=== PATIENT | female | born 1975 | race African-American/Black ===

== ENCOUNTER → 2020-04-28 12:53 | Outpatient (BNVA) | payer MEDICARE, MEDICAID, SELFPAY | PROVIDERS: PCP Internal Medicine; Referring Provider Internal Medicine; Visit Provider Nurse Practitioner Family | DX: M25.531 Pain in right wrist (principal) | CPT/HCPCS: 99202 ==

== ENCOUNTER → 2020-07-09 13:21 | Outpatient (BNVA) | payer MEDICARE, MEDICAID, SELFPAY | PROVIDERS: PCP Internal Medicine; Visit Provider Nurse Practitioner Family | DX: M25.531 Pain in right wrist (principal) | CPT/HCPCS: 99212 ==

== ENCOUNTER 2020-08-18 14:13 | Outpatient (REF) | payer MEDICARE, MEDICAID, SELFPAY ==
[2020-08-18 16:28] LABS: MANUAL DIFF FLAG NO
[2020-08-18 16:33] LABS: Basophils Percent Auto 0.7 % (0-2); Eosinophils Absolute Auto 0.2 X10*3/uL (0.0-0.4); Eosinophils Percent Auto 3.4 % (0-4); Hematocrit 37.2 % (37-47); Hemoglobin 11.8 g/dl (12.0-16.0); Imm Gran Abs Auto 0.01 X10*3/uL (0.00-0.03); Imm Gran Pct Auto 0.2 % (0.0-0.4); Lymphocytes Absolute Auto 2.4 X10*3/uL (1.2-4.9); Lymphocytes Percent Auto 40.2 % (20-40); Mean Corpuscular HGB Conc 31.7 g/dl (31.0-35.0); Mean Corpuscular Hemoglobin 30.2 pg (27.0-33.0); Mean Corpuscular Volume 95.1 fL (80-98); Mean Platelet Volume 11.2 fL (9.4-12.3); Monocytes Absolute Auto 0.5 X10*3/uL (0.1-1.2); Neutrophils Absolute Auto 2.8 X10*3/uL (2.0-8.3); Neutrophils Percent Auto 46.5 % (45-73); Platelet Count 310 X10*3/uL (160-400); Red Blood Count 3.91 X10*6/uL (4.20-5.50); Red Cell Distribution Width 13.4 % (11.0-16.0); White Blood Count 5.9 X10*3/uL (4.8-10.8)
[2020-08-18 17:33] LABS: Alanine Aminotransferase 11 U/L (0-31); Alkaline Phosphatase 60 U/L (39-117); Anion Gap 11 (12-20); Aspartate Amino Transferase 20 U/L (5-31); Bilirubin Total 0.4 mg/dL (0.0-1.0); Blood Urea Nitrogen 11 mg/dL (9-16); Calcium 8.8 mg/dL (8.4-10.2); Carbon Dioxide 29 mmol/L (22-29); Chloride 103 mmol/L (96-108); Estimated Glomerular Filt Rate > 60; Glucose Random 82 mg/dL (60-115); Potassium 4.6 mmol/L (3.3-5.1); Sodium 138 mmol/L (135-145); Total Protein 7.5 g/dL (6.5-8.0)
== END 2020-08-18 14:14 | disposition home or self-care (01) ==
LOC: HO.HMGCLDS 14:13
PROVIDERS: PCP Internal Medicine; Visit Provider Nurse Practitioner Family
DX: K92.1 Melena (principal)
CPT/HCPCS: 36415; 80053; 85025

== ENCOUNTER 2020-11-27 09:46 | Outpatient (REF) | payer MEDICARE, MEDICAID, SELFPAY ==
[2020-11-27 11:29] LABS: Hematocrit 36.9 % (37-47); Hemoglobin 11.8 g/dl (12.0-16.0); Mean Corpuscular Volume 93.9 fL (80-98); Mean Platelet Volume 10.9 fL (9.4-12.3); Platelet Count 334 X10*3/uL (160-400); Red Blood Count 3.93 X10*6/uL (4.20-5.50); Red Cell Distribution Width 12.9 % (11.0-16.0); White Blood Count 5.7 X10*3/uL (4.8-10.8)
[2020-11-27 11:56] LABS: Alanine Aminotransferase < 6 U/L (0-31); Albumin Level 4.2 g/dL (3.5-5.0); Alkaline Phosphatase 62 U/L (39-117); Anion Gap 15 (12-20); Aspartate Amino Transferase 20 U/L (5-31); Bilirubin Total 0.4 mg/dL (0.0-1.0); Blood Urea Nitrogen 15 mg/dL (9-16); Calcium 9.6 mg/dL (8.4-10.2); Carbon Dioxide 25 mmol/L (22-29); Chloride 104 mmol/L (96-108); Cholesterol 206 mg/dL; Estimated Glomerular Filt Rate > 60; Glucose Fasting 89 mg/dL (60-99); HDL Cholesterol 75 mg/dL; Iron 95 mcg/dL (30-160); LDL Cholesterol Calculated 119 mg/dl; Percent Iron Saturation 27 % (15-50); Potassium 4.5 mmol/L (3.3-5.1); Sodium 139 mmol/L (135-145); Total Iron Binding Capacity 349 mcg/dL (228-428); Total Protein 7.8 g/dL (6.5-8.0); Triglycerides 63 mg/dL; Unsaturated Iron Binding 254 ug/dL
[2020-11-27 12:02] LABS: Thyroid Stimulating Hormone 3.61 uIU/mL (0.32-4.0)
== END 2020-11-27 09:47 | disposition home or self-care (01) ==
LOC: HO.HMGCLDS 09:46
PROVIDERS: PCP Internal Medicine; Visit Provider Internal Medicine
DX: Z00.00 Encounter for general adult medical examination without abnormal findings (principal); D50.9 Iron deficiency anemia, unspecified; E78.5 Hyperlipidemia, unspecified; R20.8 Other disturbances of skin sensation; M25.531 Pain in right wrist; K59.00 Constipation, unspecified
CPT/HCPCS: 36415; 80053; 80061; 83540; 84443; 85027

== ENCOUNTER 2022-02-19 12:49 | Outpatient (REF) | payer MEDICARE, MEDICAID, SELFPAY ==
--- NOTE | ~2022-02-19 | US_ITS ---
EXAMINATION: US VENOUS ULTRASOUND WITH DOPPLER LOWER EXTREMITY, LEFT CLINICAL INFORMATION: Leg swelling COMPARISON: None TECHNIQUE: Ultrasound of the deep veins is performed from the hip to the calf with compression sonography and color and pulse Doppler assessment. Spectral analysis with color-flow imaging is performed. FINDINGS: There is normal venous compression and respiratory variation and augmented flow. The visualized common femoral vein, superficial femoral vein, profunda femoral vein, popliteal vein, and the trifurcation region shows no evidence of deep venous thrombosis. There is no significant popliteal fossa cyst. If the patient's symptoms persist, followup ultrasound in 5 days 7 days might be of value to exclude proximal propagation from a non-visualized calf vein. US/US venous duplex LE LT IMPRESSION: No DVT demonstrated in the left lower extremity.
== END 2022-02-19 12:50 | disposition home or self-care (01) ==
LOC: HO.US 12:49
PROVIDERS: PCP Internal Medicine; Visit Provider Internal Medicine
DX: R60.0 Localized edema (principal); M79.89 Other specified soft tissue disorders
CPT/HCPCS: 93971

== ENCOUNTER 2023-02-17 08:56 | Outpatient (AMB) | payer MEDICARE, MEDICAID, SELFPAY ==
[2023-02-17 08:57] VITALS: BP 120/78; PULSE 85; O2SAT 97; BMI 43.1
--- NOTE | 2023-02-17 08:57 | MHC.PC.OV ---
Vital Signs 02/17/23 08:57 Height 5 ft 1 in Weight 228 lb BMI 43.1 BP 120/78 Blood Pressure Location Lt brachial Position Sitting Pulse 85 Pulse Source Pulse Oximeter Pulse Oximetry (%) 97 Oxygen Delivery Method Room Air Intake Visit Reasons: Annual PE Intake Note: Pt is here today for PE. Allergies atenolol Allergy (Unknown, Verified 02/17/23 09:00) bad dreams tramadol [Ultracet] Allergy (Unknown, Verified 02/17/23 09:00) Pt's mother doesn't remember Medication List - Last Reconciled 02/17/23 by Deirdre Boudreaux MD albuterol sulfate 90 mcg/actuation (ProAir HFA) 1 inh inhalation QID PRN escitalopram oxalate 20 mg PO DAILY flu vac qs 2019(4 yr up)CD(PF) mL IM meloxicam 15 mg PO DAILY quetiapine 25 mg PO BEDTIME quetiapine 50 mg PO BEDTIME Tobacco use date assessed: 02/17/23 Dental Screening Dental Screen Date: 02/17/23 Did you have a dental visit in the last 12 months?: Yes Did you have a dental problem in the last 6 months where you did not have access to dental care?: No Was dental information given to patient?: Patient has dentist HPI Annual PE HPI Details Pt presents for PE. [facility] Medical History Constipation Normal colonoscopy Hyperlipidemia Annual physical exam Urinary incontinence Anxiety Insomnia Chronic iron deficiency anemia Mentally challenged Wrist pain, right Family History Mother No problems noted. Maternal Grandmother Mental health disorder Social History Housing: House Alcohol intake: never Patient Tobacco Use Status: Never used Tobacco e-Cigarette/Vaping Use: Never Used Second Hand Smoke Exposure: No Current occupational status: other Cognitive needs: No Hearing needs: No Vision needs: Yes Questionnaire Thrive Questionnaire Date Thrive assessed: 02/18/22 LIZZIE-7 AMB Questionnaire LIZZIE-7 Date LIZZIE - 7 assessed: 02/18/22 Source: Developed by Drs. Hansel Head, Katie Piper, Kuldip Ulloa and colleagues, with an educational simeon from [employer]. Review of Systems Const All systems reviewed & are unremarkable except as noted in HPI and below Reports no additional complaints Eyes Reports no additional complaints ENT Reports no additional complaints Card Reports no additional complaints Resp Reports no additional complaints GI Reports no additional complaints Reports no additional complaints Musc Reports no additional complaints Physical exam (Primary Care) Vital Signs: Last Vital Signs Pulse 85 02/17/23 08:57 BP 142/92 H 02/17/23 08:57 Pulse Ox 97 02/17/23 08:57 Oxygen Delivery Method Room Air 02/17/23 08:57 BMI result Body Mass Index 43.1 Tobacco/Smoking Status: Tobacco use Status Tobacco use date assessed 02/17/23 02/17/23 09:07 Patient Tobacco Use Status Never used Tobacco 02/17/23 09:07 e-Cigarette/Vaping Use Never Used 02/17/23 08:58 Thrive Assessment: Date of Thrive Assessment Date Thrive assessed 02/18/22 02/17/23 08:58 Const General: no acute distress HENMT Head: Yes normal to inspection Ears: hearing grossly normal bilaterally General nose exam: Normal external nose present Face and sinus: Yes normal facial exam Mouth: Normal oral and palatal mucosa present Throat: Yes posterior oropharynx normal Eyes General: appearance normal, both eyes and all related structures Neck Neck: Yes supple Resp Effort & Inspection: normal respiratory effort Auscultation: clear to auscultation bilaterally Cardio Rhythm: regular rhythm Heart sounds: S1 normal heart sound present and S2 normal heart sound present GI Inspection: Yes normal to inspection Palpation (GI): Soft to palpation Percussion: Yes normal to percussion Auscultation: normal bowel sounds Assessment and Plan Assessment & Plan (1) Hyperlipidemia: Code(s): E78.5 - Hyperlipidemia, unspecified Plan: CONTINUE LOW-CHOLESTEROL DIET (2) Annual physical exam: Code(s): Z00.00 - Encounter for general adult medical examination without abnormal findings Plan: Well-balanced diet regular physical activity weight loss discussed with the patient and her mother. She is up-to-date with mammogram and colonoscopy. Patient have a fasting blood work today and return in 1 year for physical or as needed (3) Hearing loss: Code(s): H91.90 - Unspecified hearing loss, unspecified ear Orders: Orders TSH reflex Free T4 Today E78.5 - Hyperlipidemia, unspecified, Z00.00 - Encounter for general adult medical examination without abnormal findings Hemoglobin A1c Today E78.5 - Hyperlipidemia, unspecified, Z00.00 - Encounter for general adult medical examination without abnormal findings Comprehensive [place]. Panel Fast Today E78.5 - Hyperlipidemia, unspecified, Z00.00 - Encounter for general adult medical examination without abnormal findings Complete Blood Count Auto Diff Today E78.5 - Hyperlipidemia, unspecified, Z00.00 - Encounter for general adult medical examination without abnormal findings Lipid Panel Today E78.5 - Hyperlipidemia, unspecified, Z00.00 - Encounter for general adult medical examination without abnormal findings Referrals Speech and Hearing Referral H91.90 - Unspecified hearing loss, unspecified ear Coding Level of Care Code Est Pt Prev Care 40-64y(91202) Diagnoses Hyperlipidemia E78.5 Annual physical exam Z00.00 Hearing loss H91.90
== END 2023-02-17 09:48 | disposition home or self-care (01) ==
PROVIDERS: PCP Internal Medicine; Visit Provider Internal Medicine
DX: Z00.00 Encounter for general adult medical examination without abnormal findings (principal); E78.5 Hyperlipidemia, unspecified; H91.90 Unspecified hearing loss, unspecified ear
CPT/HCPCS: 99396

== ENCOUNTER 2023-02-17 09:44 | Outpatient (REF) | payer MEDICARE, MEDICAID, SELFPAY ==
[2023-02-17 13:23] LABS: MANUAL DIFF FLAG NO
[2023-02-17 13:27] LABS: Basophils Percent Auto 0.6 % (0-2); Eosinophils Absolute Auto 0.2 X10*3/uL (0.0-0.4); Eosinophils Percent Auto 2.9 % (0-4); Hematocrit 37.2 % (37.0-47.0); Hemoglobin 11.5 g/dl (12.0-16.0); Imm Gran Abs Auto 0.02 X10*3/uL (0.00-0.03); Imm Gran Pct Auto 0.3 % (0.0-0.4); Lymphocytes Absolute Auto 2.6 X10*3/uL (1.2-4.9); Lymphocytes Percent Auto 36.1 % (20-40); Mean Corpuscular HGB Conc 30.9 g/dl (31.0-35.0); Mean Corpuscular Hemoglobin 29.4 pg (27.0-33.0); Mean Corpuscular Volume 95.1 fL (80.0-98.0); Mean Platelet Volume 11.4 fL (9.4-12.3); Monocytes Absolute Auto 0.7 X10*3/uL (0.1-1.2); Neutrophils Absolute Auto 3.7 x10*3/uL (2.0-8.3); Neutrophils Percent Auto 51.1 % (45-73); Platelet Count 341 X10*3/uL (160-400); Red Blood Count 3.91 X10*6/uL (4.20-5.50); Red Cell Distribution Width 14.5 % (11.0-16.0); White Blood Count 7.2 X10*3/uL (4.8-10.8)
[2023-02-17 14:16] LABS: Alanine Aminotransferase 10 U/L (0-31); Albumin Level 4.3 g/dL (3.5-5.0); Alkaline Phosphatase 54 U/L (39-117); Anion Gap 17 (12-20); Aspartate Amino Transferase 22 U/L (5-31); Bilirubin Total 0.4 mg/dL (0.0-1.0); Blood Urea Nitrogen 16 mg/dL (9-16); Calcium 9.5 mg/dL (8.4-10.2); Carbon Dioxide 26 mmol/L (22-29); Chloride 100 mmol/L (96-108); Cholesterol 198 mg/dL (<200); Estimated Average Glucose 111 mg/dL; Estimated Glomerular Filt Rate > 60; Glucose Fasting 92 mg/dL (60-99); HDL Cholesterol 74 mg/dL (>40); Hemoglobin A1C 100.2218 umol/L; Hemoglobin A1c % 5.5 % (<6.0); LDL Cholesterol Calculated 109 mg/dL (<100); Potassium 3.9 mmol/L (3.3-5.1); Sodium 139 mmol/L (135-145); Total Protein 8.3 g/dL (6.5-8.0); Triglycerides 79 mg/dL (<150)
[2023-02-17 14:19] LABS: TSH reflex Free T4 3.93 uIU/mL (0.32-4.0)
== END 2023-02-17 09:45 | disposition home or self-care (01) ==
LOC: HO.HMGCLDS 09:44
PROVIDERS: PCP Internal Medicine; Visit Provider Internal Medicine
DX: Z00.00 Encounter for general adult medical examination without abnormal findings (principal); E78.5 Hyperlipidemia, unspecified
CPT/HCPCS: 36415; 80053; 80061; 83036; 84443; 85025

== ENCOUNTER 2023-05-19 13:34 | Outpatient (AMB) | payer MEDICARE, MEDICAID, SELFPAY ==
[2023-05-19 13:40] VITALS: BMI 43.2
--- NOTE | 2023-05-19 13:40 | A.OFFVIS_ITS ---
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 Pt was referred by Dr. Cortez. Pt is accompanied by her mother during this appointment. Mom reports there is no meal pattern in the family, they reside with extended family. No meal pattern, keeping sedentary EAtingout/ordering food: 2-3 x/wk pastries and the like : 3 + per day Beverages: juice > 16 oz/d , water fish: 0x/wk fruits: in juice form vegetables : 4 x/wk dairy: > 4 servings/d starches > 20 serving/d SLX-Rrabofq-Bl.Jeor Equation Height 5 ft 1 in Weight 228 lb Resting Metabolic Rate 1604.37 Calculated Activity Level Sedentary Calories Needed to Maintain Weight 1925.24 Diagnosis Nutrition problem #1 excessive energy intake As related to (etiology) #1 diagnosis As evidenced by (sign/symptom) #1 high BMI (43.2 (05/19/23)) Most Recent Diabetes Results: Cholesterol 198 mg/dL (<200) 02/17/23 HDL Cholesterol 74 mg/dL (>40) 02/17/23 Triglycerides 79 mg/dL (<150) 02/17/23 Creatinine 0.77 mg/dL (0.5-1.4) 02/17/23 Blood Urea Nitrogen 16 mg/dL (9-16) 02/17/23 Sodium 139 mmol/L (135-145) 02/17/23 Potassium 3.9 mmol/L (3.3-5.1) 02/17/23 Chloride 100 mmol/L (96-108) 02/17/23 Carbon Dioxide 26 mmol/L (22-29) 02/17/23 Calcium 9.5 mg/dL (8.4-10.2) 02/17/23 AST 22 U/L (5-31) 02/17/23 ALT 10 U/L (0-31) 02/17/23 Total Protein 8.3 g/dL (6.5-8.0) H 02/17/23 Albumin 4.3 g/dL (3.5-5.0) 02/17/23 PFSH Medical History Constipation Normal colonoscopy Hyperlipidemia Annual physical exam Urinary incontinence Anxiety Insomnia Chronic iron deficiency anemia Mentally challenged Wrist pain, right Family History Mother No problems noted. Maternal Grandmother Mental health disorder Social History Housing: House Alcohol intake: never Patient Tobacco Use Status: Never used Tobacco e-Cigarette/Vaping Use: Never Used Second Hand Smoke Exposure: No Current occupational status: other Cognitive needs: No Hearing needs: No Vision needs: Yes Assessment & Plan Assessment & Plan (1) Overweight: Code(s): E66.3 - Overweight Plan: Wt: 104 Kg ( 04/2023 ) Est kcal needs as per MSJ: 1900 (40% carb, 30% protein/fat) Est fluid needs as per 25-30 ml/d: 3100 Est prot per day as per 1 g/kg bw: 104 Recommend fiber intake : 8-10 g per day and gradually increase to 25-28 g per day for women and 35-38 g for men or as tolerated Recommend sodium intake per day : less than 2000 mg Educated patient on: ( R = reviewed V = verbalizes understanding N/R = needs review N/A = not applicable * Food sources of carbohydrate, adequate serving sizes and its role in various health conditions: R * Differences between complex carbohydrates a simple carbohydrates, role of fiber in diet: R * Lean protein sources of foods: NR * Differences between types of fats and role in diet (mono on saturated fat fatty acids, saturated fatty acids, trans fats): NR * Food sources of sodium in salt and healthy modifications for heart health in kidney health: NR * Vitamins and minerals: R * Healthy plate method concept: R * Physical activity: Benefits a precaution: R Patient Instructions: Work on reducing on sugar -dilute juices with water -reduce on frequency of pastries -choose smaller plates, cups - Follow healthy plate method goal wt loss 5 lbs in 2 months Coding Level of Care Code Nutr Indiv Intake (86801) Diagnoses Overweight E66.3 Time Spent (min) 30
[2023-05-31 13:52] VITALS: BMI 43.1
== END 2023-05-19 14:29 | disposition home or self-care (01) ==
PROVIDERS: PCP Internal Medicine; Visit Provider Dietitian, Registered
DX: E66.3 Overweight (principal)

== ENCOUNTER → 2023-05-19 13:34 | Outpatient (BNVA) | payer MEDICARE, MEDICAID, SELFPAY | PROVIDERS: PCP Internal Medicine; Visit Provider Dietitian, Registered | DX: E66.3 Overweight (principal); Z68.41 Body mass index [BMI] 40.0-44.9, adult | CPT/HCPCS: 97802 ==

== ENCOUNTER 2023-06-14 15:24 | Outpatient (REF) | payer MEDICARE, MEDICAID, SELFPAY ==
--- NOTE | 2023-06-14 16:08 | MHC.AU.ANO ---
Adult Audiological Evaluation Date of Visit: 06/14/23 Reason for Appointment: Here for evaluation. Accompanied by mother, Jordyn, who provided case history details. They report that Elba has been experiencing diminished hearing for about two years. Reports otalgia Ad. Tinnitus Ad. Notes frequent dizzy episodes. Reports history of ear infections and wax build up. Family history of hearing loss denied. Significant noise exposure denied. Medical History: Medical History: Developmental Disorder/Delay Headache Measles Otoscopy: Right Ear: Completely occluded with cerumen Left Ear: Completely occluded with cerumen Tympanometry: Tympanometry performed due to: To determine if cerumen blockage is fully occluding canal(s) Right Ear: Small ear canal volume (0.5cm3) and non-compliant, consistent with occlusion Left Ear: Small ear canal volume (0.4cm3) and non-compliant, consistent with occlusion Interpretation of Results: Additional testing postponed due to presence of occluding cerumen Au. Recommendations: Recommended cerumen removal at PCP. They note that Elba can find cerumen removal to be uncomfortable. Recommended using wax softening drops at home in anticipation of wax removal appointment. Return for hearing evaluation following complete removal of cerumen. Diagnosis: Primary Diagnosis: H61.23 Impacted Cerumen, Bilateral Services Performed: Tympanometry (CPT 21914) Signature: Provider: Kirill Willson, [facility]
== END 2023-06-14 15:25 | disposition home or self-care (01) ==
LOC: HO.SH 15:24
PROVIDERS: Visit Provider Internal Medicine
DX: Z01.118 Encounter for examination of ears and hearing with other abnormal findings (principal); H61.23 Impacted cerumen, bilateral
CPT/HCPCS: 92567

== ENCOUNTER 2023-06-22 14:17 | Outpatient (AMB) | payer MEDICARE, MEDICAID, SELFPAY ==
--- NOTE | 2023-06-22 14:33 | A.OFFPC_ITS ---
Vital Signs 06/22/23 14:35 Height 5 ft 1 in Weight 222 lb BMI 41.9 BP 125/85 Blood Pressure Location Lt brachial Position Sitting Pulse 90 Pulse Source Pulse Oximeter Pulse Oximetry (%) 97 Oxygen Delivery Method Room Air Intake Visit Reasons: ear irrigation Intake Note: Pt is here today for a follow up visit. Pt states that she needs her ears flushed and she would like to get a flu shot today. Allergies atenolol Allergy (Unknown, Verified 06/22/23 14:41) bad dreams tramadol [Ultracet] Allergy (Unknown, Verified 06/22/23 14:41) Pt's mother doesn't remember Tobacco use date assessed: 06/22/23 Dental Screening Dental Screen Date: 06/22/23 Did you have a dental visit in the last 12 months?: Yes Did you have a dental problem in the last 6 months where you did not have access to dental care?: No Was dental information given to patient?: Patient has dentist HPI ear irrigation HPI Details Patient presents complaining of cerumen buildup in the right ear and decreased hearing. Patient denies ear pain. [facility] Medical History Constipation Normal colonoscopy Hyperlipidemia Annual physical exam Urinary incontinence Anxiety Insomnia Chronic iron deficiency anemia Mentally challenged Wrist pain, right Family History Mother No problems noted. Maternal Grandmother Mental health disorder Social History Housing: House Alcohol intake: never Patient Tobacco Use Status: Never used Tobacco e-Cigarette/Vaping Use: Never Used Second Hand Smoke Exposure: No Current occupational status: other Cognitive needs: No Hearing needs: No Vision needs: Yes Questionnaire Thrive Questionnaire Date Thrive assessed: 02/18/22 AUDIT C Alcohol Use Questionnaire (AUDIT-C) 1. How often do you have a drink containing alcohol?: Never 3. How often do you have six or more drinks on one occasion?: Never Total Score: 0 LIZZIE-7 AMB Questionnaire LIZZIE-7 Date LIZZIE - 7 assessed: 02/18/22 Source: Developed by Drs. Hansel Head, Katie Piper, Kuldip Ulloa and colleagues, with an educational simeon from [employer]. Review of Systems Const All systems reviewed & are unremarkable except as noted in HPI and below Reports no additional complaints Eyes Reports no additional complaints ENT Reports no additional complaints Card Reports no additional complaints Resp Reports no additional complaints GI Reports no additional complaints Physical exam (Primary Care) Vital Signs: Last Vital Signs Pulse 90 06/22/23 14:35 BP 136/90 H 06/22/23 14:35 Pulse Ox 97 06/22/23 14:35 Oxygen Delivery Method Room Air 06/22/23 14:35 BMI result Body Mass Index 41.9 Tobacco/Smoking Status: Tobacco use Status Tobacco use date assessed 06/22/23 06/22/23 14:44 Patient Tobacco Use Status Never used Tobacco 06/22/23 14:44 e-Cigarette/Vaping Use Never Used 06/22/23 14:34 Thrive Assessment: Date of Thrive Assessment Date Thrive assessed 02/18/22 06/22/23 14:34 Const General: no acute distress HENMT Ears: unable to visualize TM (Cerumen impaction) bilaterally Face and sinus: Yes normal facial exam Eyes General: appearance normal, both eyes and all related structures Neck Neck: Yes supple Resp Effort & Inspection: normal respiratory effort Auscultation: clear to auscultation bilaterally Cardio Rhythm: regular rhythm Heart sounds: S1 normal heart sound present and S2 normal heart sound present Assessment and Plan Assessment & Plan (1) Hyperlipidemia: Code(s): E78.5 - Hyperlipidemia, unspecified Plan: Continue low-cholesterol diet (2) Cerumen impaction: Code(s): H61.20 - Impacted cerumen, unspecified ear Plan: Ear irrigation performed, tympanic membrane visualized and inact, patient tolerated procedure well Coding Level of Care Code Est Pt Level 3 (97668) Diagnoses Hyperlipidemia E78.5 Cerumen impaction H61.20
[2023-06-22 14:35] VITALS: BP 125/85; PULSE 90; O2SAT 97; BMI 41.9
== END 2023-06-22 15:17 | disposition home or self-care (01) ==
PROVIDERS: PCP Internal Medicine; Visit Provider Internal Medicine
DX: E78.5 Hyperlipidemia, unspecified (principal); H61.20 Impacted cerumen, unspecified ear; Z23 Encounter for immunization
CPT/HCPCS: 90471; 90686; 99213

== ENCOUNTER 2023-06-23 13:35 | Outpatient (AMB) | payer MEDICARE, MEDICAID, SELFPAY ==
[2023-06-23 13:39] VITALS: BMI 42.8
--- NOTE | 2023-06-23 13:39 | MHC.AMNUTRGE ---
Intake VS Expanded 06/23/23 13:39 Height 5 ft 1 in Weight 226 lb 6.636 oz BMI 42.8 Intake Visit Reasons: nutrition/CONFIRMED Allergies atenolol Allergy (Unknown, Verified 06/22/23 14:41) bad dreams tramadol [Ultracet] Allergy (Unknown, Verified 06/22/23 14:41) Pt's mother doesn't remember HPI Nutrition Presentation Details Pt presents for MNT for overweight. The Pt has intellectual disability and presents with her mother during this appointment. Pt's mom reports Pt havig long hx of needing supervision with daily life activities including supervision when eating related to increased intake/large portions. Mom reports working on reducing on beverages with sugar , reinforcing water Most Recent Diabetes Results: Cholesterol 198 mg/dL (<200) 02/17/23 HDL Cholesterol 74 mg/dL (>40) 02/17/23 Triglycerides 79 mg/dL (<150) 02/17/23 Creatinine 0.77 mg/dL (0.5-1.4) 02/17/23 Blood Urea Nitrogen 16 mg/dL (9-16) 02/17/23 Sodium 139 mmol/L (135-145) 02/17/23 Potassium 3.9 mmol/L (3.3-5.1) 02/17/23 Chloride 100 mmol/L (96-108) 02/17/23 Carbon Dioxide 26 mmol/L (22-29) 02/17/23 Calcium 9.5 mg/dL (8.4-10.2) 02/17/23 AST 22 U/L (5-31) 02/17/23 ALT 10 U/L (0-31) 02/17/23 Total Protein 8.3 g/dL (6.5-8.0) H 02/17/23 Albumin 4.3 g/dL (3.5-5.0) 02/17/23 [facility] Medical History Constipation Normal colonoscopy Hyperlipidemia Annual physical exam Urinary incontinence Anxiety Insomnia Chronic iron deficiency anemia Mentally challenged Wrist pain, right Family History Mother No problems noted. Maternal Grandmother Mental health disorder Social History Housing: House Alcohol intake: never Patient Tobacco Use Status: Never used Tobacco e-Cigarette/Vaping Use: Never Used Second Hand Smoke Exposure: No Current occupational status: other Cognitive needs: No Hearing needs: No Vision needs: Yes Assessment & Plan Assessment & Plan (1) Overweight: Code(s): E66.3 - Overweight Plan: Wt: 104 Kg ( 04/2023 ) , 103 kg (06/2023) Est kcal needs as per MSJ: 1900 (40% carb, 30% protein/fat) Est fluid needs as per 25-30 ml/d: 3100 Est prot per day as per 1 g/kg bw: 104 Recommend fiber intake : 8-10 g per day and gradually increase to 25-28 g per day for women and 35-38 g for men or as tolerated Recommend sodium intake per day : less than 2000 mg Educated patient on: ( R = reviewed V = verbalizes understanding N/R = needs review N/A = not applicable Food sources of carbohydrate, adequate serving sizes and its role in various health conditions: R Differences between complex carbohydrates a simple carbohydrates, role of fiber in diet: R Lean protein sources of foods: NR Differences between types of fats and role in diet (mono on saturated fat fatty acids, saturated fatty acids, trans fats): NR Food sources of sodium in salt and healthy modifications for heart health in kidney health: NR Vitamins and minerals: R Healthy plate method concept: R Physical activity: Benefits a precaution: R Patient Instructions: Continue working on reducing on beverages with sugars Reduce on amount of fat added to the foods (butter, oils, sauces, gravies, fried foods) Coding Level of Care Code Nutr Indiv Subseq (94050) Diagnoses Overweight E66.3 Time Spent (min) 20
== END 2023-06-23 14:05 | disposition home or self-care (01) ==
PROVIDERS: PCP Internal Medicine; Visit Provider Dietitian, Registered
DX: E66.3 Overweight (principal)

== ENCOUNTER → 2023-06-23 13:35 | Outpatient (BNVA) | payer MEDICARE, MEDICAID, SELFPAY | PROVIDERS: PCP Internal Medicine; Visit Provider Dietitian, Registered | DX: E66.3 Overweight (principal); Z68.41 Body mass index [BMI] 40.0-44.9, adult; Z71.3 Dietary counseling and surveillance | CPT/HCPCS: 97803 ==

== ENCOUNTER 2023-06-27 14:44 | Outpatient (REF) | payer MEDICARE, MEDICAID, SELFPAY | END 2023-06-27 14:45 | disposition home or self-care (01) | LOC: HO.SH 14:44 | PROVIDERS: Visit Provider Internal Medicine | DX: Z01.10 Encounter for examination of ears and hearing without abnormal findings (principal); H93.293 Other abnormal auditory perceptions, bilateral; G47.63 Sleep related bruxism | CPT/HCPCS: 92552; 92555; 92567 ==

== ENCOUNTER 2023-08-16 14:09 | Outpatient (REF) | payer MEDICARE, MEDICAID, SELFPAY ==
[2023-08-17 22:28] LABS: Lyme Abs Screen <0.90 index
== END 2023-08-16 14:10 | disposition home or self-care (01) ==
LOC: HO.HMGCLDS 14:09
PROVIDERS: PCP Internal Medicine; Visit Provider Internal Medicine
DX: M25.50 Pain in unspecified joint (principal)
CPT/HCPCS: 36415; 86617; 86618

== ENCOUNTER 2023-08-18 12:53 | Outpatient (AMB) | payer MEDICARE, MEDICAID, SELFPAY ==
[2023-08-18 13:04] VITALS: BMI 42.5
--- NOTE | 2023-08-18 13:04 | A.OFFVIS_ITS ---
Intake VS Expanded 08/18/23 13:04 Height 5 ft 1 in Weight 225 lb 1.471 oz BMI 42.5 Intake Visit Reasons: Obesity/LVM Allergies atenolol Allergy (Unknown, Verified 06/22/23 14:41) bad dreams tramadol [Ultracet] Allergy (Unknown, Verified 06/22/23 14:41) Pt's mother doesn't remember HPI Nutrition Presentation Details Pt presents for MNT f/u for obesity Gradually working on modifying portion of the meal at dinner. Most Recent Diabetes Results: Cholesterol 198 mg/dL (<200) 02/17/23 HDL Cholesterol 74 mg/dL (>40) 02/17/23 Triglycerides 79 mg/dL (<150) 02/17/23 Creatinine 0.77 mg/dL (0.5-1.4) 02/17/23 Blood Urea Nitrogen 16 mg/dL (9-16) 02/17/23 Sodium 139 mmol/L (135-145) 02/17/23 Potassium 3.9 mmol/L (3.3-5.1) 02/17/23 Chloride 100 mmol/L (96-108) 02/17/23 Carbon Dioxide 26 mmol/L (22-29) 02/17/23 Calcium 9.5 mg/dL (8.4-10.2) 02/17/23 AST 22 U/L (5-31) 02/17/23 ALT 10 U/L (0-31) 02/17/23 Total Protein 8.3 g/dL (6.5-8.0) H 02/17/23 Albumin 4.3 g/dL (3.5-5.0) 02/17/23 [facility] Medical History Constipation Normal colonoscopy Hyperlipidemia Annual physical exam Urinary incontinence Anxiety Insomnia Chronic iron deficiency anemia Mentally challenged Wrist pain, right Family History Mother No problems noted. Maternal Grandmother Mental health disorder Social History Housing: House Alcohol intake: never Patient Tobacco Use Status: Never used Tobacco e-Cigarette/Vaping Use: Never Used Second Hand Smoke Exposure: No Current occupational status: other Cognitive needs: No Hearing needs: No Vision needs: Yes Assessment & Plan Assessment & Plan (1) Overweight: Code(s): E66.3 - Overweight Plan: Wt: 104 Kg ( 04/2023 ) , 103 kg (06/2023), 102 kg ( 07/2023) Est kcal needs as per MSJ: 1900 (40% carb, 30% protein/fat) Est fluid needs as per 25-30 ml/d: 3100 Est prot per day as per 1 g/kg bw: 102 Recommend fiber intake : 8-10 g per day and gradually increase to 25-28 g per day for women and 35-38 g for men or as tolerated Recommend sodium intake per day : less than 2000 mg Educated patient on: ( R = reviewed V = verbalizes understanding N/R = needs review N/A = not applicable * Food sources of carbohydrate, adequate serving sizes and its role in various health conditions: R * Differences between complex carbohydrates a simple carbohydrates, role of fiber in diet: R * Lean protein sources of foods: NR * Differences between types of fats and role in diet (mono on saturated fat fatty acids, saturated fatty acids, trans fats): NR * Food sources of sodium in salt and healthy modifications for heart health in kidney health: R * Vitamins and minerals: R * Healthy plate method concept: R * Physical activity: Benefits a precaution: R Patient Instructions: Continue working on portion control - have a particular plate (with healthy plate partition) Drink water with meals and snacks include probiotics into your diet (pickled peppers/vegetables, sauerkraut, yogurt Coding Level of Care Code Nutr Indiv Subseq (17278) Diagnoses Overweight E66.3 Time Spent (min) 20
== END 2023-08-18 13:32 | disposition home or self-care (01) ==
PROVIDERS: PCP Internal Medicine; Visit Provider Dietitian, Registered
DX: E66.3 Overweight (principal)

== ENCOUNTER → 2023-08-18 12:53 | Outpatient (BNVA) | payer MEDICARE, MEDICAID, SELFPAY | PROVIDERS: PCP Internal Medicine; Visit Provider Dietitian, Registered | DX: E66.3 Overweight (principal); Z68.41 Body mass index [BMI] 40.0-44.9, adult | CPT/HCPCS: 97803 ==

== ENCOUNTER 2023-09-01 14:21 | Outpatient (AMB) | payer MEDICARE, MEDICAID, SELFPAY ==
[2023-09-01 14:27] VITALS: BP 110/78; PULSE 88; O2SAT 96; BMI 41.9
--- NOTE | 2023-09-01 14:27 | MHC.PC.OV ---
Vital Signs 09/01/23 14:27 Height 5 ft 1 in Weight 222 lb BMI 41.9 BP 110/78 Blood Pressure Location Rt brachial Position Sitting Pulse 88 Pulse Source Pulse Oximeter Pulse Oximetry (%) 96 Oxygen Delivery Method Room Air Intake Visit Reasons: Pain in right Eye Intake Note: Pt is here today for a sick visit. Pt c/o R eye pain for 6 weeks now. Allergies atenolol Allergy (Unknown, Verified 09/01/23 14:33) bad dreams tramadol [Ultracet] Allergy (Unknown, Verified 09/01/23 14:33) Pt's mother doesn't remember Medication List - Last Reconciled 09/01/23 by Deirdre Boudreaux MD albuterol sulfate 90 mcg/actuation (ProAir HFA) 1 inh inhalation QID PRN escitalopram oxalate 20 mg PO DAILY flu vac qs 2019(4 yr up)CD(PF) mL IM latanoprost 0.005% drps ophthalmic (eye) meloxicam 15 mg PO DAILY propranolol 10 mg PO DAILY quetiapine 25 mg PO BEDTIME quetiapine 50 mg PO BEDTIME Tobacco use date assessed: 09/01/23 Dental Screening Dental Screen Date: 06/22/23 HPI Pain in right Eye HPI Details Pt presents c/o constant R eye and right side face pain for 8 weeks. Patient complains of headaches on and off worse on the right frontal side. She denies change in vision and had negative ophthalmological evaluation. Patient has chronic nasal congestion but denies fever, chills, cough. [facility] Medical History (Updated 09/01/23 @ 15:05 by Deirdre Boudreaux MD) Constipation Normal colonoscopy Hyperlipidemia Annual physical exam Urinary incontinence Anxiety Insomnia Chronic iron deficiency anemia Mentally challenged Wrist pain, right Surgical History (Updated 09/01/23 @ 14:39 by Padma Dean Aung) H/O colonoscopy Family History Mother No problems noted. Maternal Grandmother Mental health disorder Social History Housing: House Alcohol intake: never Patient Tobacco Use Status: Never used Tobacco e-Cigarette/Vaping Use: Never Used Second Hand Smoke Exposure: No Current occupational status: other Cognitive needs: No Hearing needs: No Vision needs: Yes Questionnaire PHQ-9 Over the last 2 weeks, how often have you been bothered by any of the following problems? 46498 - PHQ-9 Billing: Patient declined-do not bill Source: Developed by Drs. Hansel Head, Katie Piper, Kuldip Ulloa and colleagues, with an educational simeon from [employer]. Thrive Questionnaire Date Thrive assessed: 09/01/23 What is your living situation today?: I choose not to answer this question Within the past 12 months, did the food you bought not last and you didn't have the money to get more?: I choose not to answer this question Within the past 12 months, did you worry whether your food would run out before you got money to buy more?: I choose not to answer this question Do you have trouble paying for medicines?: I choose not to answer this question Do you have trouble getting transportation to medical appointments?: I choose not to answer this question Do you have trouble paying your heating and electricity bill?: I choose not to answer this question Do you have trouble taking care of your child, family member or friend?: I choose not to answer this question Do you have trouble with day-to-day activities such as bathing, preparing meals, shopping, managing finances, etc.?: I choose not to answer this question Are you currently unemployed and looking for a job?: I choose not to answer this question Are you interested in more education?: I choose not to answer this question THRIVE Score: 0 LIZZIE-7 AMB Questionnaire LIZZIE-7 Date LIZZIE - 7 assessed: 09/01/23 Source: Developed by Drs. Hansel Head, Katie Piper, Kuldip Ulloa and colleagues, with an educational simeon from [employer]. LIZZIE-7 Assessment Billing LIZZIE-7 Assessment Tool: pt declined-do not bill Review of Systems Const All systems reviewed & are unremarkable except as noted in HPI and below Reports no additional complaints Eyes Reports no additional complaints ENT Reports no additional complaints Resp Reports no additional complaints Physical exam (Primary Care) Vital Signs: Last Vital Signs Pulse 88 09/01/23 14:27 BP 110/78 09/01/23 14:27 Pulse Ox 96 09/01/23 14:27 Oxygen Delivery Method Room Air 09/01/23 14:27 BMI result Body Mass Index 41.9 Tobacco/Smoking Status: Tobacco use Status Tobacco use date assessed 09/01/23 09/01/23 14:35 Patient Tobacco Use Status Never used Tobacco 09/01/23 14:27 e-Cigarette/Vaping Use Never Used 09/01/23 14:27 Thrive Assessment: Date of Thrive Assessment Date Thrive assessed 09/01/23 09/01/23 14:40 Const General: no acute distress HENMT Other: There is a reproducible tenderness over right maxillary region, and 1st and 2nd trigeminal luis fernando on the right Head: Yes normal to inspection Ears: hearing grossly normal bilaterally General nose exam: Normal nasal mucous membranes and turbinates present Face and sinus: Yes sinus tenderness (Maxillary) Mouth: Normal oral and palatal mucosa present Throat: Yes posterior oropharynx normal Eyes General: appearance normal, both eyes and all related structures Visual Farley: normal visual farley by confrontation Periorbital: periorbital findings normal Eyelids: Yes eyelids normal Conjunctivae: conjunctivae normal Pupils: Equal, round and reactive pupils present EOM: EOMs intact bilaterally Neck Neck: Yes no lymphadenopathy and Yes supple Resp Effort & Inspection: normal respiratory effort Auscultation: clear to auscultation bilaterally Cardio Rhythm: regular rhythm Heart sounds: S1 normal heart sound present and S2 normal heart sound present Neuro Cranial nerves: Yes Equal, round and reactive pupils present Assessment and Plan Assessment & Plan (1) Right facial pain: Code(s): R51.9 - Headache, unspecified Plan: For persistent right facial pain CT of the sinuses will be obtained to rule out chronic sinusitis. Sed rate will be checked and Tegretol 100 mg daily will be started for trigeminal neuralgia. Patient will follow-up in 1 month (2) Chronic sinus infection: Code(s): J32.9 - Chronic sinusitis, unspecified Orders: Orders CT sinus wo IV con Today J32.9 - Chronic sinusitis, unspecified, R51.9 - Headache, unspecified C Reactive Protein Today J32.9 - Chronic sinusitis, unspecified, R51.9 - Headache, unspecified Medications: New carbamazepine ER (Tegretol XR) 100 mg PO DAILY 30 tabs 0RF Coding Level of Care Code Est Pt Level 3 (30675) Diagnoses Right facial pain R51.9 Chronic sinus infection J32.9
== END 2023-09-01 15:17 | disposition home or self-care (01) ==
PROVIDERS: PCP Internal Medicine; Visit Provider Internal Medicine
DX: R51.9 Headache, unspecified (principal); J32.9 Chronic sinusitis, unspecified
CPT/HCPCS: 99213

== ENCOUNTER 2023-09-01 15:11 | Outpatient (REF) | payer MEDICARE, MEDICAID, SELFPAY | END 2023-09-01 15:12 | disposition home or self-care (01) | LOC: HO.HMGCLDS 15:11 | PROVIDERS: PCP Internal Medicine; Visit Provider Internal Medicine | DX: Z13.89 Encounter for screening for other disorder (principal) ==

== ENCOUNTER 2023-10-19 11:00 | Outpatient (AMB) | payer MEDICARE, MEDICAID, SELFPAY ==
--- NOTE | 2023-10-19 11:14 | MHC.AMNUTRGE ---
VS Expanded 10/19/23 11:15 Height 5 ft 1 in Weight 225 lb 12.054 oz BMI 42.7 Intake Visit Reasons: Monitor weight/CONFIRMED Allergies atenolol Allergy (Unknown, Verified 09/01/23 14:33) bad dreams tramadol [Ultracet] Allergy (Unknown, Verified 09/01/23 14:33) Pt's mother doesn't remember Nutrition Presentation Details: Pt presents for MNT f/u for overweight Pt presents with mom who is the main neuropsychology division chief Pt has mild intellectual disabilities with impaired judgment. Pt cannot differentiate appetite vs hunger Utilizing plate with portions - BS Monitoring Most Recent Diabetes Results: No Data to Display PFSH Medical History (Updated 10/07/23 @ 13:56 by Deirdre Boudreaux MD) Constipation Normal colonoscopy Hyperlipidemia Annual physical exam Urinary incontinence Anxiety Insomnia Chronic iron deficiency anemia Mentally challenged Wrist pain, right Surgical History (Updated 09/01/23 @ 14:39 by Padma Dean [facility]) H/O colonoscopy Family History Mother No problems noted. Maternal Grandmother Mental health disorder Social History Housing: House Alcohol intake: never Patient Tobacco Use Status: Never used Tobacco e-Cigarette/Vaping Use: Never Used Second Hand Smoke Exposure: No Current occupational status: other Cognitive needs: No Hearing needs: No Vision needs: Yes Assessment & Plan Assessment & Plan (1) Overweight: Code(s): E66.3 - Overweight Category: Medical Plan: Wt: 104 Kg ( 04/2023 ) , 103 kg (06/2023), 102 kg ( 07/2023), 103 kg (09/2023) Est kcal needs as per MSJ: 1900 (40% carb, 30% protein/fat) Est fluid needs as per 25-30 ml/d: 3100 Est prot per day as per 1 g/kg bw: 102 Recommend fiber intake : 8-10 g per day and gradually increase to 25-28 g per day for women and 35-38 g for men or as tolerated Recommend sodium intake per day : less than 2000 mg Educated patient on: ( R = reviewed V = verbalizes understanding N/R = needs review N/A = not applicable Food sources of carbohydrate, adequate serving sizes and its role in various health conditions: R Differences between complex carbohydrates a simple carbohydrates, role of fiber in diet: R Lean protein sources of foods: NR Differences between types of fats and role in diet (mono on saturated fat fatty acids, saturated fatty acids, trans fats): NR Food sources of sodium in salt and healthy modifications for heart health in kidney health: R Vitamins and minerals: R Healthy plate method concept: R Physical activity: Benefits a precaution: R Patient Instructions: Reduce on sugars - do not add sugar to the cereal , you can add cinnamon /nutmeg Have fruit/ herbs infused water in place of soda/juice drinks offer non food options as rewards (clothing, hair accessories) in place of food Coding Level of Care Code Nutr Indiv Subseq (40372) Diagnoses Overweight E66.3 Time Spent (min) 30
[2023-10-19 11:15] VITALS: BMI 42.7
== END 2023-10-19 11:44 | disposition home or self-care (01) ==
PROVIDERS: PCP Internal Medicine; Visit Provider Dietitian, Registered
DX: E66.3 Overweight (principal)

== ENCOUNTER → 2023-10-19 11:00 | Outpatient (BNVA) | payer MEDICARE, MEDICAID, SELFPAY | PROVIDERS: PCP Internal Medicine; Visit Provider Dietitian, Registered | DX: E66.3 Overweight (principal); Z68.41 Body mass index [BMI] 40.0-44.9, adult; Z71.3 Dietary counseling and surveillance | CPT/HCPCS: 97803 ==

== ENCOUNTER 2023-10-31 15:32 | Outpatient (AMB) | payer MEDICARE, MEDICAID, SELFPAY ==
[2023-10-31 15:35] VITALS: BP 130/80; PULSE 99; TEMP 36.7; O2SAT 98; BMI 42.5
--- NOTE | 2023-10-31 15:35 | MHC.OFFWIV ---
Intake Vital Signs 10/31/23 15:35 Height 5 ft 1 in Weight 225 lb BMI 42.5 BP 130/80 Blood Pressure Location Lt brachial Position Sitting Pulse 99 Pulse Source Pulse Oximeter Temp 98.1 F Temp Source Temporal Artery Scan Pulse Oximetry (%) 98 Intake Visit Reasons: EP ?UTI Intake Note: pt is here for possible uti Patient Tobacco Use Status: Never used Tobacco Allergies atenolol Allergy (Unknown, Verified 10/31/23 15:35) bad dreams tramadol [Ultracet] Allergy (Unknown, Verified 10/31/23 15:35) Pt's mother doesn't remember Do you need a note to return to daycare/school/sports/work: No HPI HPI Comments History of Present Illness Details Patient is a 48-year-old female complaining of 2 days of pain with urination, increase in frequency of urination, sharp suprapubic pain and yellow discharge. She denies any fevers, white chunky discharge, blood in her urine or vaginal bleeding or odors. She states she is not sexually active. [facility] Medical History (Updated 10/31/23 @ 16:12 by Elyse Stevenson PA-C) Constipation Normal colonoscopy Hyperlipidemia Annual physical exam Urinary incontinence Anxiety Insomnia Chronic iron deficiency anemia Mentally challenged Wrist pain, right Surgical History (Updated 09/01/23 @ 14:39 by Padma Dean [facility]) H/O colonoscopy Family History Mother No problems noted. Maternal Grandmother Mental health disorder Social History Housing: House Alcohol intake: never Patient Tobacco Use Status: Never used Tobacco e-Cigarette/Vaping Use: Never Used Second Hand Smoke Exposure: No Current occupational status: other Cognitive needs: No Hearing needs: No Vision needs: Yes Review of Systems Const All systems reviewed & are unremarkable except as noted in HPI and below Physical Exam Vital Signs: Last Vital Signs Temp 98.1 F 10/31/23 15:35 Pulse 99 10/31/23 15:35 BP 130/80 10/31/23 15:35 Pulse Ox 98 10/31/23 15:35 BMI result Body Mass Index 42.5 Const General: cooperative, healthy appearing, comfortable, no acute distress and well developed Orientation/consciousness: patient oriented x3 HEENT Head: Yes normal to inspection Eyes General: appearance normal, both eyes and all related structures Neck Neck: Yes normal visual inspection and Yes full ROM Resp Effort & Inspection: normal respiratory effort and able to speak in complete sentences Other: Tenderness to palpation of the suprapubic area Neuro General: patient oriented x3 Extrem General: Yes normal to inspection Results AMB Urinalysis, Automated UA Leukoctes 0 Eliezer/uL Last Edit by Abiodun Sevilla CMA on 10/31/23 15:58 UA Nitrite Negative Last Edit by Abiodun Sevilla CMA on 10/31/23 15:58 UA Urobilinogen 0.2 mg/dL Last Edit by Abiodun Sevilla CMA on 10/31/23 15:58 UA Protein 0 mg/dL Last Edit by Abiodun Sevilla CMA on 10/31/23 15:58 UA pH 8.0 Last Edit by Abiodun Sevilla CMA on 10/31/23 15:58 UA Blood 0 Fidel/uL Last Edit by Abiodun Sevilla CMA on 10/31/23 15:58 UA Specific [place] 1.015 Last Edit by Abiodun Sevilla CMA on 10/31/23 15:58 UA Ketone Negative Last Edit by Abiodun Sevilla CMA on 10/31/23 15:58 UA Bilirubin 0 mg/dL Last Edit by Abiodun Sevilla CMA on 10/31/23 15:58 UA Glucose 0 mg/dL Last Edit by Abiodun Sevilla CMA on 10/31/23 15:58 Assessment & Plan Assessment & Plan (1) UTI (urinary tract infection): Code(s): N39.0 - Urinary tract infection, site not specified Qualifiers: Urinary tract infection type: acute cystitis Hematuria presence: without hematuria Qualified Code(s): N30.00 - Acute cystitis without hematuria Plan: Likely developing UTI, UA was negative. Very unlikely STI as patient is not active. We will treat based on symptoms, recommended she follow-up with her primary care doctor if no improvement in the next 4-5 days. Gave red flag warning signs and when to go to the emergency department or seek emergency medical care. Plan See above Orders: Orders AMB Urinalysis Automated Today Z13.9 - Encounter for screening, unspecified Medications: New nitrofurantoin monohyd/m-cryst 100 mg (Macrobid) must administer with a meal/food 100 mg PO Q12H 5 days 10 caps 0RF Coding Level of Care Code Est Pt Level 3 (47237) Diagnoses Acute cystitis without hematuria N30.00 Urinary tract infection type: acute cystitis Hematuria presence: without hematuria
== END 2023-10-31 16:17 | disposition home or self-care (01) ==
PROVIDERS: PCP Internal Medicine; Visit Provider Physician Assistant
DX: N30.00 Acute cystitis without hematuria (principal)
CPT/HCPCS: 81003; 99213

== ENCOUNTER 2023-11-07 13:24 | Outpatient (AMB) | payer MEDICARE, MEDICAID, SELFPAY ==
[2023-11-07 13:31] VITALS: BP 110/72; PULSE 97; TEMP 36.1; O2SAT 98; BMI 41.8
--- NOTE | 2023-11-07 13:31 | AM.OFFWIN_ITS ---
Intake Vital Signs 11/07/23 13:31 Height 5 ft 1 in Weight 221 lb BMI 41.8 BP 110/72 Blood Pressure Location Lt brachial Position Sitting Pulse 97 Pulse Source Pulse Oximeter Temp 97.0 F Temp Source Temporal Artery Scan Pulse Oximetry (%) 98 Oxygen Delivery Method Room Air Intake Visit Reasons: EP UTI-not cleared Intake Note: pt is here today for UTI not cleared up Patient Tobacco Use Status: Never used Tobacco Allergies atenolol Allergy (Unknown, Verified 11/07/23 13:41) bad dreams tramadol [Ultracet] Allergy (Unknown, Verified 11/07/23 13:41) Pt's mother doesn't remember Do you need a note to return to daycare/school/sports/work: No HPI HPI Comments History of Present Illness Details Patient is a 48-year-old female who is evaluated in this clinic on October 30, her urinalysis at that time was negative but she was complaining of urinary tract infection symptoms so she was treated with Macrobid for 5 days. She states she picked up the medication and took it in slow. She says she continues to have sharp pains in her lower abdomen as well as some yellowish discharge. Patient's mother is with her and she insists that her daughter is not sexually active. Lenka herself is telling me she is not sexually active either. [facility] Medical History (Updated 11/07/23 @ 14:13 by Elyse Stevenson PA-C) Constipation Normal colonoscopy Hyperlipidemia Annual physical exam Urinary incontinence Anxiety Insomnia Chronic iron deficiency anemia Mentally challenged Wrist pain, right Surgical History (Updated 09/01/23 @ 14:39 by Padma Dean [facility]) H/O colonoscopy Family History Mother No problems noted. Maternal Grandmother Mental health disorder Social History Housing: House Alcohol intake: never Patient Tobacco Use Status: Never used Tobacco e-Cigarette/Vaping Use: Never Used Second Hand Smoke Exposure: No Current occupational status: other Cognitive needs: No Hearing needs: No Vision needs: Yes Physical Exam Vital Signs: Last Vital Signs Temp 97.0 F 11/07/23 13:31 Pulse 97 11/07/23 13:31 BP 110/72 11/07/23 13:31 Pulse Ox 98 11/07/23 13:31 Oxygen Delivery Method Room Air 11/07/23 13:31 BMI result Body Mass Index 41.8 Const General: cooperative, healthy appearing, comfortable, no acute distress and well developed Orientation/consciousness: patient oriented x3 Eyes General: appearance normal, both eyes and all related structures Resp Effort & Inspection: normal respiratory effort and able to speak in complete sentences External Female Exam: normal external appearance, normal appearance of the urethra, No erythema, No externally tender, No external swelling and No lesion Speculum Exam - Vagina: normal appearance of the vagina and normal vaginal discharge Neuro General: patient oriented x3 Results AMB Urinalysis, Automated UA Leukoctes 0 Eliezer/uL Last Edit by JOHANNA Ann on 11/07/23 14:35 UA Nitrite Negative Last Edit by JOHANNA Ann on 11/07/23 14:35 UA Urobilinogen 0.2 mg/dL Last Edit by JOHANNA Ann on 11/07/23 14:3 5 UA Protein 0 mg/dL Last Edit by JOHANNA Ann on 11/07/23 14:35 UA pH 7.0 Last Edit by JOHANNA Ann on 11/07/23 14:35 UA Blood 0 Fidel/uL Last Edit by JOHANNA Ann on 11/07/23 14:35 UA Specific [place] 1.015 Last Edit by JOHANNA Ann on 11/07/23 14: 35 UA Ketone Negative Last Edit by JOHANNA Ann on 11/07/23 14:35 UA Bilirubin 0 mg/dL Last Edit by JOHANNA Ann on 11/07/23 14:35 UA Glucose 0 mg/dL Last Edit by JOHANNA Ann on 11/07/23 14:35 Results Reviewed Results Reviewed: UA negative Assessment & Plan Assessment & Plan (1) Vaginal discharge: Code(s): N89.8 - Other specified noninflammatory disorders of vagina Plan: Tested for bacterial vaginosis panel and CT/NG, will treat based on results. Physical exam was unremarkable. Orders: Orders Bacterial Vaginosis Panel Today Z11.3 - Encounter for screening for infections with a predominantly sexual mode of transmission CT NG by PCR Today N89.8 - Other specified noninflammatory disorders of vagina AMB Urinalysis Automated Today Z13.9 - Encounter for screening, unspecified Coding Level of Care Code Est Pt Level 4 (27302) Diagnoses Vaginal discharge N89.8
== END 2023-11-07 14:32 | disposition home or self-care (01) ==
PROVIDERS: PCP Internal Medicine; Visit Provider Physician Assistant
DX: N89.8 Other specified noninflammatory disorders of vagina (principal)
CPT/HCPCS: 81003; 99214

== ENCOUNTER 2023-11-07 14:12 | Outpatient (REF) | payer MEDICARE, MEDICAID, SELFPAY ==
[2023-11-08 03:57] LABS: CT PCR NOT DETECTED (Not Detect.); NG PCR NOT DETECTED (Not Detect.)
[2023-11-08 11:05] LABS: Bacterial Vaginosis PCR NEGATIVE (Negative); Candida Group PCR NOT DETECTED (Not Detect); Candida glab krusei PCR DETECTED (Not Detect); Trichomonas vaginalis PCR NOT DETECTED (Not Detect)
== END 2023-11-07 14:13 | disposition home or self-care (01) ==
LOC: HO.LAB 14:12
PROVIDERS: Visit Provider Physician Assistant
DX: Z11.3 Encounter for screening for infections with a predominantly sexual mode of transmission (principal); N89.8 Other specified noninflammatory disorders of vagina
CPT/HCPCS: 0352U; 0353U

== ENCOUNTER 2023-11-15 14:04 | Outpatient (AMB) | payer MEDICARE, MEDICAID, SELFPAY ==
[2023-11-15 14:05] VITALS: BP 104/68; PULSE 95; O2SAT 98; BMI 41.8
--- NOTE | 2023-11-15 14:05 | MHC.PC.OV ---
Vital Signs 11/15/23 14:05 Height 5 ft 1 in Weight 221 lb BMI 41.8 BP 104/68 Blood Pressure Location Lt brachial Position Sitting Pulse 95 Pulse Source Pulse Oximeter Pulse Oximetry (%) 98 Oxygen Delivery Method Room Air Intake Visit Reasons: 2 months follow up Intake Note: Pt is here today for 2 months follow up visit. Allergies atenolol Allergy (Unknown, Verified 11/15/23 14:34) bad dreams tramadol [Ultracet] Allergy (Unknown, Verified 11/15/23 14:34) Pt's mother doesn't remember Medication List - Last Reconciled 11/15/23 by Deirdre Boudreaux MD albuterol sulfate 90 mcg/actuation (ProAir HFA) 1 inh inhalation QID PRN carbamazepine ER (Tegretol XR) 100 mg PO DAILY escitalopram oxalate 20 mg PO DAILY fluconazole 150 mg PO Q3D 2 doses latanoprost 0.005% drps ophthalmic (eye) meloxicam 15 mg PO DAILY propranolol 10 mg PO DAILY quetiapine 25 mg PO BEDTIME quetiapine 50 mg PO BEDTIME Tobacco use date assessed: 11/15/23 Dental Screening Dental Screen Date: 06/22/23 HPI 2 months follow up HPI Details Patient presents for the follow-up of chronic headaches which improved with [id number] sinus decongestants. Patient complains of persistent vaginal discomfort and dysuria on and off. She was treated for candidiasis with Diflucan without relief. She reports yellowish vaginal discharge. 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 She has not been sexually active. [facility] Medical History (Updated 11/07/23 @ 14:13 by Elyse Stevenson PA-C) Constipation Normal colonoscopy Hyperlipidemia Annual physical exam Urinary incontinence Anxiety Insomnia Chronic iron deficiency anemia Mentally challenged Wrist pain, right Surgical History H/O colonoscopy Family History Mother No problems noted. Maternal Grandmother Mental health disorder Social History Housing: House Alcohol intake: never Patient Tobacco Use Status: Never used Tobacco e-Cigarette/Vaping Use: Never Used Second Hand Smoke Exposure: No service: No Current occupational status: other Cognitive needs: No Hearing needs: No Vision needs: Yes Questionnaire Thrive Questionnaire Date Thrive assessed: 09/01/23 LIZZIE-7 AMB Questionnaire LIZZIE-7 Date LIZZIE - 7 assessed: 09/01/23 Source: Developed by Drs. Hansel Head, Katie Piper, Kuldip Ulloa and colleagues, with an educational simeon from [employer]. Review of Systems Const All systems reviewed & are unremarkable except as noted in HPI and below Eyes Reports no additional complaints ENT Reports no additional complaints Card Reports no additional complaints Resp Reports no additional complaints GI Reports no additional complaints Physical exam (Primary Care) Vital Signs: Last Vital Signs Pulse 95 11/15/23 14:05 BP 104/68 11/15/23 14:05 Pulse Ox 98 11/15/23 14:05 Oxygen Delivery Method Room Air 11/15/23 14:05 BMI result Body Mass Index 41.8 Tobacco/Smoking Status: Tobacco use Status Tobacco use date assessed 11/15/23 11/15/23 14:36 Patient Tobacco Use Status Never used Tobacco 11/15/23 14:36 e-Cigarette/Vaping Use Never Used 11/15/23 14:06 Thrive Assessment: Date of Thrive Assessment Date Thrive assessed 09/01/23 11/15/23 14:06 Const General: no acute distress HENMT Face and sinus: Yes normal facial exam Neck Neck: Yes supple Resp Effort & Inspection: normal respiratory effort Auscultation: clear to auscultation bilaterally Cardio Rhythm: regular rhythm Heart sounds: S1 normal heart sound present and S2 normal heart sound present GI Inspection: Yes normal to inspection Palpation (GI): Soft to palpation Percussion: Yes normal to percussion Auscultation: normal bowel sounds General: Yes no CVA tenderness Back/Spine/Pelvis Back: no CVA tenderness Assessment and Plan Assessment & Plan (1) UTI (urinary tract infection): Code(s): N39.0 - Urinary tract infection, site not specified Qualifiers: Urinary tract infection type: acute cystitis Hematuria presence: without hematuria Qualified Code(s): N30.00 - Acute cystitis without hematuria Plan: Obtain urine culture (2) Vaginal discharge: Code(s): N89.8 - Other specified noninflammatory disorders of vagina Plan: Clotrimazole vaginal cream for 3 days is prescribed. Patient will schedule an appointment with composition instructor (3) Overweight: Code(s): E66.3 - Overweight Plan: Decrease caloric intake and increase physical activity discussed with the patient. Follow-up with medical weight loss program Orders: Orders Urine Culture Today N30.00 - Acute cystitis without hematuria Medications: New clotrimazole 2% (Gyne-Lotrimin) 1 appful vaginal BEDTIME 3 days 21 grams 0RF Discontinued carbamazepine ER (Tegretol XR) Discontinued Reason: Doctor's Order 100 mg PO DAILY 30 tabs 0RF fluconazole may repeat second dose 72 hrs after first dose if symptoms persist Discontinued Reason: Doctor's Order 150 mg PO Q3D 2 tabs 0RF Coding Level of Care Code Est Pt Level 3 (92614) Diagnoses Acute cystitis without hematuria N30.00 Urinary tract infection type: acute cystitis Hematuria presence: without hematuria Vaginal discharge N89.8 Overweight E66.3
== END 2023-11-15 15:22 | disposition home or self-care (01) ==
PROVIDERS: PCP Internal Medicine; Visit Provider Internal Medicine
DX: N30.00 Acute cystitis without hematuria (principal); N89.8 Other specified noninflammatory disorders of vagina; E66.3 Overweight
CPT/HCPCS: 99213

== ENCOUNTER 2023-12-19 13:53 | Outpatient (AMB) | payer MEDICARE, MEDICAID, SELFPAY ==
[2023-12-19 13:59] VITALS: BMI 42.2
--- NOTE | 2023-12-19 13:59 | MHC.AMNUTRGE ---
VS Expanded 12/19/23 13:59 Height 5 ft 1 in Weight 223 lb 5.252 oz BMI 42.2 Intake Visit Reasons: Monitor weight/CONFIRMED Allergies atenolol Allergy (Unknown, Verified 11/15/23 14:34) bad dreams tramadol [Ultracet] Allergy (Unknown, Verified 11/15/23 14:34) Pt's mother doesn't remember Nutrition Presentation Details: Pt presents for MNT f/u for obesity Pt presents with mom (grandma) who is the main spreader operator automatic Pt has mild intellectual disabilities with impaired judgment. Pt cannot differentiate appetite vs hunger Pt Utilizing plate with portions, which appears to help choosing high sugar cereals , does not like low sugar (adds sugar to them) Grandma, and Pt acknowledges, working on scheduled meals/snacks. Pt reports setting an alarm for snack time. BS Monitoring Most Recent Diabetes Results: No Data to Display [facility] Medical History (Updated 11/15/23 @ 15:22 by Deirdre Boudreaux MD) Constipation Normal colonoscopy Hyperlipidemia Annual physical exam Urinary incontinence Anxiety Insomnia Chronic iron deficiency anemia Mentally challenged Wrist pain, right Surgical History H/O colonoscopy Family History Mother No problems noted. Maternal Grandmother Mental health disorder Social History Housing: House Alcohol intake: never Patient Tobacco Use Status: Never used Tobacco e-Cigarette/Vaping Use: Never Used Second Hand Smoke Exposure: No service: No Current occupational status: other Cognitive needs: No Hearing needs: No Vision needs: Yes Assessment & Plan Assessment & Plan (1) Overweight: Code(s): E66.3 - Overweight Category: Medical Plan: Wt: 104 Kg ( 04/2023 ) , 103 kg (06/2023), 102 kg ( 07/2023), 103 kg (09/2023), 101 kg (11/2023) Est kcal needs as per MSJ: 1900 (40% carb, 30% protein/fat) Est fluid needs as per 25-30 ml/d: 3100 Est prot per day as per 1 g/kg bw: 102 Recommend fiber intake : 8-10 g per day and gradually increase to 25-28 g per day for women and 35-38 g for men or as tolerated Recommend sodium intake per day : less than 2000 mg Educated patient on: ( R = reviewed V = verbalizes understanding N/R = needs review N/A = not applicable Food sources of carbohydrate, adequate serving sizes and its role in various health conditions: R Differences between complex carbohydrates a simple carbohydrates, role of fiber in diet: R Lean protein sources of foods: NR Differences between types of fats and role in diet (mono on saturated fat fatty acids, saturated fatty acids, trans fats): NR Food sources of sodium in salt and healthy modifications for heart health in kidney health: R Vitamins and minerals: R Healthy plate method concept: R Physical activity: Benefits a precaution: R Patient Instructions: -Add a fruit to low sugar cereal in place of sugar Coding Level of Care Code Nutr Indiv Subseq (20717) Diagnoses Overweight E66.3 Time Spent (min) 30
== END 2023-12-19 14:29 | disposition home or self-care (01) ==
PROVIDERS: PCP Internal Medicine; Visit Provider Dietitian, Registered
DX: E66.3 Overweight (principal)

== ENCOUNTER → 2023-12-19 13:53 | Outpatient (BNVA) | payer MEDICARE, MEDICAID, SELFPAY | PROVIDERS: PCP Internal Medicine; Visit Provider Dietitian, Registered | DX: E66.3 Overweight (principal); Z68.41 Body mass index [BMI] 40.0-44.9, adult | CPT/HCPCS: 97803 ==

== ENCOUNTER 2024-01-20 11:08 | Outpatient (AMB) | payer MEDICARE, MEDICAID, SELFPAY ==
--- NOTE | 2024-01-20 11:08 | MHC.OFFWIV ---
Intake Vital Signs 01/20/24 11:09 Height 5 ft 1 in Weight 223 lb BMI 42.1 BP 114/82 Blood Pressure Location Rt brachial Position Sitting Pulse 88 Pulse Source Pulse Oximeter Pulse Oximetry (%) 98 Oxygen Delivery Method Room Air Intake Visit Reasons: EP Pain in pelvic area Intake Note: Patient here for abdominal/groin pain that has been present for a few days. Patient Tobacco Use Status: Never used Tobacco Allergies atenolol Allergy (Unknown, Verified 01/20/24 11:12) bad dreams tramadol [Ultracet] Allergy (Unknown, Verified 01/20/24 11:12) Pt's mother doesn't remember Do you need a note to return to daycare/school/sports/work: No HPI HPI Comments History of Present Illness Details Patient is a 48-year-old female complaining of lower abdominal pain and pressure for 4 days. She also states she has some burning with urination but no increase in frequency of urination. She denies any blood in her urine, fevers or low back pain. She is here with her mother was helping her explain her symptoms. [facility] Medical History (Updated 11/15/23 @ 15:22 by Deirdre Boudreaux MD) Constipation Normal colonoscopy Hyperlipidemia Annual physical exam Urinary incontinence Anxiety Insomnia Chronic iron deficiency anemia Mentally challenged Wrist pain, right Surgical History H/O colonoscopy Family History Mother No problems noted. Maternal Grandmother Mental health disorder Social History Housing: House Alcohol intake: never Patient Tobacco Use Status: Never used Tobacco e-Cigarette/Vaping Use: Never Used Second Hand Smoke Exposure: No service: No Current occupational status: other Cognitive needs: No Hearing needs: No Vision needs: Yes Review of Systems Const All systems reviewed & are unremarkable except as noted in HPI and below Physical Exam Vital Signs: Last Vital Signs Pulse 88 01/20/24 11:09 BP 114/82 01/20/24 11:09 Pulse Ox 98 01/20/24 11:09 Oxygen Delivery Method Room Air 01/20/24 11:09 BMI result Body Mass Index 42.1 Const General: cooperative, healthy appearing, comfortable and no acute distress Orientation/consciousness: patient oriented x3 HEENT Head: Yes normal to inspection Ears: hearing grossly normal bilaterally General nose exam: Normal external nose present Face and sinus: Yes normal facial exam Neck Neck: Yes normal visual inspection, Yes trachea midline and Yes supple Resp Effort & Inspection: normal respiratory effort and able to speak in complete sentences GI Inspection: Yes normal to inspection Palpation (GI): Soft to palpation and Tenderness to palpation present (GI) suprapubicly Skin General skin exam: no rashes or lesions noted Neuro General: patient oriented x3 Psych Appearance: grossly normal Speech and movement: Normal speech and movement present Attitude: cooperative Thought process: Normal thought process present Insight: Good insight present (Psych) Judgement: Good judgement present (Psych) Assessment & Plan Assessment & Plan (1) UTI (urinary tract infection): Code(s): N39.0 - Urinary tract infection, site not specified Qualifiers: Urinary tract infection type: acute cystitis Hematuria presence: without hematuria Qualified Code(s): N30.00 - Acute cystitis without hematuria Plan: Patient unable to provide a urine sample, we will treat based on symptoms and tenderness of bladder on physical exam. Recommended they follow up with her PCP next week if no improvement in symptoms. Plan see above Medications: New cefuroxime axetil 500 mg PO Q12H 10 tabs 0RF Coding Level of Care Code Est Pt Level 3 (36240) Diagnoses Acute cystitis without hematuria N30.00 Urinary tract infection type: acute cystitis Hematuria presence: without hematuria
[2024-01-20 11:09] VITALS: BP 114/82; PULSE 88; O2SAT 98; BMI 42.1
== END 2024-01-20 11:43 | disposition home or self-care (01) ==
PROVIDERS: PCP Internal Medicine; Visit Provider Physician Assistant
DX: N30.00 Acute cystitis without hematuria (principal)
CPT/HCPCS: 99213

== ENCOUNTER 2024-01-24 10:20 | Outpatient (AMB) | payer MEDICARE, MEDICAID, SELFPAY ==
[2024-01-24 10:29] VITALS: BP 120/76; PULSE 89; O2SAT 98; BMI 42.3
--- NOTE | 2024-01-24 10:29 | MHC.PC.OV ---
Vital Signs 01/24/24 10:29 Height 5 ft 1 in Weight 224 lb BMI 42.3 BP 120/76 Blood Pressure Location Rt brachial Position Sitting Pulse 89 Pulse Source Pulse Oximeter Pulse Oximetry (%) 98 Oxygen Delivery Method Room Air Intake Visit Reasons: High A1c @[facility] Allergies atenolol Allergy (Unknown, Verified 01/24/24 10:34) bad dreams tramadol [Ultracet] Allergy (Unknown, Verified 01/24/24 10:34) Pt's mother doesn't remember Medication List - Last Reconciled 01/24/24 by Deirdre Boudreaux MD albuterol sulfate 90 mcg/actuation (ProAir HFA) 1 inh inhalation QID PRN escitalopram oxalate 20 mg PO DAILY latanoprost 0.005% drps ophthalmic (eye) quetiapine 25 mg PO BEDTIME Tobacco use date assessed: 01/24/24 Dental Screening Dental Screen Date: 06/22/23 HPI High A1c @[facility] HPI Details Patient presents for the follow-up of hyperglycemia. She has not been compliant with ADA diet eating a lot of sweets and donuts at work. A1c that at orthopedics was elevated at 6.9. Chronic anxiety is controlled on current medications patient is established with the psychiatry [facility] Medical History (Updated 01/24/24 @ 10:59 by Deirdre Boudreaux MD) Constipation Normal colonoscopy Hyperlipidemia Annual physical exam Urinary incontinence Anxiety Insomnia Chronic iron deficiency anemia Mentally challenged Wrist pain, right Surgical History H/O colonoscopy Family History Mother No problems noted. Maternal Grandmother Mental health disorder Social History Housing: House Alcohol intake: never Patient Tobacco Use Status: Never used Tobacco e-Cigarette/Vaping Use: Never Used Second Hand Smoke Exposure: No service: No Current occupational status: other Cognitive needs: No Hearing needs: No Vision needs: Yes Questionnaire Thrive Questionnaire Date Thrive assessed: 09/01/23 LIZZIE-7 AMB Questionnaire LIZZIE-7 Date LIZZIE - 7 assessed: 09/01/23 Source: Developed by Drs. Hansel Head, Katie Piper, Kuldip Ulloa and colleagues, with an educational simeon from [employer]. Review of Systems Const All systems reviewed & are unremarkable except as noted in HPI and below ENT Reports no additional complaints Card Reports no additional complaints Resp Reports no additional complaints GI Reports no additional complaints Reports no additional complaints Physical exam (Primary Care) Vital Signs: Last Vital Signs Pulse 89 01/24/24 10:29 BP 120/76 01/24/24 10:29 Pulse Ox 98 01/24/24 10:29 Oxygen Delivery Method Room Air 01/24/24 10:29 BMI result Body Mass Index 42.3 Tobacco/Smoking Status: Tobacco use Status Tobacco use date assessed 01/24/24 01/24/24 10:39 Patient Tobacco Use Status Never used Tobacco 01/24/24 10:39 e-Cigarette/Vaping Use Never Used 01/24/24 10:32 Thrive Assessment: Date of Thrive Assessment Date Thrive assessed 09/01/23 01/24/24 10:32 Const General: no acute distress HENMT Head: Yes normal to inspection Mouth: Normal oral and palatal mucosa present Eyes General: appearance normal, both eyes and all related structures Resp Effort & Inspection: normal respiratory effort Auscultation: clear to auscultation bilaterally Cardio Rhythm: regular rhythm Heart sounds: S1 normal heart sound present and S2 normal heart sound present GI Palpation (GI): Soft to palpation Percussion: Yes normal to percussion Assessment and Plan Assessment & Plan (1) DM type 2 (diabetes mellitus, type 2): Code(s): E11.9 - Type 2 diabetes mellitus without complications Plan: ADA diet increase physical activity weight loss discussed with the patient and her mother, metformin 750 will be started. Patient will follow-up in 3 months with a fasting labs before (2) Hyperlipidemia: Code(s): E78.5 - Hyperlipidemia, unspecified Plan: Continue low-cholesterol diet (3) Annual physical exam: Code(s): Z00.00 - Encounter for general adult medical examination without abnormal findings Orders: Orders Comprehensive [place]. Panel Fast 3 Months E11.9 - Type 2 diabetes mellitus without complications Lipid Panel 3 Months E11.9 - Type 2 diabetes mellitus without complications Hemoglobin A1c 3 Months E11.9 - Type 2 diabetes mellitus without complications TSH reflex Free T4 3 Months E11.9 - Type 2 diabetes mellitus without complications, E78.5 - Hyperlipidemia, unspecified, Z00.00 - Encounter for general adult medical examination without abnormal findings Complete Blood Count Auto Diff 3 Months E11.9 - Type 2 diabetes mellitus without complications Microalbumin, Random (w Creat) 3 Months E11.9 - Type 2 diabetes mellitus without complications Medications: New metformin ER 750 mg PO DAILY 90 tabs 0RF Coding Level of Care Code Est Pt Level 3 (02591) Diagnoses DM type 2 (diabetes mellitus, type 2) E11.9 Hyperlipidemia E78.5 Annual physical exam Z00.00
== END 2024-01-24 11:09 | disposition home or self-care (01) ==
PROVIDERS: PCP Internal Medicine; Visit Provider Internal Medicine
DX: E11.9 Type 2 diabetes mellitus without complications (principal); E78.5 Hyperlipidemia, unspecified; Z00.00 Encounter for general adult medical examination without abnormal findings
CPT/HCPCS: 99213

== ENCOUNTER 2024-03-26 14:03 | Outpatient (AMB) | payer MEDICARE, MEDICAID, SELFPAY ==
--- NOTE | 2024-03-26 14:21 | A.OFFVIS_ITS ---
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 Maternal Grandmother Mental health disorder Social History Housing: House Alcohol intake: never Patient Tobacco Use Status: Never used Tobacco e-Cigarette/Vaping Use: Never Used Second Hand Smoke Exposure: No service: No Current occupational status: other Cognitive needs: No Hearing needs: No Vision needs: Yes Assessment & Plan Assessment & Plan (1) Overweight: Code(s): E66.3 - Overweight Category: Medical Plan: Wt: 104 Kg ( 04/2023 ) ,101 kg (04/15) Est kcal needs as per MSJ: 1900 (40% carb, 30% protein/fat) Est fluid needs as per 25-30 ml/d: 3100 Est prot per day as per 1 g/kg bw: 102 Recommend fiber intake : 8-10 g per day and gradually increase to 25-28 g per day for women and 35-38 g for men or as tolerated Recommend sodium intake per day : less than 2000 mg Educated patient on: ( R = reviewed V = verbalizes understanding N/R = needs review N/A = not applicable * Food sources of carbohydrate, adequate serving sizes and its role in various health conditions: R * Differences between complex carbohydrates a simple carbohydrates, role of fiber in diet: R * Lean protein sources of foods: NR * Differences between types of fats and role in diet (mono on saturated fat fatty acids, saturated fatty acids, trans fats): NR * Food sources of sodium in salt and healthy modifications for heart health in kidney health: R * Vitamins and minerals: R * Healthy plate method concept: R * Physical activity: Benefits a precaution: R Patient Instructions: Work on maintaining a routine, choosing snack with less than 100 calorie (limit to 1 day : pastry/cookies/candies) Increase movement as able, dance to music Drink water, herb/fruit water, water with meals and in between meals (aim at 48 -60 oz/d) Coding Level of Care Code Nutr Indiv Subseq (53721) Diagnoses Overweight E66.3 Time Spent (min) 30
[2024-03-26 14:25] VITALS: BMI 42.3
== END 2024-03-26 14:45 | disposition home or self-care (01) ==
LOC: HO.ENCR 14:04
PROVIDERS: PCP Internal Medicine; Visit Provider Dietitian, Registered
DX: E66.3 Overweight (principal)

== ENCOUNTER → 2024-03-26 14:03 | Outpatient (BNVA) | payer MEDICARE, MEDICAID, SELFPAY | PROVIDERS: PCP Internal Medicine; Visit Provider Dietitian, Registered | DX: E66.3 Overweight (principal); Z68.41 Body mass index [BMI] 40.0-44.9, adult | CPT/HCPCS: 97803 ==

== ENCOUNTER 2024-04-30 11:11 | Outpatient (AMB) | payer MEDICARE, MEDICAID, SELFPAY ==
--- NOTE | 2024-04-30 11:44 | MHC.OFFWIV ---
Intake Vital Signs 04/30/24 11:45 Height 5 ft 1 in Weight 228 lb BMI 43.1 BP 122/80 Blood Pressure Location Rt brachial Position Sitting Pulse 88 Pulse Source Pulse Oximeter Pulse Oximetry (%) 97 Oxygen Delivery Method Room Air Intake Visit Reasons: EP-pain rt side nostril Intake Note: Patient here for right nostril pain that has been present for a couple of days. Patient Tobacco Use Status: Never used Tobacco Allergies atenolol Allergy (Unknown, Verified 04/30/24 11:46) bad dreams tramadol [Ultracet] Allergy (Unknown, Verified 04/30/24 11:46) Pt's mother doesn't remember Do you need a note to return to daycare/school/sports/work: No HPI EP-pain rt side nostril HPI Details This note is constructed using voice recognition software. While every effort has been made to ensure accuracy, applications system analyst errors may have been included. The patient is a 48 year old female who presents to the clinic today with right nostril pain. Patient lives with her mother, who provides care for her. The patient has been to ear nose and throat recently for sinusitis, followed by a CT scan of her sinuses which results are still pending. She notes that the right nostril is painful, and she declines to do anything to make it feel better at home. She does blow her nose quite hard, her mother tries to redirect her to a processing tech below when she does to try to avoid creating injury. She does occasionally stick her finger in her nose, which she does report that that hurts when she does it. She denies any bloody noses. She denies fever, chills, cough, shortness of breath, or other URI symptoms. [facility] Medical History (Updated 01/24/24 @ 10:59 by Deirdre Boudreaux MD) Constipation Normal colonoscopy Hyperlipidemia Annual physical exam Urinary incontinence Anxiety Insomnia Chronic iron deficiency anemia Mentally challenged Wrist pain, right Surgical History H/O colonoscopy Family History Mother No problems noted. Maternal Grandmother Mental health disorder Social History Housing: House Alcohol intake: never Patient Tobacco Use Status: Never used Tobacco e-Cigarette/Vaping Use: Never Used Second Hand Smoke Exposure: No service: No Current occupational status: other Cognitive needs: No Hearing needs: No Vision needs: Yes Review of Systems Const All systems reviewed & are unremarkable except as noted in HPI and below Physical Exam Vital Signs: Last Vital Signs Pulse 88 04/30/24 11:45 BP 122/80 04/30/24 11:45 Pulse Ox 97 04/30/24 11:45 Oxygen Delivery Method Room Air 04/30/24 11:45 BMI result Body Mass Index 43.1 Const General: cooperative, healthy appearing, comfortable, no acute distress and well developed Limitations: no limitations HEENT Head: Yes normal to inspection Ears: hearing grossly normal bilaterally General nose exam: Normal external nose present and Other nasal findings present (Excoriation inside right nostril) Face and sinus: Yes normal facial exam Eyes General: appearance normal, both eyes and all related structures Neck Neck: Yes normal visual inspection and Yes full ROM Resp Effort & Inspection: normal respiratory effort and able to speak in complete sentences Skin General skin exam: no rashes or lesions noted Assessment & Plan Assessment & Plan (1) Nose irritation: Code(s): J34.89 - Other specified disorders of nose and nasal sinuses Plan: Advised the avoidance of putting anything inside the nose, trial of acetaminophen for pain management. Additionally discussed trial of ice. Consider trial of saline nasal spray for symptomatic management. Advised patient to follow up with ENT as previously scheduled for CT results. Follow up as needed with worsening or failure to resolve. Plan See above for full details and plan. Coding Level of Care Code Est Pt Level 3 (30871) Diagnoses Nose irritation J34.89
[2024-04-30 11:45] VITALS: BP 122/80; PULSE 88; O2SAT 97; BMI 43.1
--- OUTSIDE RECORDS SUMMARY | 2024-05-02 15:04 | XMS_ITS | Continuity of Care Document ---
Author Organization [place] [facility], [facility] [place] Address [address] [place] [address] Assessment Encounter Date Assessment Date Assessment LastModified by Organization Details LastModified Time 02/29/2024 02/29/2024 48-year-old female with developmental delay, seasonal allergies and cerebral palsy presents with mother for evaluation of sinusitis. CT scan at [facility] on 09/05/23 demonstrated opacification of left frontal and left ethmoid sinuses. On exam nasal mucosa is pink and moist without rhinorrhea. Recommend trial of Flonase 2 sprays daily for one month and Doxycycline twice daily for 20 days. Will get a repeat sinus CT at [facility] in March after antibiotic regimen. She will return for follow-up in the office in 2 months, sooner with issues. Patient and mother agree with plan. [email or web address] Not available 02/29/2024 15:22:22 Plan of Treatment Reminders Order Date Submit Date Provider Last Modified By Organization Details Last Modified Time Details Appointments None recorded. Lab None recorded. Referral None recorded. Procedures None recorded. Surgeries None recorded. Imaging CT, maxillofaci al, w/o contrast 2023 024 [facility] [place], [address] , [facility] [address], [place], [address], 08:51:03 Medication Orders doxycycline hyclate 100 mg tablet 2023 024 [id number], [address] [facility], [place], [place], [id number], 4 07:53:23 fluticasone propionate 50 mcg/actuati on nasal spray,suspe nsion 2023 024 [id number], [address] [facility] [place], [place], [id number], 4 07:53:25 Patient TargetsNo targets recorded. Patient InstructionsNo instructions recorded. Reason for Referral None Reported. Results Created Date Observation Date Name Description Value Unit Range Abnormal Flag Note LastModifiedBy Organization Detail LastModifiedTime 04/27/20 24 04/26/2024 CT, maxil lofac ial, w/o contr ast No observ ation record ed. [email or web address] [facility] [place] [address] [facility] [address], [place], [address], 04/27/2024 21:05:26 Result Notes None recorded. Problems Name Problem SNOMED Code Status Onset Date Resolution Date Notes Provider Name and Address Organization Details Recorded Time Chronic rhinitis 21807495 Active 2017 Purulent rhinitis (chronic) ; Note: Date Diagnosed : 01/27/2018 1:13 PM (J31.0) Not Available [facility] 4 02:41:31 Posterio r rhinorrh ea 07270129 Completed 201512/23/2023 Postnasal drip; Note: Date Diagnosed : 01/22/2016 10:09 AM (R09.82) Not Available [facility] 4 02:41:28 Nasal congesti on 43320779 Completed 201512/23/2023 Nasal congestio n; Note: Date Diagnosed : 01/22/2016 10:05 AM (R09.81) Not Available [facility] 4 02:41:29 Chronic sinusiti s 69170062 Active 2023 KAYE CARMONA PA-C [address] [place] [address], [facility] [place], [address] , [facility] - [facility] 4 14:57:08 Problem Notes None recorded. Medical Equipment None Reported. Allergies Allergen ID Allergen Name Allergen Category Reaction Reaction Severity Criticality Documentation Date Start Date Code Code System Note Provider Name and Address Organization Details Recorded Time 31950 Bactrim medicatio n other Not available Not available 10/04/2023 58752 9 RxNorm React ion: unkno wn, unspe cifie d;; Not Available [facility] 4 00:58:54 04494 atenolol medicatio n other Not available Not available 10/04/2023 1202 RxNorm React ion: unkno wn, unspe cifie d;; Not Available [facility] 4 00:58:58 Medications Name Sig Start Date Stop Date Status Note LastModified by Organization Details LastModified Time celecoxib 200 mg capsule TAKE 1 CAPSULE BY MOUTH EVERY DAY NEEDED FOR PAIN: TAKE WITH FOOD active Not Available Not Available No t Available amoxicilli n 500 mg capsule TAKE 1 CAPSULE BY MOUTH 3 TIMES A DAY active Not Available Not Available No t Available latanopros t 0.005 % eye drops INSTILL 1 DROP INTO BOTH EYES EVERY DAY AT NIGHT active Not Available Not Available No t Available oxybutynin chloride ER 10 mg tablet,ext ended release 24 hr 2017 active Medicatio n ID: [id number] Du ration Value: 90 Brand Name: oxybutyni n chloride Send Method: E-Prescri bed Subs Allowed: subs OK Specia l Instructi on: TAKE 2 TABLETS DAILY Med icationGe nericName : oxybutyni n chloride Not Available Not Available Not Available ibuprofen 800 mg tablet TAKE 1 TABLET BY MOUTH 3 TIMES A DAY active Not Available Not Available No t Available fluconazol e 150 mg tablet PLEASE SEE ATTACHED FOR DETAILED DIRECTION S active Not Available Not Available No t Available meloxicam 15 mg tablet TAKE 1 TABLET BY MOUTH EVERY DAY WITH FOOD active Not Available Not Available No t Available carbamazep ine ER 100 mg tablet,ext ended release,12 hr TAKE 1 TABLET BY MOUTH EVERY DAY active Not Available Not Available No t Available ondansetro n HCl 4 mg tablet TAKE 1 TABLET BY MOUTH EVERY 8 HOURS FOR 7 DAYS NEEDED FOR NAUSEA/VO MITING active Not Available Not Available No t Available propranolo l 10 mg tablet TAKE 1 TABLET BY MOUTH EVERY DAY AT NIGHT active Not Available Not Available No t Available aspirin 325 mg tablet,del ayed release TAKE 1 TABLET BY MOUTH EVERY DAY active Not Available Not Available No t Available diazepam 2 mg tablet 2015 active Medicatio n ID: [id number] Du ration Value: 30 Brand Name: diazepam Send Method: E-Prescri bed Subs Allowed: subs OK Specia l Instructi on: TAKE 1 TABLET BY MOUTH TWICE DAILY Med icationGe nericName : diazepam Not Available Not Available Not Available Nasonex 50 mcg/actuat ion [place] 2 spray into both nostrils once a day 2017 active Medicatio n ID: [id number] Du ration Value: 30 Prescrib ed By Name: MARK Soriano Brand Name: Nasonex S end Method: E-Prescri bed Subs Allowed: subs OK Medica tionGener icName: Nasonex Not Available Not Available Not Available cefuroxime axetil 500 mg tablet TAKE 1 TABLET BY MOUTH EVERY 12 HOURS active Not Available Not Available No t Available fluticason e propionate 50 mcg/actuat ion nasal spray,susp ension SHAKE LIQUID AND USE 2 SPRAYS IN EACH NOSTRIL EVERY DAY active Not Available Not Available No t Available doxycyclin e hyclate 100 mg tablet TAKE 1 TABLET BY MOUTH TWICE DAILY FOR 20 DAYS active Not Available Not Available No t Available naproxen 500 mg tablet 2017 active Medicatio n ID: [id number] Du ration Value: 90 Brand Name: naproxen Send Method: E-Prescri bed Subs Allowed: subs OK Specia l Instructi on: TAKE 1 TABLET BY MOUTH TWICE A DAY Medic ationGene ricName: naproxen Not Available Not Available Not Available oxycodone 5 mg tablet TAKE 1 TO 2 TABLETS BY MOUTH EVERY 4 TO 6 HOURS NEEDED FOR PAIN active Not Available Not Available No t Available escitalopr am 10 mg tablet 2017 active Medicatio n ID: [id number] Du ration Value: 30 Brand Name: escitalop mamie oxalate S end Method: E-Prescri bed Subs Allowed: subs OK Medica tionGener icName: escitalop mamie oxalate Not Available Not Available Not Available escitalopr am 20 mg tablet TAKE 1 TABLET BY MOUTH EVERY DAY IN THE MORNING active Not Available Not Available No t Available Clotrimazo le 3 Day 2 % vaginal cream USE 1 APPLICATO RFUL VAGINALLY EVERY NIGHT AT BEDTIME FOR 3 NIGHTS active Not Available Not Available No t Available cyclobenza chau 5 mg tablet TAKE 1 TABLET NEEDED BY MOUTH FOR 30 DAYS, NEEDED FOR LEG SPASMS. active Not Available Not Available No t Available metformin ER 750 mg tablet,ext ended release 24 hr TAKE 1 TABLET BY MOUTH EVERY DAY active Not Available Not Available No t Available nitrofuran toin monohydrat e/macrocry stals 100 mg capsule TAKE 1 CAPSULE BY MOUTH EVERY 12 HOURS FOR 5 DAYS WITH FOOD active Not Available Not Available No t Available ProAir HFA 90 mcg/actuat ion aerosol inhaler 2015 active Medicatio n ID: [id number] Du ration Value: 30 Brand Name: ProAir HFA Send Method: E-Prescri bed Subs Allowed: subs OK Specia l Instructi on: INHALE 2 PUFFS BY MOUTH 4 TIMES A DAY NEEDED Me dicationG enericNam e: ProAir HFA Not Available Not Available Not Available quetiapine 50 mg tablet TAKE 1 TABLET BY MOUTH EVERY DAY active Not Available Not Available No t Available diclofenac 1 % topical gel APPLY 2 TO 3 GRAMS TO FOOT/ANKL E 3 TIMES A DAY DIRECTED active Not Available Not Available No t Available Myrbetriq 25 mg tablet,ext ended release 2015 active Medicatio n ID: [id number] Du ration Value: 30 Brand Name: Myrbetriq Send Method: E-Prescri bed Subs Allowed: subs OK Specia l Instructi on: TAKE 1 TABLET BY MOUTH EVERY DAY Medic ationGene ricName: Myrbetriq Not Available Not Available Not Available Vitals None Recorded Social History None recorded. Functional Status None recorded. Mental Status None recorded. Family History Nothing Reported. Medical History No medical history recorded. Gynecological HistoryNo gynecological history recorded. Obstetrics History GPAL:G 0 P 0 0 0 0 Past Encounters Encounter ID Performer Location Encounter Start Date Encounter Closed Date Diagnosis/Indication Diagnosis SNOMED-CT Code Diagnosis ICD10 Code [id number] NICO FERRO MD [facility] [address] [place] [address] 02/29/2024 14:04:19 02/29/2024 15:00:38 Chronic sinusitis 76028527 J32.8 Health Concerns Section Related Observation LastModified by Organization Detai ls LastModified Time None Recorded Concern Status LastModified by Organization Details LastModified Time None Recorded Payers Encounter Date Sequence Insurance Name Policy Number Policy Clark Covered Member ID Clark Member ID Guarantor Name 02/29/2024 2 [place] [facility] Elba Martinez [id number] Elba Martinez 02/29/2024 1 MED[place] B-[place]: [facility] [employer] Elba Martinez [id number] Elba Martinez Notes Date Note Type Note Provider Name and Address Organization Details Recorded Time 02/29/2024 text/html 48 year old neeru khalil with seasonal allergies and cerebral palsy presents with mother for evaluation of sinusitis. Symptoms started approximately 9 months ago. Reports nasal pain, nasal congestion, trouble breathing through nose bilaterally, maxillary facial pressure, headband headache, ear pressure, and right-sided tinnitus. Denies anosmia. Occasional epistaxis, alternates sides. Mother endorses loud snoring without witnessed apnea. She had a sleep study but it was inconclusive because she could not fall asleep. Currently not treating sinus symptoms with medication. Mom does not think patient will tolerate nasal sprays or rinses. No surgical history. CT scan 09/05/23 demonstrated opacification of left frontal and left ethmoid sinus. Unsure about maxillary tooth discomfort. Sinus infections treated with antibiotics every couple years. Most recent sinus infection 6 months ago that cleared within 10 days. She had allergy testing 18 months ago. Eye doctor suspects glaucoma in right eye, seeing specialist Jun 2024. NICO MCKEON MD [address] [place] [address], [place], [address], [facility] - [facility] 03/01/2024 07:53:18 OBGyn Episode No OBEpisode recorded.
--- OUTSIDE RECORDS SUMMARY | 2024-05-02 15:05 | XMS_ITS | Data Portability ---
Author Organization [facility], [address] Address [address] [place] [address] Care Team Providers Care Lumber Salvager Name Role Phone OSMINHAYCaliRAMÓN Primary Care Provider [phone] Assessment No assessment recorded. Plan of Treatment Reminders Order Date Submit Date Provider Last Modified By Organization Details Last Modified Time Details Appointments None recorded. Lab None recorded. Referral None recorded. Procedures None recorded. Surgeries None recorded. Imaging None recorded. Medication Orders Diflucan 150 mg tablet 2022 023 [facility], [address] [place], [address], 3 18:18:50 ciprofloxac in 0.2 % ear drops in a dropperette 2022 023 [email or web address] [facility], [address] [place], [address], 3 13:24:37 cefdinir 300 mg capsule 2022 023 [facility], [address] [place], [address], 3 18:18:51 Patient TargetsNo targets recorded. Patient Instructions Encounter Date Encounter Id Patient Instructions Last Modified By Organization Details Last Modified Time 06/11/2022 [id number] earache: care instructions [email or web address] Not available 06/11/2022 18:18:47 ear infection (otitis media): care instructions [email or web address] Not available 06/11/2022 18:18:47 You have been diagnosed with a Ear Infection Today. Suggestions to help with your discomfort and recovery include: 1. Laying the effected ear on a heating pad or applying a warm rice bag or something warm. 2. Motrin and Tylenol Regularly - this will help with pain and inflammation of the Eustachian Tube - this is very important for a speedy recovery. 3. Antihistamine like Claritin/Zyrtec/Al legra/Benedryl - will help with congestion and swelling in the Eustachian Tube. 4. Saline Nasal Remus 5. Salt Water Gargle 6. Staying Hydrated If you develop any of the following Symptoms I would be seen again: 1. Fever > 101.0 2. Stiff Neck 3. Swelling of the Lymph Nodes around the ear or neck 4. Worsening Pain 5. Bleeding from the Ear 6. Severe Sore Throat Go Immediately to the ER if you develop 1. Severe Headache 2. Chest Pain 3. Shortness of Breath. Antibiotics typically take 4-5 days to start working so do the above to help with your symptoms. Probiotics are important while taking antibiotics - I recommend Florastor Make sure you finish the full course of the antibiotics - if you don't this can lead to antibiotic resistance. Thank you for using [facility] today - and don't hesitate to contact our office if you have any concerns or questions. Not available 06/11/2022 18:18:46 Reason for Referral None Reported. Problems Name Problem SNOMED Code Status Onset Date Resolution Date Notes Provider Name and Address Organization Details Recorded Time Urinary incontinence 336838235 Active 2022 MARK Medeiros - [facility] 3 17:22:54 Problem Notes None recorded. Procedures Surgical History Date Name Laterality Status Provider Name and Address Organization Details Recorded Time Appendectomy completed Constance Eldridge PA - [facility] 06/11/2022 17:17:52 procedure on shoulder completed Constance Eldridge PA - [facility] 06/11/2022 17:18:18 Imaging Results None recorded. Procedure Notes None recorded. Medical Equipment None Reported. Allergies Allergen ID Allergen Name Allergen Category Reaction Reaction Severity Criticality Documentation Date Start Date Code Code System Note Provider Name and Address Organization Details Recorded Time 875553 grass pollen environme nt,medica tion Not available Not available Not available 06/11/2022 Constance hilton PA Loc [facility] 3 17:12:26 986940 atenolol medicatio n Not available Not available Not available 06/11/2022 1202 RxNorm Constance Eldridge MARK hilton [facility] 3 17:12:50 202016 Bactrim medicatio n rash Not available Not available 06/11/2022 91226 9 RxNorm Constance Eldridge MARK hilton [facility] 3 17:12:57 Medications Name Sig Start Date Stop Date Status Note LastModified by Organization Details LastModified Time Diflucan 150 mg tablet Take 1 tablet every week by oral route for 14 days. 2022 active Not Available Not Available Not Avai lable cefdinir 300 mg capsule Take 1 capsule twice a day by oral route for 10 days. 2022 active Not Available Not Available Not Avai lable albuterol sulfate active Not Available Not Available Not Available Botox active Not Available Not Availa ble Not Available escitalopram oxalate active Not Available Not Available Not Available ciprofloxacin 0.2 % ear drops in a dropperette Instill 4 drops twice a day by otic route for 7 days. 2022 active Not Available Not Available Not Avai lable Vitals Date Recorded Body height Body mass index (BMI) Body weight Body temperature Oxygen saturation Oxygen saturation in Arterial blood by Pulse oximetry Respiratory rate Heart rate Systolic blood pressure Diastolic blood pressure Provider Name and Address Organization Details Last Updated DateTime 3 154.94 cm 41.2 kg/m2 12405.1 4 g 96.8 [degF] 99 % 99 % 18 /min 92 /min 131 mm[Hg] 89 mm[Hg] Constance Eldridge MARK Monterroso [facility] 3 17:21:13 Social History Question Answer Notes LastModified by Organizat ion Details LastModified Time Tobacco Smoking Status Never Smoker Constance PonceMARK colin [facility] 06/11/2022 17:17:21 What Is Your Level Of Alcohol Consumption? Occasional Information not available 06/11/2022 How Many Times Per Week Do You Consume Alcohol? <1 Time Per Week Rarely Information not available 06/11/2022 Do You Use Any Illicit Or Recreational Drugs? No Information not available 06/11/2022 Have You Recently Traveled Abroad? No Information not available 06/11/2022 Sex: Unknown Functional Status None recorded. Mental Status None recorded. Family History Relationship Description Onset Age of this Age Resolved Age Notes LastModified by Organization Details LastModified Time Maternal Grandmother Malignant tumor of colon [email or web address] Not available 2022 17:15:51 Medical History No medical history recorded. Gynecological HistoryNo gynecological history recorded. Obstetrics History GPAL:G 0 P 0 0 0 0 Immunizations Vaccine Type Date Status Note Provider Nam e and Address Organization Details Recorded Time Influenza, split virus, trivalent, PF 5 completed Constance Monfette null, PA - [facility] 06/11/2022 17:11:42 Influenza, split virus, trivalent, preservative 4 completed Constance Monfette null, PA - [facility] 06/11/2022 17:11:42 COVID-19, mRNA, LNP-S, PF, 30 mcg/0.3 mL dose 1 completed Constance Monfette null, PA - [facility] 06/11/2022 17:11:42 Influenza, split virus, quadrivalent, PF 2 completed Constance Monfette null, PA - [facility] 06/11/2022 17:11:42 Influenza, split virus, trivalent, PF 6 completed Constance Monfette null, PA - [facility] 06/11/2022 17:11:42 Influenza, MDCK, quadrivalent, PF 7 completed Constance Monfette null, PA - [facility] 06/11/2022 17:11:42 COVID-19, mRNA, LNP-S, PF, 30 mcg/0.3 mL dose, robyn-sucrose 2 completed Constance Monfette null, PA - [facility] 06/11/2022 17:11:42 COVID-19, mRNA, LNP-S, PF, 30 mcg/0.3 mL dose 2 completed Constance Monfette null, PA - [facility] 06/11/2022 17:11:42 Influenza, split virus, quadrivalent, PF 2 completed Constance Monfette null, PA - [facility] 06/11/2022 17:11:42 Influenza, split virus, quadrivalent, preservative 8 completed Constance Monfette null, PA - [facility] 06/11/2022 17:11:42 Influenza, MDCK, quadrivalent, PF 0 completed Constance Monfette null, PA - [facility] 06/11/2022 17:11:42 COVID-19, mRNA, LNP-S, PF, 30 mcg/0.3 mL dose 1 completed Constance Monfette null, PA - [facility] 06/11/2022 17:11:42 Past Encounters Encounter ID Performer Location Encounter Start Date Encounter Closed Date Diagnosis/Indication Diagnosis SNOMED-CT Code Diagnosis ICD10 Code [id number] [address] [address] [place] [address] 02/01/2022 12:52:42 02/01/2022 14:38:05 [id number] MARK ORTEGA [address] [facility] [address] [place] [address] 06/11/2022 16:40:01 06/11/2022 18:21:41 Acute bilateral otitis media 974775279 H66.93 Candidiasis of vagina 72 094547 B37.31 Health Concerns Section Related Observation LastModified by Organization Detai ls LastModified Time None Recorded Concern Status LastModified by Organization Details LastModified Time None Recorded Advance Directives Directive None Recorded Payers Encounter Date Sequence Insurance Name Policy Number Policy Clark Covered Member ID Clark Member ID Guarantor Name 02/01/2022 1 [place] [employer] Elba Martinez [id number] Elba Martinez 02/01/2022 2 [place] [facility] Elba Martinez [id number] Elba Martinez 06/11/2022 1 [place] [employer] Elba Martinez [id number] Elba Martinez 06/11/2022 2 [place] [facility] Elba Martinez [id number] Elba Martinez Notes Date Note Type Note Provider Name and Address Organization Details Recorded Time 06/11/2022 text/html Ear Pain Brief HPIReported bypatient.Location :bilateral Onset/Timing:start ed 2weeks ago; sudden onset Quality:no itching; no discharge from the ears; no burning;throbbing pain;sharp pain Severity:no fever Context:no recent URI; no recent swimming;recent ear infection Aggravating factors:Pushing on the ear Associated Symptoms:no cough; no jaw popping or clicking; no discharge from ear; no nasal congestion; no sore throat; no jaw pain; no tinnitus;nasal discharge;sense of fullness/pressure; decreased hearingNotes:The patients with her Mom or Caregiver. REports that she was complaining of ear pain bilateral. Was seen by her PCP and diagnosed with ear infections on both sides. Was prescribed Amoxicillin completed the course and the patient is still having ear pain. Hurts to touch the outside of the ear. Right is worse than left. No fever. + congestion. No Jaw pain. MARK ORTEGA [address] [place], [address], PA - [facility] 06/12/2022 13:33:56 OBGyn Episode No OBEpisode recorded.
--- OUTSIDE RECORDS SUMMARY | 2024-05-02 15:05 | XMS_ITS | Patient Health Record ---
Author Organization [facility] Address [address] [place] [address] Care Team Providers Care Lead Pressman Name Role Phone Deirdre Boudreaux MD Primary Care Provider Hansel Floyd Unavailable [phone] ALLERGIES Allergen (clinical drug ingredient) Drug/Non Drug Allergy documented on EMR Reaction Allergy Type Onset Date Status atenolol Atenolol bad dreams Drug Allergy Active REASON FOR REFERRAL No Information MEDICATIONS Medication SIG (Take, Route, Frequency, Duration) Notes Start Date End Date Status oxyBUTYnin Chloride ER 10 MG TAKE 1 TABLET BY MOUTH EVERY DAY Oral twice a day Active Escitalopram Oxalate 15 mg 1 tablet Oral ly Once a day Active Myrbetriq 50 MG 1 tablet Orally Once a day Active IMMUNIZATIONS Vaccine Route Administration Date Status Comme nts Influenza Unknown 03/29/2020 Administered SOCIAL HISTORY Tobacco Use: Social History Observation Description Date Details (start date - stop date) Never Smoker NA - NA Sex Assigned At : Social History Observation Description Sex Assigned At Unknown Tobacco Use/Smoking Question Answer Notes Patient is a nonsmoker Alcohol Screen Question Answer Notes Did you have a drink containing alcohol in the p ast year? No Points 0 Interpretation Negative PROBLEMS Problem Type ICD Code Onset Dates Problem Status W/U Status Risk SNOMED Code Notes Problem Rectal bleed (K62.5) Active confirmed 52123043 Problem Family history of colon cancer (Z80.0) Active confirmed 595620926 PLAN OF TREATMENT No Information Insurance Providers Payer Name Payer Address Payer Phone Subscriber Number Group Number Insured Name Patient Relationship to Insured Coverage Start Date Coverage End Date MEDICARE OF NEELA DARIAN [address] [id number] [phone] [id number] DANNY MARTINEZ Self - patient is the insured MEDICAID OF [employer] [address] [place] [phone] [id number] DANNY MARTINEZ Self - patient is the insured MEDICAL (GENERAL) HISTORY Medical History History ICD Code Urinary incontinence Hay fever IBS Cerebral palsy with some cognitive and d evelopmental disabilities Denies LA,DM,CVA,Lung disease,renal dise ase Describes a negative colonos copy over [address] Mitchell. She has also seen Dr. Rain for evaluation of abdominal pain in the distant past as well Surgical History Surgery Date(Month/Year) Removed appendix via NOTES via vagina Fatty tissue in the groin area . Shoulder-right
--- OUTSIDE RECORDS SUMMARY | 2024-05-02 15:05 | XMS_ITS | Data Portability ---
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 Plan of Treatment Reminders Order Date Submit Date Provider Last Modified By Organization Details Last Modified Time Details Appointments RECHECK 15 2023 01:30P M Cherie Yañez MD Not available Not available Not available Lab rheumat oid arthlisa is disease activit y panel, vectrad a, serum or plasma 2023 024 GALO [facility], [address], [place], [address], 01/02/2024 16:06:51 ESR (erythr ocyte sedimen tation rate), blood 2023 024 GALO [facility], [address], [place], [address], 01/02/2024 16:06:51 C-react anne protein , quantit ative, serum or plasma 2023 024 [email or web address] [facility], [address], [place], [address], 12/21/2023 14:51:24 HbA1c (hemogl obin A1c), blood 2023 024 GALO [facility], [address], [place], [address], 01/02/2024 16:06:50 CMP, serum or plasma 2023 024 GALO [facility], [address] [facility], [place], [address], 01/02/2024 16:06:49 Referral physica l therapi st referra l - Status post left gastroc and soleus recessi on, ankle arthros copy, debride ment of talar osteoch ondral lesion; date of surgery 3LLE recondi tioning , desensi tizatio n 2023 024 [email or web address] Not available 11/21/2023 08:35:27 rheumat ologist referra l - right hand pain eval for high sed rate and high rectra 2023 024 [facility], [address] [place], [address], 02/08/2024 10:07:17 Procedures None recorde d. Surgeries None recorde d. Imaging XR, ankle, 3 or more view - left foot /ankle 5v wb , recheck . room 103 2023 024 bonnie [facility], [address], [facility] [address], [place], [address], 11/11/2023 16:19:53 XR, foot, 2 view [address] [facility], [address], [facility] [address], [place], [address], 11/11/2023 16:19:53 Medication Orders meloxic am 15 mg tablet 2023 024 [facility][id number], [address] [place], [address], 11/11/2023 16:19:53 cyclobe nzaprin e 5 mg tablet 2023 024 [id number], [address] [facility] [place], [address], 02/10/2024 07:46:39 Patient TargetsNo targets recorded. Patient InstructionsNo instructions recorded. Reason for Referral Physical Therapist Referral for Pain in left foot Status post left gastroc and soleus recession, ankle arthroscopy, debridement of talar osteochondral lesion; date of surgery 04/21/23LLE reconditioning , desensitization Referring Physician: Cherie Yañez, Orthopedic Surgery, Encounter Date: 11/11/2023 Change Management Consultant Referral for Hand pain right hand pain eval for high sed rate and high rectra Referring Physician: Ewa Quiroz, Orthopedic Surgery, Encounter Date: 01/16/2024 Results Created Date Observation Date Name Description Value Unit Range Abnormal Flag Note LastModifiedBy Organization Detail LastModifiedTime 12/23/19 24 12/24/2023 CMP14 +GLU RFX GT 100 TO HB A1C glucose 93 mg/dL 70-99 normal Not Available [facility] ([facility]) [address] [place], [address], 01/02/2024 16:06:49 12/23/19 24 12/24/2023 CMP14 +GLU RFX GT 100 TO HB A1C BUN 18 mg/dL 6-24 normal Not Available [facility] ([facility]) [address] [place], [address], 01/02/2024 16:06:49 12/23/19 24 12/24/2023 CMP14 +GLU RFX GT 100 TO HB A1C creatinine 0.78 mg/dL 0.57-1 .00 normal Not Available [facility] ([facility]) [address] [place], [address], 01/02/2024 16:06:49 12/23/19 24 12/24/2023 CMP14 +GLU RFX GT 100 TO HB A1C BUN/creatini ne ratio 23 9-23 normal Not Available [facility] ([facility]) [address] [place], [address], 01/02/2024 16:06:49 12/23/19 24 12/24/2023 CMP14 +GLU RFX GT 100 TO HB A1C sodium 140 mmol/ L 134-14 4 normal Not Available [facility] ([facility]) [address] [facility], [place], [address], 01/02/2024 16:06:49 12/23/19 24 12/24/2023 CMP14 +GLU RFX GT 100 TO HB A1C potassium 4.5 mmol/ L 3.5-5. 2 normal Not Available [facility] ([facility]) [address] [place], [address], 01/02/2024 16:06:49 12/23/19 24 12/24/2023 CMP14 +GLU RFX GT 100 TO HB A1C chloride 101 mmol/ L 96-106 normal Not Available [facility] ([facility]) [address] [place], [address], 01/02/2024 16:06:49 12/23/19 24 12/24/2023 CMP14 +GLU RFX GT 100 TO HB A1C carbon dioxide, total 25 mmol/ L 20-29 normal Not Available [facility] ([facility]) [address] [facility], [place], [address], 01/02/2024 16:06:49 12/23/19 24 12/24/2023 CMP14 +GLU RFX GT 100 TO HB A1C calcium 9.6 mg/dL 8.7-10 .2 normal Not Available [facility] ([facility]) [address] [place], [address], 01/02/2024 16:06:49 12/23/19 24 12/24/2023 CMP14 +GLU RFX GT 100 TO HB A1C protein, total 7.5 g/dL 6.0-8. 5 normal Not Available [facility] ([facility]) [address] [place], [address], 01/02/2024 16:06:49 12/23/19 24 12/24/2023 CMP14 +GLU RFX GT 100 TO HB A1C albumin 4.3 g/dL 3.9-4. 9 normal Not Available [facility] ([facility]) [address] [place], [address], 01/02/2024 16:06:49 12/23/19 24 12/24/2023 CMP14 +GLU RFX GT 100 TO HB A1C globulin, total 3.2 g/dL 1.5-4. 5 Not Available [facility] ([facility]) [address] [place], [address], 01/02/2024 16:06:49 12/23/1912/24/2023 CMP14 +GLU RFX GT 100 TO HB A1C bilirubin, total 0.3 mg/dL 0.0-1. 2 normal Not Available [facility] ([facility]) [address] [place], [address], 01/02/2024 16:06:49 12/23/19 24 12/24/2023 CMP14 +GLU RFX GT 100 TO HB A1C alkaline phosphatase 76 IU/L 44-121 normal Not Available [facility]) [address] [place], [address], 01/02/2024 16:06:49 12/23/19 24 12/24/2023 CMP14 +GLU RFX GT 100 TO HB A1C AST (SGOT) 22 IU/L 0-40 normal Not Available [facility] ([facility]) [address] [place], [address], 01/02/2024 16:06:49 12/23/19 24 12/24/2023 CMP14 +GLU RFX GT 100 TO HB A1C ALT (SGPT) 13 IU/L 0-32 normal Not Available [facility] ([facility]) [address] [place], [address], 01/02/2024 16:06:49 12/23/19 24 12/24/2023 HEMOG LOBIN A1C hemoglobin A1C 5.9 % 4.8-5. 6 above high normal Predi abete s: 5.7 - 6.4 Diabe daphney: >6.4 Glyce yanira contr ol for adult s with diabe daphney: <7.0 Not Available [facility] ([facility]) [address] [facility], [place], [address], 01/02/2024 16:06:50 12/23/19 24 12/24/2023 SEDIM ENTAT ION RATE- WESTE RGREN sedimentatio n rate-westerg rodrigo 55 mm/HR 0-32 above high normal Not Available [facility] ([facility]) [address] [facility], [place], [address], 01/02/2024 16:06:51 12/23/19 24 12/23/2023 VECTR A(R) biomarker comment: Commen t These repor hao usman te value s and refer ence range s are inten ded for use in the gener ation of the Vectr a score only. These resul ts shoul d not be used inter moore eably with resul ts gener ated by keli mendezs. Not Available [facility] [address] [place], [address], 01/02/2024 16:06:51 12/23/19 24 01/02/2024 VECTR A(R) vectra score 54 Moore e in Score Multi ple Vectr a score s requi red for meani ngful moore e calcu latio nVect ra Score Inter preta tion Patie nt has a High Vectr a Score and is at incre ased risk for radio graph ic progr essio n. Consi michael adjus ting treat ment regim en to reduc e infla mmati on, and retes ting at the next clini david visit . Not Available [facility] [address] [place], [address], 01/02/2024 16:06:51 12/23/19 24 01/02/2024 VECTR A(R) risk of radiographic progress 10 % 1-Yea r Risk of Radio graph ic Progr essio n Not Available [facility] [address] [place], [address], 01/02/2024 16:06:51 12/23/19 24 01/02/2024 VECTR A(R) vectra(R) level Commen t High Vectr a Disea se Activ ity Level s: High: 45 to 100 Moder ate: 30 to 44 Low: 1 to 29 Not Available [facility] [address] [facility], [place], [address], 01/02/2024 16:06:51 12/23/19 24 01/02/2024 VECTR A(R) test description Commen t VECTR A SCORE DESCR IPTIO N Vectr a Score measu res the yina ntrat ions of 12 serum prote ins. An algor ithm is appli ed to these yina ntrat ions to calcu late a disea se activ ity score on a scale of 1 to 100. The Vectr a Score is perso naliz ed based on the age, gende r, and adipo sity of the patie nt. RISK OF RADIO GRAPH IC PROGR ESSIO N (RP): The risk of RP is shown as a funct ion of Vectr a Score . (see chart right ). The defin ition of RP is a 1-yea r total Sharp score moore e of >5 units . Incre ased risk of RP means a great er chanc e of irrev ersib le joint damag e. Patie nt seros tatus may affec t the risk of radio graph ic progr essio n. Thus, the actua l risk of radio graph ic progr essio n may be highe r if this patie nt is serop ositi ve and lower if this patie nt is seron egati ve. MOORE E IN SCORE DESCR IPTIO N Moore e in Score is asses sed in relat ion to the Minim ally Impor tant Diffe rence (MID) for Vectr a. The MID for patie nts with a Moder ate or High Vectr a Score is 8.0. VECTR A SCORE S OVER TIME Compl ete score histo ry shown on last page. As of Dece2016 the Vectr a Score is adjus hao based on the age, gende r and adipo sity of the patie nt. This test was devel oped and its perfo rmanc e boni cteri stics deter mined by [facility]. It has not been clear ed or appro guerrero by the Food and Drug Admin istra tion. (C) Labor atory Corpo ratio n of Ameri ca(R) Holdi ngs. All Right s Reser guerrero. This docum ent conta ins priva te and confi denti al healt h infor matio n prote cted by state and lizy al law. If you have recei guerrero this docum ent in error pleas e call [phone]. V.1.0 02-10 Not Available [facility] [address] [place], [address], 01/02/2024 16:06:51 12/23/19 24 01/02/2024 VECTR A(R) master result 8.5 ug/mL RA Range : (0.29 -85) RA Perce ntile : 82% Not Available [facility] [address] [place], [address], 01/02/2024 16:06:51 12/23/19 24 01/02/2024 VECTR A(R) CRP result 5.8 mg/L RA Range : (0.19 -92) RA Perce ntile : 58% Not Available [facility] [address] [place], [address], 01/02/2024 16:06:51 12/23/19 24 01/02/2024 VECTR A(R) vcam-1 result 0.46 ug/mL RA Range : (0.39 -1.2) RA Perce ntile : 9% Not Available [facility] [address] [place], [address], 01/02/2024 16:06:51 12/23/19 24 01/02/2024 VECTR A(R) il-6 result 15 pg/mL RA Range : (2.5- 200) RA Perce ntile : 61% Not Available [facility] [address] [place], [address], 01/02/2024 16:06:51 12/23/19 24 01/02/2024 VECTR A(R) tnf-ri result 1.7 NG/mL RA Range : (0.8- 3.9) RA Perce ntile : 64% Not Available [facility] [address] [place], [address], 01/02/2024 16:06:51 12/23/19 24 01/02/2024 VECTR A(R) egf result 180 pg/mL RA Range : (12-4 10) RA Perce ntile : 77% Not Available [facility] [address] [place] [address], [address], 01/02/2024 16:06:51 12/23/19 24 01/02/2024 VECTR A(R) vegf-A result 430 pg/mL RA Range : (75-7 90) RA Perce ntile : 83% Not Available [facility] [address] [place] [address], [address], 01/02/2024 16:06:51 12/23/19 24 01/02/2024 VECTR A(R) leptin result 5.8 NG/mL RA Range : (1.5- 120) RA Perce ntile : 15% Not Available [facility] [address] [place], [address], 01/02/2024 16:06:51 12/23/19 24 01/02/2024 VECTR A(R) resistin result 4.2 NG/mL RA Range : (3.5- 21) RA Perce ntile : 6% Not Available [facility] [address] [place], [address], 01/02/2024 16:06:51 12/23/19 24 01/02/2024 VECTR A(R) mmp-1 result 18 NG/mL RA Range : (1.3- 23) RA Perce ntile : 94% Not Available [facility] [address] [place], [address], 01/02/2024 16:06:51 12/23/19 24 01/02/2024 VECTR A(R) mmp3 result 19 NG/mL RA Range : (7.9- 160) RA Perce ntile : 39% Not Available [facility] [address] [place], [address], 01/02/2024 16:06:51 12/23/19 24 01/02/2024 VECTR A(R) ykl-40 result 44 NG/mL RA Range : (22-5 40) RA Perce ntile : 22% Not Available [facility] [address] [place], [address], 01/02/2024 16:06:51 12/23/19 24 01/02/2024 VECTR A(R) footnote/his tory Commen t RA Range : These 95% refer ence range s were estab lishe d from 325,7 81 patie nt sampl es teste d at [facility] endo Bios ience [facility] Labor atory . RA Perce ntile : Subje ct's bioma rker level relat anne to level s in RA patie nt speci mens from which the RA range s were deter mined Compl ete Vectr a Score Histo ry: Colle ction Date: 12/22 Score : 54 Not Available [facility] [address] [place], [address], 01/02/2024 16:06:51 12/23/19 24 01/02/2024 VECTR A(R) clinical validation Commen t Filemon ewing note: The indiv idual bioma rker resul ts, which are expre ssed to two signi michael english es, are requi red input s into the algor ithm used to calcu late the Vectr a Score . Clini david inter preta tion of indiv idual bioma rker level s which have diffe rent weigh ts in the Vectr a algor ithm, has not been estab lishe d. Not Available [email or web address] [address] [place] [address], [address], 01/02/2024 16:06:51 11/11/19 24 11/11/2023 XR, foot, 2 view [email or web address]:/ [email or web address] ?Encry pted=s hAaTro YD8dLq bEUv6g %2BXZw aYqtaq 0bqfl% 2Fg9IQ a4ajBk vP9nXo QUaueC m3YtLR FvZl27 Graves Streettai3 7h[address]163 AC0KuY nmFU6P eUC8mr 84%3D INTERFACE [facility] [address], [place], [address], 11/11/2023 13:38:14 11/11/19 24 11/11/2023 XR, foot, 2 view [email or web address]:/ [email or web address] ?Encry pted=s hAaTro YD8dLq bEUv6g %2BXZw aYqtaq 0bqfl% 2Fg9IQ a4ajBk vP9nXo QUaueC m3YtLR FvZlJ J8mAn HZtai3 2j9004 AC0KuY nmFU6P eUC8mr 84%3D INTERFACE [facility] [address], [place], [address], 11/11/2023 13:38:16 11/11/19 24 11/11/2023 XR, ankle , 3 or more view http:/ [email or web address] ?Encry pted=s hAaTro YD8dLq bEUv6g %2BXZw aYqtaq 0bqfl% 2Fg9IQ a4ajBk vP9nXo QUaueC m3YtLR FvZlgJ JJ8mAn HZtai3 5m3891 AC0KuY nmFUKT eUC8mr 84%3D INTERFACE [facility] [address], [place], [address], 11/11/2023 13:39:44 11/11/19 24 11/11/2023 XR, ankle , 3 or more view http:/ [email or web address] ?Encry pted=s hAaTro YD8dLq bEUv6g %2BXZw aYqtaq 0bqfl% 2Fg9IQ a4ajBk vP9nXo QUaueC m3YtLR FvZlgJ JJ8mAn HZtai3 9q5077 AC0KuY nmFUKT eUC8mr 84%3D INTERFACE [facility] [address], [place], [address], 11/11/2023 13:39:45 12/02/19 24 12/02/2023 nerve condu ction study /EMG, upper extre mity (PROC ) No observ ation record ed. [facility] Scheduling Dept [address] [facility], [place], [address], 12/05/2023 09:46:30 01/21/20 24 11/17/2022 imagi ng/di agnos tic resul t No observ ation record ed. [email or web address] Not Available 12/23 04:03:48 01/21/20 24 03/04/2023 imagi ng/di agnos tic resul t No observ ation record ed. [email or web address] Not Available 12/23 04:04:04 Result Notes None recorded. Problems Name Problem SNOMED Code Status Onset Date Resolution Date Notes Provider Name and Address Organization Details Recorded Time No complaints 815897469 Active Status: 'I'; Not Available [facility] 09:21:24 Synovitis and tenosynovit is of joint of hand Active 2019 Problem Code: M65.841; Problem Code Type: ICD-10; Status: 'A'; Not Available [facility] 11:43:44 Problem Notes None recorded. Procedures Surgical History None recorded. Imaging Results Imaging Date Name Status LastModified by Organiz ation Details LastModified Time 11/11/2023 XR, foot, 2 view completed INTERFACE [facility] [address], [place], [address], 11/11/2023 13:38:14 11/11/2023 XR, foot, 2 view completed INTERFACE [facility] [address], [place], [address], 11/11/2023 13:38:16 11/11/2023 XR, ankle, 3 or more view completed INTERFACE [facility] [address], [place], [address], 11/11/2023 13:39:44 11/11/2023 XR, ankle, 3 or more view completed INTERFACE [facility] [address], [place], [address], 11/11/2023 13:39:45 12/02/2023 nerve conduction study/EMG, upper extremity (PROC) completed [facility] Scheduling Dept [address] [place] [address], [address], 12/05/2023 09:46:30 11/17/2022 imaging/diagnos tic result completed Information not available 01/21/2024 04:03:48 03/04/2023 imaging/diagnos tic result completed Information not available 01/21/2024 04:04:04 Procedure Notes None recorded. Medical Equipment None Reported. Allergies Allergen ID Allergen Name Allergen Category Reaction Reaction Severity Criticality Documentation Date Start Date Code Code System Note Provider Name and Address Organization Details Recorded Time 71901 Tenormin medicatio n Not available Not available Not available 07/25/20232011 26594 3 RxNorm Aller gyRea ction : 'UNKN OWN'; Not Available [facility] 4 13:52:25 43553 Bactrim medicatio n Not available Not available Not available 07/25/20232013 66221 9 RxNorm Not Available [facility] 4 13:52:26 Medications Name Sig Start Date Stop Date Status Note LastModified by Organization Details LastModified Time quetiapine 25 mg tablet TAKE 1 TABLET BY MOUTH EVERY DAY NEEDED active Not Available Not Available No t Available celecoxib 200 mg capsule TAKE 1 CAPSULE BY MOUTH EVERY DAY NEEDED FOR PAIN WITH FOOD active Not Available Not Available No t Available amoxicillin 500 mg capsule TAKE 1 CAPSULE BY MOUTH 3 TIMES A DAY active Not Available Not Available No t Available latanoprost 0.005 % eye drops INSTILL 1 DROP INTO BOTH EYES EVERY DAY AT NIGHT active Not Available Not Available No t Available ibuprofen 800 mg tablet TAKE 1 TABLET BY MOUTH 3 TIMES A DAY active Not Available Not Available No t Available fluconazole 150 mg tablet PLEASE SEE ATTACHED FOR DETAILED DIRECTION S active Not Available Not Available No t Available meloxicam 15 mg tablet TAKE 1 TABLET BY MOUTH EVERY DAY WITH FOOD active Not Available Not Available No t Available carbamazepi ne ER 100 mg tablet,exte nded release,12 hr TAKE 1 TABLET BY MOUTH EVERY DAY active Not Available Not Available No t Available ondansetron HCl 4 mg tablet TAKE 1 TABLET BY MOUTH EVERY 8 HOURS FOR 7 DAYS NEEDED FOR NAUSEA/VO MITING active Not Available Not Available No t Available propranolol 10 mg tablet TAKE 1 TABLET BY MOUTH EVERY DAY AT NIGHT active Not Available Not Available No t Available aspirin 325 mg tablet,opal yed release TAKE 1 TABLET BY MOUTH EVERY DAY active Not Available Not Available No t Available pseudoephed rine-guaife nesin ER 80-700 mg tablet,exte nded release 1 TAB Q 4-6 HRS PRN PAIN 10/13 completed Statu s: 'Disc ontin ued'; Not Available Not Available Not Available cefuroxime axetil 500 mg tablet TAKE 1 TABLET BY MOUTH EVERY 12 HOURS active Not Available Not Available No t Available fluticasone propionate 50 mcg/actuati on nasal spray,suspe nsion SHAKE LIQUID AND USE 2 SPRAYS IN EACH NOSTRIL EVERY DAY active Not Available Not Available No t Available doxycycline hyclate 100 mg tablet TAKE 1 TABLET BY MOUTH TWICE DAILY FOR 20 DAYS active Not Available Not Available No t Available Ventolin HFA 90 mcg/actuati on aerosol inhaler TAKE 2 PUFFS BY MOUTH EVERY 4 HOURS NEEDED active Not Available Not Available No t Available oxycodone 5 mg tablet TAKE 1 TO 2 TABLETS BY MOUTH EVERY 4 TO 6 HOURS NEEDED FOR PAIN active Not Available Not Available No t Available escitalopra m 20 mg tablet TAKE 1 TABLET BY MOUTH EVERY DAY IN THE MORNING active Not Available Not Available No t Available Clotrimazol e 3 Day 2 % vaginal cream USE 1 APPLICATO RFUL VAGINALLY EVERY NIGHT AT BEDTIME FOR 3 NIGHTS active Not Available Not Available No t Available cyclobenzap rine 5 mg tablet TAKE 1 TABLET NEEDED BY MOUTH FOR 30 DAYS, NEEDED FOR LEG SPASMS. active Not Available Not Available No t Available metformin ER 750 mg tablet,exte nded release 24 hr TAKE 1 TABLET BY MOUTH EVERY DAY active Not Available Not Available No t Available .5/30 (28) 1.5 mg-30 mcg (21)/75 mg (7) tablet TAKE 1 TABLET BY MOUTH EVERY DAY FOR 10 DAYS active Not Available Not Available No t Available nitrofurant oin monohydrate /macrocryst als 100 mg capsule TAKE 1 CAPSULE BY MOUTH EVERY 12 HOURS FOR 5 DAYS WITH FOOD active Not Available Not Available No t Available quetiapine 50 mg tablet TAKE 1 TABLET BY MOUTH EVERY DAY active Not Available Not Available No t Available diclofenac 1 % topical gel APPLY 2 TO 3 GRAMS TO FOOT/ANKL E 3 TIMES A DAY DIRECTED active Not Available Not Available No t Available Vitals Date Recorded Body height Body mass index (BMI) Body weight Provider Name and Address Organization Details Last Updated DateTime 11/11/2023 154.94 cm 43.5 kg/m2 967453.25 g Elyse Menchaca [facility] 11/11/2023 13:06:08 Date Recorded Body height Body mass index (BMI) Body weight Provider Name and Address Organization Details Last Updated DateTime 12/21/2023 154.94 cm 43.5 kg/m2 324195.25 g Kathleen Sevilla [facility] 12/21/2023 13:09:14 Date Recorded Body height Body mass index (BMI) Body weight Provider Name and Address Organization Details Last Updated DateTime 01/16/2024 154.94 cm 43.5 kg/m2 179287.25 g Kathleen Sevilla [facility] 01/16/2024 15:14:55 Date Recorded Body height Body mass index (BMI) Body weight Provider Name and Address Organization Details Last Updated DateTime 02/06/2024 154.94 cm 43.5 kg/m2 323656.25 g Elyse Menchaca [facility] 02/06/2024 13:26:02 Date Recorded Body height Body mass index (BMI) Body weight Provider Name and Address Organization Details Last Updated DateTime 03/14/2024 154.94 cm 43.5 kg/m2 965972.25 g [facility] 03/14/2024 14:30:02 Social History None recorded. Functional Status None recorded. Mental Status None recorded. Family History Nothing Reported. Medical History No medical history recorded. Gynecological HistoryNo gynecological history recorded. 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 [id number] 35085 G56.01 [id number] MD David Ng [address] [place] [address] 09/12/2023 13:02:31 09/30/2023 11:31:13 Pain in left foot [id number] 99329 M79.672 Osteochond ritis dissecans of left ankle 5612521051 90844 M93.047 [id number] MD David Ng [address] [place] [address] 11/11/2023 12:54:59 12/08/2023 12:06:22 Pain of left ankle joint 3148139780 3224552 M25.572 Foot pain 09470873 M79.6 73 Pain in left foot 965251 4162 92293 M79.672 Osteochond ritis dissecans of left ankle 4403800225 86144 M93.170 [id number] SANDRA Caballeronie [address] [place] [address] 12/21/2023 12:42:33 01/19/2024 11:06:09 Pain in right hand [id number] M79.034 [id number] Ewa Quiroz PA-C [facility] [address] [place] [address] 01/16/2024 14:43:15 02/08/2024 10:07:17 Hand pain [id number] M79.499 [id number] Cherie Yañez MD [facility] [address] [place] [address] 02/06/2024 13:13:28 02/27/2024 12:40:24 Pain of left ankle joint [id number] M25.572 Osteochond ritis dissecans [id number] M93.279 Osteochond ritis dissecans of left ankle [id number] 80046 M93.272 Peroneal t endinitis of left lower limb [id number] 39572 M76.72 [id number] Ewa Quiroz PA-C [facility] [address] [place] [address] 03/14/2024 14:16:14 04/03/2024 11:04:14 Pain of right wrist [id number] M25.531 Health Concerns Section Related Observation LastModified by Organization Detai ls LastModified Time None Recorded Concern Status LastModified by Organization Details LastModified Time None Recorded Advance Directives Directive None Recorded Payers Encounter Date Sequence Insurance Name Policy Number Policy Clark Covered Member ID Clark Member ID Guarantor Name 11/11/2023 1 [place] [employer] Elba Martinez [id number] Elba Martinez 11/11/2023 2 [place] Elba Zacarias [place] [id number] Elba L Juan 12/21/2023 1 [place] [employer] Elba Zacarias [place] [id number] Elba L Juan 12/21/2023 2 [place] Elba Zacarias [place] [id number] Elba L [place] 01/16/2024 1 [place] [employer] Elba L Juan [id number] Elba L [place] 01/16/2024 2 [place] Elba Zacarias [place] [id number] Elba L Juan 02/06/2024 1 [place] [employer] Elba Zacarias [place] [id number] Elba L [place] 02/06/2024 2 [place] Elba Zacarias [place] [id number] Elba L Juan 03/14/2024 1 [place] [facility] GOVERNMENT SERVICES Elba Zacarias [place] [id number] Elba L [place] 03/14/2024 2 [place] [facility] Elba Zacarias [place] [id number] Elba Zacarias Juan Notes Date Note Type Note Provider Name and Address Organization Details Recorded Time 11/11/19 24 text/htm l CHIEF COMPLAINT: Status post left gastroc and soleus recession, ankle arthroscopy, debridement of talar osteochondral lesion; date of surgery 04/21/23 HISTORY OF PRESENT ILLNESS: Elba presents today for follow-up postoperative evaluation. She is now almost 7 months out from surgery. She unfortunately continues to struggle with pain. She is wearing an ankle brace. Last visit we did attempt to refer her back to physical therapy however the patient was unable to start in the interim since last visit. We recall that she continue to use the cam boot for over 3 months after her surgery On presentation today the patient localizes her pain diffusely. She again points along the great toe as a source of her greatest pain. She points at the medial tibiotalar joint line. Past family, medical, social history and review of systems has been reviewed, updated and is located in the patient's chart. PHYSICAL EXAM:Patient in no acute distress, alert and oriented. Answers questions and follows commands appropriatelyFocused examination left lower extremity there is minimal swellingPatient withdraws to most stimuli. When she is distracted she appears to have painless passive range of motion and no tenderness at the lateral tibiotalar joint line she does have some apparent tenderness at the medial tibiotalar joint line tibiotalar joint line She appears grossly neurovascular intact with motor and sensation intact in all distributionsToes are warm and well-perfused with palpable DP and PT pulses X-rays ordered, obtained and reviewed at [facility]: AP, lateral, oblique weightbearing imaging of the left foot and ankle was obtained today in office. AP and oblique imaging of the left ankle demonstrate no evidence of acute fracture. No evidence of degenerative change. There is no progression of the radiolucency present in the lateral talar dome. Tibiotalar joint space is well-maintained. Weightbearing imaging of the foot demonstrates all tarsometatarsal joints in anatomic alignment. No evidence of tarsal coalition. No evidence of hindfoot arthritis. No significant hindfoot malalignment is noted IMPRESSION:- status post left gastroc and soleus recession, left ankle arthroscopy and debridement, debridement of lateral talar osteochondral lesion; date of surgery 04/21/23-Ongoing left ankle pain of unclear etiology PLAN:-Had a lengthy discussion with the patient and her mother in clinic today regarding her ongoing pain. I remain somewhat baffled by her pain pattern and its distribution. I have no doubt that the patient does continue to have some discomfort I cannot identify her main pain generator at present ? I have suggested continued use of a light weight ankle brace as needed ? We will start her on a once daily anti-inflammatory ? I have again recommended that the patient attend formal physical therapy ? We will see her back in office in 8 weeks for repeat evaluation Cherie Yañez MD [address] [facility] [address], [place], [address], [facility] - [facility] 11/20/2023 15:27:46 12/21/19 24 text/htm l I am seeing the patient today under the supervision of Dr. Muñoz who was available but did not see the patient.HPI:Patient is a pleasant 48-year-old female who presents to the clinic today accompanied by her mother for evaluation in regards to right wrist pain that started on . Patient state that she started to notice some increased swelling and pain about her wrist that is slowly certain to get worse. She denies any fever or chills. She admits that it occasionally gets warm. Denies inciting event. .Clinical update: Patient presents today for reevaluation and EMG review. Patient has been undergoing occupational therapy for right lateral epicondylitis and extensor tendinitis of the wrist and forearm. She is doing a lot better, but complaining of generalized pain. Taking meloxicam and tylenol which in combination help with her pain. Pt's mother states she believes she may be over describing how her pain is.. S family, medical, social history and review of systems has been reviewed, updated and signed by me and is located in the patient's chart.Examination: The patient is well appearing and in no apparent distress. Alert and oriented x3. Gait is symmetric. Right wrist exam: Skin is intact without evidence of erythema noted. Evidence of improved soft tissue swelling noted to the dorsum of the extensor surface of the forearm does appear to be relatively symmetric to the contralateral side. Patient react to light palpation pretty significant discomfort. There is also discomfort extending proximally towards her upper condyle. And tenderness to light palpation along the extensor surface of the long finger. Evidence of concern for positive compression carpal tunnel. Questionably positive Tinel's testing. Neurovascular intact distally. Capillary refills less than 3 seconds. Full range of motion is intact about the wrist evidence of mild discomfort to resisted extension and resisted extension of the digits.X-rays ordered, obtained and reviewed at [facility]: None performed today..EMG was negative for any generalized or compressive neuropathiesImpression: Generalized right wrist pain in a 48-year-old female that does have a past medical history of developmental disability, with overall exercise generalized pain and negative x-ray imaging and EMG imaging today. This may have either a neurologic or psychiatric component.Plan: I discussed my findings with the patient today. I had a long and lengthy discussion with alexandrea today. We discussed that although she is struggling with some pain and the medicine is helping it is difficult to appreciate the etiology of what is going on. Will order some inflammatory tests to rule out any underlying inflammatory condition. I am suspecting that this may be negative however I do believe any certain etiology of her discomfort is psychiatric and nature. We discussed the importance of motion in her finger joints to prevent stiffness. Patient asked to go to therapy however I do believe therapy at this point would not be the most beneficial for the patient. She is also asking for bracing. I am hesitant to provide her brace because that will promote stiffness through her joints, instead I offered her some Coban and shoulder how to tape her fingers that we will provide her some stability without interfering with her range of motion. She will follow-up in 3 weeks for reevaluation. She is encouraged to continue utilizing her medicines and her stretching exercises that therapy taught her previously. All questions and concerns were answered and addressed. If lab results are negative, and her EMG is negative either referral to the hand surgeon versus referral to psych may be beneficial for this patient. All most of the concerns were answered and addressed. Speech recognition breastfeeding program coordinator software was used to create portions of this document. An attempt at proofreading has been made to minimize errors. Please call for corrections. Ewa Quiroz PA-C [address] [facility] [address] [facility], [place], [address], [facility] 12/21/2023 20:38:29 01/16/20 24 text/htm l I am seeing the patient today under the supervision of Dr. Muñoz who was available but did not see the patient.HPI:Patient is a pleasant 48-year-old female who presents to the clinic today accompanied by her mother for evaluation in regards to right wrist pain that started on . Patient state that she started to notice some increased swelling and pain about her wrist that is slowly certain to get worse. She denies any fever or chills. She admits that it occasionally gets warm. Denies inciting event. .Clinical update: Patient presents today for reevaluation and EMG review.she has known to our office for having lateral epicondylar and dorsal forearm pain that has been treated conservatively with cortisone injections as well as occupational therapy with limited relief. Patient has been complaining of generalized pain. She went under EMG which was normal. She presents today for lab tests reviews to include an A1c, CRP and sediimentation rate as well as rheumatoid panel. She was seen at [facility]. She states she is still having pain especially at night that is at random. She is not taking any medication for this. Tinel patient does have some developmental disability. past family, medical, social history and review of systems has been reviewed, updated and signed by me and is located in the patient's chart.Examination: The patient is well appearing and in no apparent distress. Alert and oriented x3. Gait is symmetric. Right wrist exam: Skin is intact without evidence of erythema noted. Evidence of improved soft tissue swelling noted to the dorsum of the extensor surface of the forearm does appear to be relatively symmetric to the contralateral side. Patient react to light palpation pretty significant discomfortsending dorsally along the extensor surface of her forearm.. There is also discomfort extending proximally towards her upper condyle. And tenderness to light palpation along the extensor surface of the long finger. Evidence of concern for positive compression carpal tunnel. Questionably positive Tinel's testing. Neurovascular intact distally. Capillary refills less than 3 seconds. Full range of motion is intact about the wrist evidence of mild discomfort to resisted extension and resisted extension of the digits.X-rays ordered, obtained and reviewed at [facility]: None performed today..EMG was negative for any generalized or compressive neuropathiessedimentation rate was elevatedlevels are C5, an A1c of 5.9 and a nondiabetic individual, and an elevated factor score of 54 without performing of a rheumatoid panel.Impression: Generalized right wrist pain in a 48-year-old female that does have a past medical history of developmental disability, with overall exercise generalized pain and negative x-ray imaging and EMG imaging today. elevated A1c and inflammatory markers Plan: I discussed my findings with the patient today. upon my extensive workup of the patient there is difficult to appreciate any significant orthopedic etiology of her pain. She does have some inflammatory markers are elevated as well as concern for potential underlying prediabetes/diabetes and further workup may be significantly beneficial for this patient. I do recommend the patient follow-up with her PCP in regards to this. We will also provide a rheumatology referral for her elevated inflammatory markers to do workup and further rheumatological testing. I believe she should follow up after workup is completed. All queestions and concerns are answered and addressed. We will see her PCP Dr. Ramón Granados MD with [facility]. All questions and concerns were answered and addressed. Speech recognition breastfeeding program coordinator software was used to create portions of this document. An attempt at proofreading has been made to minimize errors. Please call for corrections. Please CC Dr.Joanna Kanika MD with [facility] [address], [place], [address], [place] - [facility] 01/17/2024 12:36:38 02/06/20 24 text/htm l CHIEF COMPLAINT: Status post left gastroc and soleus recession, ankle arthroscopy, debridement of talar osteochondral lesion; date of surgery 04/21/23 HISTORY OF PRESENT ILLNESS: Patient presents today for follow-up evaluation. She is about 9 and half months out from her surgery. Unfortunately, she continues to struggle with pain. We have tried bracing her ankle and she has recently restarted physical therapy. Is been somewhat difficult to get the patient to localize her pain. She seems to point to the region of the peroneal tendons posterior laterally but also reports diffuse pain throughout the leg and pain in the great toe. Today she seems to deny any pain at the tibiotalar joint. Pertinent past medical history does include cerebral palsy. Patient's mother reports she is having her evaluated by clinical review specialist, for possible psychiatric component to her pain. Patient's mother also notes that sometimes in the evening the patient when going to sleep will complain of severe pain and soreness throughout the foot and the ankle. Past family, medical, social history and review of systems has been reviewed, updated and is located in the patient's chart. PHYSICAL EXAM:Patient in no acute distress, alert and oriented. Answers questions and follows commands appropriatelyStanding examination there is neutral to slight varus alignment of the hindfoot bilaterally.Focused examination left lower extremity there is minimal swellingPatient withdraws to most stimuli. When she is distracted she appears to have painless passive range of motion and no tenderness at the tibiotalar joint line There does appear to be some tenderness over the peroneal tendons. She is able to actively slade the hindfoot. It is unclear whether she has pain with resisted eversion. She has more diffuse tenderness of the leg and withdraws to most stimuli. She appears grossly neurovascular intact with motor and sensation intact in all distributionsToes are warm and well-perfused with palpable DP and PT pulses X-rays ordered, obtained and reviewed at [facility] (previous imaging): AP, lateral, oblique weightbearing imaging of the left foot and ankle was obtained today in office. AP and oblique imaging of the left ankle demonstrate no evidence of acute fracture. No evidence of degenerative change. There is no progression of the radiolucency present in the lateral talar dome. Tibiotalar joint space is well-maintained. Weightbearing imaging of the foot demonstrates all tarsometatarsal joints in anatomic alignment. No evidence of tarsal coalition. No evidence of hindfoot arthritis. No significant hindfoot malalignment is noted IMPRESSION:- status post left gastroc and soleus recession, left ankle arthroscopy and debridement, debridement of lateral talar osteochondral lesion; date of surgery 04/21/23-Ongoing left ankle pain of unclear etiology ; possible peroneal tendinitis PLAN:-I again had a lengthy discussion with the patient and her mother in office today. Today her symptoms seem to localize to the peroneal tendons. This seemed to be the area where the patient most consistently complained of pain. I do think there may be a neurogenic component to her other pains. We recall the patient did undergo a preoperative MRI prior to her left ankle surgery. I did rereview this MRI. There is some irregularity of the peroneus brevis with a possible accessory peroneal tendon. This could potentially be the patient's ongoing pain generator, though this is difficult to ascertain as the patient's physical exam and history are somewhat unreliable ? I have suggested that we exhaust all conservative measures before considering surgery. To that end, I have prescribed a lateral heel wedge for the patient to wear her shoe ? We will prescribe her Flexeril as needed at night for her ongoing spasms ? Ultimately we could consider an ultrasound-guided injection of the peroneal tendons should she continue to have pain ? We will see her back in office in 3 months for repeat evaluation. Cherie Yañez MD [address] [place] [address] [address], [place], [address], [facility] - [facility] 02/06/2024 19:45:20 03/14/20 24 text/htm l I am seeing the patient today under the supervision of Dr. Muñoz who was available but did not see the patient.HPI:Patient is a pleasant 48-year-old female who presents to the clinic today accompanied by her mother for evaluation in regards to right wrist pain that started on . Patient state that she started to notice some increased swelling and pain about her wrist that is slowly certain to get worse. She denies any fever or chills. She admits that it occasionally gets warm. Denies inciting event. .Clinical update: Patient presents today for reevaluation. Upon previous evaluations including diagnosed with generalized right upper extremity pain and 48-year-old female. All clinical testing has been negative however she is still having some continued pain. Upon her previous evaluation she was worked up for diabetes and has been utilizing anti-inflammatory therapy. She was also referred to rheumatology. She is still complaining of continued pain in certain areas of the dorsal forearm and along the middle and index finger of the hand remained unchanged. She denies interval trauma. To note patient does have some developmental disability. past family, medical, social history and review of systems has been reviewed, updated and signed by me and is located in the patient's chart.Examination: The patient is well appearing and in no apparent distress. Alert and oriented x3. Gait is symmetric. Right wrist exam: Skin is intact without evidence of erythema noted. Evidence of improved soft tissue swelling noted to the dorsum of the extensor surface of the forearm does appear to be relatively symmetric to the contralateral side. Patient react to light palpation pretty significant discomfortsending dorsally along the extensor surface of her forearm.. There is also discomfort extending proximally towards her upper condyle. And tenderness to light palpation along the extensor surface of the long finger. Evidence of concern for positive compression carpal tunnel. Questionably positive Tinel's testing. Neurovascular intact distally. Capillary refills less than 3 seconds. Full range of motion is intact about the wrist evidence of mild discomfort to resisted extension and resisted extension of the digits.X-rays ordered, obtained and reviewed at [facility]: None performed today..EMG was negative for any generalized or compressive neuropathiessedimentation rate was elevatedlevels are C5, an A1c of 5.9 and a nondiabetic individual, and an elevated factor score of 54 without performing of a rheumatoid panel.Impression: Generalized right wrist pain in a 48-year-old female that does have a past medical history of developmental disability, with overall exercise generalized pain and negative x-ray imaging and EMG imaging today. elevated A1c and inflammatory markersWith concern for some psychosomatic etiology of pain Plan: I discussed my findings with the patient today. upon my extensive workup of the patient there is difficult to appreciate any significant orthopedic etiology of her pain.Patient is artery being referred to the psychosomatic specialists in association with her generalized pain. I believe it is imperative she follow up with specialists. In the meantime I do believe it is necessary for her to follow-up until she has further workup with the psychosomatic specialists. She may call with any further questions or concerns. All questions and concerns answered and addressed.. Speech recognition breastfeeding program coordinator software was used to create portions of this document. An attempt at proofreading has been made to minimize errors. Please call for corrections. Please CC Dr.Joanna Kanika MD with [facility] Ewa Quiroz PA-C [address] [facility] [address], [place], [address], [facility] - [facility] 03/20/2024 14:18:24 OBGyn Episode No OBEpisode recorded.
== END 2024-04-30 12:50 | disposition home or self-care (01) ==
PROVIDERS: PCP Internal Medicine; Visit Provider Registered Nurse
DX: J34.89 Other specified disorders of nose and nasal sinuses (principal)

== ENCOUNTER → 2024-04-30 11:11 | Outpatient (BNVA) | payer MEDICARE, MEDICAID, SELFPAY | PROVIDERS: PCP Internal Medicine; Visit Provider Registered Nurse | DX: J34.89 Other specified disorders of nose and nasal sinuses (principal) | CPT/HCPCS: 99212 ==

== ENCOUNTER 2024-05-04 12:14 | Outpatient (AMB) | payer MEDICARE, MEDICAID, SELFPAY ==
[2024-05-04 12:16] VITALS: BP 126/78; PULSE 93; O2SAT 97; BMI 43.7
--- NOTE | 2024-05-04 12:16 | MHC.PC.OV ---
Vital Signs 05/04/24 12:16 Height 5 ft 1 in Weight 231 lb 6 oz BMI 43.7 BP 126/78 Blood Pressure Location Rt brachial Position Sitting Pulse 93 Pulse Source Pulse Oximeter Pulse Oximetry (%) 97 Oxygen Delivery Method Room Air Intake Visit Reasons: Annual PE Allergies atenolol Allergy (Unknown, Verified 05/04/24 12:18) bad dreams tramadol [Ultracet] Allergy (Unknown, Verified 05/04/24 12:18) Pt's mother doesn't remember Medication List - Last Reconciled 05/04/24 by Deirdre Boudreaux MD albuterol sulfate 90 mcg/actuation (ProAir HFA) 1 inh inhalation QID PRN escitalopram oxalate 20 mg PO DAILY latanoprost 0.005% drps ophthalmic (eye) metformin ER 750 mg PO DAILY quetiapine 25 mg PO BEDTIME Tobacco use date assessed: 05/04/24 Dental Screening Dental Screen Date: 06/22/23 Did you have a dental visit in the last 12 months?: Yes Did you have a dental problem in the last 6 months where you did not have access to dental care?: No Was dental information given to patient?: Patient has dentist HPI Annual PE HPI Details Pt presents for PE. Patient has been taking metformin for type 2 diabetes but has has been gaining weight despite following ADA diet and trying to exercise regularly for over 6 months. Chronic depression anxiety stable on current medications [facility] Medical History (Updated 05/04/24 @ 15:36 by Deirdre Boudreaux MD) Constipation Normal colonoscopy Hyperlipidemia Annual physical exam Urinary incontinence Anxiety Insomnia Chronic iron deficiency anemia Mentally challenged Wrist pain, right Surgical History H/O colonoscopy Family History Mother No problems noted. Maternal Grandmother Mental health disorder Social History Housing: House Alcohol intake: never Patient Tobacco Use Status: Never used Tobacco e-Cigarette/Vaping Use: Never Used Second Hand Smoke Exposure: No service: No Current occupational status: other Cognitive needs: No Hearing needs: No Vision needs: Yes Questionnaire Thrive Questionnaire Date Thrive assessed: 09/01/23 AUDIT C Alcohol Use Questionnaire (AUDIT-C) 1. How often do you have a drink containing alcohol?: Never 3. How often do you have six or more drinks on one occasion?: Never Total Score: 0 Score Reviewed/Action Taken: Yes LIZZIE-7 AMB Questionnaire LIZZIE-7 Date LIZZIE - 7 assessed: 09/01/23 Source: Developed by Drs. Hansel Head, Katie Piper, Kuldip Ulloa and colleagues, with an educational simeon from [employer]. Review of Systems Const All systems reviewed & are unremarkable except as noted in HPI and below Reports no additional complaints Eyes Reports no additional complaints ENT Reports no additional complaints Card Reports no additional complaints Resp Reports no additional complaints GI Reports no additional complaints Reports no additional complaints Musc Reports no additional complaints Physical exam (Primary Care) Vital Signs: Last Vital Signs Pulse 93 05/04/24 12:16 BP 126/78 05/04/24 12:16 Pulse Ox 97 05/04/24 12:16 Oxygen Delivery Method Room Air 05/04/24 12:16 BMI result Body Mass Index 43.7 Tobacco/Smoking Status: Tobacco use Status Tobacco use date assessed 05/04/24 05/04/24 12:21 Patient Tobacco Use Status Never used Tobacco 05/04/24 12:21 e-Cigarette/Vaping Use Never Used 05/04/24 12:21 Thrive Assessment: Date of Thrive Assessment Date Thrive assessed 09/01/23 05/04/24 12:21 Const General: no acute distress HENMT Head: Yes normal to inspection Ears: hearing grossly normal bilaterally Face and sinus: Yes normal facial exam Mouth: Normal oral and palatal mucosa present Eyes General: appearance normal, both eyes and all related structures Neck Neck: Yes no lymphadenopathy and Yes supple Resp Effort & Inspection: normal respiratory effort Auscultation: clear to auscultation bilaterally Cardio Rhythm: regular rhythm Heart sounds: S1 normal heart sound present and S2 normal heart sound present GI Inspection: Yes normal to inspection Palpation (GI): Soft to palpation Percussion: Yes normal to percussion Auscultation: normal bowel sounds Coding Level of Care Code Est Pt Prev Care 40-64y(13275) Diagnoses DM type 2 (diabetes mellitus, type 2) E11.9 Normal colonoscopy Annual physical exam Z00.00 Hyperlipidemia E78.5 Obese E66.9 Assessment & Plan Assessment & Plan (1) DM type 2 (diabetes mellitus, type 2): Code(s): E11.9 - Type 2 diabetes mellitus without complications Category: Medical Plan: A1c will be checked today. Ozempic 0.25 mg weekly for the 1st month then increase to 0.5 mg will be started to improve diabetes controlled and facilitate weight loss. Follow-up in 3 months with a fasting labs before (2) Normal colonoscopy: Comment: 08/2020 Category: Medical Plan: Up-to-date with colonoscopy (3) Annual physical exam: Code(s): Z00.00 - Encounter for general adult medical examination without abnormal findings Category: Medical Plan: Well-balanced diet regular exercise weight loss discussed with the patient, she is up-to-date with a colonoscopy and mammogram (4) Hyperlipidemia: Code(s): E78.5 - Hyperlipidemia, unspecified Category: Medical Plan: Low-cholesterol diet discussed with the patient check lipid profile (5) Obese: Code(s): E66.9 - Obesity, unspecified Category: Medical Plan: Decrease caloric intake increase physical activity weight loss discussed with the patient, follow-up in 3 Orders: Orders Hemoglobin A1c 3 Months E11.9 - Type 2 diabetes mellitus without complications, E66.9 - Obesity, unspecified Comprehensive [place]. Panel Fast 3 Months E11.9 - Type 2 diabetes mellitus without complications, E66.9 - Obesity, unspecified Lipid Panel 3 Months E11.9 - Type 2 diabetes mellitus without complications, E66.9 - Obesity, unspecified Complete Blood Count Auto Diff 3 Months E11.9 - Type 2 diabetes mellitus without complications, E66.9 - Obesity, unspecified Microalbumin, Random (w Creat) 3 Months E11.9 - Type 2 diabetes mellitus without complications, E66.9 - Obesity, unspecified Medications: New Ozempic (semaglutide) for 4 weeks, then 0.5 mg weekly 0.25 mg (0.368 mL) subcut QWEEK 3 mL 1RF NS Refilled metformin ER 750 mg PO DAILY 90 tabs 3RF
--- OUTSIDE RECORDS SUMMARY | 2024-05-04 12:17 | XMS_ITS | Patient Health Record ---
Author Organization [facility] Address [address] [place] [id number] Care Team Providers Care Insulator Tester Name Role Phone Deirdre Boudreaux MD Primary Care Provider Hansel Floyd Unavailable [phone] ALLERGIES Allergen (clinical drug ingredient) Drug/Non Drug [...] Notes Problem Rectal bleed (K62.5) Active confirmed [id number] Problem Family history of colon cancer (Z80.0) Active confirmed [id number] PLAN OF TREATMENT No Information Insurance Providers Payer Name Payer Address Payer Phone Subscriber Number Group Number Insured Name Patient Relationship to Insured Coverage Start Date Coverage End Date MEDICARE OF NEELA DARIAN [address] [id number] DANNY MARTINEZ Self - patient is the insured MEDICAID OF [employer] [address] [place] [phone] [id number] DANNY MARTNIEZ Self - patient is the insured MEDICAL (GENERAL) HISTORY Medical History History ICD Code Urinary incontinence Hay fever IBS Cerebral palsy with some cognitive and d evelopmental disabilities Denies [place],DM,CVA,Lung disease,renal dise ase Describes a negative colonos copy over [address] Mitchell. She has also seen Dr. Rain for evaluation of abdominal pain in the distant past as well Surgical History Surgery Date(Month/Year) Removed appendix via NOTES via vagina Fatty tissue in the groin area . Shoulder-right
--- OUTSIDE RECORDS SUMMARY | 2024-05-04 12:17 | XMS_ITS | Data Portability ---
Author Organization [facility], [facility] Address [address] [place] [address] Care Team Providers Care Plant Sprayer Name Role Phone RAMÓN GRANADOS Primary Care Provider Assessment No assessment recorded. Plan of Treatment Reminders Order Date Submit Date Provider Last Modified By Organization Details Last Modified Time Details Appointments RECHECK 15 2023 01:30P M Cherie Yañez MD Not available Not available Not available Lab rheumat oid arthlisa is disease activit y panel, vectrad a, serum or plasma 2023 024 GALO [facility], [address], [place], [address], 01/02/2024 16:06:51 ESR (erythr ocyte sedimen tation rate), blood 2023 024 GALO [facility], [address], [place], [address], 01/02/2024 16:06:51 C-react anne protein , quantit ative, serum or plasma 2023 024 [email or web address] [facility], [address], [place], [address], 12/21/2023 14:51:24 HbA1c (hemogl obin A1c), blood 2023 024 GALO [facility], [address], [place], [address], 01/02/2024 16:06:50 CMP, serum or plasma 2023 024 GALO [facility], [address] [facility], [place], [address], 01/02/2024 16:06:49 Referral physica l therapi st referra l - Status post left gastroc and soleus recessi on, ankle arthros copy, debride ment of talar osteoch ondral lesion; date of surgery 3LLE recondi tioning , desensi tizatio n 2023 024 [email or web address] Not available 11/21/2023 08:35:27 rheumat ologist referra l - right hand pain eval for high sed rate and high rectra 2023 024 [facility], [address] [place], [address], 02/08/2024 10:07:17 Procedures None recorde d. Surgeries None recorde d. Imaging XR, ankle, 3 or more view - left foot /ankle 5v wb , recheck . room 103 2023 024 [facility], [address], [facility] [address], [place], [address], 11/11/2023 16:19:53 XR, foot, 2 view 2023 024 [facility], [address], [facility] [address], [place], [address], 11/11/2023 16:19:53 Medication Orders meloxic am 15 mg tablet 2023 024 [facility][id number], [address] [place], [address], 11/11/2023 16:19:53 cyclobe nzaprin e 5 mg tablet 2023 024 [id number], [address] [facility] [place], [address], 02/10/2024 07:46:39 Patient TargetsNo targets recorded. Patient InstructionsNo instructions recorded. Reason for Referral Physical Therapist Referral for Pain in left foot Status post left gastroc and soleus recession, ankle arthroscopy, debridement of talar osteochondral lesion; date of surgery 04/21/23LLE reconditioning , desensitization Referring Physician: Cherie Yañez, Orthopedic Surgery, Encounter Date: 11/11/2023 Product Managent Intern Referral for Hand pain right hand pain eval for high sed rate and high rectra Referring Physician: Ewa Quiroz, Orthopedic Surgery, Encounter Date: 01/16/2024 Results Created Date Observation Date Name Description Value Unit Range Abnormal Flag Note LastModifiedBy Organization Detail LastModifiedTime 12/23/19 24 12/24/2023 CMP14 +GLU RFX GT 100 TO HB A1C glucose 93 mg/dL 70-99 normal Not Available [facility] ([facility]) [address] [place], [address], 01/02/2024 16:06:49 12/23/19 24 12/24/2023 CMP14 +GLU RFX GT 100 TO HB A1C BUN 18 mg/dL 6-24 normal Not Available [facility] ([facility]) [address] [place], [address], 01/02/2024 16:06:49 12/23/19 24 12/24/2023 CMP14 +GLU RFX GT 100 TO HB A1C creatinine 0.78 mg/dL 0.57-1 .00 normal Not Available [facility] ([facility]) [address] [place], [address], 01/02/2024 16:06:49 12/23/19 24 12/24/2023 CMP14 +GLU RFX GT 100 TO HB A1C BUN/creatini ne ratio 23 9-23 normal Not Available [facility]) [address] [place], [address], 01/02/2024 16:06:49 12/23/19 24 12/24/2023 CMP14 +GLU RFX GT 100 TO HB A1C sodium 140 mmol/ L 134-14 4 normal Not Available [facility] ([facility]) [address] [facility], [place], [address], 01/02/2024 16:06:49 12/23/19 24 12/24/2023 CMP14 +GLU RFX GT 100 TO HB A1C potassium 4.5 mmol/ L 3.5-5. 2 normal Not Available [facility] ([facility]) [address] [place], [address], 01/02/2024 16:06:49 12/23/19 24 12/24/2023 CMP14 +GLU RFX GT 100 TO HB A1C chloride 101 mmol/ L 96-106 normal Not Available [facility] ([facility]) [address] [place], [address], 01/02/2024 16:06:49 12/23/19 24 12/24/2023 CMP14 +GLU RFX GT 100 TO HB A1C carbon dioxide, total 25 mmol/ L 20-29 normal Not Available [facility] ([facility]) [address] [facility], [place], [address], 01/02/2024 16:06:49 12/23/19 24 12/24/2023 CMP14 +GLU RFX GT 100 TO HB A1C calcium 9.6 mg/dL 8.7-10 .2 normal Not Available [facility] ([facility]) [address] [place], [address], 01/02/2024 16:06:49 12/23/19 24 12/24/2023 CMP14 +GLU RFX GT 100 TO HB A1C protein, total 7.5 g/dL 6.0-8. 5 normal Not Available [facility] ([facility]) [address] [place], [address], 01/02/2024 16:06:49 12/23/19 24 12/24/2023 CMP14 +GLU RFX GT 100 TO HB A1C albumin 4.3 g/dL 3.9-4. 9 normal Not Available [facility] ([facility]) [address] [place], [address], 01/02/2024 16:06:49 12/23/19 24 12/24/2023 CMP14 +GLU RFX GT 100 TO HB A1C globulin, total 3.2 g/dL 1.5-4. 5 Not Available [facility] ([facility]) [address] [place], [address], 01/02/2024 16:06:49 12/23/1912/24/2023 CMP14 +GLU RFX GT 100 TO HB A1C bilirubin, total 0.3 mg/dL 0.0-1. 2 normal Not Available [facility] ([facility]) [address] [place], [address], 01/02/2024 16:06:49 12/23/19 24 12/24/2023 CMP14 +GLU RFX GT 100 TO HB A1C alkaline phosphatase 76 IU/L 44-121 normal Not Available [facility]) [address] [place], [address], 01/02/2024 16:06:49 12/23/19 24 12/24/2023 CMP14 +GLU RFX GT 100 TO HB A1C AST (SGOT) 22 IU/L 0-40 normal Not Available [facility] ([facility]) [address] [place], [address], 01/02/2024 16:06:49 12/23/19 24 12/24/2023 CMP14 +GLU RFX GT 100 TO HB A1C ALT (SGPT) 13 IU/L 0-32 normal Not Available [facility] ([facility]) [address] [place], [address], 01/02/2024 16:06:49 12/23/19 24 12/24/2023 HEMOG LOBIN A1C hemoglobin A1C 5.9 % 4.8-5. 6 above high normal Predi abete s: 5.7 - 6.4 Diabe daphney: >6.4 Glyce yanira contr ol for adult s with diabe daphney: <7.0 Not Available [facility] ([facility]) [address] [facility], [place], [address], 01/02/2024 16:06:50 12/23/19 24 12/24/2023 SEDIM ENTAT ION RATE- WESTE RGREN sedimentatio n rate-westerg rodrigo 55 mm/HR 0-32 above high normal Not Available [facility] ([facility]) [address] [facility], [place], [address], 01/02/2024 16:06:51 12/23/19 24 12/23/2023 VECTR A(R) biomarker comment: Commen t These repor hao usman te value s and refer ence range s are inten ded for use in the gener ation of the Vectr a score only. These resul ts shoul d not be used inter moore eably with resul ts gener ated by keli mendezs. Not Available [facility] [address] [place], [address], 01/02/2024 16:06:51 12/23/19 24 01/02/2024 VECTR A(R) [...] . Not Available [facility] [address] [place], [address], 01/02/2024 16:06:51 12/23/19 24 01/02/2024 VECTR A(R) risk of radiographic progress 10 % 1-Yea r Risk of Radio graph ic Progr essio n Not Available [facility] [address] [place], [address], 01/02/2024 16:06:51 12/23/19 24 01/02/2024 VECTR A(R) vectra(R) level Commen t High Vectr a Disea se Activ ity Level s: High: 45 to 100 Moder ate: 30 to 44 Low: 1 to 29 Not Available [facility] [address] [facility], [place], [address], 01/02/2024 16:06:51 12/23/19 24 01/02/2024 VECTR A(R) [...] 02-10 Not Available [facility] [address] [place], [address], 01/02/2024 16:06:51 12/23/19 24 01/02/2024 VECTR A(R) master result 8.5 ug/mL RA Range : (0.29 -85) RA Perce ntile : 82% Not Available [facility] [address] [place], [address], 01/02/2024 16:06:51 12/23/19 24 01/02/2024 VECTR A(R) CRP result 5.8 mg/L RA Range : (0.19 -92) RA Perce ntile : 58% Not Available [facility] [address] [place], [address], 01/02/2024 16:06:51 12/23/19 24 01/02/2024 VECTR A(R) vcam-1 result 0.46 ug/mL RA Range : (0.39 -1.2) RA Perce ntile : 9% Not Available [facility] [address] [place], [address], 01/02/2024 16:06:51 12/23/19 24 01/02/2024 VECTR A(R) il-6 result 15 pg/mL RA Range : (2.5- 200) RA Perce ntile : 61% Not Available [facility] [address] [place], [address], 01/02/2024 16:06:51 12/23/19 24 01/02/2024 VECTR A(R) tnf-ri result 1.7 NG/mL RA Range : (0.8- 3.9) RA Perce ntile : 64% Not Available [facility] [address] [place], [address], 01/02/2024 16:06:51 12/23/19 24 01/02/2024 VECTR A(R) egf result 180 pg/mL RA Range : (12-4 10) RA Perce ntile : 77% Not Available [facility] [address] [place] [address], [address], 01/02/2024 16:06:51 12/23/19 24 01/02/2024 VECTR A(R) vegf-A result 430 pg/mL RA Range : (75-7 90) RA Perce ntile : 83% Not Available [facility] [address] [place] [address], [address], 01/02/2024 16:06:51 12/23/19 24 01/02/2024 VECTR A(R) leptin result 5.8 NG/mL RA Range : (1.5- 120) RA Perce ntile : 15% Not Available [facility] [address] [place], [address], 01/02/2024 16:06:51 12/23/19 24 01/02/2024 VECTR A(R) resistin result 4.2 NG/mL RA Range : (3.5- 21) RA Perce ntile : 6% Not Available [facility] [address] [place], [address], 01/02/2024 16:06:51 12/23/19 24 01/02/2024 VECTR A(R) mmp-1 result 18 NG/mL RA Range : (1.3- 23) RA Perce ntile : 94% Not Available [facility] [address] [place], [address], 01/02/2024 16:06:51 12/23/19 24 01/02/2024 VECTR A(R) mmp3 result 19 NG/mL RA Range : (7.9- 160) RA Perce ntile : 39% Not Available [facility] [address] [place], [address], 01/02/2024 16:06:51 12/23/19 24 01/02/2024 VECTR A(R) ykl-40 result 44 NG/mL RA Range : (22-5 40) RA Perce ntile : 22% Not Available [facility] [address] [place], [address], 01/02/2024 16:06:51 12/23/19 24 01/02/2024 VECTR A(R) footnote/his tory Commen t RA Range : These 95% refer ence range s were estab lishe d from 325,7 81 patie nt sampl es teste d at [facility] . RA Perce ntile : Subje ct's bioma rker level relat anne to level s in RA patie nt speci mens from which the RA range s were deter mined Compl ete Vectr a Score Histo ry: Colle ction Date: 12/22 Score : 54 Not Available [facility] [address] [place], [address], 01/02/2024 16:06:51 12/23/19 24 01/02/2024 VECTR A(R) [...] not been estab lishe d. Not Available [facility] [address] [place] [address], [address], 01/02/2024 16:06:51 11/11/19 24 11/11/2023 XR, foot, 2 view [email or web address]:/ [email or web address] ?Encry pted=s hAaTro YD8dLq bEUv6g %2BXZw aYqtaq 0bqfl% 2Fg9IQ a4ajBk vP9nXo QUaueC m3YtLR FvZl46 [address] Streettai3 4b6853 AC0KuY nmFU6P eUC8mr 84%3D INTERFACE [facility] [address], [place], [address], 11/11/2023 13:38:14 11/11/19 24 11/11/2023 XR, foot, 2 view [email or web address]:/ [email or web address] ?Encry pted=s hAaTro YD8dLq bEUv6g %2BXZw aYqtaq 0bqfl% 2Fg9IQ a4ajBk vP9nXo QUaueC m3YtLR FvZlJ J8mAn HZtai3 7m6433 AC0KuY nmFU6P eUC8mr 84%3D INTERFACE [facility] [address], [place], [address], 11/11/2023 13:38:16 11/11/19 24 11/11/2023 XR, ankle , 3 or more view http:/ [email or web address] ?Encry pted=s hAaTro YD8dLq bEUv6g %2BXZw aYqtaq 0bqfl% 2Fg9IQ a4ajBk vP9nXo QUaueC m3YtLR FvZlgJ JJ8mAn HZtai3 3y7063 AC0KuY nmFUKT eUC8mr 84%3D INTERFACE [facility] [address], [place], [address], 11/11/2023 13:39:44 11/11/19 24 11/11/2023 XR, ankle , 3 or more view http:/ [email or web address] ?Encry pted=s hAaTro YD8dLq bEUv6g %2BXZw aYqtaq 0bqfl% 2Fg9IQ a4ajBk vP9nXo QUaueC m3YtLR FvZlgJ JJ8mAn HZtai3 6b1544 AC0KuY nmFUKT eUC8mr 84%3D INTERFACE [facility] [address], [place], [address], 11/11/2023 13:39:45 12/02/19 24 12/02/2023 nerve condu ction study /EMG, upper extre mity (PROC ) No observ ation record ed. [facility] Scheduling Dept [address] [facility], [place], [address], 12/05/2023 09:46:30 01/21/20 24 11/17/2022 imagi ng/di [...] Address Organization Details Recorded Time No complaints 515380570 Active Status: 'I'; Not Available [facility] 09:21:24 Synovitis and tenosynovit is of joint of hand Active 2019 Problem Code: M65.841; Problem Code Type: ICD-10; Status: 'A'; Not Available [facility] 11:43:44 Problem Notes None recorded. Procedures Surgical History None recorded. Imaging Results Imaging Date Name Status LastModified by Organiz ation Details LastModified Time 11/11/2023 XR, foot, 2 view completed INTERFACE [facility] [address], [place], [address], 11/11/2023 13:38:14 11/11/2023 XR, foot, 2 view completed INTERFACE [facility] [address], [place], [address], 11/11/2023 13:38:16 11/11/2023 XR, ankle, 3 or more view completed INTERFACE [facility] [address], [place], [address], 11/11/2023 13:39:44 11/11/2023 XR, ankle, 3 or more view completed INTERFACE [facility] [address], [place], [address], 11/11/2023 13:39:45 12/02/2023 nerve conduction study/EMG, upper extremity (PROC) completed [facility] Scheduling Dept [address] [place] [address], [address], 12/05/2023 09:46:30 11/17/2022 imaging/diagnos tic result completed Information not available 01/21/2024 04:03:48 03/04/2023 imaging/diagnos tic result completed Information not available 01/21/2024 04:04:04 Procedure Notes None recorded. Medical Equipment None Reported. Allergies Allergen ID Allergen Name Allergen Category Reaction Reaction Severity Criticality Documentation Date Start Date Code Code System Note Provider Name and Address Organization Details Recorded Time 21796 Tenormin medicatio n Not available Not available Not available 07/25/20232011 59825 3 RxNorm Aller gyRea ction : 'UNKN OWN'; Not Available [facility] 4 13:52:25 44561 Bactrim medicatio n Not available Not available Not available 07/25/20232013 79796 9 RxNorm Not Available [facility] 4 13:52:26 Medications Name Sig Start Date [...] Updated DateTime 11/11/2023 154.94 cm 43.5 kg/m2 034157.25 g Elyse Menchaca [facility] 11/11/2023 13:06:08 Date Recorded Body height Body mass index (BMI) Body weight Provider Name and Address Organization Details Last Updated DateTime 12/21/2023 154.94 cm 43.5 kg/m2 321029.25 g Kathleen Sevilla [facility] 12/21/2023 13:09:14 Date Recorded Body height Body mass index (BMI) Body weight Provider Name and Address Organization Details Last Updated DateTime 01/16/2024 154.94 cm 43.5 kg/m2 040106.25 g Kathleen Sevilla [facility] 01/16/2024 15:14:55 Date Recorded Body height Body mass index (BMI) Body weight Provider Name and Address Organization Details Last Updated DateTime 02/06/2024 154.94 cm 43.5 kg/m2 925924.25 g Elyse Menchaca [facility] 02/06/2024 13:26:02 Date Recorded Body height Body mass index (BMI) Body weight Provider Name and Address Organization Details Last Updated DateTime 03/14/2024 154.94 cm 43.5 kg/m2 070581.25 g [facility] 03/14/2024 14:30:02 Social History None recorded. Functional Status None recorded. Mental Status None recorded. Family History Nothing Reported. Medical History No medical history recorded. Gynecological HistoryNo gynecological history recorded. 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 6897369159 85089 G56.01 [id number] MD David Ng [address] [place] [address] 09/12/2023 13:02:31 09/30/2023 11:31:13 Pain in left foot 1474509561 31883 M79.672 Osteochond ritis dissecans of left ankle 3872267425 70443 M93.361 [id number] MD David Ng [address] [place] [address] 11/11/2023 12:54:59 12/08/2023 12:06:22 Pain of left ankle joint 6630642124 1343817 M25.572 Foot pain 01997574 M79.6 73 Pain in left foot 905654 7524 96353 M79.672 Osteochond ritis dissecans of left ankle 8307882175 85501 M93.172 [id number] SANDRA [facility] [address] [place] [address] 12/21/2023 12:42:33 01/19/2024 11:06:09 Pain in right hand 2651368471 37632 M79.637 [id number] Ewa Quiroz PA-C [facility] [address] [place] [address] 01/16/2024 14:43:15 02/08/2024 10:07:17 Hand pain 43697061 M79.031 [id number] Cherie Yañez MD [facility] [address] [place] [address] 02/06/2024 13:13:28 02/27/2024 12:40:24 Pain of left ankle joint 9998539216 3315406 M25.572 Osteochond ritis dissecans 94971300 M93.279 Osteochond ritis dissecans of left ankle 7284478115 68391 M93.272 Peroneal t endinitis of left lower limb 7131999887 58612 M76.72 [id number] Ewa Quiroz PA-C [facility] [address] [place] [address] 03/14/2024 14:16:14 04/03/2024 11:04:14 Pain of right wrist 6824014679 03240 M25.531 Health Concerns Section Related Observation LastModified by Organization Detai ls LastModified Time None Recorded Concern Status LastModified by Organization Details LastModified Time None Recorded Advance Directives Directive None Recorded Payers Encounter Date Sequence Insurance Name Policy Number Policy Clark Covered Member ID Clark Member ID Guarantor Name 11/11/2023 1 [place] [employer] Elba Martinez [id number] Elba Martinez 11/11/2023 2 [place] Elba Zacarias [place] [id number] Elba L Juan 12/21/2023 1 [place] [employer] Elba Zacarias [place] [id number] Elba L Juan 12/21/2023 2 [place] Elba Zacarias Juan [id number] Elba L [place] 01/16/2024 1 [place] [employer] Elba L Juan [id number] Elba L [place] 01/16/2024 2 [place] Elba Zacarias [place] [id number] Elba L Juan 02/06/2024 1 [place] [employer] Elba Zacarias [place] [id number] Elba L [place] 02/06/2024 2 [place] Elba Zacarias [place] [id number] Elba L Juan 03/14/2024 1 [place] [facility] G[facility] Elba Zacarias Juan [id number] Elba L [place] 03/14/2024 2 [place] [facility]ba Zacarias [place] [id number] Elba Zacarias Juan Notes Date Note Type [...] pulses X-rays ordered, obtained and reviewed at [facility]: AP, lateral, oblique weightbearing imaging of [...] for repeat evaluation Cherie Yañez MD [address] [facility] [address], [place], [address], [facility] 11/20/2023 15:27:46 12/21/19 24 [...] the digits.X-rays ordered, obtained and reviewed at [facility]: None performed today..EMG was negative for [...] concerns were answered and addressed. Speech recognition housing inspectors software was used to create portions of this document. An attempt at proofreading has been made to minimize errors. Please call for corrections. Ewa Quiroz PA-C [address] [facility] [address] [facility], [place], [address], [facility] 12/21/2023 20:38:29 01/16/20 24 text/htm l I [...] the digits.X-rays ordered, obtained and reviewed at [facility]: None performed today..EMG was negative for [...] her PCP Dr. Ramón Granados MD with [facility]. All questions and concerns were answered and addressed. Speech recognition housing inspectors software was used to create portions of this document. An attempt at proofreading has been made to minimize errors. Please call for corrections. Please CC Dr.Joanna Kanika MD with [facility] [address], [place], [address], [place] [facility] 01/17/2024 12:36:38 02/06/20 24 text/htm l CHIEF [...] reports she is having her evaluated by computer help desk specialist, for possible psychiatric component to her [...] pulses X-rays ordered, obtained and reviewed at [facility] (previous imaging): AP, lateral, oblique weightbearing [...] months for repeat evaluation. Cherie Yañez MD [address] [place] [address] [address], [place], [address], [facility] 02/06/2024 19:45:20 03/14/20 24 [...] the digits.X-rays ordered, obtained and reviewed at [facility]: None performed today..EMG was negative for any [...] and concerns answered and addressed.. Speech recognition housing inspectors software was used to create portions of this document. An attempt at proofreading has been made to minimize errors. Please call for corrections. Please CC Dr.Joanna Kanika MD with [facility] Ewa Quiroz PA-C [address] [facility] [address], [place], [address], [facility] 03/20/2024 14:18:24 OBGyn Episode No OBEpisode recorded.
--- OUTSIDE RECORDS SUMMARY | 2024-05-04 12:17 | XMS_ITS | Continuity of Care Document ---
Author Organization [facility], [facility] 1st Floor Address [address] [place] [address] Care Team Providers Care Checkering Machine Adjuster Name Role Phone RAMÓN GRANADOS Primary Care Provider Assessment No assessment recorded. Plan of Treatment Reminders Order Date Submit Date Provider Last Modified By Organization Details Last Modified Time Details Appointments RECHECK 15 2023 01:30P M Cherie Yañez MD Not available Not available Not available Lab None recorded. Referral None recorded. Procedures None recorded. Surgeries None recorded. Imaging None recorded. Medication Orders cyclobenz aprine 5 mg tablet 2023 024 [facility] #[id number], [address] [place], [address], 02/10/2024 07:46:39 Patient TargetsNo targets recorded. Patient InstructionsNo instructions recorded. Reason for Referral None Reported. Results Created Date Observation Date Name Description Value Unit Range Abnormal Flag Note LastModifiedBy Organization Detail LastModifiedTime 01/21/2011/17/2022 imagi ng/di agnos tic resul t No observ ation record ed. [email or web address] Not Available 12/23 04:03:48 01/21/2003/04/2023 imagi ng/di agnos tic resul t No observ ation record ed. [email or web address] Not Available 12/23 04:04:04 Result Notes None recorded. Problems Name Problem SNOMED Code Status Onset Date Resolution Date Notes Provider Name and Address Organization Details Recorded Time No complaints 222032401 Active Status: 'I'; Not Available [facility]24 Synovitis and tenosynovit is of joint of hand Active 2019 Problem Code: M65.841; Problem Code Type: ICD-10; Status: 'A'; Not Available [facility] 4 11:43:44 Problem Notes None recorded. Medical Equipment None Reported. Allergies Allergen ID Allergen Name Allergen Category Reaction Reaction Severity Criticality Documentation Date Start Date Code Code System Note Provider Name and Address Organization Details Recorded Time 66530 Tenormin medicatio n Not available Not available Not available 07/25/20232011 50649 3 RxNorm Aller gyRea ction : 'UNKN OWN'; Not Available [facility] 4 13:52:25 45687 Bactrim medicatio n Not available Not available Not available 07/25/20232013 25516 9 RxNorm Not Available [facility] 4 13:52:26 Medications Name Sig Start Date [...] Not Available Not Available No t Available .5 (28) 1.5 mg-30 mcg (21)/75 mg (7) [...] Updated DateTime 02/06/2024 154.94 cm 43.5 kg/m2 938963.25 g Elyse Bernarda [place] [facility] 02/06/2024 13:26:02 Social History None recorded. Functional Status None recorded. Mental Status None recorded. Family History Nothing Reported. Medical History No medical history recorded. Gynecological HistoryNo gynecological history recorded. Obstetrics History GPAL:G 0 P 0 0 0 0 Past Encounters Encounter ID Performer Location Encounter Start Date Encounter Closed Date Diagnosis/Indication Diagnosis SNOMED-CT Code Diagnosis ICD10 Code [id number] Ewa Quiroz PA-C [facility] 1st Floor [address] [facility] [place] [address] 01/16/2024 14:43:15 02/08/2024 10:07:17 Hand pain 91739151 M79.201 [id number] Cherie Yañez MD [facility] 1st Floor [address] [place] [address] 02/06/2024 13:13:28 02/27/2024 12:40:24 Pain of left ankle joint 0376952462 7097982 M25.572 Osteochond ritis dissecans 52905612 M93.279 Osteochond ritis dissecans of left ankle 6084470031 95310 M93.272 Peroneal t endinitis of left lower limb 8345938155 31413 M76.72 Health Concerns Section Related Observation LastModified by Organization Detai ls LastModified Time None Recorded Concern Status LastModified by Organization Details LastModified Time None Recorded Payers Encounter Date Sequence Insurance Name Policy Number Policy Clark Covered Member ID Clark Member ID Guarantor Name 02/06/2024 1 [place] B[place]: [employer] Elba Martinez [id number] Elba Martinez 02/06/2024 2 [place] [facility] Elba Martinez [id number] Elba Martinez Notes Date Note Type Note Provider Name and Address Organization Details Recorded Time text/html CHIEF COMPLAINT: Status post left gastroc and [...] reports she is having her evaluated by performance specialist, for possible psychiatric component to her [...] pulses X-rays ordered, obtained and reviewed at [facility] (previous imaging): AP, lateral, oblique weightbearing imaging [...] months for repeat evaluation. Cherie Yañez MD [address] [place] [address] [address], [place], [address], [facility] - [facility] 02/06/2024 19:45:20 OBGyn Episode No OBEpisode recorded.
--- OUTSIDE RECORDS SUMMARY | 2024-05-04 12:17 | XMS_ITS | Data Portability ---
Author Organization [place] - [facility], Allergy Address [address] [address] Assessment Encounter Date Assessment Date Assessment LastModified by Organization Details LastModified Time 02/29/2024 02/29/2024 48-year-old female with developmental delay, seasonal allergies and cerebral palsy presents with mother for evaluation of sinusitis. CT scan at [facility] on 09/05/23 demonstrated opacification of left frontal and left ethmoid sinuses. On exam nasal mucosa is pink and moist without rhinorrhea. Recommend trial of Flonase 2 sprays daily for one month and Doxycycline twice daily for 20 days. Will get a repeat sinus CT at [facility] in March after antibiotic regimen. She will return for follow-up in the office in 2 months, sooner with issues. Patient and mother agree with plan. [email or web address] Not available 02/29/2024 15:22:22 Plan of Treatment Reminders Order Date Submit Date Provider Last Modified By Organization Details Last Modified Time Details Appointments None recorded. Lab None recorded. Referral None recorded. Procedures None recorded. Surgeries None recorded. Imaging CT, maxillofaci al, w/o contrast 2023 024 [facility], [address] [facility], [facility] [address], [place], [address], 4 08:51:03 Medication Orders doxycycline hyclate 100 mg tablet 2023 024 [id number], [address] [facility], [place], [place], [id number], 4 07:53:23 fluticasone propionate 50 mcg/actuati on nasal spray,suspe nsion 2023 024 [id number], [address] [facility], [place], [place], [id number], 07:53:25 Patient TargetsNo targets recorded. Patient InstructionsNo instructions recorded. Reason for Referral None Reported. Results Created Date Observation Date Name Description Value Unit Range Abnormal Flag Note LastModifiedBy Organization Detail LastModifiedTime 04/27/20 24 04/26/2024 CT, maxil lofac ial, w/o contr ast No observ ation record ed. [facility] [address] [address], [place], [address], 04/27/2024 21:05:26 Result Notes None recorded. Problems Name Problem SNOMED Code Status Onset Date Resolution Date Notes Provider Name and Address Organization Details Recorded Time Chronic rhinitis 92098292 Active 2017 Purulent rhinitis (chronic) ; Note: Date Diagnosed : 01/27/2018 1:13 PM (J31.0) Not Available [facility] 4 02:41:31 Posterio r rhinorrh ea 76024913 Completed 201512/23/2023 Postnasal drip; Note: Date Diagnosed : 01/22/2016 10:09 AM (R09.82) Not Available [facility] 4 02:41:28 Nasal congesti on 87193253 Completed 201512/23/2023 Nasal congestio n; Note: Date Diagnosed : 01/22/2016 10:05 AM (R09.81) Not Available [facility] 4 02:41:29 Chronic sinusiti s 06909244 Active 2023 KAYE CARMONA PA-C [address] [place] [address], [place], [address] , [facility] - [facility] 4 14:57:08 Problem Notes None recorded. Procedures Surgical History None recorded. Imaging Results Imaging Date Name Status LastModified by Organiz ation Details LastModified Time 04/26/2024 CT, maxillofacial , w/o contrast completed [facility] [address] [facility] [address], [place], [address], 04/27/2024 21:05:26 Procedure Notes None recorded. Medical Equipment None Reported. Allergies Allergen ID Allergen Name Allergen Category Reaction Reaction Severity Criticality Documentation Date Start Date Code Code System Note Provider Name and Address Organization Details Recorded Time 21498 Bactrim medicatio n other Not available Not available 10/04/2023 42168 9 RxNorm React ion: unkno wn, unspe cifie d;; Not Available [facility] 4 00:58:54 02782 atenolol medicatio n other Not available Not available 10/04/2023 1202 RxNorm React ion: unkno wn, unspe cifie d;; Not Available [facility] 4 00:58:58 Medications Name Sig Start [...] 24 hr 2017 active Medicatio n ID: [id number] Du ration Value: 90 Brand Name: oxybutyni [...] mg tablet 2015 active Medicatio n ID: [id number] Du ration Value: 30 Brand Name: diazepam Send Method: E-Prescri bed Subs Allowed: subs OK Specia l Instructi on: TAKE 1 TABLET BY MOUTH TWICE DAILY Med icationGe nericName : diazepam Not Available Not Available Not Available Nasonex 50 mcg/actuat ion [place] Goldthwaite 2 spray into both nostrils once a day 2017 active Medicatio n ID: [id number] Du ration Value: 30 Prescrib ed By [...] mg tablet 2017 active Medicatio n ID: 967709 Du ration Value: 90 Brand Name: naproxen [...] mg tablet 2017 active Medicatio n ID: 422940 Du ration Value: 30 Brand Name: escitalop [...] aerosol inhaler 2015 active Medicatio n ID: 193678 Du ration Value: 30 Brand Name: ProAir [...] ended release 2015 active Medicatio n ID: [id number] Du ration Value: 30 Brand Name: Myrbetriq [...] Diagnosis/Indication Diagnosis SNOMED-CT Code Diagnosis ICD10 Code [id number] NICO FERRO MD [facility] [address] [address] 02/29/2024 14:04:19 02/29/2024 15:00:38 Chronic sinusitis 23583606 J32.8 Health Concerns Section Related Observation LastModified by Organization Detai ls LastModified Time None Recorded Concern Status LastModified by Organization Details LastModified Time None Recorded Advance Directives Directive None Recorded Payers Encounter Date Sequence Insurance Name Policy Number Policy Clark Covered Member ID Clark Member ID Guarantor Name 02/29/2024 2 [place] [facility] Elba Martinez [id number] Elba Martinez 02/29/2024 1 [place] B[place] [employer] Elba Martinez [id number] Elba Martinez Notes Date Note Type Note Provider Name and Address Organization Details Recorded Time 02/29/2024 text/html 48 year old femyordy khalil with seasonal allergies and cerebral palsy [...] seeing specialist Jun 2024. NICO MCKEON MD [address] [place] [address], [address], [facility] - [facility] 03/01/2024 07:53:18 OBGyn Episode No OBEpisode recorded.
--- OUTSIDE RECORDS SUMMARY | 2024-05-04 12:17 | XMS_ITS | Continuity of Care Document ---
Author Organization [place] - [facility], [facility] Address [address] [place] [address] Assessment Encounter Date Assessment Date Assessment LastModified by Organization Details LastModified Time 02/29/2024 02/29/2024 48-year-old female with developmental delay, seasonal allergies and cerebral palsy presents with mother for evaluation of sinusitis. CT scan at [facility] on 09/05/23 demonstrated opacification of left frontal and left ethmoid sinuses. On exam nasal mucosa is pink and moist without rhinorrhea. Recommend trial of Flonase 2 sprays daily for one month and Doxycycline twice daily for 20 days. Will get a repeat sinus CT at [facility] in March after antibiotic regimen. She will [...] CT, maxillofaci al, w/o contrast 2023 024 [facility], [address] , [facility] [address], [place], [address], 08:51:03 Medication Orders doxycycline hyclate 100 mg tablet 2023 024 [facility] #64651, [address] [facility], [place], [place], [id number], 4 07:53:23 fluticasone propionate 50 mcg/actuati on nasal spray,suspe nsion 2023 024 [facility]856, [address] [facility], [place], [place], [id number], 4 07:53:25 Patient TargetsNo targets recorded. Patient InstructionsNo instructions recorded. Reason for Referral None Reported. Results Created Date Observation Date Name Description Value Unit Range Abnormal Flag Note LastModifiedBy Organization Detail LastModifiedTime 04/27/20 24 04/26/2024 CT, maxil lofac ial, w/o contr ast No observ ation record ed. [email or web address] [address] [facility] [address], [place], [address], 04/27/2024 21:05:26 Result Notes None recorded. Problems Name Problem SNOMED Code Status Onset Date Resolution Date Notes Provider Name and Address Organization Details Recorded Time Chronic rhinitis 96227181 Active 2017 Purulent rhinitis (chronic) ; Note: Date Diagnosed : 01/27/2018 1:13 PM (J31.0) Not Available [facility] 4 02:41:31 Posterio r rhinorrh ea 99798893 Completed 201512/23/2023 Postnasal drip; Note: Date Diagnosed : 01/22/2016 10:09 AM (R09.82) Not Available [facility] 4 02:41:28 Nasal congesti on 15139089 Completed 201512/23/2023 Nasal congestio n; Note: Date Diagnosed : 01/22/2016 10:05 AM (R09.81) Not Available [facility] 4 02:41:29 Chronic sinusiti s 96623535 Active 2023 KAYE CARMONA PA-C [address] [place] [address], [place], [address] , [facility] - [facility] 4 14:57:08 Problem Notes None recorded. Medical Equipment None Reported. Allergies Allergen ID Allergen Name Allergen Category Reaction Reaction Severity Criticality Documentation Date Start Date Code Code System Note Provider Name and Address Organization Details Recorded Time 32630 Bactrim medicatio n other Not available Not available 10/04/2023 38216 9 RxNorm React ion: unkno wn, unspe cifie d;; Not Available [facility] 4 00:58:54 36572 atenolol medicatio n other Not available Not available 10/04/2023 1202 RxNorm React ion: unkno wn, unspe cifie d;; Not Available [facility] 4 00:58:58 Medications Name Sig Start Date [...] 24 hr 2017 active Medicatio n ID: [id number] Du ration Value: 90 Brand Name: oxybutyni [...] mg tablet 2015 active Medicatio n ID: 315395 Du ration Value: 30 Brand Name: diazepam Send Method: E-Prescri bed Subs Allowed: subs OK Specia l Instructi on: TAKE 1 TABLET BY MOUTH TWICE DAILY Med icationGe nericName : diazepam Not Available Not Available Not Available Nasonex 50 mcg/actuat ion [place] Maiden 2 spray into both nostrils once a day 2017 active Medicatio n ID: [id number] Du ration Value: 30 Prescrib ed By [...] mg tablet 2017 active Medicatio n ID: [id number] Du ration Value: 90 Brand Name: naproxen [...] mg tablet 2017 active Medicatio n ID: 198849 Du ration Value: 30 Brand Name: escitalop [...] aerosol inhaler 2015 active Medicatio n ID: [id number] Du ration Value: 30 Brand Name: ProAir [...] ended release 2015 active Medicatio n ID: [id number] Du ration Value: 30 Brand Name: Myrbetriq [...] Diagnosis/Indication Diagnosis SNOMED-CT Code Diagnosis ICD10 Code [id number] NICO FERRO MD [facility] [address] [place] [address] 02/29/2024 14:04:19 02/29/2024 15:00:38 Chronic sinusitis 67394365 J32.8 Health Concerns Section Related Observation LastModified by Organization Detai ls LastModified Time None Recorded Concern Status LastModified by Organization Details LastModified Time None Recorded Payers Encounter Date Sequence Insurance Name Policy Number Policy Clark Covered Member ID Clark Member ID Guarantor Name 02/29/2024 2 [place] [facility] Elba Martinez [id number] Elba Martinez 02/29/2024 1 MEDICARE B-[place]: [facility] [employer] Elba Martinez [id number] Elba Martinez Notes Date Note Type Note [...] seeing specialist Jun 2024. NICO MCKEON MD [address] [place] [address], [place], [address], [facility] - [facility] 03/01/2024 07:53:18 OBGyn Episode No OBEpisode recorded.
--- OUTSIDE RECORDS SUMMARY | 2024-05-04 12:17 | XMS_ITS | Data Portability ---
Author Organization MARK Julien s, [address] Address [address] [place] [address] Care Team Providers Care Director Agency & Strategic Partnerships Name Role Phone OSMINHAYCaliRAMÓN Primary Care Provider [phone] Assessment No assessment recorded. Plan of Treatment Reminders Order Date Submit Date Provider Last Modified By Organization Details Last Modified Time Details Appointments None recorded. Lab None recorded. Referral None recorded. Procedures None recorded. Surgeries None recorded. Imaging None recorded. Medication Orders Diflucan 150 mg tablet 2022 023 [facility], [address] [place], [address], 3 18:18:50 ciprofloxac in 0.2 % ear drops in a dropperette 2022 023 [email or web address] [facility], [address] [place], [address], 3 13:24:37 cefdinir 300 mg capsule 2022 023 [facility], [address] [place], [address], 3 18:18:51 Patient TargetsNo targets recorded. Patient Instructions Encounter Date Encounter Id Patient Instructions Last Modified By Organization Details Last Modified Time 06/11/2022 [id number] earache: care instructions [email or web address] Not available 06/11/2022 18:18:47 ear infection (otitis media): care instructions Not available 06/11/2022 18:18:47 You have been [...] in the Eustachian Tube. 4. Saline Nasal Menan 5. Salt Water Gargle 6. Staying Hydrated [...] to antibiotic resistance. Thank you for using [facility] today - and don't hesitate to contact our office if you have any concerns or questions. [email or web address] Not available 06/11/2022 18:18:46 Reason for Referral None Reported. Problems Name Problem SNOMED Code Status Onset Date Resolution Date Notes Provider Name and Address Organization Details Recorded Time Urinary incontinence 860596184 Active 2022 MARK Medeiros - [facility] [...] Name and Address Organization Details Recorded Time 591690 grass pollen environme nt,medica tion Not available Not available Not available 06/11/2022 Constance hilton PA Loc [facility] 3 17:12:26 247170 atenolol medicatio n Not available Not available Not available 06/11/2022 1202 RxNorm Constance Eldridge MARK hilton [facility] 3 17:12:50 906774 Bactrim medicatio n rash Not available Not available 06/11/2022 24905 9 RxNorm Constance Eldridge MARK hilton [facility] [...] Updated DateTime 3 154.94 cm 41.2 kg/m2 94006.1 4 g 96.8 [degF] 99 % 99 [...] Diagnosis/Indication Diagnosis SNOMED-CT Code Diagnosis ICD10 Code [id number] [address] [facility] [address] [place] [address] 02/01/2022 12:52:42 02/01/2022 14:38:05 [id number] MARK ORTEGA [address] [facility] [address] [place] [address] 06/11/2022 16:40:01 06/11/2022 18:21:41 Acute bilateral otitis media 015803772 H66.93 Candidiasis of vagina 72 720834 B37.31 Health Concerns Section Related Observation LastModified by Organization Detai ls LastModified Time None Recorded Concern Status LastModified by Organization Details LastModified Time None Recorded Advance Directives Directive None Recorded Payers Encounter Date Sequence Insurance Name Policy Number Policy Clark Covered Member ID Clark Member ID Guarantor Name 02/01/2022 1 [place] [employer] Elba Martinez [id number] Elba Martinez 02/01/2022 2 [place] [facility] Elba Martinez [id number] Elba Martinez 06/11/2022 1 [place] [employer] Elba Martinez [id number] Elba Martinez 06/11/2022 2 [place] [facility] Elba Martinez [id number] Elba Martinez Notes Date Note Type Note [...] MARK ORTEGA [address] [place], [address], [place] - [facility] 06/12/2022 13:33:56 OBGyn Episode No OBEpisode recorded.
--- OUTSIDE RECORDS SUMMARY | 2024-05-04 12:17 | XMS_ITS | Continuity of Care Document ---
Author Organization [facility], [place] 3rd floor Address [address] [place] [address] Care Team Providers Care Director Of Channel Marketing Name Role Phone RAMÓN GRANADOS Primary Care Provider Assessment No assessment recorded. Plan of Treatment Reminders Order Date Submit Date Provider Last Modified By Organization Details Last Modified Time Details Appointments RECHECK 15 2023 01:30P M Cherie Yañez MD Not available Not available Not available Lab None recorded . Referral None recorded . Procedures None recorded . Surgeries None recorded . Imaging None recorded . Medication Orders None recorded . Patient TargetsNo targets recorded. Patient InstructionsNo instructions recorded. Reason for Referral None Reported. Problems Name Problem SNOMED Code Status Onset Date Resolution Date Notes Provider Name and Address Organization Details Recorded Time No complaints 468014540 Active Status: 'I'; Not Available [facility] 4 09:21:24 Synovitis and tenosynovit is of joint of hand Active 2019 Problem Code: M65.841; Problem Code Type: ICD-10; Status: 'A'; Not Available [facility] 4 11:43:44 Problem Notes None recorded. Medical Equipment None Reported. Allergies Allergen ID Allergen Name Allergen Category Reaction Reaction Severity Criticality Documentation Date Start Date Code Code System Note Provider Name and Address Organization Details Recorded Time 32437 Tenormin medicatio n Not available Not available Not available 07/25/20232011 59930 3 RxNorm Aller gyRea ction : 'UNKN OWN'; Not Available [facility] 4 13:52:25 88453 Bactrim medicatio n Not available Not available Not available 07/25/20232013 14643 9 RxNorm Not Available [facility] 4 13:52:26 Medications Name Sig Start Date [...] Not Available Not Available No t Available .5/ (28) 1.5 mg-30 mcg (21)/75 mg (7) [...] Updated DateTime 03/14/2024 154.94 cm 43.5 kg/m2 316546.25 g Kathleen Sevilla MA - [facility] 03/14/2024 14:30:02 Social History None recorded. Functional Status None recorded. Mental Status None recorded. Family History Nothing Reported. Medical History No medical history recorded. Gynecological HistoryNo gynecological history recorded. Obstetrics History GPAL:G 0 P 0 0 0 0 Past Encounters Encounter ID Performer Location Encounter Start Date Encounter Closed Date Diagnosis/Indication Diagnosis SNOMED-CT Code Diagnosis ICD10 Code [id number] SANDRA Caballero [address]rd [address] [place] [address] 03/14/2024 14:16:14 04/03/2024 11:04:14 Pain of right wrist 8772528529 62967 M25.531 Health Concerns Section Related Observation LastModified by Organization Detai ls LastModified Time None Recorded Concern Status LastModified by Organization Details LastModified Time None Recorded Payers Encounter Date Sequence Insurance Name Policy Number Policy Clark Covered Member ID Clark Member ID Guarantor Name 03/14/2024 1 [place] B[place]: [employer] Elba Martinez [id number] Elba Martinez 03/14/2024 2 [place] [facility] Elba Martinez [id number] Elba Martinez Notes Date Note Type Note Provider Name and Address Organization Details Recorded Time 03/14/20 24 text/htm l I am seeing [...] the digits.X-rays ordered, obtained and reviewed at [facility]: None performed today..EMG was negative for [...] and concerns answered and addressed.. Speech recognition vocational auto body instructor software was used to create portions of this document. An attempt at proofreading has been made to minimize errors. Please call for corrections. Please CC Dr.Joanna Kanika MD with [facility] Ewa Quiroz PA-C [address] [place] [address] [address], [place], [address], [facility] - [facility] 03/20/2024 14:18:24 OBGyn Episode No OBEpisode recorded.
== END 2024-05-04 15:38 | disposition home or self-care (01) ==
PROVIDERS: PCP Internal Medicine; Visit Provider Internal Medicine
DX: Z00.00 Encounter for general adult medical examination without abnormal findings (principal); E11.69 Type 2 diabetes mellitus with other specified complication; E66.9 Obesity, unspecified; Z68.41 Body mass index [BMI] 40.0-44.9, adult; E78.5 Hyperlipidemia, unspecified

== ENCOUNTER → 2024-05-04 12:14 | Outpatient (BNVA) | payer MEDICARE, MEDICAID, SELFPAY | PROVIDERS: PCP Internal Medicine; Visit Provider Internal Medicine | DX: Z00.00 Encounter for general adult medical examination without abnormal findings (principal); E11.9 Type 2 diabetes mellitus without complications; E78.5 Hyperlipidemia, unspecified; E66.9 Obesity, unspecified | CPT/HCPCS: 99396 ==

== ENCOUNTER 2024-06-14 12:48 | Outpatient (AMB) | payer MEDICARE, MEDICAID, SELFPAY ==
--- NOTE | 2024-06-14 13:34 | MHC.OFFWIV ---
Intake Vital Signs 06/14/24 13:35 Weight 233 lb BP 110/78 Blood Pressure Location Rt brachial Position Sitting Pulse 91 Pulse Source Pulse Oximeter Temp 98.8 F Temp Source Oral Pulse Oximetry (%) 97 Oxygen Delivery Method Room Air Intake Visit Reasons: PE congestion, cough Intake Note: Patient here for congestion and cought that started tuesday. Patient Tobacco Use Status: Never used Tobacco Allergies atenolol Allergy (Unknown, Verified 06/14/24 13:36) bad dreams tramadol [Ultracet] Allergy (Unknown, Verified 06/14/24 13:36) Pt's mother doesn't remember Do you need a note to return to daycare/school/sports/work: No HPI HPI Comments History of Present Illness Details History - The patient is a 49 year old female presenting with symptoms consistent with an upper respiratory infection. - She reports a 5-day history of a bad cold with symptoms worsening since onset. A productive cough with mucus and right-sided ear pain consistent with her past recurrent ear infections has been experienced. - She confirms the absence of fever and notable shortness of breath, and denies a history of asthma or COPD. - Sinus discomfort is present but mild and tolerable. - Family members at home show similar symptoms pending a formal diagnosis. - The patient has not pursued any testing for respiratory illnesses such as influenza, COVID, or RSV. - Pt has used tylenol for symptomatic relief, and cerumen impaction has been observed in the right ear with pain. Physical Exam General: Cooperative, healthy appearing, comfortable and no acute distress Orientation/consciousness: Patient oriented x3 Limitations: No limitations Head: Normal to inspection Ears: Normal external ears, EAC bilateral cerumen impaction Nose: Normal external nose present, Normal nares present and No nasal discharge present Face and sinus: Normal facial exam and frontal sinus ttp Mouth: Normal oral and palatal mucosa present and moist mucous membranes Throat: Yes tonsils normal, Yes uvula midline. Posterior oropharynx erythema, no exudates noted Eyes: Appearance normal, both eyes and all related structures Neck: Normal visual inspection Respiratory: Clear to auscultation bilaterally. Normal respiratory effort, able to speak in complete sentences, Actively coughing with mucus production, no respiratory distress, not tachypneic, no tripod positioning and no use of accessory muscles Cardiovascular: Regular rate and rhythm. Normal S1 and S2 Skin: No rashes or lesions noted Neuro: Patient oriented x3 Extremities: Normal to inspection and Yes no clubbing, cyanosis or edema [facility] Medical History (Updated 06/14/24 @ 14:16 by Elyse Stevenson PA-C) Constipation Normal colonoscopy Hyperlipidemia Annual physical exam Urinary incontinence Anxiety Insomnia Chronic iron deficiency anemia Mentally challenged Wrist pain, right Surgical History H/O colonoscopy Family History Mother No problems noted. Maternal Grandmother Mental health disorder Social History Housing: House Alcohol intake: never Patient Tobacco Use Status: Never used Tobacco e-Cigarette/Vaping Use: Never Used Second Hand Smoke Exposure: No service: No Current occupational status: other Cognitive needs: No Hearing needs: No Vision needs: Yes Review of Systems Const All systems reviewed & are unremarkable except as noted in HPI and below Physical Exam Vital Signs: Last Vital Signs Temp 98.8 F 06/14/24 13:35 Pulse 91 06/14/24 13:35 BP 110/78 06/14/24 13:35 Pulse Ox 97 06/14/24 13:35 Oxygen Delivery Method Room Air 06/14/24 13:35 Office Procedures Cerumen Removal Details: unable to remove bilaterally From which ear canal was the cerumen removed: bilateral Removal: irrigation Notes: patient tolerated procedure well and no complications [id number] Irrigation/Lavage Assessment & Plan Assessment & Plan (1) Impacted cerumen, bilateral: Code(s): H61.23 - Impacted cerumen, bilateral Plan: Ear flushing was attempted to discern potential otitis to determine the cause of the pain, however pt unable to tolerate. Recommended she us debrox drops twice daily for the next 5 days and return to the office. Was able to get her an appt with her PCP for follow up in 5 days. If she needs to cancel, she was told she can return to the [place] clinic for flushing. (2) URI, acute: Code(s): J06.9 - Acute upper respiratory infection, unspecified Plan: Testing for influenza, COVID-19, and RSV will be performed to identify any specific viral etiology contributing to the patient's symptoms. In addressing the upper respiratory symptoms, management will include [id number]-[id number] medications for cough and congestion relief. Should any viral tests return positive, reconsideration for antiviral interventions would follow, but initial findings do not indicate the need for antibiotics or imaging. Continued symptom monitoring is advised alongside the proposed interventions to ensure patient comfort and recovery. Patient was informed and verbally consented to the use of an ambient scribe for clinic note documentation during this visit Orders: Orders SARS-CoV2/FLU/RSV Today R09.89 - Other specified symptoms and signs involving the circulatory and respiratory systems Coding Level of Care Code Est Pt Level 3 (40848) Diagnoses Impacted cerumen, bilateral H61.23 URI, acute J06.9 CPT Codes Office Procedure - CPT: 79795-Yso Irrigation/Lavage ([id number])
[2024-06-14 13:35] VITALS: BP 110/78; PULSE 91; TEMP 37.1; O2SAT 97
--- OUTSIDE RECORDS SUMMARY | 2024-06-14 15:07 | XMS_ITS | Data Portability ---
Author Organization [place] - [facility], Allergy Address [address] [address] Assessment Encounter Date Assessment Date Assessment LastModified by Organization Details LastModified Time 02/29/2024 02/29/2024 48-year-old female with developmental delay, seasonal allergies and cerebral palsy presents with mother for evaluation of sinusitis. CT scan at [facility] on 09/05/23 demonstrated opacification of left frontal and left ethmoid sinuses. On exam nasal mucosa is pink and moist without rhinorrhea. Recommend trial of Flonase 2 sprays daily for one month and Doxycycline twice daily for 20 days. Will get a repeat sinus CT at [facility] in March after antibiotic regimen. She will [...] CT, maxillofaci al, w/o contrast 2023 024 [facility] [place], [address] [facility], [facility] [address], [place], [address], 4 08:51:03 Medication Orders doxycycline hyclate 100 mg tablet 2023 024 [id number], [address] [facility], [place], [place], [id number], 4 07:53:23 fluticasone propionate 50 mcg/actuati on nasal spray,suspe nsion 2023 024 [id number], [address] [facility], [place], [place], [id number], 07:53:25 Patient TargetsNo targets recorded. Patient InstructionsNo instructions recorded. Reason for Referral None Reported. Results Created Date Observation Date Name Description Value Unit Range Abnormal Flag Note LastModifiedBy Organization Detail LastModifiedTime 04/27/20 24 04/26/2024 CT, maxil lofac ial, w/o contr ast No observ ation record ed. [facility] [place] [address] [address], [place], [address], 04/27/2024 21:05:26 Result Notes None recorded. Problems Name Problem SNOMED Code Status Onset Date Resolution Date Notes Provider Name and Address Organization Details Recorded Time Chronic rhinitis 79439088 Active 2017 Purulent rhinitis (chronic) ; Note: Date Diagnosed : 01/27/2018 1:13 PM (J31.0) Not Available [facility] 4 02:41:31 Posterio r rhinorrh ea 09753533 Completed 201512/23/2023 Postnasal drip; Note: Date Diagnosed : 01/22/2016 10:09 AM (R09.82) Not Available [facility] 4 02:41:28 Nasal congesti on 12695794 Completed 201512/23/2023 Nasal congestio n; Note: Date Diagnosed : 01/22/2016 10:05 AM (R09.81) Not Available [facility] 4 02:41:29 Chronic sinusiti s 99780396 Active 2023 KAYE CARMONA PA-C [address] [place] [address], [place], [address] , [facility] - [facility] 4 14:57:08 Problem Notes None recorded. Procedures Surgical History None recorded. Imaging Results Imaging Date Name Status LastModified by Organiz ation Details LastModified Time 04/26/2024 CT, maxillofacial , w/o contrast completed [facility] [place] [address] [facility] [address], [place], [address], 04/27/2024 21:05:26 Procedure Notes None recorded. Medical Equipment None Reported. Allergies Allergen ID Allergen Name Allergen Category Reaction Reaction Severity Criticality Documentation Date Start Date Code Code System Note Provider Name and Address Organization Details Recorded Time 68725 Bactrim medicatio n other Not available Not available 10/04/2023 17674 9 RxNorm React ion: unkno wn, unspe cifie d;; Not Available [facility] 4 00:58:54 94069 atenolol medicatio n other Not available Not available 10/04/2023 1202 RxNorm React ion: unkno wn, unspe cifie d;; Not Available [facility] 4 00:58:58 Medications Name Sig Start Date [...] 24 hr 2017 active Medicatio n ID: [id number] Du ration Value: 90 Brand Name: oxybutyni [...] mg tablet 2015 active Medicatio n ID: 659250 Du ration Value: 30 Brand Name: diazepam Send Method: E-Prescri bed Subs Allowed: subs OK Specia l Instructi on: TAKE 1 TABLET BY MOUTH TWICE DAILY Med icationGe nericName : diazepam Not Available Not Available Not Available Nasonex 50 mcg/actuat ion [place] 2 spray into both nostrils once a day 2017 active Medicatio n ID: [id number] Du ration Value: 30 Prescrib ed By [...] mg tablet 2017 active Medicatio n ID: [id number] Du ration Value: 90 Brand Name: naproxen [...] mg tablet 2017 active Medicatio n ID: 928587 Du ration Value: 30 Brand Name: escitalop [...] aerosol inhaler 2015 active Medicatio n ID: [id number] Du ration Value: 30 Brand Name: ProAir [...] ended release 2015 active Medicatio n ID: [id number] Du ration Value: 30 Brand Name: Myrbetriq [...] Diagnosis/Indication Diagnosis SNOMED-CT Code Diagnosis ICD10 Code Diagnosis Note [id number] NICO FERRO MD [facility] [address] [address] 02/29/2024 14:04:19 02/29/2024 15:00:38 Chronic sinusitis 43363149 J32.8 Health Concerns Section Related Observation LastModified by Organization Detai ls LastModified Time None Recorded Concern Status LastModified by Organization Details LastModified Time None Recorded Advance Directives Directive None Recorded Payers Encounter Date Sequence Insurance Name Policy Number Policy Clark Covered Member ID Clark Member ID Guarantor Name 02/29/2024 2 MEDICAID-[place]: [facility] Elba Martinez [id number] Elba Martinez 02/29/2024 1 [place] [employer] Elba Martinez [id number] Elba Martinez Notes Date Note Type Note [...] seeing specialist Jun 2024. NICO MCKEON MD [address] [place] [address], [address], [facility] - [facility] 03/01/2024 07:53:18 OBGyn Episode No OBEpisode recorded.
--- OUTSIDE RECORDS SUMMARY | 2024-06-14 15:07 | XMS_ITS | Data Portability ---
Author Organization [facility]ien [facility], [address] Address [address] [place] [address] Care Team Providers Care Prospecting Driller Name Role Phone OSMINHAYCaliRAMÓN Primary Care Provider [phone] Assessment No assessment recorded. Plan of Treatment Reminders Order Date Submit Date Provider Last Modified By Organization Details Last Modified Time Details Appointments None recorded. Lab None recorded. Referral None recorded. Procedures None recorded. Surgeries None recorded. Imaging None recorded. Medication Orders Diflucan 150 mg tablet 2022 023 [facility], [address] [place], [address], 3 18:18:50 ciprofloxac in 0.2 % ear drops in a dropperette [email or web address] [facility] [address] [place], [address], 3 13:24:37 cefdinir 300 mg capsule 2022 023 [facility], [address] [place], [address], 3 18:18:51 Patient TargetsNo targets recorded. Patient Instructions Encounter Date Encounter Id Patient Instructions Last Modified By Organization Details Last Modified Time 06/11/2022 [id number] earache: care instructions [email or web address] Not available 06/11/2022 18:18:47 ear infection (otitis media): care instructions [email or web address] Not available 06/11/2022 18:18:47 You have been [...] in the Eustachian Tube. 4. Saline Nasal [place] 5. Salt Water Gargle 6. Staying Hydrated [...] to antibiotic resistance. Thank you for using [facility] today - and don't hesitate to contact our office if you have any concerns or questions. [email or web address] Not available 06/11/2022 18:18:46 Reason for Referral None Reported. Problems Name Problem SNOMED Code Status Onset Date Resolution Date Notes Provider Name and Address Organization Details Recorded Time Urinary incontinence 359895060 Active 2022 MARK Medeiros [facility] 17:22:54 Problem Notes None recorded. Procedures Surgical [...] Name and Address Organization Details Recorded Time 784306 grass pollen environme nt,medica tion Not available Not available Not available 06/11/2022 80683 UNK Constance hilton PA - [facility] 17:12:26 612208 atenolol medicatio n Not available Not available Not available 06/11/2022 1202 RxNorm Constance hilton PA - [facility] 17:12:50 472761 Bactrim medicatio n rash Not available Not available 06/11/2022 54075 9 RxNorm oCnstance hilton PA - [facility] 17:12:57 Medications Name Sig Start Date Stop [...] Avai lable Vitals Date Recorded Body height Provider Name an d Address Organization Details Last Updated DateTime 06/11/2022 154.94 cm Constance Eldridge PA - [facility] 06/11/2022 17:19:06 Date Recorded Body mass index (BMI) Body weight Provider Name and Address Organization Details Last Updated DateTime 06/11/2022 41.2 kg/m2 42434.14 g Constance Eldridge PA - [facility] 06/11/2022 17:19:15 Date Recorded Body temperature Provider Name a nd Address Organization Details Last Updated DateTime 06/11/2022 96.8 [degF] Constancelyndsey Poncekaylin PA - [facility] 06/11/2022 17:20:09 Date Recorded Pain severity - 0-10 verbal numeric rating [Score] - Reported Provider Name and Address Organization Details Last Updated DateTime 06/11/2022 6 Constancelyndsey Eldridge PA - [facility] 06/11/2022 17:20:30 Date Recorded Oxygen saturation Oxygen saturation in Arterial blood by Pulse oximetry Provider Name and Address Organization Details Last Updated DateTime 06/11/2022 99 % 99 % Constance Eldridge PA - [facility] 06/11/2022 17:20:43 Date Recorded Respiratory rate Provider Name a nd Address Organization Details Last Updated DateTime 06/11/2022 18 /min Constance Eldridge PA - [facility] 06/11/2022 17:20:47 Date Recorded Heart rate Provider Name an d Address Organization Details Last Updated DateTime 06/11/2022 92 /min Constance Eldridge PA - [facility] 06/11/2022 17:20:52 Date Recorded Systolic blood pressure Diastolic blood pressure Provider Name and Address Organization Details Last Updated DateTime 06/11/2022 131 mm[Hg] 89 mm[Hg] Constance Eldridge PA - [facility] 06/11/2022 17:21:13 Social History Question Answer Notes LastModified by Organizat ion Details LastModified Time Tobacco Smoking Status Never Smoker Constance Shookdaisha hilton PA - [facility] 06/11/2022 17:17:21 What Is Your Level [...] split virus, trivalent, PF 5 completed Constance Shookdaisha hilton PA - [facility] 06/11/2022 17:11:42 Influenza, [...] SNOMED-CT Code Diagnosis ICD10 Code Diagnosis Note [id number] [address] [facility] [address] [facility] [place] [address] 02/01/2022 12:52:42 02/01/2022 14:38:05 [id number] MARK ORTEGA [address] [facility] [address] [facility] [place] [address] 06/11/2022 16:40:01 06/11/2022 18:21:41 Acute bilateral otitis media 496827036 H66.93 Candidiasis of vagina 72 312174 B37.31 Health Concerns Section Related Observation LastModified by Organization Detai ls LastModified Time None Recorded Concern Status LastModified by Organization Details LastModified Time None Recorded Advance Directives Directive None Recorded Payers Encounter Date Sequence Insurance Name Policy Number Policy Clark Covered Member ID Clark Member ID Guarantor Name 02/01/2022 1 [place] B[place] [employer] Elba L Juan [id number] Elba Schley 02/01/2022 2 [place] [facility] Elba L Schley [id number] Elba Schley 06/11/2022 1 [place] [employer] SERVICES Elba L Schley [id number] Elba Schley 06/11/2022 2 [place] [facility] Elba L Juan [id number] Elba Martinez Notes Date Note Type Note [...] pain. MARK ORTEGA [address] [place], [address], PA - [facility] 06/12/2022 13:33:56 OBGyn Episode No OBEpisode recorded.
--- OUTSIDE RECORDS SUMMARY | 2024-06-14 15:07 | XMS_ITS | Data Portability ---
Author Organization [facility], [facility] Address [address] [place] [address] Care Team Providers Care Sample Tester Name Role Phone DEIRDRE BOUDREAUX Primary Care Provider Assessment No assessment recorded. Plan of Treatment Reminders Order Date Submit Date Provider Last Modified By Organization Details Last Modified Time Details Appointments None recorded . Lab rheumato id arthriti s disease activity panel, vectrada , serum or plasma 2023 024 GALO [facility], [facility], [address], [place], [address], 4 16:06:51 ESR (erythro cyte sediment ation rate), blood 2023 024 GALO [facility], [address] [facility], [address], [place], [address], 4 16:06:51 C-reacti ve protein, quantita tive, serum or plasma 2023 024 [email or web address] [facility], [facility]0 [facility], [address], [place], [address], 4 14:51:24 HbA1c (hemoglo bin A1c), blood 2023 024 GALO [facility], [address] [facility], [address], [place], [address], 4 16:06:50 CMP, serum or plasma 2023 024 GALO [facility], [address] [facility], [address], [address], [place], [address], 4 16:06:49 Referral physical therapis t referral - Status post left gastroc and soleus recessio n, ankle arthrosc opy, debridem ent of talar osteocho ndral lesion; date of surgery 04/21/23 LLE recondit ioning , desensit ization 2023 024 [email or web address] Not available 4 08:35:27 rheumato logist referral - right hand pain eval for high sed rate and high rectra 2023 024 [facility], [address] [facility], [place], [address], 4 10:07:17 Procedures None recorded . Surgeries None recorded . Imaging XR, ankle, 3 or more view - left foot /ankle 5v wb , recheck . room 103 2023 024 [facility], [address] [facility], [facility] [address], [place], [address], 4 16:19:53 XR, foot, 2 view 2023 024 [facility], [address], [address], [place], [address], 4 16:19:53 Medication Orders meloxica m 15 mg tablet 2023 024 [id number], [address] [place], [address], 4 16:19:53 cycloben zaprine 5 mg tablet 2023 024 [id number], [address] [facility] [place], [address], 4 07:46:39 Patient TargetsNo targets recorded. Patient InstructionsNo instructions recorded. Reason for Referral Physical Therapist Referral for Pain in left foot Status post left gastroc and soleus recession, ankle arthroscopy, debridement of talar osteochondral lesion; date of surgery 04/21/23LLE reconditioning , desensitization Referring Physician: Cherie Yañez, Orthopedic Surgery, Encounter Date: 11/11/2023 Deputy Administrator Referral for Hand pain right hand pain eval for high sed rate and high rectra Referring Physician: Ewa Quiroz, Orthopedic Surgery, Encounter Date: 01/16/2024 Results Created Date Observation Date Name Description Value Unit Range Abnormal Flag Note LastModifiedBy Organization Detail LastModifiedTime 12/23/19 24 12/24/2023 CMP14 +GLU RFX GT 100 TO HB A1C glucose 93 mg/dL 70-99 normal Not Available [facility] ([facility]) [address] [place], [address], 01/02/2024 16:06:49 12/23/19 24 12/24/2023 CMP14 +GLU RFX GT 100 TO HB A1C BUN 18 mg/dL 6-24 normal Not Available [facility] ([facility]) [address] [place], [address], 01/02/2024 16:06:49 12/23/19 24 12/24/2023 CMP14 +GLU RFX GT 100 TO HB A1C creatinine 0.78 mg/dL 0.57-1 .00 normal Not Available [facility] ([facility]) [address] [place], [address], 01/02/2024 16:06:49 12/23/19 24 12/24/2023 CMP14 +GLU RFX GT 100 TO HB A1C BUN/creatini ne ratio 23 9-23 normal Not Available [facility] ([facility]) [address] [place], [address], 01/02/2024 16:06:49 12/23/19 24 12/24/2023 CMP14 +GLU RFX GT 100 TO HB A1C sodium 140 mmol/ L 134-14 4 normal Not Available [facility] ([facility]) [address] [facility], [place], [address], 01/02/2024 16:06:49 12/23/19 24 12/24/2023 CMP14 +GLU RFX GT 100 TO HB A1C potassium 4.5 mmol/ L 3.5-5. 2 normal Not Available [facility] ([facility]) [address] [place], [address], 01/02/2024 16:06:49 12/23/19 24 12/24/2023 CMP14 +GLU RFX GT 100 TO HB A1C chloride 101 mmol/ L 96-106 normal Not Available [facility] ([facility]) [address] [facility], [place], [address], 01/02/2024 16:06:49 12/23/19 24 12/24/2023 CMP14 +GLU RFX GT 100 TO HB A1C carbon dioxide, total 25 mmol/ L 20-29 normal Not Available [facility] ([facility]) [address] [place], [address], 01/02/2024 16:06:49 12/23/19 24 12/24/2023 CMP14 +GLU RFX GT 100 TO HB A1C calcium 9.6 mg/dL 8.7-10 .2 normal Not Available [facility] ([facility]) [address] [place], [address], 01/02/2024 16:06:49 12/23/19 24 12/24/2023 CMP14 +GLU RFX GT 100 TO HB A1C protein, total 7.5 g/dL 6.0-8. 5 normal Not Available [facility] ([facility]) [address] [place], [address], 01/02/2024 16:06:49 12/23/19 24 12/24/2023 CMP14 +GLU RFX GT 100 TO HB A1C albumin 4.3 g/dL 3.9-4. 9 normal Not Available [facility] ([facility]) [address] [place], [address], 01/02/2024 16:06:49 12/23/19 24 12/24/2023 CMP14 +GLU RFX GT 100 TO HB A1C globulin, total 3.2 g/dL 1.5-4. 5 Not Available [facility] ([facility]) [address] [place], [address], 01/02/2024 16:06:49 12/23/19 24 12/24/2023 CMP14 +GLU RFX GT 100 TO HB A1C bilirubin, total 0.3 mg/dL 0.0-1. 2 normal Not Available [facility] ([facility]) [address] [facility], [place], [address], 01/02/2024 16:06:49 12/23/19 24 12/24/2023 CMP14 +GLU RFX GT 100 TO HB A1C alkaline phosphatase 76 IU/L 44-121 normal Not Available [facility]) [address] [place], [address], 01/02/2024 16:06:49 12/23/19 24 12/24/2023 CMP14 +GLU RFX GT 100 TO HB A1C AST (SGOT) 22 IU/L 0-40 normal Not Available [facility] ([facility]) [address] [place], [address], 01/02/2024 16:06:49 12/23/19 24 12/24/2023 CMP14 +GLU RFX GT 100 TO HB A1C ALT (SGPT) 13 IU/L 0-32 normal Not Available [facility] ([facility]) [address] [place], [address], 01/02/2024 16:06:49 12/23/19 24 12/24/2023 HEMOG LOBIN A1C hemoglobin A1C 5.9 % 4.8-5. 6 above high normal Predi abete s: 5.7 - 6.4 Diabe daphney: >6.4 Glyce yanira contr ol for adult s with diabe daphney: <7.0 Not Available [facility] ([facility]) [address] [facility], [place], [address], 01/02/2024 16:06:50 12/23/19 24 12/24/2023 SEDIM ENTAT ION RATE- WESTE RGREN sedimentatio n rate-westerg rodrigo 55 mm/HR 0-32 above high normal Not Available [facility] ([facility]) [address] [facility], [place], [address], 01/02/2024 16:06:51 12/23/19 24 12/23/2023 VECTR A(R) biomarker comment: Commen t These repor hao usman te value s and refer ence range s are inten ded for use in the gener ation of the Vectr a score only. These resul ts shoul d not be used inter moore eably with resul ts gener ated by keli kohelr ies. Not Available [facility] [address] [place], [address], 01/02/2024 16:06:51 12/23/19 24 01/02/2024 VECTR A(R) [...] . Not Available [facility] [address] [place], [address], 01/02/2024 16:06:51 12/23/19 24 01/02/2024 VECTR A(R) risk of radiographic progress 10 % 1-Yea r Risk of Radio graph ic Progr essio n Not Available [facility] [address] [place], [address], 01/02/2024 16:06:51 12/23/19 24 01/02/2024 VECTR A(R) vectra(R) level Commen t High Vectr a Disea se Activ ity Level s: High: 45 to 100 Moder ate: 30 to 44 Low: 1 to 29 Not Available [facility] [address] [place], [address], 01/02/2024 16:06:51 12/23/19 24 01/02/2024 VECTR A(R) [...] ry shown on last page. As of 2016 the Vectr a Score is adjus hao [...] 02-10 Not Available [facility] [address] [place], [address], 01/02/2024 16:06:51 12/23/19 24 01/02/2024 VECTR A(R) master result 8.5 ug/mL RA Range : (0.29 -85) RA Perce ntile : 82% Not Available [facility] [address] [place], [address], 01/02/2024 16:06:51 12/23/19 24 01/02/2024 VECTR A(R) CRP result 5.8 mg/L RA Range : (0.19 -92) RA Perce ntile : 58% Not Available [facility] [address] [place], [address], 01/02/2024 16:06:51 12/23/19 24 01/02/2024 VECTR A(R) vcam-1 result 0.46 ug/mL RA Range : (0.39 -1.2) RA Perce ntile : 9% Not Available [facility] [address] [place], [address], 01/02/2024 16:06:51 12/23/19 24 01/02/2024 VECTR A(R) il-6 result 15 pg/mL RA Range : (2.5- 200) RA Perce ntile : 61% Not Available [facility] [address] [place], [address], 01/02/2024 16:06:51 12/23/19 24 01/02/2024 VECTR A(R) tnf-ri result 1.7 NG/mL RA Range : (0.8- 3.9) RA Perce ntile : 64% Not Available [facility] [address] [place], [address], 01/02/2024 16:06:51 12/23/19 24 01/02/2024 VECTR A(R) egf result 180 pg/mL RA Range : (12-4 10) RA Perce ntile : 77% Not Available [facility] [address] [place], [address], 01/02/2024 16:06:51 12/23/19 24 01/02/2024 VECTR A(R) vegf-A result 430 pg/mL RA Range : (75-7 90) RA Perce ntile : 83% Not Available [facility] [address] [place], [address], 01/02/2024 16:06:51 12/23/19 24 01/02/2024 VECTR A(R) leptin result 5.8 NG/mL RA Range : (1.5- 120) RA Perce ntile : 15% Not Available [facility] [address] [place], [address], 01/02/2024 16:06:51 12/23/19 24 01/02/2024 VECTR A(R) resistin result 4.2 NG/mL RA Range : (3.5- 21) RA Perce ntile : 6% Not Available [facility] [address] [place], [address], 01/02/2024 16:06:51 12/23/19 24 01/02/2024 VECTR A(R) mmp-1 result 18 NG/mL RA Range : (1.3- 23) RA Perce ntile : 94% Not Available [facility] [address] [place], [address], 01/02/2024 16:06:51 12/23/19 24 01/02/2024 VECTR A(R) mmp3 result 19 NG/mL RA Range : (7.9- 160) RA Perce ntile : 39% Not Available [facility] [address] [place], [address], 01/02/2024 16:06:51 12/23/19 24 01/02/2024 VECTR A(R) ykl-40 result 44 NG/mL RA Range : (22-5 40) RA Perce ntile : 22% Not Available [facility] [address] [place] [address], [address], 01/02/2024 16:06:51 12/23/19 24 01/02/2024 VECTR A(R) footnote/his tory Commen t RA Range : These 95% refer ence range s were estab lishe d from 325,7 81 patie nt sampl es teste d at [facility] . RA Perce ntile : Subje ct's bioma rker level relat anne to level s in RA patie nt speci mens from which the RA range s were deter mined Compl ete Vectr a Score Histo ry: Colle ction Date: 12/22 Score : 54 Not Available [facility] [address] [place] [address], [address], 01/02/2024 16:06:51 12/23/19 24 01/02/2024 VECTR A(R) clinical validation Commen t Plemaria dolores e note: The indiv idual bioma rker resul ts, which are expre ssed to two signi fican t figur es, are requi red input s into the algor ithm used to calcu late the Vectr a Score . Clini david inter preta tion of indiv idual bioma rker level s which have diffe rent weigh ts in the Vectr a algor ithm, has not been estab lishe d. Not Available [facility] [address] [place], [address], 01/02/2024 16:06:51 11/11/19 24 11/11/2023 XR, foot, 2 view [email or web address] ?Encry pted=s hAaTro YD8dLq bEUv6g %2BXZw aYqtaq 0bqfl% 2Fg9IQ a4ajBk vP9nXo QUaueC m3YtLR FvZlg JJ8mAn tai3 5m0799 AC0KuY nmFU6P eUC8mr 84%3D INTERFACE [facility] [address], [place], [address], 11/11/2023 13:38:14 11/11/19 24 11/11/2023 XR, foot, 2 view [email or web address] ?Encry pted=s hAaTro YD8dLq bEUv6g %2BXZw aYqtaq 0bqfl% 2Fg9IQ a4ajBk vP9nXo QUaueC m3YtLR FvZl [facility] Northtai3 5y6426 AC0KuY nmFU6P eUC8mr 84%3D INTERFACE [facility] [address], [place], [address], 11/11/2023 13:38:16 11/11/19 24 11/11/2023 XR, ankle , 3 or more view [email or web address] ?Encry pted=s hAaTro YD8dLq bEUv6g %2BXZw aYqtaq 0bqfl% 2Fg9IQ a4ajBk vP9nXo QUaueC m3YtLR FvZlgJ JJ8mAn HZtai3 1n5306 AC0KuY nmFUKT eUC8mr 84%3D INTERFACE [facility] [address], [place], [address], 11/11/2023 13:39:44 11/11/19 24 11/11/2023 XR, ankle , 3 or more view [email or web address] ?Encry pted=s hAaTro YD8dLq bEUv6g %2BXZw aYqtaq 0bqfl% 2Fg9IQ a4ajBk vP9nXo QUaueC m3YtLR FvZlgJ JJ8mAn HZtai3 2d7463 AC0KuY nmFUKT eUC8mr 84%3D INTERFACE [facility] [address], [place], [address], 11/11/2023 13:39:45 12/02/19 24 12/02/2023 nerve condu ction study /EMG, upper extre mity (PROC ) No observ ation record ed. [facility] Scheduling Dept [address] [facility], [place], [address], 12/05/2023 09:46:30 01/21/20 24 11/17/2022 imagi ng/di [...] Address Organization Details Recorded Time No complaints 943068422 Active Status: 'I'; Not Available [facility] [place] [facility] 09:21:24 Synovitis and tenosynovit is of joint of hand Active 2019 Problem Code: M65.841; Problem Code Type: ICD-10; Status: 'A'; Not Available [facility] 11:43:44 Problem Notes None recorded. Procedures Surgical History None recorded. Imaging Results Imaging Date Name Status LastModified by Organiz ation Details LastModified Time 11/11/2023 XR, foot, 2 view completed INTERFACE [facility] [address], [place], [address], 11/11/2023 13:38:14 11/11/2023 XR, foot, 2 view completed INTERFACE [facility] [address], [place], [address], 11/11/2023 13:38:16 11/11/2023 XR, ankle, 3 or more view completed INTERFACE [facility] [address], [place], [address], 11/11/2023 13:39:44 11/11/2023 XR, ankle, 3 or more view completed INTERFACE [facility] [address], [place], [address], 11/11/2023 13:39:45 12/02/2023 nerve conduction study/EMG, upper extremity (PROC) completed [facility] Scheduling Dept [address] [place], [address], 12/05/2023 09:46:30 11/17/2022 imaging/diagnos tic result completed Information not available 01/21/2024 04:03:48 03/04/2023 imaging/diagnos tic result completed Information not available 01/21/2024 04:04:04 Procedure Notes None recorded. Medical Equipment None Reported. Allergies Allergen ID Allergen Name Allergen Category Reaction Reaction Severity Criticality Documentation Date Start Date Code Code System Note Provider Name and Address Organization Details Recorded Time 97285 Tenormin medicatio n Not available Not available Not available 07/25/20232011 80398 3 RxNorm Aller gyRea ction : 'UNKN OWN'; Not Available [facility] 13:52:25 60605 Bactrim medicatio n Not available Not available Not available 07/25/20232013 03465 9 RxNorm Not Available [facility] 13:52:26 Medications Name Sig Start Date Stop [...] Not Available Not Available No t Available (28) 1.5 mg-30 mcg (21)/75 mg (7) [...] Updated DateTime 11/11/2023 154.94 cm 43.5 kg/m2 163501.25 g Elyes [facility] 11/11/2023 13:06:08 Date Recorded Body height Body mass index (BMI) Body weight Provider Name and Address Organization Details Last Updated DateTime 12/21/2023 154.94 cm 43.5 kg/m2 352765.25 g Kathleen Se[facility] 12/21/2023 13:09:14 Date Recorded Body height Body mass index (BMI) Body weight Provider Name and Address Organization Details Last Updated DateTime 01/16/2024 154.94 cm 43.5 kg/m2 614016.25 g Kathleen [facility] 01/16/2024 15:14:55 Date Recorded Body height Body mass index (BMI) Body weight Provider Name and Address Organization Details Last Updated DateTime 02/06/2024 154.94 cm 43.5 kg/m2 431005.25 g Elyse [facility] 02/06/2024 13:26:02 Date Recorded Body height Body mass index (BMI) Body weight Provider Name and Address Organization Details Last Updated DateTime 03/14/2024 154.94 cm 43.5 kg/m2 933591.25 g Kathleen [facility] 03/14/2024 14:30:02 Social History None recorded. Functional Status None recorded. Mental Status None recorded. Family History Nothing Reported. Medical History No medical history recorded. Gynecological HistoryNo gynecological history recorded. 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 1867770806 90781 G56.01 [id number] MD David Ng [address] [place] [address] 09/12/2023 13:02:31 09/30/2023 11:31:13 Pain in left foot 7833053701 54145 M79.672 Osteochond ritis dissecans of left ankle 7668853654 31770 M93.985 [id number] MD David Ng [address] [place] [address] 11/11/2023 12:54:59 12/08/2023 12:06:22 Pain of left ankle joint 6114049249 1711194 M25.572 Foot pain 04608268 M79.6 73 Pain in left foot 758623 3315 06010 M79.672 Osteochond ritis dissecans of left ankle 1115346245 84631 M93.808 [id number] SANDRA Caballero [address] [place] [address] 12/21/2023 12:42:33 01/19/2024 11:06:09 Pain in right hand 7732731613 50313 M79.719 [id number] SANDRA Caballero [address] [place] [address] 01/16/2024 14:43:15 02/08/2024 10:07:17 Hand pain 36878134 M79.560 [id number] Cherie Yañez MD [facility] [address] [place] [address] 02/06/2024 13:13:28 02/27/2024 12:40:24 Pain of left ankle joint 8171186671 1529059 M25.572 Osteochond ritis dissecans 11349286 M93.279 Osteochond ritis dissecans of left ankle 1718257075 42171 M93.272 Peroneal t endinitis of left lower limb 6629637862 97788 M76.72 [id number] SANDRA Caballero [address] [place] [address] 03/14/2024 14:16:14 04/03/2024 11:04:14 Pain of right wrist 0836727879 60883 M25.531 Health Concerns Section Related Observation LastModified by Organization Detai ls LastModified Time None Recorded Concern Status LastModified by Organization Details LastModified Time None Recorded Advance Directives Directive None Recorded Payers Encounter Date Sequence Insurance Name Policy Number Policy Clark Covered Member ID Clark Member ID Guarantor Name 11/11/2023 1 [place] [employer] Elba Martinez [id number] Elba Martinez 11/11/2023 2 [place] [facility] Elba Martinez [id number] Elba Martinez 12/21/2023 1 [place] [employer] Elba Zacarias Juan [id number] Elba L Juan 12/21/2023 2 [place] [facility] Elba Zacarias Juan [id number] Elba L [place] 01/16/2024 1 [place] [facility] Elba Zacarias [place] [id number] Elab L Juan 01/16/2024 2 [place] [facility] Elba Zacarias Juan [id number] Elba L [place] 02/06/2024 1 [place] [facility] Elba Rell [place] [id number] Elba L Juan 02/06/2024 2 [place] [facility] Elba Zacarias Juan [id number] Elba L Juan 03/14/2024 1 [place] [facility] Elba Zacarias [place] [id number] Elba L [place] 03/14/2024 2 [place] [facility] Elba Zacarias Juan [id number] Elba Zacarias [place] Notes Date Note Type Note Provider Name [...] pulses X-rays ordered, obtained and reviewed at [facility]: AP, lateral, oblique weightbearing imaging of the [...] weeks for repeat evaluation Cherie Yañez MD [address] [place] [address] [address], [place], [address], [facility] 11/20/2023 15:27:46 12/21/19 24 [...] the digits.X-rays ordered, obtained and reviewed at [facility]: None performed today..EMG was negative for any [...] concerns were answered and addressed. Speech recognition release manager software was used to create portions of this document. An attempt at proofreading has been made to minimize errors. Please call for corrections. Ewa Quiroz PA-C [address] [place] [place] [address] [address], [place], [address], [facility] 12/21/2023 20:38:29 01/16/20 24 text/htm l I [...] the digits.X-rays ordered, obtained and reviewed at [facility]: None performed today..EMG was negative for any [...] addressed. We will see her PCP Dr. Deirdre Boudreaux MD with [facility]. All questions and concerns were answered and addressed. Speech recognition release manager software was used to create portions of this document. An attempt at proofreading has been made to minimize errors. Please call for corrections. Please CC Dr.Joanna Kanika MD with [facility] Ewa Quiroz PA-C [address] [address], [place], [address], [facility] 01/17/2024 12:36:38 02/06/20 24 text/htm l CHIEF [...] reports she is having her evaluated by medical support specialist, for possible psychiatric component to her [...] pulses X-rays ordered, obtained and reviewed at [facility] (previous imaging): AP, lateral, oblique weightbearing imaging [...] months for repeat evaluation. Cherie Yañez MD [address] [place] [address] Suite [facility], [place], [address], [facility] 02/06/2024 19:45:20 03/14/20 24 [...] the digits.X-rays ordered, obtained and reviewed at [facility]: None performed today..EMG was negative for any [...] and concerns answered and addressed.. Speech recognition release manager software was used to create portions of this document. An attempt at proofreading has been made to minimize errors. Please call for corrections. Please CC Dr.Joanna Kanika MD with [facility] Ewa Quiroz PA-C [address] [facility] Suite [facility], [place], [address], [facility] 03/20/2024 14:18:24 OBGyn Episode No OBEpisode recorded.
== END 2024-06-14 15:01 | disposition home or self-care (01) ==
PROVIDERS: PCP Internal Medicine; Visit Provider Physician Assistant
DX: J06.9 Acute upper respiratory infection, unspecified (principal); H61.23 Impacted cerumen, bilateral

== ENCOUNTER 2024-06-14 12:48 | Outpatient (REF) | payer MEDICARE, MEDICAID, SELFPAY ==
[2024-06-14 18:23] LABS: Influenza A PCR NEGATIVE (Negative); Influenza B PCR NEGATIVE (Negative); Resp Syncy Virus RNA Qual PCR NEGATIVE (Negative); SARS COV2 PCR INHOUSE NEGATIVE (Negative)
== END 2024-06-14 12:49 | disposition home or self-care (01) ==
LOC: HO.LAB 12:48
PROVIDERS: PCP Internal Medicine; Visit Provider Physician Assistant
DX: H61.23 Impacted cerumen, bilateral (principal); J06.9 Acute upper respiratory infection, unspecified; R09.89 Other specified symptoms and signs involving the circulatory and respiratory systems
CPT/HCPCS: 0241U; 69209; 99212

== ENCOUNTER 2024-06-19 09:18 | Outpatient (AMB) | payer MEDICARE, MEDICAID, SELFPAY ==
--- NOTE | 2024-06-19 09:20 | A.OFFPC_ITS ---
Vital Signs 06/19/24 09:21 Height 5 ft 1 in Weight 231 lb BMI 43.6 BP 132/80 Blood Pressure Location Rt brachial Position Sitting Pulse 99 Pulse Source Pulse Oximeter Temp 98.5 F Temp Source Oral Pulse Oximetry (%) 99 Oxygen Delivery Method Room Air Intake Visit Reasons: Follow up on ear infection Intake Note: Pt is here today for a follow up visit after being seen in a walk in. Allergies atenolol Allergy (Unknown, Verified 06/19/24 09:25) bad dreams tramadol [Ultracet] Allergy (Unknown, Verified 06/19/24 09:25) Pt's mother doesn't remember Tobacco use date assessed: 06/19/24 Dental Screening Dental Screen Date: 06/19/24 Did you have a dental visit in the last 12 months?: Yes Did you have a dental problem in the last 6 months where you did not have access to dental care?: No Was dental information given to patient?: Patient has dentist HPI Follow up on ear infection HPI Details Patient presents for the follow-up of walk in visit last week for upper respiratory infection. Patient has persistent productive cough with green sputum and chest congestion. There is no fever chills. Patient has been using Debrox for impacted cerumen. Patient denies ear pain or discharge. [facility] Medical History (Updated 06/19/24 @ 09:41 by Deirdre Boudreaux MD) Constipation Normal colonoscopy Hyperlipidemia Annual physical exam Urinary incontinence Anxiety Insomnia Chronic iron deficiency anemia Mentally challenged Wrist pain, right Surgical History H/O colonoscopy Family History Mother No problems noted. Maternal Grandmother Mental health disorder Social History Housing: House Alcohol intake: never Patient Tobacco Use Status: Never used Tobacco e-Cigarette/Vaping Use: Never Used Second Hand Smoke Exposure: No service: No Current occupational status: other Cognitive needs: No Hearing needs: No Vision needs: Yes Questionnaire PHQ-9 Over the last 2 weeks, how often have you been bothered by any of the following problems? 1. Little interest or pleasure in doing things: not at all 2. Feeling down, depressed, or hopeless: not at all 3. Trouble falling or staying asleep, or sleeping too much: not at all 4. Feeling tired or having little energy: not at all 5. Poor appetite or overeating: not at all 6. Feeling bad about yourself - or that you are a failure or have let yourself or your family down: not at all 7. Trouble concentrating on things, such as reading the newspaper or watching television: not at all 8. Moving or speaking so slowly that other people could have noticed. Or the opposite - being so fidgety or restless that you have been moving around a lot m ore than usual: not at all 9. Thoughts that you would be better off or of hurting yourself in some way: not at all Total score: 0 Depression Screening Interpretation: Negative Depression Screening Done: Yes 74838 - PHQ-9 Billing: Yes Source: Developed by Drs. Hansel Head, Katie Piper, Kuldip Ulloa and colleagues, with an educational simeon from [employer]. Thrive Questionnaire Date Thrive assessed: 06/19/24 I am a: Patient What is your living situation today?: I have a steady place to live Within the past 12 months, did the food you bought not last and you didn't have the money to get more?: Never true Within the past 12 months, did you worry whether your food would run out before you got money to buy more?: Never true Do you have trouble paying for medicines?: No Do you have trouble getting transportation to medical appointments?: No Do you have trouble paying your heating and electricity bill?: No Do you have trouble taking care of your child, family member or friend?: No Do you have trouble with day-to-day activities such as bathing, preparing meals, shopping, managing finances, etc.?: No Are you currently unemployed and looking for a job?: No Are you interested in more education?: No Please select the resources that you would like help with: None THRIVE Score: 0 LIZZIE-7 AMB Questionnaire LIZZIE-7 Date LIZZIE - 7 assessed: 06/19/24 Feeling nervous, anxious, or on edge: 0 = Not at all Not being able to stop or control worryin = Not at all Worrying too much about different things: 0 = Not at all Trouble relaxin = Not at all Being so restless that it is hard to sit still: 0 = Not at all Becoming easily annoyed or irritable: 0 = Not at all Feeling afraid as if something awful might happen: 0 = Not at all Total LIZZIE-7 score (0-4 normal; 5-9 mild; 10-14 moderate; 15-21 severe): 0 Source: Developed by Drs. Hansel Head, Katie Piper, Kuldip Ulloa and colleagues, with an educational simeon from [employer]. LIZZIE-7 Assessment Billing LIZZIE-7 Assessment Tool: LIZZIE-7 Assessment 93343 Review of Systems Const All systems reviewed & are unremarkable except as noted in HPI and below Eyes Reports no additional complaints ENT Reports no additional complaints Card Reports no additional complaints Resp Reports no additional complaints GI Reports no additional complaints Physical exam (Primary Care) Vital Signs: Last Vital Signs Temp 98.5 F 06/19/24 09:21 Pulse 99 06/19/24 09:21 BP 132/80 06/19/24 09:21 Pulse Ox 99 06/19/24 09:21 Oxygen Delivery Method Room Air 06/19/24 09:21 BMI result Body Mass Index 43.6 Tobacco/Smoking Status: Tobacco use Status Tobacco use date assessed 06/19/24 06/19/24 09:27 Patient Tobacco Use Status Never used Tobacco 06/19/24 09:22 e-Cigarette/Vaping Use Never Used 06/19/24 09:22 PHQ-9: PHQ-9 Score PHQ-9: Total score 0 06/19/24 09:27 Depression Screening Interpretation: Negative Thrive Assessment: Date of Thrive Assessment Date Thrive assessed 06/19/24 06/19/24 09:27 Const General: no acute distress HENMT Head: Yes normal to inspection Ears: TM's normal bilaterally Face and sinus: Yes sinus tenderness Throat: Yes postnasal drainage Neck Neck: Yes no lymphadenopathy and Yes supple Resp Effort & Inspection: normal respiratory effort Auscultation: rhonchi Cardio Rhythm: regular rhythm Heart sounds: S1 normal heart sound present and S2 normal heart sound present Coding Level of Care Code Est Pt Level 3 (35245) Diagnoses Bronchitis J40 Additional Codes LIZZIE-7 Assessment Billing - LIZZIE-7 Assessment Tool: LIZZIE-7 Assessment 46883 ([id number]) PHQ-9 - 30643 - PHQ-9 Billing: Yes ([id number]) Assessment & Plan Assessment & Plan (1) Bronchitis: Code(s): J40 - Bronchitis, not specified as acute or chronic Category: Medical Plan: Z-Josiah as prescribed and supportive care discussed with the patient
[2024-06-19 09:21] VITALS: BP 132/80; PULSE 99; TEMP 36.9; O2SAT 99; BMI 43.6
--- OUTSIDE RECORDS SUMMARY | 2024-06-19 09:46 | XMS_ITS | Clinical Summary ---
Author Organization [facility] Address [address] [place] [phone] Phone Care Team Providers Care Button Maker And Installer Name Role Phone Deirdre Boudreaux MD Primary Care Provider [phone] Encounters Date Type Department Care Team Description 04/24/2024 1:00 PM EST - 04/24/2024 11:59 PM EST [facility] [address] [address] Screening mammogram for breast cancer Discharge Disposition: Home or Self Care from Last 3 Months Surgical History Surgery Date Site/Laterality Comments COLONOSCOPY 11/14/2000 PROCEDURE: MT COLONOSCOPY FLX DX W/COLLJ SPEC WHEN PFRMD; COMMENT: negative examination, Dr. Andrew Acosta. Performed for the evaluation of rectal bleeding. COLONOSCOPY 02/07/2008 PROCEDURE: MT COLONOSCOPY FLX DX W/COLLJ SPEC WHEN PFRMD; COMMENT: negative examination. Scant hematochezia, positive family history. OTHER SURGICAL HISTORY 09/09/2008 PROCEDURE: MT RPR UMBILICAL HRNA 5 YRS/> REDUCIBLE; COMMENT: [facility], part of the exploratory laparoscopy OTHER SURGICAL HISTORY 09/09/2008 PROCEDURE: MT LAPAROSCOPIC APPENDECTOMY; COMMENT: [facility], part of the exploratory laparoscopy ESOPHAGOGASTRODUODENOSCOPY 04/30/2008 PROCEDURE: MT ESOPHAGOGASTRODUODENOSCOPY TRANSORAL DIAGNOSTIC; COMMENT: normal examination, Dr. Humberto Mitchell Medical History Medical History Date Comments Cerebral palsy (CMS/HCC) 12/19/2008 DX:Cere bral palsy (HCC) Urinary incontinence 12/19/2008 DX:Urinary incontinence Family history of malignant neoplasm of gastrointestinal tract 12/19/2008 DX:Family history of maligna nt neoplasm of gastrointestinal tract Family History Medical History Relation Name Comments Colon cancer Aunt 1 1 aunt with col on cancer, maternal Breast cancer Mother's Sister Colon cancer Uncle 1 3 uncles with c olon cancer, all maternal Relation Name Status Comments Aunt 1 Aunt 2 Mother's Sister Alive Uncle 1 Uncle 2 Social History Tobacco Use Types Packs/Day Years Used Date Smoking Tobacco: Former Cigarettes Q uit: 08/21/2008 Alcohol Use Standard Drinks/Week Comments Yes 0 (1 standard drink = 0.6 oz pur e alcohol) Sex and Gender Information Value Date Recorded Sex Assigned at Not on file Gender Identity Not on file Sexual Orientation Not on file Job Start Date Occupation Industry Not on file Not on file Not on file Obstetrics History Last Filed Vital Signs Vital Sign Reading Time Taken Comments Blood Pressure - - Pulse - - Temperature - - Respiratory Rate - - Oxygen Saturation - - Inhaled Oxygen Concentration - - Weight 99.8 kg (220 lb) 04/24/2024 1:26 PM EST Height 154.9 cm (5' 1 ) 04/24/2024 1:26 PM EST Body Mass Index 41.57 04/24/2024 1:26 PM EST Plan of Treatment Health Maintenance Due Date Last Done Comments DTaP,Tdap,and Td Vaccines (1 - Tdap) 1994 Hepatitis B Vaccines (1 of 3 - 19+ 3-dose series) 1994 Cervical Cancer Screening: Pap Smear 1996 Cholesterol Screening (Lipid Panel) 04/24/2022 Colorectal Cancer Screening: Colonoscopy 04/24/2022 Depression Screening 04/24/2022 HIV Screening 04/24/2022 Hepatitis C Screening 04/24/2022 Medicare Annual Wellness Visit 04/24/2022 Social Influencers of Health Screening 04/24/2022 COVID-19 Vaccine ( season) 2024 11/25/2021, 06/15/2021, 11/14/2020, Additional history exists Influenza Vaccine (#1) 2024 , 03/17/2022, 08/17/2021, Additional history exists Breast Cancer Screening 04/24/2026 04/24/20 24, 03/29/2023, 03/25/2022, Additional history exists HIB Vaccines Aged Out No longer eligi ble based on patient's age to complete this topic HPV Vaccines Aged Out No longer eligi ble based on patient's age to complete this topic Hepatitis A Vaccines Aged Out No long er eligible based on patient's age to complete this topic IPV Vaccines Aged Out No longer eligi ble based on patient's age to complete this topic MMR Vaccines Aged Out No longer eligi ble based on patient's age to complete this topic Meningococcal ACWY Vaccine Aged Out N o longer eligible based on patient's age to complete this topic Pneumococcal Vaccine: Pediatrics (0 to 5 Years) and At-Risk Patients (6 to 64 Years) Aged Out No longer eligible based on patient's age to complete this topic RSV Immunization Patients Under 20 months Aged Out No longer eligible based on patient's age to complete this topic Varicella Vaccines Aged Out No longer eligible based on patient's age to complete this topic Procedures Procedure Name Priority Date/Time Associated Diagnosis Comments MG MAMMO DIGITAL DIAGNOSTIC W CAMERON BILAT Routine 04/24/2024 1:57 PM EST Screening mammogram for breast cancer from Last 3 Months Results * MG Mammo Digital Diagnostic w Cameron bilat (04/24/2024 1:57 PM EST) Anatomical Region Laterality Modality Breast Bilateral Mammography 04/24/2024 4:15 PM EST Impressions 04/24/2024 4:18 PM EST Stable asymmetries in the right breast. Follow-up diagnostic mammogram in one year is recommended. BI-RADS CATEGORY: 3 - PROBABLY BENIGN RECOMMENDATION: Diagnostic bilateral mammogram recommended in 1 year. Mammo Location: [facility], [address] [place] [address], [address], . -------- FINAL REPORT -------- Dictated By: Saima Melissa Dictated Date: 04/24/2024 16:15 ET Assigned Physician: Saima Melissa Reviewed and Electronically Signed By: Saima Melissa Signed Date: 04/24/2024 16:18 ET Workstation ID: [id number] Transcribed By: Self Edit Transcribed Date: 04/24/2024 16:15 ET Narrative 04/24/2024 4:18 PM EST CLINICAL: 48 years old, Female, follow-up right breast asymmetries. COMPARISON: 11/05/2023, 04/01/2023, 03/29/2023, 03/25/2022 and 12/22/2020 ?? FINDINGS: MAMMOGRAPHY TECHNIQUE: Bilateral MLO and CC views were obtained digitally with 3-D mammogram (digital breast tomosynthesis). ??Computer-aided detection was utilized in evaluation of this exam (CAD). Stable 5 mm asymmetry in the lateral retroareolar region on cc view. Stable asymmetry in the superior breast at middle depth seen on MLO view. There is no evidence of suspicious mass or architectural distortion. ??No worrisome calcifications are evident. ?? BREAST DENSITY: A - The breasts are almost entirely fatty. Procedure Note Saima Melissa MD - 04/24/2024 CLINICAL: 48 years old, Female, follow-up right breast asymmetries. COMPARISON: 11/05/2023, 04/01/2023, 03/29/2023, 03/25/2022 and 12/22/2020 FINDINGS: MAMMOGRAPHY TECHNIQUE: Bilateral MLO and CC views were obtained digitally with 3-Dmammogram (digital breast tomosynthesis). Computer-aided detection wasutilized in evaluation of this exam (CAD). Stable 5 mm asymmetry in the lateral retroareolar region on cc view.Stable asymmetry in the superior breast at middle depth seen on MLO view.There is no evidence of suspicious mass or architectural distortion. Noworrisome calcifications are evident. BREAST DENSITY: A - The breasts are almost entirely fatty. IMPRESSION: Stable asymmetries in the right breast. Follow-up diagnostic mammogram inone year is recommended. BI-RADS CATEGORY: 3 - PROBABLY BENIGN RECOMMENDATION: Diagnostic bilateral mammogram recommended in 1 year. Mammo Location: [facility], [address] [place] [address], [address], . -------- FINAL REPORT -------- Dictated By: Saima Melissa Dictated Date: 04/24/2024 16:15 ET Assigned Physician: Saima Melissa Reviewed and Electronically Signed By: Saima Melissa Signed Date: 04/24/2024 16:18 ET Workstation ID: [id number] Transcribed By: Self Edit Transcribed Date: 04/24/2024 16:15 ET Deirdre Boudreaux MD IMG BI PROCEDURES from Last 3 Months Care Teams Button Maker And Installer Relationship Specialty Start Date End Date Deirdre Boudreaux MD PCP - General 10/21/08
--- OUTSIDE RECORDS SUMMARY | 2024-06-19 09:46 | XMS_ITS | Data Portability ---
Author Organization [facility], Allergy Address [address] [address] Assessment Encounter Date Assessment Date Assessment LastModified by Organization Details LastModified Time 02/29/2024 02/29/2024 48-year-old female with developmental delay, seasonal allergies and cerebral palsy presents with mother for evaluation of sinusitis. CT scan at [facility] on 09/05/23 demonstrated opacification of left frontal and left ethmoid sinuses. On exam nasal mucosa is pink and moist without rhinorrhea. Recommend trial of Flonase 2 sprays daily for one month and Doxycycline twice daily for 20 days. Will get a repeat sinus CT at [facility] in March after antibiotic regimen. She [...] CT, maxillofaci al, w/o contrast [address] [facility] [place], [address] [facility] [facility] [address], [place], [address], 4 08:51:03 Medication Orders doxycycline hyclate 100 mg tablet 2023 024 [id number], [address] [facility], [place], [place], [phone], 4 07:53:23 fluticasone propionate 50 mcg/actuati on nasal spray,suspe nsion 2023 024 [id number], [address] [facility], [place], [place], [phone], 07:53:25 Patient TargetsNo targets recorded. Patient InstructionsNo instructions recorded. Reason for Referral None Reported. Results Created Date Observation Date Name Description Value Unit Range Abnormal Flag Note LastModifiedBy Organization Detail LastModifiedTime 04/27/20 24 04/26/2024 CT, maxil lofac ial, w/o contr ast No observ ation record ed. [facility] [place] [address] [address], [place], [address], 04/27/2024 21:05:26 Result Notes None recorded. Problems Name Problem SNOMED Code Status Onset Date Resolution Date Notes Provider Name and Address Organization Details Recorded Time Chronic rhinitis 01863849 Active 2017 Purulent rhinitis (chronic) ; Note: Date Diagnosed : 01/27/2018 1:13 PM (J31.0) Not Available [facility] 4 02:41:31 Posterio r rhinorrh ea 87075090 Completed 201512/23/2023 Postnasal drip; Note: Date Diagnosed : 01/22/2016 10:09 AM (R09.82) Not Available [facility] 4 02:41:28 Nasal congesti on 10773136 Completed 201512/23/2023 Nasal congestio n; Note: Date Diagnosed : 01/22/2016 10:05 AM (R09.81) Not Available [facility] 4 02:41:29 Chronic sinusiti s 08016588 Active 2023 KAYE CARMONA PA-C [address] [place] [address], [place], [phone] , [facility] - [facility] 4 14:57:08 Problem Notes None recorded. Procedures Surgical History None recorded. Imaging Results Imaging Date Name Status LastModified by Organiz ation Details LastModified Time 04/26/2024 CT, maxillofacial , w/o contrast completed [facility] [place] [address] [facility] [address], [place], [address], 04/27/2024 21:05:26 Procedure Notes None recorded. Medical Equipment None Reported. Allergies Allergen ID Allergen Name Allergen Category Reaction Reaction Severity Criticality Documentation Date Start Date Code Code System Note Provider Name and Address Organization Details Recorded Time 15333 Bactrim medicatio n other Not available Not available 10/04/2023 47417 9 RxNorm React ion: unkno wn, unspe cifie d;; Not Available [facility] 4 00:58:54 56270 atenolol medicatio n other Not available Not available 10/04/2023 1202 RxNorm React ion: unkno wn, unspe cifie d;; Not Available [facility] 4 00:58:58 Medications Name Sig [...] 24 hr 2017 active Medicatio n ID: [id number] Du ration Value: 90 Brand Name: oxybutyni [...] mg tablet 2015 active Medicatio n ID: [id number] Du ration Value: 30 Brand Name: diazepam Send Method: E-Prescri bed Subs Allowed: subs OK Specia l Instructi on: TAKE 1 TABLET BY MOUTH TWICE DAILY Med icationGe nericName : diazepam Not Available Not Available Not Available Nasonex 50 mcg/actuat ion Natoma Natoma 2 spray into both nostrils once a day 2017 active Medicatio n ID: [id number] Du ration Value: 30 Prescrib ed By [...] mg tablet 2017 active Medicatio n ID: [id number] Du ration Value: 90 Brand Name: naproxen [...] mg tablet 2017 active Medicatio n ID: [id number] Du ration Value: 30 Brand Name: escitalop [...] aerosol inhaler 2015 active Medicatio n ID: [id number] Du ration Value: 30 Brand Name: ProAir [...] ended release 2015 active Medicatio n ID: [id number] Du ration Value: 30 Brand Name: Myrbetriq [...] SNOMED-CT Code Diagnosis ICD10 Code Diagnosis Note 88933 NICO FERRO MD [facility] [address] [address] 02/29/2024 14:04:19 02/29/2024 15:00:38 Chronic sinusitis 72676361 J32.8 Health Concerns Section Related Observation LastModified by Organization Detai ls LastModified Time None Recorded Concern Status LastModified by Organization Details LastModified Time None Recorded Advance Directives Directive None Recorded Payers Encounter Date Sequence Insurance Name Policy Number Policy Clark Covered Member ID Clark Member ID Guarantor Name 02/29/2024 2 [place] [facility] Martinez [id number] Elba Martinez 02/29/2024 1 [place]IC[place] B[place] [employer] Elba Martinez [id number] Elba Martinez Notes Date Note Type Note [...] seeing specialist Jun 2024. NICO MCKEON MD [address] [place] [address], [phone], [facility] - [facility] 03/01/2024 07:53:18 OBGyn Episode No OBEpisode recorded.
--- OUTSIDE RECORDS SUMMARY | 2024-06-19 09:46 | XMS_ITS | Patient Health Record ---
Author Organization [facility] Address [address] [place] [phone] Care Team Providers Care Remedial Reading Teacher Name Role Phone Deirdre Boudreaux MD Primary Care Provider Hansel Floyd Unavailable [phone] ALLERGIES Allergen (clinical drug ingredient) Drug/Non Drug [...] Notes Problem Rectal bleed (K62.5) Active confirmed 23481857 Problem Family history of colon cancer (Z80.0) Active confirmed 837720623 PLAN OF TREATMENT No Information Insurance Providers Payer Name Payer Address Payer Phone Subscriber Number Group Number Insured Name Patient Relationship to Insured Coverage Start Date Coverage End Date MEDICARE OF NEELA DARIAN [address] [id number] DANNY MARTINEZ Self - patient is the insured MEDICAID OF [employer] [address] [place] [phone] [id number] DANNY MARTINEZ Self - patient is the insured MEDICAL (GENERAL) HISTORY Medical History History ICD Code Urinary incontinence Hay fever IBS Cerebral palsy with some cognitive and d evelopmental disabilities Denies WI,DM,CVA,Lung disease,renal dise ase Describes a negative colonos copy over [address] Mitchell. She has also seen Dr. Rain for evaluation of abdominal pain in the distant past as well Surgical History Surgery Date(Month/Year) Removed appendix via NOTES via vagina Fatty tissue in the groin area . Shoulder-right
--- OUTSIDE RECORDS SUMMARY | 2024-06-19 09:47 | XMS_ITS | Data Portability ---
Author Organization [facility], [facility] Address [address] [place] [address] Care Team Providers Care Industrial Property Appraiser Name Role Phone DEIRDRE BOUDREAUX Primary Care Provider Assessment No assessment recorded. Plan of Treatment Reminders Order Date Submit Date Provider Last Modified By Organization Details Last Modified Time Details Appointments None recorded . Lab rheumato id arthriti s disease activity panel, vectrada , serum or plasma 2023 024 GALO [facility], [facility] [facility], [address], [place], [address], 4 16:06:51 ESR (erythro cyte sediment ation rate), blood 2023 024 GALO [facility], [address] [facility], [place], [address], 4 16:06:51 C-reacti ve protein, quantita tive, serum or plasma 2023 024 [email or web address] [facility], [facility], [address], [place], [address], 4 14:51:24 HbA1c (hemoglo bin A1c), blood 2023 024 GALO [facility], [address] [facility], [address], [place], [address], 4 16:06:50 CMP, serum or plasma 2023 024 GALO [facility], [address] [facility], [place], [address], 4 16:06:49 Referral physical therapis t referral - Status post left gastroc and soleus recessio n, ankle arthrosc opy, debridem ent of talar osteocho ndral lesion; date of surgery 04/21/23 LLE recondit ioning , desensit ization 2023 024 Not available 4 08:35:27 rheumato logist referral - right hand pain eval for high sed rate and high rectra 2023 024 [facility], [address] [facility], [place], [address], 4 10:07:17 Procedures None recorded . Surgeries None recorded . Imaging XR, ankle, 3 or more view - left foot /ankle 5v wb , recheck . room 103 2023 024 [place] [facility], [address], [facility] [address], [place], [address], 4 16:19:53 XR, foot, 2 view 2023 [address] [facility], [address], [address], [place], [address], 4 16:19:53 Medication Orders meloxica m 15 mg tablet 2023 024 [id number], [address] [place], [address], 4 16:19:53 cycloben zaprine 5 mg tablet 2023 024 [id number], [address] [place], [address], 4 07:46:39 Patient TargetsNo targets recorded. Patient InstructionsNo instructions recorded. Reason for Referral Physical Therapist Referral for Pain in left foot Status post left gastroc and soleus recession, ankle arthroscopy, debridement of talar osteochondral lesion; date of surgery 04/21/23LLE reconditioning , desensitization Referring Physician: Cherie Yañez, Orthopedic Surgery, Encounter Date: 11/11/2023 [place] Referral for Hand pain right hand pain eval for high sed rate and high rectra Referring Physician: Ewa Quiroz, Orthopedic Surgery, Encounter Date: 01/16/2024 Results Created Date Observation Date Name Description Value Unit Range Abnormal Flag Note LastModifiedBy Organization Detail LastModifiedTime 12/23/19 24 12/24/2023 CMP14 +GLU RFX GT 100 TO HB A1C glucose 93 mg/dL 70-99 normal Not Available [facility] ([facility]) [address] [place], [address], 01/02/2024 16:06:49 12/23/19 24 12/24/2023 CMP14 +GLU RFX GT 100 TO HB A1C BUN 18 mg/dL 6-24 normal Not Available [facility] ([facility]) [address] [place], [address], 01/02/2024 16:06:49 12/23/19 24 12/24/2023 CMP14 +GLU RFX GT 100 TO HB A1C creatinine 0.78 mg/dL 0.57-1 .00 normal Not Available [facility] ([facility]) [address] [place], [address], 01/02/2024 16:06:49 12/23/19 24 12/24/2023 CMP14 +GLU RFX GT 100 TO HB A1C BUN/creatini ne ratio 23 9-23 normal Not Available [facility] ([facility]) [address] [place], [address], 01/02/2024 16:06:49 12/23/19 24 12/24/2023 CMP14 +GLU RFX GT 100 TO HB A1C sodium 140 mmol/ L 134-14 4 normal Not Available [facility] ([facility]) [address] [facility], [place], [address], 01/02/2024 16:06:49 12/23/19 24 12/24/2023 CMP14 +GLU RFX GT 100 TO HB A1C potassium 4.5 mmol/ L 3.5-5. 2 normal Not Available [facility] ([facility]) [address] [place], [address], 01/02/2024 16:06:49 12/23/19 24 12/24/2023 CMP14 +GLU RFX GT 100 TO HB A1C chloride 101 mmol/ L 96-106 normal Not Available [facility] ([facility]) [address] [facility], [place], [address], 01/02/2024 16:06:49 12/23/19 24 12/24/2023 CMP14 +GLU RFX GT 100 TO HB A1C carbon dioxide, total 25 mmol/ L 20-29 normal Not Available [facility] ([facility]) [address] [place], [address], 01/02/2024 16:06:49 12/23/19 24 12/24/2023 CMP14 +GLU RFX GT 100 TO HB A1C calcium 9.6 mg/dL 8.7-10 .2 normal Not Available [facility] ([facility]) [address] [place], [address], 01/02/2024 16:06:49 12/23/19 24 12/24/2023 CMP14 +GLU RFX GT 100 TO HB A1C protein, total 7.5 g/dL 6.0-8. 5 normal Not Available [facility] ([facility]) [address] [place], [address], 01/02/2024 16:06:49 12/23/19 24 12/24/2023 CMP14 +GLU RFX GT 100 TO HB A1C albumin 4.3 g/dL 3.9-4. 9 normal Not Available [facility] ([facility]) [address] [place], [address], 01/02/2024 16:06:49 12/23/19 24 12/24/2023 CMP14 +GLU RFX GT 100 TO HB A1C globulin, total 3.2 g/dL 1.5-4. 5 Not Available [facility] ([facility]) [address] [place], [address], 01/02/2024 16:06:49 12/23/19 24 12/24/2023 CMP14 +GLU RFX GT 100 TO HB A1C bilirubin, total 0.3 mg/dL 0.0-1. 2 normal Not Available [facility] ([facility]) [address] [facility], [place], [address], 01/02/2024 16:06:49 12/23/19 24 12/24/2023 CMP14 +GLU RFX GT 100 TO HB A1C alkaline phosphatase 76 IU/L 44-121 normal Not Available [facility]) [address] [place], [address], 01/02/2024 16:06:49 12/23/19 24 12/24/2023 CMP14 +GLU RFX GT 100 TO HB A1C AST (SGOT) 22 IU/L 0-40 normal Not Available [facility] ([facility]) [address] [place], [address], 01/02/2024 16:06:49 12/23/19 24 12/24/2023 CMP14 +GLU RFX GT 100 TO HB A1C ALT (SGPT) 13 IU/L 0-32 normal Not Available [facility] ([facility]) [address] [place], [address], 01/02/2024 16:06:49 12/23/19 24 12/24/2023 HEMOG LOBIN A1C hemoglobin A1C 5.9 % 4.8-5. 6 above high normal Predi abete s: 5.7 - 6.4 Diabe daphney: >6.4 Glyce yanira contr ol for adult s with diabe daphney: <7.0 Not Available [facility] ([facility]) [address] [facility], [place], [address], 01/02/2024 16:06:50 12/23/19 24 12/24/2023 SEDIM ENTAT ION RATE- WESTE RGREN sedimentatio n rate-westerg rodrigo 55 mm/HR 0-32 above high normal Not Available [facility] ([facility]) [address] [facility], [place], [address], 01/02/2024 16:06:51 12/23/19 24 12/23/2023 VECTR A(R) biomarker comment: Commen t These repor hao usman te value s and refer ence range s are inten ded for use in the gener ation of the Vectr a score only. These resul ts shoul d not be used inter moore eably with resul ts gener ated by keli kohler ies. Not Available [facility] [address] [place], [address], 01/02/2024 16:06:51 12/23/19 24 01/02/2024 VECTR A(R) [...] . Not Available [facility] [address] [place], [address], 01/02/2024 16:06:51 12/23/19 24 01/02/2024 VECTR A(R) risk of radiographic progress 10 % 1-Yea r Risk of Radio graph ic Progr essio n Not Available [facility] [address] [place], [address], 01/02/2024 16:06:51 12/23/19 24 01/02/2024 VECTR A(R) vectra(R) level Commen t High Vectr a Disea se Activ ity Level s: High: 45 to 100 Moder ate: 30 to 44 Low: 1 to 29 Not Available [facility] [address] [place], [address], 01/02/2024 16:06:51 12/23/19 24 01/02/2024 VECTR A(R) [...] 02-10 Not Available [facility] [address] [place], [address], 01/02/2024 16:06:51 12/23/19 24 01/02/2024 VECTR A(R) master result 8.5 ug/mL RA Range : (0.29 -85) RA Perce ntile : 82% Not Available [facility] [address] [place], [address], 01/02/2024 16:06:51 12/23/19 24 01/02/2024 VECTR A(R) CRP result 5.8 mg/L RA Range : (0.19 -92) RA Perce ntile : 58% Not Available [facility] [address] [place], [address], 01/02/2024 16:06:51 12/23/19 24 01/02/2024 VECTR A(R) vcam-1 result 0.46 ug/mL RA Range : (0.39 -1.2) RA Perce ntile : 9% Not Available [facility] [address] [place], [address], 01/02/2024 16:06:51 12/23/19 24 01/02/2024 VECTR A(R) il-6 result 15 pg/mL RA Range : (2.5- 200) RA Perce ntile : 61% Not Available [facility] [address] [place], [address], 01/02/2024 16:06:51 12/23/19 24 01/02/2024 VECTR A(R) tnf-ri result 1.7 NG/mL RA Range : (0.8- 3.9) RA Perce ntile : 64% Not Available [facility] [address] [place], [address], 01/02/2024 16:06:51 12/23/19 24 01/02/2024 VECTR A(R) egf result 180 pg/mL RA Range : (12-4 10) RA Perce ntile : 77% Not Available [facility] [address] [place], [address], 01/02/2024 16:06:51 12/23/19 24 01/02/2024 VECTR A(R) vegf-A result 430 pg/mL RA Range : (75-7 90) RA Perce ntile : 83% Not Available [facility] [address] [place], [address], 01/02/2024 16:06:51 12/23/19 24 01/02/2024 VECTR A(R) leptin result 5.8 NG/mL RA Range : (1.5- 120) RA Perce ntile : 15% Not Available [facility] [address] [place], [address], 01/02/2024 16:06:51 12/23/19 24 01/02/2024 VECTR A(R) resistin result 4.2 NG/mL RA Range : (3.5- 21) RA Perce ntile : 6% Not Available [facility] [address] [place], [address], 01/02/2024 16:06:51 12/23/19 24 01/02/2024 VECTR A(R) mmp-1 result 18 NG/mL RA Range : (1.3- 23) RA Perce ntile : 94% Not Available [facility] [address] [place], [address], 01/02/2024 16:06:51 12/23/19 24 01/02/2024 VECTR A(R) mmp3 result 19 NG/mL RA Range : (7.9- 160) RA Perce ntile : 39% Not Available [facility] [address] [place], [address], 01/02/2024 16:06:51 12/23/19 24 01/02/2024 VECTR A(R) ykl-40 result 44 NG/mL RA Range : (22-5 40) RA Perce ntile : 22% Not Available [facility] [address] [place] [address], [address], 01/02/2024 16:06:51 12/23/19 24 01/02/2024 VECTR A(R) footnote/his tory Commen t RA Range : These 95% refer ence range s were estab lishe d from 325,7 81 patie nt sampl es teste d at [facility] . RA Perce ntile : Subje ct's bioma rker level relat anne to level s in RA patie nt speci mens from which the RA range s were deter mined Compl ete Vectr a Score Histo ry: Colle ction Date: 12/22 Score : 54 Not Available [facility] [address] [place] [address], [address], 01/02/2024 16:06:51 12/23/19 24 01/02/2024 VECTR A(R) [...] not been estab lishe d. Not Available [facility] [address] [place], [address], 01/02/2024 16:06:51 11/11/19 24 11/11/2023 XR, foot, 2 view [email or web address] ?Encry pted=s hAaTro YD8dLq bEUv6g %2BXZw aYqtaq 0bqfl% 2Fg9IQ a4ajBk vP9nXo QUaueC m3YtLR FvZlg JJ8mAn tai3 0q7515 AC0KuY nmFU6P eUC8mr 84%3D INTERFACE [facility] [address], [place], [address], 11/11/2023 13:38:14 11/11/19 24 11/11/2023 XR, foot, 2 view [email or web address] ?Encry pted=s hAaTro YD8dLq bEUv6g %2BXZw aYqtaq 0bqfl% 2Fg9IQ a4ajBk vP9nXo QUaueC m3YtLR FvZl J8[facility] Hospitaltai3 3k7457 AC0KuY nmFU6P eUC8mr 84%3D INTERFACE [facility] [address], [place], [address], 11/11/2023 13:38:16 11/11/19 24 11/11/2023 XR, ankle , 3 or more view [email or web address] ?Encry pted=s hAaTro YD8dLq bEUv6g %2BXZw aYqtaq 0bqfl% 2Fg9IQ a4ajBk vP9nXo QUaueC m3YtLR FvZlgJ JJ8mAn HZtai3 2e9690 AC0KuY nmFUKT eUC8mr 84%3D INTERFACE [facility] [address], [place], [address], 11/11/2023 13:39:44 11/11/19 24 11/11/2023 XR, ankle , 3 or more view [email or web address] ?Encry pted=s hAaTro YD8dLq bEUv6g %2BXZw aYqtaq 0bqfl% 2Fg9IQ a4ajBk vP9nXo QUaueC m3YtLR FvZlgJ JJ8mAn HZtai3 4j1202 AC0KuY nmFUKT eUC8mr 84%3D INTERFACE [facility] [address], [place], [address], 11/11/2023 13:39:45 12/02/19 24 12/02/2023 nerve condu ction study /EMG, upper extre mity (PROC ) No observ ation record ed. [facility] Scheduling Dept [address] [facility], [place], [address], 12/05/2023 09:46:30 01/21/20 24 11/17/2022 imagi ng/di [...] Address Organization Details Recorded Time No complaints 310172726 Active Status: 'I'; Not Available [facility] 09:21:24 Synovitis and tenosynovit is of joint of hand Active 2019 Problem Code: M65.841; Problem Code Type: ICD-10; Status: 'A'; Not Available [facility] 11:43:44 Problem Notes None recorded. Procedures Surgical History None recorded. Imaging Results Imaging Date Name Status LastModified by Organiz ation Details LastModified Time 11/11/2023 XR, foot, 2 view completed INTERFACE [employer] [facility] [address], [place], [address], 11/11/2023 13:38:14 11/11/2023 XR, foot, 2 view completed INTERFACE [facility] [address], [place], [address], 11/11/2023 13:38:16 11/11/2023 XR, ankle, 3 or more view completed INTERFACE [facility] [address], [place], [address], 11/11/2023 13:39:44 11/11/2023 XR, ankle, 3 or more view completed INTERFACE [facility] [facility] [address], [place], [address], 11/11/2023 13:39:45 12/02/2023 nerve conduction study/EMG, upper extremity (PROC) completed [facility] Scheduling Dept [address] [place], [address], 12/05/2023 09:46:30 11/17/2022 imaging/diagnos tic result completed Information not available 01/21/2024 04:03:48 03/04/2023 imaging/diagnos tic result completed Information not available 01/21/2024 04:04:04 Procedure Notes None recorded. Medical Equipment None Reported. Allergies Allergen ID Allergen Name Allergen Category Reaction Reaction Severity Criticality Documentation Date Start Date Code Code System Note Provider Name and Address Organization Details Recorded Time 24788 Tenormin medicatio n Not available Not available Not available 07/25/20232011 78444 3 RxNorm Aller gyRea ction : 'UNKN OWN'; Not Available [facility] 13:52:25 91687 Bactrim medicatio n Not available Not available Not available 07/25/20232013 69811 9 RxNorm Not Available [facility] 13:52:26 Medications Name Sig Start Date Stop [...] Updated DateTime 11/11/2023 154.94 cm 43.5 kg/m2 710256.25 g Elyse Menchaca [facility] 11/11/2023 13:06:08 Date Recorded Body height Body mass index (BMI) Body weight Provider Name and Address Organization Details Last Updated DateTime 12/21/2023 154.94 cm 43.5 kg/m2 503841.25 g Kathleen Sevilla [facility] 12/21/2023 13:09:14 Date Recorded Body height Body mass index (BMI) Body weight Provider Name and Address Organization Details Last Updated DateTime 01/16/2024 154.94 cm 43.5 kg/m2 224404.25 g Kathleen Sevilla [facility] 01/16/2024 15:14:55 Date Recorded Body height Body mass index (BMI) Body weight Provider Name and Address Organization Details Last Updated DateTime 02/06/2024 154.94 cm 43.5 kg/m2 729925.25 g Elyse Menchaca [facility] 02/06/2024 13:26:02 Date Recorded Body height Body mass index (BMI) Body weight Provider Name and Address Organization Details Last Updated DateTime 03/14/2024 154.94 cm 43.5 kg/m2 184859.25 g Kathleen Sevilla [facility] 03/14/2024 14:30:02 Social History None recorded. Functional Status None recorded. Mental Status None recorded. Family History Nothing Reported. Medical History No medical history recorded. Gynecological HistoryNo gynecological history recorded. 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 4029787113 49543 G56.01 [id number] MD David Ng [address] [place] [address] 09/12/2023 13:02:31 09/30/2023 11:31:13 Pain in left foot 9727459330 57219 M79.672 Osteochond ritis dissecans of left ankle 1829717665 09093 M93.330 [id number] MD David Ng [address] [place] [address] 11/11/2023 12:54:59 12/08/2023 12:06:22 Pain of left ankle joint 9664576064 0180314 M25.572 Foot pain 60166472 M79.6 73 Pain in left foot 426291 3707 74161 M79.672 Osteochond ritis dissecans of left ankle 0949228492 30035 M93.045 [id number] SANDRA Caballero [address] [place] [address] 12/21/2023 12:42:33 01/19/2024 11:06:09 Pain in right hand 7764981265 63981 M79.340 [id number] SANDRA Caballero [address] [place] [address] 01/16/2024 14:43:15 02/08/2024 10:07:17 Hand pain 66988484 M79.069 [id number] Cherie Yañez MD [facility] [address] [place] [address] 02/06/2024 13:13:28 02/27/2024 12:40:24 Pain of left ankle joint 1922961423 2809761 M25.572 Osteochond ritis dissecans 07724123 M93.279 Osteochond ritis dissecans of left ankle 0004326854 16792 M93.272 Peroneal t endinitis of left lower limb 9344998076 29827 M76.72 [id number] SANDRA Caballero [address] [place] [address] 03/14/2024 14:16:14 04/03/2024 11:04:14 Pain of right wrist 6159280612 54292 M25.531 Health Concerns Section Related Observation LastModified by Organization Detai ls LastModified Time None Recorded Concern Status LastModified by Organization Details LastModified Time None Recorded Advance Directives Directive None Recorded Payers Encounter Date Sequence Insurance Name Policy Number Policy Clark Covered Member ID Clark Member ID Guarantor Name 11/11/2023 1 [place]: [employer] Elba Martinez [id number] Elba Martinez 11/11/2023 2 [place] [facility] Elba Martinez [id number] Elba Martinez 12/21/2023 1 [place] [employer] Elba Zacarias Juan [id number] Elba L Juan 12/21/2023 2 [place] [facility] Elba Zacarias Juan [id number] Elba L [place] 01/16/2024 1 [place] [facility] Elba Zacarias [place] [id number] Elba L Juan 01/16/2024 2 [place] [facility] Elba Zacarias Juan [id number] Elba L [place] 02/06/2024 1 [place] [facility] Elba Rell [place] [id number] Elba L Juan 02/06/2024 2 [place] [facility] Elba Zacarias Juan [id number] Elba L Juan 03/14/2024 1 [place] [facility] Elba Zacarias [place] [id number] Elba L [place] 03/14/2024 2 [place] [facility] Elba Zacarias [place] [id number] Elba Zacarias [place] Notes Date Note Type Note Provider Name [...] pulses X-rays ordered, obtained and reviewed at [facility]: AP, lateral, oblique weightbearing imaging of [...] weeks for repeat evaluation Cherie Yañez MD [address] [place] [address] [address], [place], [address], [facility] 11/20/2023 15:27:46 12/21/19 24 [...] the digits.X-rays ordered, obtained and reviewed at [facility]: None performed today..EMG was negative for [...] concerns were answered and addressed. Speech recognition edging catcher software was used to create portions of this document. An attempt at proofreading has been made to minimize errors. Please call for corrections. Ewa Quiroz PA-C [address] [place] [address] [address], [place], [address], [facility] 12/21/2023 20:38:29 01/16/20 24 [...] the digits.X-rays ordered, obtained and reviewed at [facility]: None performed today..EMG was negative for [...] her PCP Dr. Deirdre Boudreaux MD with [facility]. All questions and concerns were answered and addressed. Speech recognition edging catcher software was used to create portions of this document. An attempt at proofreading has been made to minimize errors. Please call for corrections. Please CC Dr.Joanna Kanika MD with [facility] Ewa Quiroz PA-C [address] [address], [place], [address], [facility] 01/17/2024 12:36:38 02/06/20 24 [...] reports she is having her evaluated by business operations specialist, for possible psychiatric component to her [...] pulses X-rays ordered, obtained and reviewed at [facility] (previous imaging): AP, lateral, oblique weightbearing [...] months for repeat evaluation. Cherie Yañez MD [address] [place] [address] [address] [facility], [place], [address], [facility] 02/06/2024 19:45:20 03/14/20 24 [...] the digits.X-rays ordered, obtained and reviewed at [facility]: None performed today..EMG was negative for [...] and concerns answered and addressed.. Speech recognition edging catcher software was used to create portions of this document. An attempt at proofreading has been made to minimize errors. Please call for corrections. Please CC Dr.Joanna Kanika MD with [facility] Ewa Quiroz PA-C [address] [facility] [address] [facility], [place], [address], [facility] 03/20/2024 14:18:24 OBGyn Episode No OBEpisode recorded.
--- OUTSIDE RECORDS SUMMARY | 2024-06-19 09:47 | XMS_ITS | Data Portability ---
Author Organization MARK Julien s, [address] Address [address] [place] [address] Care Team Providers Care Pipe Supervisor Name Role Phone OSMINHAYCaliRAMÓN Primary Care Provider Assessment No assessment recorded. Plan of Treatment Reminders Order Date Submit Date Provider Last Modified By Organization Details Last Modified Time Details Appointments None recorded. Lab None recorded. Referral None recorded. Procedures None recorded. Surgeries None recorded. Imaging None recorded. Medication Orders Diflucan 150 mg tablet 2022 023 [facility] [address] [place], [address], 3 18:18:50 ciprofloxac in 0.2 % ear drops in a dropperette 2022 023 [email or web address] [facility] [address] [place], [address], 3 13:24:37 cefdinir 300 mg capsule 2022 023 [facility] [address] [place], [address], 3 18:18:51 Patient TargetsNo targets recorded. Patient Instructions Encounter Date Encounter Id Patient Instructions Last Modified By Organization Details Last Modified Time 06/11/2022 [id number] earache: care instructions [email or web address] Not available 06/11/2022 18:18:47 ear infection (otitis [...] in the Eustachian Tube. 4. Saline Nasal Christine 5. Salt Water Gargle 6. Staying Hydrated [...] to antibiotic resistance. Thank you for using [facility] today - and don't hesitate to contact our office if you have any concerns or questions. Not available 06/11/2022 18:18:46 Reason for Referral None Reported. Problems Name Problem SNOMED Code Status Onset Date Resolution Date Notes Provider Name and Address Organization Details Recorded Time Urinary incontinence 835845972 Active 2022 MARK Medeiros [facility] 17:22:54 [...] Name and Address Organization Details Recorded Time 571568 grass pollen environme nt,medica tion Not available Not available Not available 06/11/2022 26996 UNK Constance hilton [place] - [facility] 17:12:26 269216 atenolol medicatio n Not available Not available Not available 06/11/2022 1202 RxNorm Constance hilton PA - [facility] 17:12:50 649022 Bactrim medicatio n rash Not available Not available 06/11/2022 78195 9 RxNorm Constance hilton PA - [facility] 17:12:57 Medications [...] Details Last Updated DateTime 06/11/2022 41.2 kg/m2 47011.14 g Constance Eldridge PA - [facility] [...] SNOMED-CT Code Diagnosis ICD10 Code Diagnosis Note [id number] [address] [facility] [address] [place] [address] 02/01/2022 12:52:42 02/01/2022 14:38:05 [id number] MARK [facility] [address] [facility] [facility] [address] [place] [address] 06/11/2022 16:40:01 06/11/2022 18:21:41 Acute bilateral otitis media 043587303 H66.93 Candidiasis of vagina 72 823866 B37.31 Health Concerns Section Related Observation LastModified by Organization Detai ls LastModified Time None Recorded Concern Status LastModified by Organization Details LastModified Time None Recorded Advance Directives Directive None Recorded Payers Encounter Date Sequence Insurance Name Policy Number Policy Clark Covered Member ID Clark Member ID Guarantor Name 02/01/2022 1 MEDICARE B[place]: [employer] Elba L Juan [id number] Elba Anson 02/01/2022 2 [place] [facility] Elba L Anson [id number] Elba Anson 06/11/2022 1 MEDICARE [place]: [employer] Elba L Anson [id number] Elba Anson 06/11/2022 2 [place] [facility] Elba L Juan [id number] Elba Martinez Notes Date Note Type Note [...] MARK ORTEGA [address] [place], [address], [place] - [facility] 06/12/2022 13:33:56 OBGyn Episode No OBEpisode recorded.
== END 2024-06-19 09:42 | disposition home or self-care (01) ==
PROVIDERS: PCP Internal Medicine; Visit Provider Internal Medicine
DX: J40 Bronchitis, not specified as acute or chronic (principal)

== ENCOUNTER → 2024-06-19 09:18 | Outpatient (BNVA) | payer MEDICARE, MEDICAID, SELFPAY | PROVIDERS: PCP Internal Medicine; Visit Provider Internal Medicine | DX: J40 Bronchitis, not specified as acute or chronic (principal) | CPT/HCPCS: 96127; 99212 ==

== ENCOUNTER 2024-06-27 14:03 | Outpatient (AMB) | payer MEDICARE, MEDICAID, SELFPAY ==
[2024-06-27 14:07] VITALS: BMI 44.7
--- NOTE | 2024-06-27 14:07 | A.OFFVIS_ITS ---
VS Expanded 06/27/24 14:07 Height 5 ft 1 in Weight 236 lb 5.369 oz BMI 44.7 Intake Visit Reasons: Obesity/Confirmed Allergies atenolol Allergy (Unknown, Verified 06/19/24 09:25) bad dreams tramadol [Ultracet] Allergy (Unknown, Verified 06/19/24 09:25) Pt's mother doesn't remember Nutrition Presentation Details: Pt presents for MNT f/u for obesity Pt presents with mom during the appt. Mom reports challenges with diet modifications related to: - participating in Xueersi celebrations, multiple desserts - no longer utilizing divided plates - Pt adding sugar to foods , BS Monitoring Most Recent Diabetes Results: 2 No Data to Display [facility] Medical History (Updated 06/19/24 @ 09:41 by Deirdre Boudreaux MD) Constipation Normal colonoscopy Hyperlipidemia Annual physical exam Urinary incontinence Anxiety Insomnia Chronic iron deficiency anemia Mentally challenged Wrist pain, right Surgical History H/O colonoscopy Family History Mother No problems noted. Maternal Grandmother Mental health disorder Social History Housing: House Alcohol intake: never Patient Tobacco Use Status: Never used Tobacco e-Cigarette/Vaping Use: Never Used Second Hand Smoke Exposure: No service: No Current occupational status: other Cognitive needs: No Hearing needs: No Vision needs: Yes Assessment & Plan Assessment & Plan (1) Overweight: Code(s): E66.3 - Overweight Category: Medical Plan: Wt: 104 Kg ( 04/2023 ) ,101 kg (04/15), 107 kg (07/17) Est kcal needs as per MSJ: 1900 (40% carb, 30% protein/fat) Est fluid needs as per 25-30 ml/d: 3100 Est prot per day as per 1 g/kg bw: 102 Recommend fiber intake : 8-10 g per day and gradually increase to 25-28 g per day for women and 35-38 g for men or as tolerated Recommend sodium intake per day : less than 2000 mg Educated patient on: ( R = reviewed V = verbalizes understanding N/R = needs review N/A = not applicable * Food sources of carbohydrate, adequate serving sizes and its role in various health conditions: R * Differences between complex carbohydrates a simple carbohydrates, role of fiber in diet: R * Lean protein sources of foods: NR * Differences between types of fats and role in diet (mono on saturated fat fatty acids, saturated fatty acids, trans fats): NR * Food sources of sodium in salt and healthy modifications for heart health in kidney health: R * Vitamins and minerals: R * Healthy plate method concept: R * Physical activity: Benefits a precaution: R Patient Instructions: Resume having scheduled meals , keeping a consistent meal schedule Switch to sugar substitutes Coding Level of Care Code Nutr Indiv Subseq (49425) Diagnoses Overweight E66.3 Time Spent (min) 20
--- OUTSIDE RECORDS SUMMARY | 2024-06-27 15:22 | XMS_ITS | Clinical Summary ---
Author Organization [facility] Address [address] [place] [address] Phone Care Team Providers Care Oracle Manager Name Role Phone Deirdre Boudreaux MD Primary Care Provider [phone] Encounters Date Type Department Care Team Description 04/24/2024 1:00 PM EST - 04/24/2024 11:59 PM EST Hospital Encounter [facility] [address] [address] Screening mammogram for breast cancer Discharge Disposition: Home or Self Care from Last 3 Months Surgical History Surgery Date Site/Laterality Comments COLONOSCOPY 11/14/2000 PROCEDURE: [place] COLONOSCOPY FLX DX W/COLLJ SPEC WHEN PFRMD; COMMENT: negative examination, Dr. Andrew Acosta. Performed for the evaluation of rectal bleeding. COLONOSCOPY 02/07/2008 PROCEDURE: [place] COLONOSCOPY FLX DX W/COLLJ SPEC WHEN PFRMD; COMMENT: negative examination. Scant hematochezia, positive family history. OTHER SURGICAL HISTORY 09/09/2008 PROCEDURE: [place] RPR UMBILICAL HRNA 5 YRS/> REDUCIBLE; COMMENT: [facility], part of the exploratory laparoscopy OTHER SURGICAL HISTORY 09/09/2008 PROCEDURE: [place] LAPAROSCOPIC APPENDECTOMY; COMMENT: [facility], part of the exploratory laparoscopy ESOPHAGOGASTRODUODENOSCOPY 04/30/2008 PROCEDURE: [place] ESOPHAGOGASTRODUODENOSCOPY TRANSORAL DIAGNOSTIC; COMMENT: normal examination, Dr. [...] year. Mammo Location: [facility], [address] [place] [address], [address], . -------- FINAL REPORT -------- Dictated By: Saima Melissa Dictated Date: 04/24/2024 16:15 ET Assigned Physician: Saima Melissa Reviewed and Electronically Signed By: Saima Melissa Signed Date: 04/24/2024 16:18 ET Workstation ID: [id number] Transcribed By: Self Edit Transcribed Date: 04/24/2024 [...] year. Mammo Location: [facility], [address] [place] [address], [address], . -------- FINAL REPORT -------- Dictated By: Saima Melissa Dictated Date: 04/24/2024 16:15 ET Assigned Physician: Saima Melissa Reviewed and Electronically Signed By: Saima Melissa Signed Date: 04/24/2024 16:18 ET Workstation ID: [id number] Transcribed By: Self Edit Transcribed Date: 04/24/2024 16:15 ET Deirdre Boudreaux MD IMG BI PROCEDURES from Last 3 Months Care Teams Oracle Manager Relationship Specialty Start Date End Date Deirdre Boudreaux MD PCP - General 10/21/08
--- OUTSIDE RECORDS SUMMARY | 2024-06-27 15:22 | XMS_ITS | Data Portability ---
Author Organization [place] [facility], Allergy Address [address] [address] Assessment Encounter Date Assessment Date Assessment LastModified by Organization Details LastModified Time 02/29/2024 02/29/2024 48-year-old female with developmental delay, seasonal allergies and cerebral palsy presents with mother for evaluation of sinusitis. CT scan at [facility] on 09/05/23 demonstrated opacification of left frontal and left ethmoid sinuses. On exam nasal mucosa is pink and moist without rhinorrhea. Recommend trial of Flonase 2 sprays daily for one month and Doxycycline twice daily for 20 days. Will get a repeat sinus CT at [facility] in March after antibiotic regimen. She [...] CT, maxillofaci al, w/o contrast 2023 024 [facility] [place], [address] [facility], [facility] [address], [place], [address], 4 08:51:03 Medication Orders doxycycline hyclate 100 mg tablet 2023 024 [id number], [address] [facility], [place], [place], [id number], 4 07:53:23 fluticasone propionate 50 mcg/actuati on nasal spray,suspe nsion 2023 024 [id number], [address] [facility], [place], [place], [id number], 07:53:25 Patient TargetsNo targets recorded. Patient InstructionsNo instructions recorded. Reason for Referral None Reported. Results Created Date Observation Date Name Description Value Unit Range Abnormal Flag Note LastModifiedBy Organization Detail LastModifiedTime 04/27/20 24 04/26/2024 CT, maxil lofac ial, w/o contr ast No observ ation record ed. [facility] [place] [address] [address], [place], [address], 04/27/2024 21:05:26 Result Notes None recorded. Problems Name Problem SNOMED Code Status Onset Date Resolution Date Notes Provider Name and Address Organization Details Recorded Time Chronic rhinitis 86999397 Active 2017 Purulent rhinitis (chronic) ; Note: Date Diagnosed : 01/27/2018 1:13 PM (J31.0) Not Available [facility] 4 02:41:31 Posterio r rhinorrh ea 65515165 Completed 201512/23/2023 Postnasal drip; Note: Date Diagnosed : 01/22/2016 10:09 AM (R09.82) Not Available [facility] 4 02:41:28 Nasal congesti on 83742605 Completed 201512/23/2023 Nasal congestio n; Note: Date Diagnosed : 01/22/2016 10:05 AM (R09.81) Not Available [facility] 4 02:41:29 Chronic sinusiti s 93068629 Active 2023 KAYE CARMONA PA-C [address] [place] [address], [place], [address] , [facility] - [facility] 4 14:57:08 Problem Notes None recorded. Procedures Surgical History None recorded. Imaging Results Imaging Date Name Status LastModified by Organiz ation Details LastModified Time 04/26/2024 CT, maxillofacial , w/o contrast completed [facility] [place] [address] [facility] [address], [place], [address], 04/27/2024 21:05:26 Procedure Notes None recorded. Medical Equipment None Reported. Allergies Allergen ID Allergen Name Allergen Category Reaction Reaction Severity Criticality Documentation Date Start Date Code Code System Note Provider Name and Address Organization Details Recorded Time 60008 Bactrim medicatio n other Not available Not available 10/04/2023 93279 9 RxNorm React ion: unkno wn, unspe cifie d;; Not Available [facility] 4 00:58:54 38216 atenolol medicatio n other Not available Not available 10/04/2023 1202 RxNorm React ion: unkno wn, unspe cifie d;; Not Available [facility] 4 00:58:58 Medications Name Sig Start Date [...] 24 hr 2017 active Medicatio n ID: [id number] Du ration Value: 90 Brand Name: oxybutyni [...] mg tablet 2015 active Medicatio n ID: [id number] Du ration Value: 30 Brand Name: diazepam Send Method: E-Prescri bed Subs Allowed: subs OK Specia l Instructi on: TAKE 1 TABLET BY MOUTH TWICE DAILY Med icationGe nericName : diazepam Not Available Not Available Not Available Nasonex 50 mcg/actuat ion [place] 2 spray into both nostrils once a day 2017 active Medicatio n ID: [id number] Du ration Value: 30 Prescrib ed By [...] mg tablet 2017 active Medicatio n ID: [id number] Du ration Value: 90 Brand Name: naproxen [...] mg tablet 2017 active Medicatio n ID: [id number] Du ration Value: 30 Brand Name: escitalop [...] aerosol inhaler 2015 active Medicatio n ID: [id number] Du ration Value: 30 Brand Name: ProAir [...] ended release 2015 active Medicatio n ID: [id number] Du ration Value: 30 Brand Name: Myrbetriq [...] SNOMED-CT Code Diagnosis ICD10 Code Diagnosis Note 22654 NICO FERRO MD [facility] [address] [address] 02/29/2024 14:04:19 02/29/2024 15:00:38 Chronic sinusitis 92362331 J32.8 Health Concerns Section Related Observation LastModified by Organization Detai ls LastModified Time None Recorded Concern Status LastModified by Organization Details LastModified Time None Recorded Advance Directives Directive None Recorded Payers Encounter Date Sequence Insurance Name Policy Number Policy Clark Covered Member ID Clrak Member ID Guarantor Name 02/29/2024 2 [place] [facility] Elba Martinez [id number] Elba Mratinez 02/29/2024 1 [place] [employer] Elba Martinez [id number] Elba Martinez Notes Date Note Type Note [...] specialist Jun 2024. NICO MCKEON MD [address] [place] [address], [address], [facility] - [facility] 03/01/2024 07:53:18 OBGyn Episode No OBEpisode recorded.
--- OUTSIDE RECORDS SUMMARY | 2024-06-27 15:23 | XMS_ITS | Data Portability ---
Author Organization [facility], [facility] Address [address] [place] [address] Care Team Providers Care Chief Controller Station Name Role Phone DEIRDRE BOUDREAUX Primary Care Provider Assessment No assessment recorded. Plan of Treatment Reminders Order Date Submit Date Provider Last Modified By Organization Details Last Modified Time Details Appointments None recorded . Lab rheumato id arthriti s disease activity panel, vectrada , serum or plasma 2023 024 GALO [facility], [facility], [address], [place], [address], 4 16:06:51 ESR (erythro cyte sediment ation rate), blood 2023 024 GALO [facility], [address] [facility], [place], [address], 4 16:06:51 C-reacti ve protein, quantita tive, serum or plasma 2023 024 [email or web address] [facility], [facility], [address], [place], [address], 4 14:51:24 HbA1c (hemoglo bin A1c), blood 2023 024 GALO [facility], [address] [facility], [place], [address], 4 16:06:50 CMP, serum or plasma 2023 024 GALO [facility], [address] [facility], [place], [address], 4 16:06:49 Referral physical therapis t referral - Status post left gastroc and soleus recessio n, ankle arthrosc opy, debridem ent of talar osteocho ndral lesion; date of surgery 04/21/23 LLE recondit ioning , desensit ization 2023 024 [email or web address] Not available 4 08:35:27 rheumato logist referral - right hand pain eval for high sed rate and high rectra 2023 024 [email or web address], [address] [facility], [place], [address], 4 10:07:17 Procedures None recorded . Surgeries None recorded . Imaging XR, ankle, 3 or more view - left foot /ankle 5v wb , recheck . room 103 2023 024 [facility], [address], [place], [address], 4 16:19:53 XR, foot, 2 view 2023 024 [facility], [address], [address], [place], [address], 4 16:19:53 Medication Orders meloxica m 15 mg tablet 2023 024 [id number], [address] [place], [address], 4 16:19:53 cycloben zaprine 5 mg tablet 2023 024 [id number], [address] [facility] [place], [address], 4 07:46:39 Patient TargetsNo targets recorded. Patient InstructionsNo instructions recorded. Reason for Referral Physical Therapist Referral for Pain in left foot Status post left gastroc and soleus recession, ankle arthroscopy, debridement of talar osteochondral lesion; date of surgery 04/21/23LLE reconditioning , desensitization Referring Physician: Cherie Yañez, Orthopedic Surgery, Encounter Date: 11/11/2023 Label Stamper Referral for Hand pain right hand pain eval for high sed rate and high rectra Referring Physician: Ewa Quiroz, Orthopedic Surgery, Encounter Date: 01/16/2024 Results Created Date Observation Date Name Description Value Unit Range Abnormal Flag Note LastModifiedBy Organization Detail LastModifiedTime 12/23/19 24 12/24/2023 CMP14 +GLU RFX GT 100 TO HB A1C glucose 93 mg/dL 70-99 normal Not Available [facility]) [address] [place], [address], 01/02/2024 16:06:49 12/23/19 24 12/24/2023 CMP14 +GLU RFX GT 100 TO HB A1C BUN 18 mg/dL 6-24 normal Not Available [facility] ([facility]) [address] [place], [address], 01/02/2024 16:06:49 12/23/19 24 12/24/2023 CMP14 +GLU RFX GT 100 TO HB A1C creatinine 0.78 mg/dL 0.57-1 .00 normal Not Available [facility] ([facility]) [address] [place], [address], 01/02/2024 16:06:49 12/23/19 24 12/24/2023 CMP14 +GLU RFX GT 100 TO HB A1C BUN/creatini ne ratio 23 9-23 normal Not Available [facility] [address] [place], [address], 01/02/2024 16:06:49 12/23/19 24 12/24/2023 CMP14 +GLU RFX GT 100 TO HB A1C sodium 140 mmol/ L 134-14 4 normal Not Available [facility] ([facility]) [address] [facility], [place], [address], 01/02/2024 16:06:49 12/23/19 24 12/24/2023 CMP14 +GLU RFX GT 100 TO HB A1C potassium 4.5 mmol/ L 3.5-5. 2 normal Not Available [facility] ([facility]) [address] [place], [address], 01/02/2024 16:06:49 12/23/19 24 12/24/2023 CMP14 +GLU RFX GT 100 TO HB A1C chloride 101 mmol/ L 96-106 normal Not Available [facility] ([facility]) [address] [facility], [place], [address], 01/02/2024 16:06:49 12/23/19 24 12/24/2023 CMP14 +GLU RFX GT 100 TO HB A1C carbon dioxide, total 25 mmol/ L 20-29 normal Not Available [facility] ([facility]) [address] [place], [address], 01/02/2024 16:06:49 12/23/19 24 12/24/2023 CMP14 +GLU RFX GT 100 TO HB A1C calcium 9.6 mg/dL 8.7-10 .2 normal Not Available [facility] ([facility]) [address] [place], [address], 01/02/2024 16:06:49 12/23/19 24 12/24/2023 CMP14 +GLU RFX GT 100 TO HB A1C protein, total 7.5 g/dL 6.0-8. 5 normal Not Available [facility] ([facility]) [address] [place], [address], 01/02/2024 16:06:49 12/23/19 24 12/24/2023 CMP14 +GLU RFX GT 100 TO HB A1C albumin 4.3 g/dL 3.9-4. 9 normal Not Available [facility] ([facility]) [address] [place], [address], 01/02/2024 16:06:49 12/23/19 24 12/24/2023 CMP14 +GLU RFX GT 100 TO HB A1C globulin, total 3.2 g/dL 1.5-4. 5 Not Available [facility] ([facility]) [address] [place], [address], 01/02/2024 16:06:49 12/23/19 24 12/24/2023 CMP14 +GLU RFX GT 100 TO HB A1C bilirubin, total 0.3 mg/dL 0.0-1. 2 normal Not Available [facility] ([facility]) [address] [facility], [place], [address], 01/02/2024 16:06:49 12/23/19 24 12/24/2023 CMP14 +GLU RFX GT 100 TO HB A1C alkaline phosphatase 76 IU/L 44-121 normal Not Available [facility] [address] [place], [address], 01/02/2024 16:06:49 12/23/19 24 12/24/2023 CMP14 +GLU RFX GT 100 TO HB A1C AST (SGOT) 22 IU/L 0-40 normal Not Available [facility] ([facility]) [address] [place], [address], 01/02/2024 16:06:49 12/23/19 24 12/24/2023 CMP14 +GLU RFX GT 100 TO HB A1C ALT (SGPT) 13 IU/L 0-32 normal Not Available [facility] ([facility]) [address] [place], [address], 01/02/2024 16:06:49 12/23/19 24 12/24/2023 HEMOG LOBIN A1C hemoglobin A1C 5.9 % 4.8-5. 6 above high normal Predi abete s: 5.7 - 6.4 Diabe daphney: >6.4 Glyce yanira contr ol for adult s with diabe daphney: <7.0 Not Available [facility] ([facility]) [address] [facility], [place], [address], 01/02/2024 16:06:50 12/23/19 24 12/24/2023 SEDIM ENTAT ION RATE- WESTE RGREN sedimentatio n rate-westerg rodrigo 55 mm/HR 0-32 above high normal Not Available [facility] ([facility]) [address] [facility], [place], [address], 01/02/2024 16:06:51 12/23/19 24 12/23/2023 VECTR A(R) [...] ies. Not Available [facility] [address] [place], [address], 01/02/2024 16:06:51 12/23/19 24 01/02/2024 VECTR A(R) [...] . Not Available [facility] [address] [place], [address], 01/02/2024 16:06:51 12/23/19 24 01/02/2024 VECTR A(R) risk of radiographic progress 10 % 1-Yea r Risk of Radio graph ic Progr essio n Not Available [facility] [address] [place], [address], 01/02/2024 16:06:51 12/23/19 24 01/02/2024 VECTR A(R) vectra(R) level Commen t High Vectr a Disea se Activ ity Level s: High: 45 to 100 Moder ate: 30 to 44 Low: 1 to 29 Not Available [facility] [address] [place], [address], 01/02/2024 16:06:51 12/23/19 24 01/02/2024 VECTR A(R) [...] 02-10 Not Available [facility] [address] [place], [address], 01/02/2024 16:06:51 12/23/19 24 01/02/2024 VECTR A(R) master result 8.5 ug/mL RA Range : (0.29 -85) RA Perce ntile : 82% Not Available [facility] [address] [place], [address], 01/02/2024 16:06:51 12/23/19 24 01/02/2024 VECTR A(R) CRP result 5.8 mg/L RA Range : (0.19 -92) RA Perce ntile : 58% Not Available [facility] [address] [place], [address], 01/02/2024 16:06:51 12/23/19 24 01/02/2024 VECTR A(R) vcam-1 result 0.46 ug/mL RA Range : (0.39 -1.2) RA Perce ntile : 9% Not Available [facility] [address] [place], [address], 01/02/2024 16:06:51 12/23/19 24 01/02/2024 VECTR A(R) il-6 result 15 pg/mL RA Range : (2.5- 200) RA Perce ntile : 61% Not Available [facility] [address] [place], [address], 01/02/2024 16:06:51 12/23/19 24 01/02/2024 VECTR A(R) tnf-ri result 1.7 NG/mL RA Range : (0.8- 3.9) RA Perce ntile : 64% Not Available [facility] [address] [place], [address], 01/02/2024 16:06:51 12/23/19 24 01/02/2024 VECTR A(R) egf result 180 pg/mL RA Range : (12-4 10) RA Perce ntile : 77% Not Available [facility] [address] [place], [address], 01/02/2024 16:06:51 12/23/19 24 01/02/2024 VECTR A(R) vegf-A result 430 pg/mL RA Range : (75-7 90) RA Perce ntile : 83% Not Available [facility] [address] [place], [address], 01/02/2024 16:06:51 12/23/19 24 01/02/2024 VECTR A(R) leptin result 5.8 NG/mL RA Range : (1.5- 120) RA Perce ntile : 15% Not Available [facility] [address] [place], [address], 01/02/2024 16:06:51 12/23/19 24 01/02/2024 VECTR A(R) resistin result 4.2 NG/mL RA Range : (3.5- 21) RA Perce ntile : 6% Not Available [facility] [address] [place], [address], 01/02/2024 16:06:51 12/23/19 24 01/02/2024 VECTR A(R) mmp-1 result 18 NG/mL RA Range : (1.3- 23) RA Perce ntile : 94% Not Available [facility] [address] [place], [address], 01/02/2024 16:06:51 12/23/19 24 01/02/2024 VECTR A(R) mmp3 result 19 NG/mL RA Range : (7.9- 160) RA Perce ntile : 39% Not Available [facility] [address] [place], [address], 01/02/2024 16:06:51 12/23/19 24 01/02/2024 VECTR A(R) ykl-40 result 44 NG/mL RA Range : (22-5 40) RA Perce ntile : 22% Not Available [facility] [address] [place] [address], [address], 01/02/2024 16:06:51 12/23/19 24 01/02/2024 VECTR A(R) footnote/his tory Commen t RA Range : These 95% refer ence range s were estab lishe d from 325,7 81 patie nt sampl es teste d at [facility] . RA Perce ntile : Subje ct's bioma rker level relat anne to level s in RA patie nt speci mens from which the RA range s were deter mined Compl ete Vectr a Score Histo ry: Colle ction Date: 12/22 Score : 54 Not Available [facility] [address] [place] [address], [address], 01/02/2024 16:06:51 12/23/19 24 01/02/2024 VECTR A(R) [...] not been estab lishe d. Not Available [facility] [address] [place], [address], 01/02/2024 16:06:51 11/11/19 24 11/11/2023 XR, foot, 2 view [email or web address] ?Encry pted=s hAaTro YD8dLq bEUv6g %2BXZw aYqtaq 0bqfl% 2Fg9IQ a4ajBk vP9nXo QUaueC m3YtLR FvZlg JJ8mAn tai3 5c2770 AC0KuY nmFU6P eUC8mr 84%3D INTERFACE [facility] [address], [place], [address], 11/11/2023 13:38:14 11/11/19 24 11/11/2023 XR, foot, 2 view [email or web address]:/ [email or web address] ?Encry pted=s hAaTro YD8dLq bEUv6g %2BXZw aYqtaq 0bqfl% 2Fg9IQ a4ajBk vP9nXo QUaueC m3YtLR FvZl [facility] 6z0353 AC0KuY nmFU6P eUC8mr 84%3D INTERFACE [facility] [address], [place], [address], 11/11/2023 13:38:16 11/11/19 24 11/11/2023 XR, ankle , 3 or more view [email or web address] ?Encry pted=s hAaTro YD8dLq bEUv6g %2BXZw aYqtaq 0bqfl% 2Fg9IQ a4ajBk vP9nXo QUaueC m3YtLR FvZlgJ JJ8mAn HZtai3 3b4454 AC0KuY nmFUKT eUC8mr 84%3D INTERFACE [facility] [address], [place], [address], 11/11/2023 13:39:44 11/11/19 24 11/11/2023 XR, ankle , 3 or more view [email or web address]:/ [email or web address] ?Encry pted=s hAaTro YD8dLq bEUv6g %2BXZw aYqtaq 0bqfl% 2Fg9IQ a4ajBk vP9nXo QUaueC m3YtLR FvZlgJ JJ8mAn HZtai3 2p9389 AC0KuY nmFUKT eUC8mr 84%3D INTERFACE [facility] [address], [place], [address], 11/11/2023 13:39:45 12/02/19 24 12/02/2023 nerve condu ction study /EMG, upper extre mity (PROC ) No observ ation record ed. [facility] [address] [facility], [place], [address], 12/05/2023 09:46:30 01/21/20 24 11/17/2022 imagi ng/di [...] Address Organization Details Recorded Time No complaints 059320808 Active Status: 'I'; Not Available [facility] 09:21:24 Synovitis and tenosynovit is of joint of hand Active 2019 Problem Code: M65.841; Problem Code Type: ICD-10; Status: 'A'; Not Available [facility] 11:43:44 Problem Notes None recorded. Procedures Surgical History None recorded. Imaging Results Imaging Date Name Status LastModified by Organiz ation Details LastModified Time 11/11/2023 XR, foot, 2 view completed INTERFACE [facility] [address], [place], [address], 11/11/2023 13:38:14 11/11/2023 XR, foot, 2 view completed INTERFACE [facility] [address], [place], [address], 11/11/2023 13:38:16 11/11/2023 XR, ankle, 3 or more view completed INTERFACE [facility] [address], [place], [address], 11/11/2023 13:39:44 11/11/2023 XR, ankle, 3 or more view completed INTERFACE [facility] [address], [place], [address], 11/11/2023 13:39:45 12/02/2023 nerve conduction study/EMG, upper extremity (PROC) completed [facility] [address] [place], [address], 12/05/2023 09:46:30 11/17/2022 imaging/diagnos tic result completed Information not available 01/21/2024 04:03:48 03/04/2023 imaging/diagnos tic result completed Information not available 01/21/2024 04:04:04 Procedure Notes None recorded. Medical Equipment None Reported. Allergies Allergen ID Allergen Name Allergen Category Reaction Reaction Severity Criticality Documentation Date Start Date Code Code System Note Provider Name and Address Organization Details Recorded Time 17923 Tenormin medicatio n Not available Not available Not available 07/25/20232011 22016 3 RxNorm Aller gyRea ction : 'UNKN OWN'; Not Available [facility] 13:52:25 54702 Bactrim medicatio n Not available Not available Not available 07/25/20232013 67763 9 RxNorm Not Available [facility] 13:52:26 Medications Name Sig Start Date [...] Updated DateTime 11/11/2023 154.94 cm 43.5 kg/m2 615103.25 g Elyse Menchaca [facility] 11/11/2023 13:06:08 Date Recorded Body height Body mass index (BMI) Body weight Provider Name and Address Organization Details Last Updated DateTime 12/21/2023 154.94 cm 43.5 kg/m2 102110.25 g Kathleen Sevilla [facility] 12/21/2023 13:09:14 Date Recorded Body height Body mass index (BMI) Body weight Provider Name and Address Organization Details Last Updated DateTime 01/16/2024 154.94 cm 43.5 kg/m2 001842.25 g Kathleen Sevilla [facility] 01/16/2024 15:14:55 Date Recorded Body height Body mass index (BMI) Body weight Provider Name and Address Organization Details Last Updated DateTime 02/06/2024 154.94 cm 43.5 kg/m2 296536.25 g Elyse Menchaca [facility] 02/06/2024 13:26:02 Date Recorded Body height Body mass index (BMI) Body weight Provider Name and Address Organization Details Last Updated DateTime 03/14/2024 154.94 cm 43.5 kg/m2 187247.25 g Kathleen Sevilla [facility] 03/14/2024 14:30:02 [...] SNOMED-CT Code Diagnosis ICD10 Code Diagnosis Note [id number] SANDRA Caballero [address] [place] [address] 09/07/2023 13:00:36 09/27/2023 15:00:05 Lateral epicondylitis of right humerus 6396325459 77699 M77.11 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 3948002652 76268 G56.01 [id number] MD David Ng [address] [place] [address] 09/12/2023 13:02:31 09/30/2023 11:31:13 Pain in left foot 3292389084 74230 M79.672 Osteochond ritis dissecans of left ankle 9451325491 00455 M93.375 [id number] MD David Ng [address] [place] [address] 11/11/2023 12:54:59 12/08/2023 12:06:22 Pain of left ankle joint 5131171147 2070982 M25.572 Foot pain 75242608 M79.6 73 Pain in left foot 151305 0716 11249 M79.672 Osteochond ritis dissecans of left ankle 9789575930 38974 M93.634 5991544 SANDRA Caballero [address] [place] [address] 12/21/2023 12:42:33 01/19/2024 11:06:09 Pain in right hand 8797672293 97404 M79.988 [id number] SANDRA Caballero [address] [place] [address] 01/16/2024 14:43:15 02/08/2024 10:07:17 Hand pain 87362935 M79.179 [id number] Cherie Yañez MD [facility] [address] [place] [address] 02/06/2024 13:13:28 02/27/2024 12:40:24 Pain of left ankle joint 3832044158 2594734 M25.572 Osteochond ritis dissecans 59774279 M93.279 Osteochond ritis dissecans of left ankle 0690596540 18651 M93.272 Peroneal t endinitis of left lower limb 9147560047 62049 M76.72 [id number] SANDRA Caballero [address] [place] [address] 03/14/2024 14:16:14 04/03/2024 11:04:14 Pain of right wrist 1110598912 34996 M25.531 Health Concerns Section Related Observation LastModified by Organization Detai ls LastModified Time None Recorded Concern Status LastModified by Organization Details LastModified Time None Recorded Advance Directives Directive None Recorded Payers Encounter Date Sequence Insurance Name Policy Number Policy Clark Covered Member ID Clark Member ID Guarantor Name 11/11/2023 1 [place]: [employer] Elba Martinez [id number] Elba Martinez 11/11/2023 2 [place] [facility] Elba Martinez [id number] Elba Martinez 12/21/2023 1 [place] [employer] Elba Zacarias Juan [id number] Elba L Juan 12/21/2023 2 [place] [facility] Elba Zacarias Juan [id number] Elba L [place] 01/16/2024 1 [place] [facility] Elba Zacarias [place] [id number] Elba L [place] 01/16/2024 2 [place] [facility] Elba Zacarias Juan [id number] Elba L [place] 02/06/2024 1 [place] [facility] Elba Rell [place] [id number] Elba L [place] 02/06/2024 2 [place] [facility] Elba Zacarias Juan [id number] Elba L Juan 03/14/2024 1 [place] [facility] Elba Zacarias [place] [id number] Elba L [place] 03/14/2024 2 [place] [facility] Elba Zacarias [place] [id number] Elba Zacarias [place] Notes Date Note Type Note Provider Name [...] pulses X-rays ordered, obtained and reviewed at [facility]: AP, lateral, oblique weightbearing imaging of the [...] weeks for repeat evaluation Cherie Yañez MD [address] [place] [address] [address], [place], [address], [facility] 11/20/2023 15:27:46 12/21/19 24 [...] the digits.X-rays ordered, obtained and reviewed at [facility]: None performed today..EMG was negative for any [...] concerns were answered and addressed. Speech recognition appeals manager software was used to create portions of this document. An attempt at proofreading has been made to minimize errors. Please call for corrections. Ewa Quiroz PA-C [address] [place] [address] [address], [place], [address], [facility] 12/21/2023 20:38:29 01/16/20 24 [...] the digits.X-rays ordered, obtained and reviewed at [facility]: None performed today..EMG was negative for any [...] her PCP Dr. Deirdre Boudreaux MD with [facility]. All questions and concerns were answered and addressed. Speech recognition appeals manager software was used to create portions of this document. An attempt at proofreading has been made to minimize errors. Please call for corrections. Please CC Dr.Joanna Kanika MD with [facility] Ewa Quiroz PA-C [address] [address], [place], [address], [facility] 01/17/2024 12:36:38 02/06/20 24 [...] pulses X-rays ordered, obtained and reviewed at [facility] (previous imaging): AP, lateral, oblique [...] months for repeat evaluation. Cherie Yañez MD [address] [place] [address] [address] [facility], [place], [address], [facility] 02/06/2024 19:45:20 03/14/20 24 [...] the digits.X-rays ordered, obtained and reviewed at [facility]: None performed today..EMG was negative for any [...] and concerns answered and addressed.. Speech recognition appeals manager software was used to create portions of this document. An attempt at proofreading has been made to minimize errors. Please call for corrections. Please CC Dr.Joanna Kanika MD with [facility] Ewa Quiroz PA-C [address] [facility] [address] [facility], [place], [address], [facility] 03/20/2024 14:18:24 OBGyn Episode No OBEpisode recorded.
--- OUTSIDE RECORDS SUMMARY | 2024-06-27 15:23 | XMS_ITS | Data Portability ---
Author Organization MARK Julien s, [address] Address [address] [place] [address] Care Team Providers Care Beading Sawyer Name Role Phone OSMINHAYCaliRAMÓN Primary Care Provider Assessment No assessment recorded. Plan of Treatment Reminders Order Date Submit Date Provider Last Modified By Organization Details Last Modified Time Details Appointments None recorded. Lab None recorded. Referral None recorded. Procedures None recorded. Surgeries None recorded. Imaging None recorded. Medication Orders Diflucan 150 mg tablet 2022 023 [id number] [address] [place], [address], 3 18:18:50 ciprofloxac in 0.2 % ear drops in a dropperette 2022 023 [email or web address] [id number] [address] [place], [address], 3 13:24:37 cefdinir 300 mg capsule 2022 023 [facility], [address] [place], [address], 3 18:18:51 Patient TargetsNo targets recorded. Patient Instructions Encounter Date Encounter Id Patient Instructions Last Modified By Organization Details Last Modified Time 06/11/2022 [id number] earache: care instructions [email or web address] Not available 06/11/2022 18:18:47 ear infection (otitis media): care instructions [email or web address] Not available 06/11/2022 18:18:47 You have been [...] in the Eustachian Tube. 4. Saline Nasal [place] 5. Salt Water Gargle 6. Staying Hydrated [...] to antibiotic resistance. Thank you for using [facility] today - and don't hesitate to contact our office if you have any concerns or questions. [email or web address] Not available 06/11/2022 18:18:46 Reason for Referral None Reported. Problems Name Problem SNOMED Code Status Onset Date Resolution Date Notes Provider Name and Address Organization Details Recorded Time Urinary incontinence 337424848 Active 2022 MARK Medeiros [facility] 17:22:54 [...] Name and Address Organization Details Recorded Time 561341 grass pollen environme nt,medica tion Not available Not available Not available 06/11/2022 48662 UNK Constance hilton PA Loc [facility] 3 17:12:26 325801 atenolol medicatio n Not available Not available Not available 06/11/2022 1202 RxNorm Constance Eldridge MARK hilton [facility] 3 17:12:50 234505 Bactrim medicatio n rash Not available Not available 06/11/2022 00954 9 RxNorm Constance Eldridge MARK hilton [facility] 3 17:12:57 Medications Name Sig Start [...] mass index (BMI) Body weight Body temperature Pain severity - 0-10 verbal numeric rating [Score] - Reported Oxygen saturation Oxygen saturation in Arterial blood by Pulse oximetry Respiratory rate Heart rate Systolic blood pressure Diastolic blood pressure Provider Name and Address Organization Details Last Updated DateTime 3 154.94 cm 41.2 kg/m2 99818.1 4 g 96.8 [degF] 6 99 % 99 % 18 /min 92 /min 131 mm[Hg] 89 mm[Hg] Constance Eldridge MARK Monterroso [facility] 3 17:21:13 Social History Question Answer Notes LastModified by Organizat ion Details LastModified Time Tobacco Smoking Status Never Smoker Constance Eldridge MARK hilton [facility] 06/11/2022 17:17:21 What Is Your [...] SNOMED-CT Code Diagnosis ICD10 Code Diagnosis Note [id number] [address] [address] [facility] [place] [address] 02/01/2022 12:52:42 02/01/2022 14:38:05 [id number] MARK [facility] [address] [address] [address] [place] [address] 06/11/2022 16:40:01 06/11/2022 18:21:41 Acute bilateral otitis media 329065556 H66.93 Candidiasis of vagina 72 699827 B37.31 Health Concerns Section Related Observation LastModified by Organization Detai ls LastModified Time None Recorded Concern Status LastModified by Organization Details LastModified Time None Recorded Advance Directives Directive None Recorded Payers Encounter Date Sequence Insurance Name Policy Number Policy Clark Covered Member ID Clark Member ID Guarantor Name 02/01/2022 1 [place] [employer] Elba Martinez [id number] Elba Martinez 02/01/2022 2 [place] [facility] Elba Martinez [id number] Elba Martinez 06/11/2022 1 [place] [employer] Elba Martinez [id number] Elba Martinez 06/11/2022 2 [place] [facility] Elba Martinez [id number] Elba Martinez Notes Date Note Type Note [...] congestion. No Jaw pain. MARK ORTEGA [address] [place], [address], [place] - [facility] 06/12/2022 13:33:56 OBGyn Episode No OBEpisode recorded.
== END 2024-06-27 14:40 | disposition home or self-care (01) ==
PROVIDERS: PCP Internal Medicine; Visit Provider Dietitian, Registered
DX: E66.3 Overweight (principal)

== ENCOUNTER → 2024-06-27 14:03 | Outpatient (BNVA) | payer MEDICARE, MEDICAID, SELFPAY | PROVIDERS: PCP Internal Medicine; Visit Provider Dietitian, Registered | DX: E66.3 Overweight (principal); Z68.41 Body mass index [BMI] 40.0-44.9, adult | CPT/HCPCS: 97803 ==

== ENCOUNTER 2024-08-03 12:42 | Outpatient (AMB) | payer MEDICARE, MEDICAID, SELFPAY ==
[2024-08-03 13:02] VITALS: BP 122/78; PULSE 81; RESP 20; TEMP 37.3; BMI 43.5
--- NOTE | 2024-08-03 13:02 | A.OFFPC_ITS ---
Vital Signs 08/03/24 13:02 Height 5 ft 1 in Weight 230 lb BMI 43.5 BP 122/78 Blood Pressure Location Rt brachial Position Sitting Respiration 20 Pulse 81 Pulse Source Pulse Oximeter Temp 99.1 F Temp Source Oral Intake Visit Reasons: 3m follow up Intake Note: Pt is here today for 3 months follow up visit. Allergies atenolol Allergy (Unknown, Verified 08/03/24 13:02) bad dreams tramadol [Ultracet] Allergy (Unknown, Verified 08/03/24 13:02) Pt's mother doesn't remember Medication List - Last Reconciled 08/03/24 by Deirdre Boudreaux MD albuterol sulfate 90 mcg/actuation (ProAir HFA) 1 inh inhalation QID PRN Bydureon BCise ER (exenatide microspheres) 2 mg (0.85 mL) subcut QWEEK NS escitalopram oxalate 20 mg PO DAILY latanoprost 0.005% drps ophthalmic (eye) metformin ER 750 mg PO DAILY Ozempic (semaglutide) 0.25 mg (0.368 mL) subcut QWEEK NS quetiapine 25 mg PO BEDTIME Tobacco use date assessed: 08/03/24 Dental Screening Dental Screen Date: 08/03/24 Did you have a dental visit in the last 12 months?: Yes Did you have a dental problem in the last 6 months where you did not have access to dental care?: No Was dental information given to patient?: Patient has dentist HPI 3m follow up HPI Details Patient presents for the follow-up of hyperglycemia and obesity. She has been decreasing caloric intake and increasing physical activity. Patient's insurance did not cover Ozempic or any other GLP 1 agonist. Chronic anxiety stable on current medications. Patient's mother noticed patient having more dyspnea on exertion occasionally waking up at night gasping for air for air. There is no cough wheezing pleuritic chest pain fever chills or night sweats. Patient's mother is not interested in her having sleep studies to rule out obstructive sleep apnea because patient will not be compliant with the CPAP. REPLACED BY [facility] Medical History (Updated 08/03/24 @ 13:35 by Deirdre Boudreaux MD) Constipation Normal colonoscopy Hyperlipidemia Annual physical exam Urinary incontinence Anxiety Insomnia Chronic iron deficiency anemia Mentally challenged Wrist pain, right Surgical History H/O colonoscopy Family History Mother No problems noted. Maternal Grandmother Mental health disorder Social History Housing: House Alcohol intake: never Patient Tobacco Use Status: Never used Tobacco e-Cigarette/Vaping Use: Never Used Second Hand Smoke Exposure: No service: No Current occupational status: other Cognitive needs: No Hearing needs: No Vision needs: Yes Questionnaire Thrive Questionnaire Date Thrive assessed: 06/19/24 AUDIT C Alcohol Use Questionnaire (AUDIT-C) 1. How often do you have a drink containing alcohol?: Never 3. How often do you have six or more drinks on one occasion?: Never Total Score: 0 LIZZIE-7 AMB Questionnaire LIZZIE-7 Date LIZZIE - 7 assessed: 06/19/24 Source: Developed by Drs. Hansel Head, Katie Piper, Kuldip Ulloa and colleagues, with an educational simeon from [employer]. Review of Systems Const All systems reviewed & are unremarkable except as noted in HPI and below ENT Reports no additional complaints Card Reports no additional complaints Resp Reports no additional complaints GI Reports no additional complaints Reports no additional complaints Physical exam (Primary Care) Vital Signs: Last Vital Signs Temp 99.1 F 08/03/24 13:02 Pulse 81 08/03/24 13:02 Resp 20 08/03/24 13:02 BP 122/78 08/03/24 13:02 BMI result Body Mass Index 43.5 Tobacco/Smoking Status: Tobacco use Status Tobacco use date assessed 08/03/24 08/03/24 13:09 Patient Tobacco Use Status Never used Tobacco 08/03/24 13:09 e-Cigarette/Vaping Use Never Used 08/03/24 13:09 Thrive Assessment: Date of Thrive Assessment Date Thrive assessed 06/19/24 08/03/24 13:09 Const General: no acute distress HENMT Head: Yes normal to inspection Resp Effort & Inspection: normal respiratory effort Auscultation: clear to auscultation bilaterally Cardio Rhythm: regular rhythm Heart sounds: S1 normal heart sound present and S2 normal heart sound present GI Inspection: Yes normal to inspection Palpation (GI): Soft to palpation Percussion: Yes normal to percussion Auscultation: normal bowel sounds Coding Level of Care Code Est Pt Level 4 (98088) Diagnoses Hyperlipidemia E78.5 Obese E66.9 LUJAN (dyspnea on exertion) R06.09 Hyperglycemia R73.9 Assessment & Plan Assessment & Plan (1) Hyperlipidemia: Code(s): E78.5 - Hyperlipidemia, unspecified Category: Medical Plan: CONTINUE LOW-CHOLESTEROL DIET (2) Obese: Code(s): E66.9 - Obesity, unspecified Category: Medical Plan: Decreasing caloric intake increasing physical activity weight loss discussed with the patient (3) LUJAN (dyspnea on exertion): Code(s): R06.09 - Other forms of dyspnea Category: Medical Plan: Obtain echocardiogram (4) Hyperglycemia: Code(s): R73.9 - Hyperglycemia, unspecified Category: Medical Plan: ADA diet regular physical activity weight loss discussed with the patient check A1c in 4 months Orders: Orders Lipid Panel 4 Months E66.9 - Obesity, unspecified, E78.5 - Hyperlipidemia, unspecified, R73.9 - Hyperglycemia, unspecified Complete Blood Count Auto Diff 4 Months E66.9 - Obesity, unspecified, E78.5 - Hyperlipidemia, unspecified, R73.9 - Hyperglycemia, unspecified Comprehensive [place]. Panel Fast 4 Months E66.9 - Obesity, unspecified, E78.5 - Hyperlipidemia, unspecified, R73.9 - Hyperglycemia, unspecified Hemoglobin A1c 4 Months E66.9 - Obesity, unspecified, E78.5 - Hyperlipidemia, u nspecified, R73.9 - Hyperglycemia, unspecified TSH reflex Free T4 4 Months E66.9 - Obesity, unspecified, E78.5 - Hyperlipidemia, unspecified, R73.9 - Hyperglycemia, unspecified Microalbumin, Random (w Creat) 4 Months E66.9 - Obesity, unspecified, E78.5 - Hyperlipidemia, unspecified, R73.9 - Hyperglycemia, unspecified CA echo transthoracic complete Today R06.09 - Other forms of dyspnea
--- OUTSIDE RECORDS SUMMARY | 2024-08-03 14:14 | XMS_ITS | Data Portability ---
Author Organization MD - [facility], Allergy Address [address] [address] Assessment Encounter Date Assessment Date Assessment LastModified [...] CT, maxillofaci al, w/o contrast 2023 024 [facility] [place], [address] [facility], [facility] [address], [place], [address], 4 08:51:03 Medication Orders doxycycline hyclate 100 mg tablet 2023 024 [facility], [address] [facility], [place], [place], [id number], 4 07:53:23 fluticasone propionate 50 mcg/actuati on nasal spray,suspe nsion 2023 024 [facility], [address] [facility], [place], [place], [id number], 07:53:25 Patient TargetsNo targets recorded. Patient InstructionsNo instructions recorded. Reason for Referral None Reported. Results Created Date Observation Date Name Description Value Unit Range Abnormal Flag Note LastModifiedBy Organization Detail LastModifiedTime 04/27/20 24 04/26/2024 CT, maxil lofac ial, w/o contr ast No observ ation record ed. [facility] [place] [address] [address], [place], [address], 04/27/2024 21:05:26 Result Notes None recorded. Problems Name Problem SNOMED Code Status Onset Date Resolution Date Notes Provider Name and Address Organization Details Recorded Time Chronic rhinitis 03337714 Active 2017 Purulent rhinitis (chronic) ; Note: Date Diagnosed : 01/27/2018 1:13 PM (J31.0) Not Available [facility] 4 02:41:31 Posterio r rhinorrh ea 87921057 Completed 201512/23/2023 Postnasal drip; Note: Date Diagnosed : 01/22/2016 10:09 AM (R09.82) Not Available [facility] 4 02:41:28 Nasal congesti on 39862316 Completed 201512/23/2023 Nasal congestio n; Note: Date Diagnosed : 01/22/2016 10:05 AM (R09.81) Not Available [facility] 4 02:41:29 Chronic sinusiti s 78138539 Active 2023 KAYE CARMONA PA-C [address] [place] [address], [place], [address] , [facility] - [facility] 4 14:57:08 Problem Notes None recorded. Procedures Surgical History None recorded. Imaging Results Imaging Date Name Status LastModified by Organiz ation Details LastModified Time 04/26/2024 CT, maxillofacial , w/o contrast completed [facility] [place] [address] [facility] [address], [place], [address], 04/27/2024 21:05:26 Procedure Notes None recorded. Medical Equipment None Reported. Allergies Allergen ID Allergen Name Allergen Category Reaction Reaction Severity Criticality Documentation Date Start Date Code Code System Note Provider Name and Address Organization Details Recorded Time 71654 Bactrim medicatio n other Not available Not available 10/04/2023 13306 9 RxNorm React ion: unkno wn, unspe cifie d;; Not Available [facility] 4 00:58:54 08077 atenolol medicatio n other Not available Not available 10/04/2023 1202 RxNorm React ion: unkno wn, unspe cifie d;; Not Available [facility] 4 00:58:58 Medications Name Sig Start Date [...] 24 hr 2017 active Medicatio n ID: [id number] Du ration Value: 90 Brand Name: oxybutyni [...] mg tablet 2015 active Medicatio n ID: [id number] Du ration Value: 30 Brand Name: diazepam Send Method: E-Prescri bed Subs Allowed: subs OK Specia l Instructi on: TAKE 1 TABLET BY MOUTH TWICE DAILY Med icationGe nericName : diazepam Not Available Not Available Not Available Nasonex 50 mcg/actuat ion Blanco Blanco 2 spray into both nostrils once a day 2017 active Medicatio n ID: [id number] Du ration Value: 30 Prescrib ed By [...] mg tablet 2017 active Medicatio n ID: [id number] Du ration Value: 90 Brand Name: naproxen [...] mg tablet 2017 active Medicatio n ID: [id number] Du ration Value: 30 Brand Name: escitalop [...] aerosol inhaler 2015 active Medicatio n ID: [id number] Du ration Value: 30 Brand Name: ProAir [...] ended release 2015 active Medicatio n ID: [id number] Du ration Value: 30 Brand Name: Myrbetriq [...] SNOMED-CT Code Diagnosis ICD10 Code Diagnosis Note 15970 NIOC FERRO MD [facility] [address] [address] 02/29/2024 14:04:19 02/29/2024 15:00:38 Chronic sinusitis 33851690 J32.8 Health Concerns Section Related Observation LastModified by Organization Detai ls LastModified Time None Recorded Concern Status LastModified by Organization Details LastModified Time None Recorded Advance Directives Directive None Recorded Payers Encounter Date Sequence Insurance Name Policy Number Policy Clark Covered Member ID Clark Member ID Guarantor Name 02/29/2024 2 [place] [facility] Elba Martinez [id number] Elba Martinez 02/29/2024 1 [place] B[place] [employer] Elba Martinez [id number] Elba Martinez Notes Date Note Type Note [...] seeing specialist Jun 2024. NICO MCKEON MD [address] [place] [address], [address], [facility] - [facility] 03/01/2024 07:53:18 OBGyn Episode No OBEpisode recorded.
--- OUTSIDE RECORDS SUMMARY | 2024-08-03 14:14 | XMS_ITS | Clinical Summary ---
Author Organization 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 Andrew Acosta. Performed for the evaluation of rectal bleeding. COLONOSCOPY 02/07/2008 PROCEDURE: UT COLONOSCOPY FLX DX W/COLLJ SPEC WHEN PFRMD; COMMENT: negative examination. Scant hematochezia, positive family history. OTHER SURGICAL HISTORY 09/09/2008 PROCEDURE: UT RPR UMBILICAL HRNA 5 YRS/> REDUCIBLE; COMMENT: [facility], part of the exploratory laparoscopy OTHER SURGICAL HISTORY 09/09/2008 PROCEDURE: UT LAPAROSCOPIC APPENDECTOMY; COMMENT: [facility], part of the exploratory laparoscopy ESOPHAGOGASTRODUODENOSCOPY 04/30/2008 PROCEDURE: UT ESOPHAGOGASTRODUODENOSCOPY TRANSORAL DIAGNOSTIC; COMMENT: normal examination, Dr. [...] drink = 0.6 oz pur e alcohol) Comments No Sex and Gender Information Value Date Recorded Sex Assigned at Not on file Legal Sex Female 10:01 PM EST Gender Identity Not on file Sexual Orientation Not on file Obstetrics History Last Filed [...] Additional history exists Breast Cancer Screening 04/24/2026 04/24/20, 03/29/2023, 03/25/2022, Additional history exists HIB Vaccines [...] patient's age to complete this topic Meningococcal B Vacine Aged Out No lo nger eligible based on patient's age to complete [...] for breast cancer from Last 3 Months or Most Recently Relevant to Health Maintenance Results * [facility] Mammo Digital Diagnostic w Cameron bilat (04/24/2024 1:57 PM EST) Anatomical Region Laterality Modality Breast Bilateral Mammography 04/24/2024 4:15 PM EST Impressions 04/24/2024 4:18 PM EST Stable asymmetries in the right breast. Follow-up diagnostic mammogram in one year is recommended. BI-RADS CATEGORY: 3 - PROBABLY BENIGN RECOMMENDATION: Diagnostic bilateral mammogram recommended in 1 year. Mammo Location: [facility], [address] [place] [address], [address], . -------- FINAL REPORT -------- Dictated By: Saima Melissa Dictated Date: 04/24/2024 16:15 ET Assigned Physician: Saima Melissa Reviewed and Electronically Signed By: Saima Melissa Signed Date: 04/24/2024 16:18 ET Workstation ID: [id number] Transcribed By: Self Edit Transcribed Date: 04/24/2024 [...] year. Mammo Location: [facility], [address] [place] [address], [address], . 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
--- OUTSIDE RECORDS SUMMARY | 2024-08-03 14:14 | XMS_ITS | Data Portability ---
Author Organization [facility], [facility] Address [address] [place] [address] Care Team Providers Care Vegetable Vendor Name Role Phone DEIRDRE GRANADOS Primary Care Provider Assessment No assessment recorded. Plan of Treatment Reminders Order Date Submit Date Provider Last Modified By Organization Details Last Modified Time Details Appointments None recorded . Lab rheumato id arthriti s disease activity panel, vectrada , serum or plasma 2023 GALO [facility] (Centralized Electronic Ordering - All Locations), Patient Can Go To The Location Of Their Choice, 16:06:51 ESR (erythro cyte sediment ation rate), blood 2023 GALO [facility] (Centralized Electronic Ordering - All Locations), Patient Can Go To The Location Of Their Choice, 16:06:51 C-reacti ve protein, quantita tive, serum or plasma 2023 024 [facility] (Centralized Electronic Ordering - All Locations), Patient Can Go To The Location Of Their Choice, 14:51:24 HbA1c (hemoglo bin A1c), blood 2023 GALO [facility] (Centralized Electronic Ordering - All Locations), Patient Can Go To The Location Of Their Choice, 16:06:50 CMP, serum or plasma 2023 GALO [facility] (Centralized Electronic Ordering - All Locations), Patient Can Go To The Location Of Their Choice, [address] 08/12/202 4 16:06:49 Referral rheumato logist referral - right hand pain eval for high sed rate and high rectra 2023 024 [facility], [address] [place] [address], [address], 4 10:07:17 physical therapis t referral - Status post left gastroc and soleus recessio n, ankle arthrosc opy, debridem ent of talar osteocho ndral lesion; date of surgery 04/21/23 LLE recondit ioning , desensit ization 2023 024 [email or web address] Not available 4 08:35:27 Procedures None recorded . Surgeries None recorded . Imaging XR, ankle, 3 or more view - left foot /ankle 5v wb , recheck . room 103 2023 024 [facility], [address], [facility] [address], [place], [address], 4 16:19:53 XR, foot, 2 view 2023 024 [facility], [address], [address], [place], [address], 4 16:19:53 Medication Orders cycloben zaprine 5 mg tablet 2023 024 [id number], [address] [facility] [place], [address], 4 07:46:39 meloxica m 15 mg tablet 2023 024 [id number], [address] [place], [address], 4 16:19:53 Patient TargetsNo targets recorded. Patient InstructionsNo instructions recorded. Reason for Referral Physical Therapist Referral for Pain in left foot Status post left gastroc and soleus recession, ankle arthroscopy, debridement of talar osteochondral lesion; date of surgery 11/30/23LLE reconditioning , desensitization Referring Physician: Cherie Yañez, Orthopedic Surgery, Encounter Date: 11/11/2023 Automobile Tester Referral for Hand pain right hand pain eval for high sed rate and high rectra Referring Physician: Ewa Quiroz, Orthopedic Surgery, Encounter Date: 01/16/2024 Results Created Date Observation Date Name Description Value Unit Range Abnormal Flag Note LastModifiedBy Organization Detail LastModifiedTime 12/23/19 24 12/24/2023 CMP14 +GLU RFX GT 100 TO HB A1C glucose 93 mg/dL 70-99 normal Not Available [facility] ([facility]) [address] [place], [address], 01/02/2024 16:06:49 12/23/19 24 12/24/2023 CMP14 +GLU RFX GT 100 TO HB A1C BUN 18 mg/dL 6-24 normal Not Available [facility] ([facility]) [address] [place], [address], 01/02/2024 16:06:49 12/23/19 24 12/24/2023 CMP14 +GLU RFX GT 100 TO HB A1C creatinine 0.78 mg/dL 0.57-1 .00 normal Not Available [facility] ([facility]) [address] [place], [address], 01/02/2024 16:06:49 12/23/19 24 12/24/2023 CMP14 +GLU RFX GT 100 TO HB A1C BUN/creatini ne ratio 23 9-23 normal Not Available [facility] ([facility]) [address] [place], [address], 01/02/2024 16:06:49 12/23/19 24 12/24/2023 CMP14 +GLU RFX GT 100 TO HB A1C sodium 140 mmol/ L 134-14 4 normal Not Available [facility] ([facility]) [address] [place], [address], 01/02/2024 16:06:49 12/23/19 24 12/24/2023 CMP14 +GLU RFX GT 100 TO HB A1C potassium 4.5 mmol/ L 3.5-5. 2 normal Not Available [facility] ([facility]) [address] [place], [address], 01/02/2024 16:06:49 12/23/19 24 12/24/2023 CMP14 +GLU RFX GT 100 TO HB A1C chloride 101 mmol/ L 96-106 normal Not Available [facility] ([facility]) [address] [place], [address], 01/02/2024 16:06:49 12/23/19 24 12/24/2023 CMP14 +GLU RFX GT 100 TO HB A1C carbon dioxide, total 25 mmol/ L 20-29 normal Not Available [facility] ([facility]) [address] [place], [address], 01/02/2024 16:06:49 12/23/19 24 12/24/2023 CMP14 +GLU RFX GT 100 TO HB A1C calcium 9.6 mg/dL 8.7-10 .2 normal Not Available [facility] ([facility]) [address] [place], [address], 01/02/2024 16:06:49 12/23/19 24 12/24/2023 CMP14 +GLU RFX GT 100 TO HB A1C protein, total 7.5 g/dL 6.0-8. 5 normal Not Available [facility] ([facility]) [address] [place], [address], 01/02/2024 16:06:49 12/23/19 24 12/24/2023 CMP14 +GLU RFX GT 100 TO HB A1C albumin 4.3 g/dL 3.9-4. 9 normal Not Available [facility] ([facility]) [address] [place], [address], 01/02/2024 16:06:49 12/23/19 24 12/24/2023 CMP14 +GLU RFX GT 100 TO HB A1C globulin, total 3.2 g/dL 1.5-4. 5 Not Available [facility] ([facility]) [address] [place], [address], 01/02/2024 16:06:49 12/23/19 24 12/24/2023 CMP14 +GLU RFX GT 100 TO HB A1C bilirubin, total 0.3 mg/dL 0.0-1. 2 normal Not Available [facility] ([facility]) [address] [place], [address], 01/02/2024 16:06:49 12/23/19 24 12/24/2023 CMP14 +GLU RFX GT 100 TO HB A1C alkaline phosphatase 76 IU/L 44-121 normal Not Available [facility]) [address] [place], [address], 01/02/2024 16:06:49 12/23/19 24 12/24/2023 CMP14 +GLU RFX GT 100 TO HB A1C AST (SGOT) 22 IU/L 0-40 normal Not Available [facility] ([facility]) [address] [place], [address], 01/02/2024 16:06:49 12/23/19 24 12/24/2023 CMP14 +GLU RFX GT 100 TO HB A1C ALT (SGPT) 13 IU/L 0-32 normal Not Available [facility] ([facility]) [address] [place], [address], 01/02/2024 16:06:49 12/23/19 24 12/24/2023 HEMOG LOBIN A1C hemoglobin A1C 5.9 % 4.8-5. 6 above high normal Predi abete s: 5.7 - 6.4 Diabe daphney: >6.4 Glyce yanira contr ol for adult s with diabe daphney: <7.0 Not Available [facility] ([facility]) [address] [place], [address], 01/02/2024 16:06:50 12/23/19 24 12/24/2023 SEDIM ENTAT ION RATE- WESTE RGREN sedimentatio n rate-desean rodrigo 55 mm/HR 0-32 above high normal Not Available [facility] ([facility]) [address] [facility], [place], [address], 01/02/2024 16:06:51 12/23/19 24 12/23/2023 VECTR A(R) biomarker comment: Commen t These repor hao usman te value s and refer ence range s are inten ded for use in the gener ation of the Vectr a score only. These resul ts shoul d not be used inter moore eably with resul ts gener ated by keli mendezs. Not Available [facility] [address] [place], [address], 01/02/2024 16:06:51 12/23/19 24 01/02/2024 VECTR A(R) [...] . Not Available [facility] [address] [place], [address], 01/02/2024 16:06:51 12/23/19 24 01/02/2024 VECTR A(R) risk of radiographic progress 10 % 1-Yea r Risk of Radio graph ic Progr essio n Not Available [facility] [address] [place], [address], 01/02/2024 16:06:51 08/02/01/02/2024 VECTR A(R) vectra(R) level Commen t High Vectr a Disea se Activ ity Level s: High: 45 to 100 Moder ate: 30 to 44 Low: 1 to 29 Not Available [facility] [address] [facility], [place], [address], 01/02/2024 16:06:51 12/23/19 24 01/02/2024 VECTR A(R) [...] 02-10 Not Available [facility] [address] [place], [address], 01/02/2024 16:06:51 12/23/19 24 01/02/2024 VECTR A(R) master result 8.5 ug/mL RA Range : (0.29 -85) RA Perce ntile : 82% Not Available [facility] [address] [place], [address], 01/02/2024 16:06:51 12/23/19 24 01/02/2024 VECTR A(R) CRP result 5.8 mg/L RA Range : (0.19 -92) RA Perce ntile : 58% Not Available [facility] [address] [place], [address], 01/02/2024 16:06:51 12/23/19 24 01/02/2024 VECTR A(R) vcam-1 result 0.46 ug/mL RA Range : (0.39 -1.2) RA Perce ntile : 9% Not Available [facility] [address] [place], [address], 01/02/2024 16:06:51 12/23/19 24 01/02/2024 VECTR A(R) il-6 result 15 pg/mL RA Range : (2.5- 200) RA Perce ntile : 61% Not Available [facility] [address] [place], [address], 01/02/2024 16:06:51 12/23/19 24 01/02/2024 VECTR A(R) tnf-ri result 1.7 NG/mL RA Range : (0.8- 3.9) RA Perce ntile : 64% Not Available [facility] [address] [place], [address], 01/02/2024 16:06:51 12/23/19 24 01/02/2024 VECTR A(R) egf result 180 pg/mL RA Range : (12-4 10) RA Perce ntile : 77% Not Available [facility] [address] [place] [address], [address], 01/02/2024 16:06:51 12/23/19 24 01/02/2024 VECTR A(R) vegf-A result 430 pg/mL RA Range : (75-7 90) RA Perce ntile : 83% Not Available [facility] [address] [place], [address], 01/02/2024 16:06:51 12/23/19 24 01/02/2024 VECTR A(R) leptin result 5.8 NG/mL RA Range : (1.5- 120) RA Perce ntile : 15% Not Available [facility] [address] [place] [address], [address], 01/02/2024 16:06:51 12/23/19 24 01/02/2024 VECTR A(R) resistin result 4.2 NG/mL RA Range : (3.5- 21) RA Perce ntile : 6% Not Available [facility] [address] [place] [address], [address], 01/02/2024 16:06:51 12/23/19 24 01/02/2024 VECTR A(R) mmp-1 result 18 NG/mL RA Range : (1.3- 23) RA Perce ntile : 94% Not Available [facility] [address] [place], [address], 01/02/2024 16:06:51 12/23/19 24 01/02/2024 VECTR A(R) mmp3 result 19 NG/mL RA Range : (7.9- 160) RA Perce ntile : 39% Not Available [facility] [address] [place], [address], 01/02/2024 16:06:51 12/23/19 24 01/02/2024 VECTR A(R) ykl-40 result 44 NG/mL RA Range : (22-5 40) RA Perce ntile : 22% Not Available [facility] [address] [place], [address], 01/02/2024 16:06:51 12/23/19 24 01/02/2024 VECTR A(R) footnote/his tory Commen t RA Range : These 95% refer ence range s were estab lishe d from 325,7 81 patie nt sampl es teste d at [facility] . RA Perce ntile : Subje ct's bioma rker level relat anne to level s in RA patie nt speci mens from which the RA range s were deter mined Compl ete Vectr a Score Histo ry: Colle ction Date: 12/22 Score : 54 Not Available [facility] [address] [place] [address], [address], 01/02/2024 16:06:51 12/23/19 24 01/02/2024 VECTR A(R) [...] not been estab lishe d. Not Available [facility] [address] [facility], [place], [address], 01/02/2024 16:06:51 11/11/19 24 11/11/2023 XR, foot, 2 view [email or web address]:/ [email or web address] ?Encry pted=s hAaTro YD8dLq bEUv6g %2BXZw aYqtaq 0bqfl% 2Fg9IQ a4ajBk vP9nXo QUaueC m3YtLR FvZl JJ8[place] HZtai3 1q3784 AC0KuY nmFU6P eUC8mr 84%3D INTERFACE [facility] [address], [place], [address], 11/11/2023 13:38:14 11/11/19 24 11/11/2023 XR, foot, 2 view [email or web address]:/ [email or web address] ?Encry pted=s hAaTro YD8dLq bEUv6g %2BXZw aYqtaq 0bqfl% 2Fg9IQ a4ajBk vP9nXo QUaueC m3YtLR FvZl JJ8mAn HZtai3 6w3850 AC0KuY nmFU6P eUC8mr 84%3D INTERFACE [facility] [address], [place], [address], 11/11/2023 13:38:16 11/11/19 24 11/11/2023 XR, ankle , 3 or more view http:/ [email or web address] ?Encry pted=s hAaTro YD8dLq bEUv6g %2BXZw aYqtaq 0bqfl% 2Fg9IQ a4ajBk vP9nXo QUaueC m3YtLR FvZlgJ JJ8mAn HZtai3 4b9760 AC0KuY nmFUKT eUC8mr 84%3D INTERFACE [facility] [address], [place], [address], 11/11/2023 13:39:44 11/11/19 24 11/11/2023 XR, ankle , 3 or more view http:/ [email or web address] ?Encry pted=s hAaTro YD8dLq bEUv6g %2BXZw aYqtaq 0bqfl% 2Fg9IQ a4ajBk vP9nXo QUaueC m3YtLR FvZlgJ JJ8mAn HZtai3 2d5576 AC0KuY nmFUKT eUC8mr 84%3D INTERFACE [facility] [address], [place], [address], 11/11/2023 13:39:45 12/02/19 24 12/02/2023 nerve condu ction study /EMG, upper extre mity (PROC ) No observ ation record ed. [facility] Scheduling Dept [address] [facility], [place], [address], 12/05/2023 09:46:30 01/21/20 24 11/17/2022 imagi ng/di [...] Address Organization Details Recorded Time No complaints 383839045 Active Status: 'I'; Not Available [facility] 4 09:21:24 Synovitis and tenosynovit is of joint of hand Active 2019 Problem Code: M65.841; Problem Code Type: ICD-10; Status: 'A'; Not Available [facility] 4 11:43:44 Problem Notes None recorded. Procedures Surgical History None recorded. Imaging Results Imaging Date Name Status LastModified by Organiz ation Details LastModified Time 11/11/2023 XR, foot, 2 view completed INTERFACE [facility] [address], [place], [address], 11/11/2023 13:38:14 11/11/2023 XR, foot, 2 view completed INTER[facility] [address], [place], [address], 11/11/2023 13:38:16 11/11/2023 XR, ankle, 3 or more view completed INTERFACE [facility] [address], [place], [address], 11/11/2023 13:39:44 11/11/2023 XR, ankle, 3 or more view completed INTERFACE [facility] [address], [place], [address], 11/11/2023 13:39:45 12/02/2023 nerve conduction study/EMG, upper extremity (PROC) completed [facility] Sched[facility] [address] [facility], [place], [address], 12/05/2023 09:46:30 11/17/2022 imaging/diagnos tic result completed Information not available 01/21/2024 04:03:48 03/04/2023 imaging/diagnos tic result completed Information not available 01/21/2024 04:04:04 Procedure Notes None recorded. Medical Equipment None Reported. Allergies Allergen ID Allergen Name Allergen Category Reaction Reaction Severity Criticality Documentation Date Start Date Code Code System Note Provider Name and Address Organization Details Recorded Time 40059 Tenormin medicatio n Not available Not available Not available 07/25/20232011 02604 3 RxNorm Aller gyRea ction : 'UNKN OWN'; Not Available [facility] 13:52:25 01699 Bactrim medicatio n Not available Not available Not available 07/25/20232013 02724 9 RxNorm Not Available [facility] 13:52:26 Medications Name Sig Start Date Stop [...] Not Available Not Available No t Available 1.5/30 (28) 1.5 mg-30 mcg (21)/75 mg (7) [...] Updated DateTime 11/11/2023 154.94 cm 43.5 kg/m2 026578.25 g Elyse Menchaca [facility] 11/11/2023 13:06:08 Date Recorded Body height Body mass index (BMI) Body weight Provider Name and Address Organization Details Last Updated DateTime 12/21/2023 154.94 cm 43.5 kg/m2 734338.25 g Kathleen Sevilla [facility] 12/21/2023 13:09:14 Date Recorded Body height Body mass index (BMI) Body weight Provider Name and Address Organization Details Last Updated DateTime 01/16/2024 154.94 cm 43.5 kg/m2 593800.25 g Kathleen Sevilla [facility] 01/16/2024 15:14:55 Date Recorded Body height Body mass index (BMI) Body weight Provider Name and Address Organization Details Last Updated DateTime 02/06/2024 154.94 cm 43.5 kg/m2 151772.25 g Elyse Menchaca [facility] 02/06/2024 13:26:02 Date Recorded Body height Body mass index (BMI) Body weight Provider Name and Address Organization Details Last Updated DateTime 03/14/2024 154.94 cm 43.5 kg/m2 457007.25 g Kathleen Fernandesgo [facility] 03/14/2024 14:30:02 Social History None recorded. Functional Status None recorded. Mental Status None recorded. Family History Nothing Reported. Medical History No medical history recorded. Gynecological HistoryNo gynecological history recorded. 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 2782774080 10867 G56.01 [id number] MD David Ng [address] [place] [address] 09/12/2023 13:02:31 09/30/2023 11:31:13 Pain in left foot 8247942144 19004 M79.672 Osteochond ritis dissecans of left ankle 0519602282 75346 M93.489 [id number] MD David Ng [address] [place] [address] 11/11/2023 12:54:59 12/08/2023 12:06:22 Pain of left ankle joint 0264005575 6717258 M25.572 Foot pain 47522079 M79.6 73 Pain in left foot 581028 9125 82294 M79.672 Osteochond ritis dissecans of left ankle 4474558391 63082 M93.799 [id number] Ewa Casartello , PA-C [facility] [address] [place] [address] 12/21/2023 12:42:33 01/19/2024 11:06:09 Pain in right hand 6559031174 92225 M79.032 [id number] Ewa Quiroz PA-C [facility] [address] [place] [address] 01/16/2024 14:43:15 02/08/2024 10:07:17 Hand pain 75276014 M79.345 [id number] Cherie Yañez MD [facility] [address] [place] [address] 02/06/2024 13:13:28 02/27/2024 12:40:24 Pain of left ankle joint 4294002548 8311777 M25.572 Osteochond ritis dissecans 71517253 M93.279 Osteochond ritis dissecans of left ankle 4190624707 34806 M93.272 Peroneal t endinitis of left lower limb 4163466194 68132 M76.72 [id number] Ewa Quiroz PA-C [facility] [address] [place] [address] 03/14/2024 14:16:14 04/03/2024 11:04:14 Pain of right wrist 6479274041 05462 M25.531 Health Concerns Section Related Observation LastModified by Organization Detai ls LastModified Time None Recorded Concern Status LastModified by Organization Details LastModified Time None Recorded Advance Directives Directive None Recorded Payers Encounter Date Sequence Insurance Name Policy Number Policy Clark Covered Member ID Clark Member ID Guarantor Name 11/11/2023 1 [place] [employer] Elba L Juan [id number] Elba L Hamlin 11/11/2023 2 [place] [facility] Elba L Juan [id number] Elba L Hamlin 12/21/2023 1 [place] [employer] Leba L Hamlin [id number] Elba L Juan 12/21/2023 2 [place] [facility] Elba L Hamlin [id number] Elba Martinez 01/16/2024 1 [place] [employer] Elba Martinez [id number] Elba Zacarias Hamlin 01/16/2024 2 [place] [facility] Elba Jonesier [id number] Elba Jonesier 02/06/2024 1 [place] [employer] Elba Jonesier [id number] Elba Zacarias Hamlin 02/06/2024 2 [place] [facility] Elba Jonesier [id number] Elba Jonesier 03/14/2024 1 [place] [employer] Elba Jonesier [id number] Elba Jonesier 03/14/2024 2 [place] [facility] Elba Martinez [id number] Elba Martinez Notes Date Note Type Note [...] pulses X-rays ordered, obtained and reviewed at [facility]: AP, lateral, oblique weightbearing imaging of [...] weeks for repeat evaluation Cherie Yañez MD [address] [place] [address] [address], [place], [address], [facility] 11/20/2023 15:27:46 12/21/19 24 [...] the digits.X-rays ordered, obtained and reviewed at [facility]: None performed today..EMG was negative for [...] concerns were answered and addressed. Speech recognition business process manager software was used to create portions of this document. An attempt at proofreading has been made to minimize errors. Please call for corrections. Ewa Quiroz PA-C [address] [facility] [address], [place], [address], [facility] 12/21/2023 20:38:29 01/16/20 24 text/htm l [...] the digits.X-rays ordered, obtained and reviewed at [facility]: None performed today..EMG was negative for [...] We will see her PCP Dr. Deirdre Granados MD with [facility]. All questions and concerns were answered and addressed. Speech recognition business process manager software was used to create portions of this document. An attempt at proofreading has been made to minimize errors. Please call for corrections. Please CC Dr.Joanna Kanika MD with [facility] [address], [place], [address], [facility] - [facility] 01/17/2024 12:36:38 02/06/20 24 [...] reports she is having her evaluated by product safety specialist, for possible psychiatric component to her [...] pulses X-rays ordered, obtained and reviewed at [facility] (previous imaging): AP, lateral, oblique weightbearing [...] months for repeat evaluation. Cherie Yañez MD [address] [place] [address] [address] [facility], [place], [address], [facility] - [facility] 02/06/2024 19:45:20 03/14/20 24 [...] the digits.X-rays ordered, obtained and reviewed at [facility]: None performed today..EMG was negative for [...] and concerns answered and addressed.. Speech recognition business process manager software was used to create portions of this document. An attempt at proofreading has been made to minimize errors. Please call for corrections. Please CC Dr.Joanna Kanika MD with [facility] Ewa Quiroz PA-C [address] [place] [address] [address], [place], [address], [facility] 03/20/2024 14:18:24 OBGyn Episode No OBEpisode recorded.
--- OUTSIDE RECORDS SUMMARY | 2024-08-03 14:14 | XMS_ITS | Patient Health Record ---
Author Organization [facility] Address [address] [place] [address] Care Team Providers Care Computer Applications Developer Name Role Phone Deirdre Boudreaux MD Primary Care Provider Hansel Floyd Unavailable [phone] Allergies Allergen (clinical drug ingredient) Drug/Non Drug Allergy documented on EMR Reaction Allergy Type Onset Date Status atenolol Atenolol bad dreams Drug Allergy Active Reason For Referral No Information Medications Medication SIG (Take, Route, Frequency, Duration) Notes Start Date End Date Status oxyBUTYnin Chloride ER 10 MG TAKE 1 TABLET BY MOUTH EVERY DAY Oral twice a day Active Escitalopram Oxalate 15 mg 1 tablet Oral ly Once a day Active Myrbetriq 50 MG 1 tablet Orally Once a day Active Immunizations Vaccine Route Administration Date Status Comme nts Influenza Unknown 03/29/2020 Administered Social History Tobacco Use: Social History Observation Description Date Details (start date - stop date) Never Smoker NA - NA Tobacco Use/Smoking Question Answer Notes Patient is a nonsmoker Alcohol Screen Question Answer Notes Did you have a drink containing alcohol in the p ast year? No Points 0 Interpretation Negative Section Notes: Nonsmoker; no significant al cohol Problems Problem Type SNOMED Code ICD Code Onset Dates Problem Status W/U Status Risk Notes Problem 929121352 Family history of colon cancer (Z80.0) Active confirmed Problem 02035387 Rectal bleed (K62.5) Active confirmed Plan Of Treatment No Information Insurance Providers Payer Name Payer Address Payer Phone Subscriber Number Group Number Insured Name Patient Relationship to Insured Coverage Start Date Coverage End Date MEDICARE OF [place] [address] [address] [id number] DANNY MARTINEZ Self - patient is the insured [facility]ICAID [facility] [address] [place] [address] [phone] [id number] DANNY MARTINEZ Self - patient is the insured Medical (General) History Medical History History ICD Code Urinary incontinence Hay fever IBS 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 Mitchell. She has also seen Dr. Rain for evaluation of abdominal pain in the distant past as well Surgical History Surgery Date(Month/Year) Removed appendix via NOTES via vagina Fatty tissue in the groin area . Shoulder-right
--- OUTSIDE RECORDS SUMMARY | 2024-08-03 14:15 | XMS_ITS | Data Portability ---
Author Organization MARK Julien s, [address] Address [address] [place] [address] Care Team Providers Care Pattern Drum Maker Name Role Phone OSMINHAYCaliRAMÓN Primary Care Provider Assessment No assessment recorded. Plan of Treatment Reminders Order Date Submit Date Provider Last Modified By Organization Details Last Modified Time Details Appointments None recorded. Lab None recorded. Referral None recorded. Procedures None recorded. Surgeries None recorded. Imaging None recorded. Medication Orders Diflucan 150 mg tablet 2022 023 [facility] [address] [place], [address], 3 18:18:50 ciprofloxac in 0.2 % ear drops in a dropperette 2022 023 [email or web address] [facility] [address] [place], [address], 3 13:24:37 cefdinir 300 mg capsule 2022 023 [facility], [address] [place], [address], 3 18:18:51 Patient TargetsNo targets recorded. Patient Instructions Encounter Date Encounter Id Patient Instructions Last Modified By Organization Details Last Modified Time 06/11/2022 [id number] earache: care instructions [email or web address] Not available 06/11/2022 18:18:47 ear infection (otitis [...] in the Eustachian Tube. 4. Saline Nasal [place] 5. Salt Water Gargle 6. Staying Hydrated [...] to antibiotic resistance. Thank you for using [facility] today - and don't hesitate to contact our office if you have any concerns or questions. [email or web address] Not available 06/11/2022 18:18:46 Reason for Referral None Reported. Problems Name Problem SNOMED Code Status Onset Date Resolution Date Notes Provider Name and Address Organization Details Recorded Time Urinary incontinence 233617175 Active 2022 MARK Medeiros [facility] 17:22:54 [...] Name and Address Organization Details Recorded Time 100537 grass pollen environme nt,medica tion Not available Not available Not available 06/11/2022 39596 UNK Constance hilton PA Loc [facility] 3 17:12:26 432966 atenolol medicatio n Not available Not available Not available 06/11/2022 1202 RxNorm Constance Eldridge MARK hilton [facility] 3 17:12:50 842870 Bactrim medicatio n rash Not available Not available 06/11/2022 63768 9 RxNorm Constance Eldridge MARK [facility]ilton [facility] [...] Updated DateTime 3 154.94 cm 41.2 kg/m2 25689.1 4 g 96.8 [degF] 6 99 % [...] SNOMED-CT Code Diagnosis ICD10 Code Diagnosis Note [id number] [address] [address] [facility] [place] [address] 02/01/2022 12:52:42 02/01/2022 14:38:05 [id number] MARK ORTEGA [address] [place] [address] 06/11/2022 16:40:01 06/11/2022 18:21:41 Acute bilateral otitis media 643740386 H66.93 Candidiasis of vagina 72 622497 B37.31 Health Concerns Section Related Observation LastModified by Organization Detai ls LastModified Time None Recorded Concern Status LastModified by Organization Details LastModified Time None Recorded Advance Directives Directive None Recorded Payers Encounter Date Sequence Insurance Name Policy Number Policy Clark Covered Member ID Clark Member ID Guarantor Name 02/01/2022 1 [place] B[place] [employer] Elba Martinez [id number] Elba Martinez 02/01/2022 2 [place]: [facility] Elba Martinez [id number] Elba Martinez 06/11/2022 1 [place] B[place] [employer] Elba Martinez [id number] Elba Martinez 06/11/2022 2 [place] [facility] Elba Martinez [id number] Elba Martinez Notes Date Note Type Note [...] pain. MARK ORTEGA [address] [place], [address], [place] - [facility] 06/12/2022 13:33:56 OBGyn Episode No OBEpisode recorded.
== END 2024-08-03 13:30 | disposition home or self-care (01) ==
LOC: HO.HMCC 12:42
PROVIDERS: PCP Internal Medicine; Visit Provider Internal Medicine
DX: E78.5 Hyperlipidemia, unspecified (principal); E66.9 Obesity, unspecified; Z68.41 Body mass index [BMI] 40.0-44.9, adult; R06.09 Other forms of dyspnea; R73.9 Hyperglycemia, unspecified

== ENCOUNTER → 2024-08-03 12:42 | Outpatient (BNVA) | payer MEDICARE, MEDICAID, SELFPAY | PROVIDERS: PCP Internal Medicine; Visit Provider Internal Medicine | DX: E78.5 Hyperlipidemia, unspecified (principal); E66.9 Obesity, unspecified; Z68.41 Body mass index [BMI] 40.0-44.9, adult; R06.09 Other forms of dyspnea; R73.9 Hyperglycemia, unspecified; Z71.3 Dietary counseling and surveillance | CPT/HCPCS: 99212 ==

== ENCOUNTER → 2024-08-20 12:56 | Outpatient (REF) | payer MEDICARE, MEDICAID, SELFPAY ==
--- NOTE | 2024-08-20 12:59 | CA_ITS ---
Transthoracic Echocardiogram Patient (Last, First, Middle): Elba Martinez, Gender: Female Date of : 1975 Age: 49 Procedure Date: 08/20/2024 Procedure Type: Transthoracic Echocardiogram Location: OP Height: 154.94 cm Weight: 104.33 kg BSA: 2.00 m2 Heart Rate: bpm BP: 112 / 78 mmHg Outsole Scheduler: SARAH Referring MD: Deirdre Boudreaux MD Symptoms: R06.09 - Other forms of dyspnea Study Quality: Fair ECG Rhythm: Sinus Conclusions: - The left ventricular systolic function is normal. The calculated ejection fraction is 66% by biplane method. - No obvious valvular pathology seen on this study. Findings Procedure Information Contrast agent, definity, is being given per protocol without apparent complications. Left Ventricle Normal left ventricular cavity size. The left ventricular systolic function is normal. The calculated ejection fraction is 66% by biplane method. There is no evidence of regional wall motion abnormalities. Diastolic function is normal for age. Top normal LV wall thickness. Right Ventricle Normal right ventricular cavity size and systolic function. Atria Both atria are normal in size. Aortic Valve The aortic valve structure and function is likely normal. There is no aortic valve stenosis. There is no aortic valve regurgitation. Mitral Valve The mitral valve appears normal. There is trace mitral valve regurgitation. There is no mitral valve stenosis. Pulmonic Valve The pulmonic valve is likely normal. Tricuspid Valve There is trace tricuspid valve regurgitation. There is no evidence of pulmonary hypertension. Great Vessels The asc aorta is normal in size. Venous The inferior vena cava was not well visualized. Pericardium/Pleural There is no evidence of pericardial effusion. Prior Study Comparison No prior study available for comparison. Recommendations, Care & Conclusions No obvious valvular pathology seen on this study. Measurements 2D Linear Measurements IVSd: 1.02 0.6-0.9/0.6-1.0 cm LVIDd: 4.10 3.9-5.3/4.2-5.9 cm LVIDd Index: 2.05 2.4-3.2/2.2-3.1 cm/m2 LVIDs: 2.47 2.0-3.6 cm LVPWd: 1.07 0.7-1.1 cm LA Diam: 3.30 2.7-3.8/3.0-4.0 cm LAIDs Index: 1.65 1.5-2.3 cm/m2 LV Mass: 174.99 67-162/88-224 g LV Mass Index: 87.49 43-95/49-115 g/m2 LVOT Diam: 1.80 3.0+(-)1.3 cm 2D Systolic Function EF 4C: 70.20 >55% EF 2C: 63.50 >55% EF BiP: 66.00 >55% Mitral Valve MV Pk E: 0.97 MV PK A: 0.81 MV Decel Time: 218.00 E/A: 1.20 E'Lateral: 8.70 E'Medial: 7.72 E/E' Med: 12.60 E/E' Lat: 11.20 PHT: 64.00 MVA PHT: 3.[address] [place]: 4.47 Aortic Valve AoV Pk Abe: 1.52 AoV Mn Abe: 0.97 AoV VTI: 0.29 AoV Pk Grad: 9.00 Aov Mn Grad: 4.00 SOPHIA Cont.VTI: 1.98 LVOT LVOT Pk Abe: 1.10 LVOT Mn Abe: 0.72 LVOT VTI: 0.22 LVOT Pk Grad: 5.00 LVOT Mn Grad: 2.00 LVOT Diam: 1.80 LVOT Area: 2.54 Diastolic Function MV Pk E: 0.97 MV Pk A: 0.81 E/A: 1.20 E'Medial: 7.72 E/E' Med: 12.60 E' Laterial: 8.70 E/E' Lat: 11.20 Right Ventricle TAPSE (mm): 18.30 TVS' Abe: 14.70 Great Vessels Aorta Sinus of Valsalva: 3.69 2.0-3.[address] Ridge: 2.07 1.7-3.4 cm Ao Asc: 2.70 2.1-3.4 cm Updated in Other Vendor System with Status of Final Idris Harper MD electronically signed on 08/21/2024 10:32:09 AM with status of Final
--- OUTSIDE RECORDS SUMMARY | 2024-08-20 14:31 | XMS_ITS | Patient Health Record ---
Author Organization [facility] Address [address] [place] [address] Care Team Providers Care Casino Attendant Name Role Phone Deirdre Boudreaux MD Primary Care Provider Hansel Floyd Unavailable [phone] Allergies Allergen (clinical drug ingredient) Drug/Non Drug [...] Problem Status W/U Status Risk Notes Problem 510671285 Family history of colon cancer (Z80.0) Active confirmed Problem 47942523 Rectal bleed (K62.5) Active confirmed Plan Of Treatment No Information Insurance Providers Payer Name Payer Address Payer Phone Subscriber Number Group Number Insured Name Patient Relationship to Insured Coverage Start Date Coverage End Date MEDICARE OF [place] [address] [address] [id number] DANNY MARTINEZ Self - patient is the insured [facility]ICAID [facility] [address] [place] [phone] [id number] DANNY MARTINEZ Self - patient is the insured Medical (General) History Medical History History ICD Code Urinary incontinence Hay fever IBS Cerebral palsy with some cognitive and d evelopmental disabilities Denies ID,DM,CVA,Lung disease,renal dise ase Describes a negative colonos copy over [address] Mitchell. She has also seen Dr. Rain for evaluation of abdominal pain in the distant past as well Surgical History Surgery Date(Month/Year) Removed appendix via NOTES via vagina Fatty tissue in the groin area . Shoulder-right
--- OUTSIDE RECORDS SUMMARY | 2024-08-20 14:31 | XMS_ITS | Data Portability ---
Author Organization [place] [facility], Allergy Address [address] [address] Assessment Encounter Date Assessment Date Assessment LastModified by Organization Details LastModified Time 02/29/2024 02/29/2024 48-year-old female with developmental delay, seasonal allergies and cerebral palsy presents with mother for evaluation of sinusitis. CT scan at [facility] on 09/05/23 demonstrated opacification of left frontal and left ethmoid sinuses. On exam nasal mucosa is pink and moist without rhinorrhea. Recommend trial of Flonase 2 sprays daily for one month and Doxycycline twice daily for 20 days. Will get a repeat sinus CT at [facility] in March after antibiotic regimen. She [...] CT, maxillofaci al, w/o contrast 2023 024 [facility] [place], [address] [facility], [facility] [address], [place], [address], 4 08:51:03 Medication Orders doxycycline hyclate 100 mg tablet 2023 024 [facility], [address] [facility], [place], [place], [id number], 4 07:53:23 fluticasone propionate 50 mcg/actuati on nasal spray,suspe nsion 2023 024 [facility], [address] [facility], [place], [place], [id number], 07:53:25 Patient TargetsNo targets recorded. Patient InstructionsNo instructions recorded. Reason for Referral None Reported. Results Created Date Observation Date Name Description Value Unit Range Abnormal Flag Note LastModifiedBy Organization Detail LastModifiedTime 04/27/20 24 04/26/2024 CT, maxil lofac ial, w/o contr ast No observ ation [facility] [place] [address] [address], [place], [address], 04/27/2024 21:05:26 Result Notes None recorded. Problems Name Problem SNOMED Code Status Onset Date Resolution Date Notes Provider Name and Address Organization Details Recorded Time Chronic rhinitis 30804609 Active 2017 Purulent rhinitis (chronic) ; Note: Date Diagnosed : 01/27/2018 1:13 PM (J31.0) Not Available [facility] 4 02:41:31 Posterio r rhinorrh ea 93447486 Completed 201512/23/2023 Postnasal drip; Note: Date Diagnosed : 01/22/2016 10:09 AM (R09.82) Not Available [facility] 4 02:41:28 Nasal congesti on 93386082 Completed 201512/23/2023 Nasal congestio n; Note: Date Diagnosed : 01/22/2016 10:05 AM (R09.81) Not Available [facility] 4 02:41:29 Chronic sinusiti s 80693445 Active 2023 KAYE CARMONA PA-C [address] [place] [address], [place], [address] , [facility] 4 14:57:08 Problem Notes None recorded. Procedures Surgical History None recorded. Imaging Results Imaging Date Name Status LastModified by Organiz ation Details LastModified Time 04/26/2024 CT, maxillofacial , w/o contrast completed [facility] [address] [facility] [address], [place], [address], 04/27/2024 21:05:26 Procedure Notes None recorded. Medical Equipment None Reported. Allergies Allergen ID Allergen Name Allergen Category Reaction Reaction Severity Criticality Documentation Date Start Date Code Code System Note Provider Name and Address Organization Details Recorded Time 78770 Bactrim medicatio n other Not available Not available 10/04/2023 84022 9 RxNorm React ion: unkno wn, unspe cifie d;; Not Available [facility] 4 00:58:54 60257 atenolol medicatio n other Not available Not available 10/04/2023 1202 RxNorm React ion: unkno wn, unspe cifie d;; Not Available [facility] 4 00:58:58 Medications Name Sig Start Date [...] 24 hr 2017 active Medicatio n ID: [id number] Du ration Value: 90 Brand Name: oxybutyni [...] mg tablet 2015 active Medicatio n ID: [id number] Du ration Value: 30 Brand Name: diazepam Send Method: E-Prescri bed Subs Allowed: subs OK Specia l Instructi on: TAKE 1 TABLET BY MOUTH TWICE DAILY Med icationGe nericName : diazepam Not Available Not Available Not Available Nasonex 50 mcg/actuat ion Collyer Collyer 2 spray into both nostrils once a day 2017 active Medicatio n ID: [id number] Du ration Value: 30 Prescrib ed By [...] mg tablet 2017 active Medicatio n ID: [id number] Du ration Value: 90 Brand Name: naproxen [...] mg tablet 2017 active Medicatio n ID: [id number] Du ration Value: 30 Brand Name: escitalop [...] aerosol inhaler 2015 active Medicatio n ID: [id number] Du ration Value: 30 Brand Name: ProAir [...] ended release 2015 active Medicatio n ID: [id number] Du ration Value: 30 Brand Name: Myrbetriq [...] SNOMED-CT Code Diagnosis ICD10 Code Diagnosis Note 38719 NICO FERRO MD [facility] [address] [address] 02/29/2024 14:04:19 02/29/2024 15:00:38 Chronic sinusitis 76607507 J32.8 Health Concerns Section Related Observation LastModified by Organization Detai ls LastModified Time None Recorded Concern Status LastModified by Organization Details LastModified Time None Recorded Advance Directives Directive None Recorded Payers Encounter Date Sequence Insurance Name Policy Number Policy Clark Covered Member ID Clark Member ID Guarantor Name 02/29/2024 2 [place] [facility] Elba Martinez [id number] Elba Martinez 02/29/2024 1 MEDICARE B-[place]: [employer] Elba Martinez [id number] Elba Martinez Notes Date Note Type Note [...] seeing specialist Jun 2024. NICO MCKEON MD [address] [place] [address], [address], [facility] 03/01/2024 07:53:18 OBGyn Episode No OBEpisode recorded.
--- OUTSIDE RECORDS SUMMARY | 2024-08-20 14:31 | XMS_ITS | Clinical Summary ---
Author Organization [facility] Address [address] [place] [address] Phone Care Team Providers Care Cartridge Assembler Name Role Phone Deirdre Boudreaux MD Primary Care Provider [phone] Surgical History Surgery Date Site/Laterality Comments COLONOSCOPY 11/14/2000 PROCEDURE: LA COLONOSCOPY FLX DX W/COLLJ SPEC WHEN PFRMD; COMMENT: negative examination, Dr. Andrew Acosta. Performed for the evaluation of rectal bleeding. COLONOSCOPY 02/07/2008 PROCEDURE: LA COLONOSCOPY FLX DX W/COLLJ SPEC WHEN PFRMD; COMMENT: negative examination. Scant hematochezia, positive family history. OTHER SURGICAL HISTORY 09/09/2008 PROCEDURE: LA RPR UMBILICAL HRNA 5 YRS/> REDUCIBLE; COMMENT: [facility], part of the exploratory laparoscopy OTHER SURGICAL HISTORY 09/09/2008 PROCEDURE: LA LAPAROSCOPIC APPENDECTOMY; COMMENT: [facility], part of the exploratory laparoscopy ESOPHAGOGASTRODUODENOSCOPY 04/30/2008 PROCEDURE: LA ESOPHAGOGASTRODUODENOSCOPY TRANSORAL DIAGNOSTIC; COMMENT: normal examination, Dr. Humberto Mitchell Medical History Medical History Date Comments Cerebral palsy 12/19/2008 DX:Cerebral pals y (HCC) Urinary incontinence 12/19/2008 DX:Urinary incontinence Family [...] Additional history exists Influenza Vaccine (#1) 2024 4, 03/17/2022, 08/17/2021, Additional history exists Breast Cancer [...] year. Mammo Location: [facility], [address] [place] [address], [place], . -------- FINAL REPORT -------- Dictated By: Saima Melissa Dictated Date: 04/24/2024 16:15 ET Assigned Physician: Saima Melissa Reviewed and Electronically Signed By: Saima Melissa Signed Date: 04/24/2024 16:18 ET Workstation ID: [id number] Transcribed By: Self Edit Transcribed Date: 04/24/2024 [...] year. Mammo Location: [facility], [address] [place] [address], [address], . -------- FINAL REPORT -------- Dictated By: Saima Melissa Dictated Date: 04/24/2024 16:15 ET Assigned Physician: Saima Melissa Reviewed and Electronically Signed By: Saima Melissa Signed Date: 04/24/2024 16:18 ET Workstation ID: [id number] Transcribed By: Self Edit Transcribed Date: 04/24/2024 16:15 ET us Deirdre Boudreaux MD IMG BI PROCEDURES Final Result from Last 3 Months or Most Recently Relevant to Health Maintenance Insurance [place] Care Teams Cartridge Assembler Relationship Specialty Start Date End Date Deirdre Boudreaux MD PCP - General 10/21/08
--- OUTSIDE RECORDS SUMMARY | 2024-08-20 14:32 | XMS_ITS | Data Portability ---
Author Organization MARK Julien s, [address] Address [address] [place] [address] Care Team Providers Care Corn Shredder Name Role Phone OSMINHAYCaliRAMÓN Primary Care Provider Assessment No assessment recorded. Plan of Treatment Reminders Order Date Submit Date Provider Last Modified By Organization Details Last Modified Time Details Appointments None recorded. Lab None recorded. Referral None recorded. Procedures None recorded. Surgeries None recorded. Imaging None recorded. Medication Orders Diflucan 150 mg tablet 2022 023 [facility], [address] [place], [address], 3 18:18:50 ciprofloxac in 0.2 % ear drops in a dropperette 2022 023 [email or web address] [facility] [address] [place], [address], 3 13:24:37 cefdinir 300 mg capsule 2022 023 [facility], [address] [place], [address], 3 18:18:51 Patient TargetsNo targets recorded. Patient Instructions Encounter Date Encounter Id Patient Instructions Last Modified By Organization Details Last Modified Time 06/11/2022 [id number] earache: care instructions [email or web address] Not available 06/11/2022 18:18:47 ear infection (otitis media): care instructions [email or web address] Not available 06/11/2022 18:18:47 You have been [...] in the Eustachian Tube. 4. Saline Nasal [place] 5. Salt Water Gargle 6. Staying Hydrated [...] to antibiotic resistance. Thank you for using [facility] today - and don't hesitate to contact our office if you have any concerns or questions. [email or web address] Not available 06/11/2022 18:18:46 Reason for Referral None Reported. Problems Name Problem SNOMED Code Status Onset Date Resolution Date Notes Provider Name and Address Organization Details Recorded Time Urinary incontinence 314078807 Active 2022 MARK Medeiros [facility] 17:22:54 [...] Name and Address Organization Details Recorded Time 714997 grass pollen environme nt,medica tion Not available Not available Not available 06/11/2022 76713 UNK Constance hilton PA Loc [facility] 3 17:12:26 704927 atenolol medicatio n Not available Not available Not available 06/11/2022 1202 RxNorm Constance Eldridge MARK hilton [facility] 3 17:12:50 944442 Bactrim medicatio n rash Not available Not available 06/11/2022 64597 9 RxNorm Constance Eldridge MARK hilton [facility] [...] Updated DateTime 3 154.94 cm 41.2 kg/m2 26500.1 4 g 96.8 [degF] 6 99 % [...] SNOMED-CT Code Diagnosis ICD10 Code Diagnosis Note [id number] [address] [place] [address] 02/01/2022 12:52:42 02/01/2022 14:38:05 [id number] MARK ORTEGA [address] [facility] [address] [place] [address] 06/11/2022 16:40:01 06/11/2022 18:21:41 Acute bilateral otitis media 246093625 H66.93 Candidiasis of vagina 72 522873 B37.31 Health Concerns Section Related Observation LastModified by Organization Detai ls LastModified Time None Recorded Concern Status LastModified by Organization Details LastModified Time None Recorded Advance Directives Directive None Recorded Payers Encounter Date Sequence Insurance Name Policy Number Policy Clark Covered Member ID Clark Member ID Guarantor Name 02/01/2022 1 [place] B-[place]: [employer] Elba Martinez [id number] Elba Martinez 02/01/2022 2 [place] [facility] Elba Martinez [id number] Elba Martinez 06/11/2022 1 [place] [employer] Elba Martinez [id number] Elba Martinez 06/11/2022 2 [place]: [facility] Elba Mratinez [id number] Elba Martinez Notes Date Note Type Note [...] pain. MARK ORTEGA [address] [place], [address], [place] - [facility] 06/12/2022 13:33:56 OBGyn Episode No OBEpisode recorded.
--- OUTSIDE RECORDS SUMMARY | 2024-08-20 14:32 | XMS_ITS | Data Portability ---
Author Organization [facility], [facility] Address [address] [place] [address] Care Team Providers Care Executive Producer Name Role Phone DEIRDRE GRANADOS Primary Care Provider [phone] Assessment No assessment recorded. Plan of Treatment [...] quantita tive, serum or plasma 2023 024 formerly [facility] (Centralized Electronic Ordering - All [...] Go To The Location Of Their Choice, [address] 08/12/202 4 16:06:49 Referral rheumato logist referral - right hand pain eval for high sed rate and high rectra 2023 024 [facility], [address] [place] [address], [address], 4 10:07:17 physical therapis t referral - Status post left gastroc and soleus recessio n, ankle arthrosc opy, debridem ent of talar osteocho ndral lesion; date of surgery 04/21/23 LLE recondit ioning , desensit ization 2023 024 Not available 4 08:35:27 Procedures None recorded . Surgeries None recorded . Imaging XR, ankle, 3 or more view - left foot /ankle 5v wb , recheck . room 103 2023 024 [facility], [address], [facility] [address], [place], [address], 4 16:19:53 XR, foot, 2 view 2023 024 [facility], [address], [address], [place], [address], 4 16:19:53 Medication Orders cycloben zaprine 5 mg tablet 2023 024 Jammin Java [id number], [address] [facility] [place], [address], 4 07:46:39 meloxica m 15 mg tablet 2023 024 [id number], [address] [place], [address], 4 16:19:53 Patient TargetsNo targets recorded. Patient InstructionsNo instructions recorded. Reason for Referral Physical Therapist Referral for Pain in left foot Status post left gastroc and soleus recession, ankle arthroscopy, debridement of talar osteochondral lesion; date of surgery 11/30/23LLE reconditioning , desensitization Referring Physician: Cherie Yañez, Orthopedic Surgery, Encounter Date: 11/11/2023 Cat Scan Tech Referral for Hand pain right hand pain eval for high sed rate and high rectra Referring Physician: Ewa Quiroz, Orthopedic Surgery, Encounter Date: 01/16/2024 Results Created Date Observation Date Name Description Value Unit Range Abnormal Flag Note LastModifiedBy Organization Detail LastModifiedTime 12/23/19 24 12/24/2023 CMP14 +GLU RFX GT 100 TO HB A1C glucose 93 mg/dL 70-99 normal Not Available [facility] ([facility]) [address] [place], [address], 01/02/2024 16:06:49 12/23/19 24 12/24/2023 CMP14 +GLU RFX GT 100 TO HB A1C BUN 18 mg/dL 6-24 normal Not Available [facility] ([facility]) [address] [place], [address], 01/02/2024 16:06:49 12/23/19 24 12/24/2023 CMP14 +GLU RFX GT 100 TO HB A1C creatinine 0.78 mg/dL 0.57-1 .00 normal Not Available [facility] ([facility]) [address] [place], [address], 01/02/2024 16:06:49 12/23/19 24 12/24/2023 CMP14 +GLU RFX GT 100 TO HB A1C BUN/creatini ne ratio 23 9-23 normal Not Available [facility] ([facility]) [address] [place], [address], 01/02/2024 16:06:49 12/23/19 24 12/24/2023 CMP14 +GLU RFX GT 100 TO HB A1C sodium 140 mmol/ L 134-14 4 normal Not Available [facility] ([facility]) [address] [place], [address], 01/02/2024 16:06:49 12/23/19 24 12/24/2023 CMP14 +GLU RFX GT 100 TO HB A1C potassium 4.5 mmol/ L 3.5-5. 2 normal Not Available [facility] ([facility]) [address] [place], [address], 01/02/2024 16:06:49 12/23/19 24 12/24/2023 CMP14 +GLU RFX GT 100 TO HB A1C chloride 101 mmol/ L 96-106 normal Not Available [facility] ([facility]) [address] [place], [address], 01/02/2024 16:06:49 12/23/19 24 12/24/2023 CMP14 +GLU RFX GT 100 TO HB A1C carbon dioxide, total 25 mmol/ L 20-29 normal Not Available [facility] ([facility]) [address] [place], [address], 01/02/2024 16:06:49 12/23/19 24 12/24/2023 CMP14 +GLU RFX GT 100 TO HB A1C calcium 9.6 mg/dL 8.7-10 .2 normal Not Available [facility] ([facility]) [address] [place], [address], 01/02/2024 16:06:49 12/23/19 24 12/24/2023 CMP14 +GLU RFX GT 100 TO HB A1C protein, total 7.5 g/dL 6.0-8. 5 normal Not Available [facility] ([facility]) [address] [place], [address], 01/02/2024 16:06:49 12/23/19 24 12/24/2023 CMP14 +GLU RFX GT 100 TO HB A1C albumin 4.3 g/dL 3.9-4. 9 normal Not Available [facility] ([facility]) [address] [place], [address], 01/02/2024 16:06:49 12/23/19 24 12/24/2023 CMP14 +GLU RFX GT 100 TO HB A1C globulin, total 3.2 g/dL 1.5-4. 5 Not Available [facility] ([facility]) [address] [place], [address], 01/02/2024 16:06:49 12/23/19 24 12/24/2023 CMP14 +GLU RFX GT 100 TO HB A1C bilirubin, total 0.3 mg/dL 0.0-1. 2 normal Not Available [facility] ([facility]) [address] [place], [address], 01/02/2024 16:06:49 12/23/19 24 12/24/2023 CMP14 +GLU RFX GT 100 TO HB A1C alkaline phosphatase 76 IU/L 44-121 normal Not Available [facility] ([facility]) [address] [place], [address], 01/02/2024 16:06:49 12/23/19 24 12/24/2023 CMP14 +GLU RFX GT 100 TO HB A1C AST (SGOT) 22 IU/L 0-40 normal Not Available [facility] ([facility]) [address] [place], [address], 01/02/2024 16:06:49 12/23/19 24 12/24/2023 CMP14 +GLU RFX GT 100 TO HB A1C ALT (SGPT) 13 IU/L 0-32 normal Not Available [facility] ([facility]) [address] [place], [address], 01/02/2024 16:06:49 12/23/19 24 12/24/2023 HEMOG LOBIN A1C hemoglobin A1C 5.9 % 4.8-5. 6 above high normal Predi abete s: 5.7 - 6.4 Diabe daphney: >6.4 Glyce yanira contr ol for adult s with diabe daphney: <7.0 Not Available [facility] ([facility]) [address] [facility] [place], [address], 01/02/2024 16:06:50 12/23/19 24 12/24/2023 SEDIM ENTAT ION RATE- WESTE RGREN sedimentatio n rate-desean rodrigo 55 mm/HR 0-32 above high normal Not Available [facility] ([facility]) [address] [facility], [place], [address], 01/02/2024 16:06:51 12/23/19 24 12/23/2023 VECTR A(R) biomarker comment: Commen t These repor hao usman te value s and refer ence range s are inten ded for use in the gener ation of the Vectr a score only. These resul ts shoul d not be used inter moore eably with resul ts gener ated by keli mendezs. Not Available [facility] [address] [place], [address], 01/02/2024 16:06:51 12/23/19 24 01/02/2024 VECTR A(R) [...] . Not Available [facility] [address] [place], [address], 01/02/2024 16:06:51 12/23/19 24 01/02/2024 VECTR A(R) risk of radiographic progress 10 % 1-Yea r Risk of Radio graph ic Progr essio n Not Available [facility] [address] [place], [address], 01/02/2024 16:06:51 08/02/01/02/2024 VECTR A(R) vectra(R) level Commen t High Vectr a Disea se Activ ity Level s: High: 45 to 100 Moder ate: 30 to 44 Low: 1 to 29 Not Available [facility] [address] [facility], [place], [address], 01/02/2024 16:06:51 12/23/19 24 01/02/2024 VECTR A(R) [...] 02-10 Not Available [facility] [address] [place], [address], 01/02/2024 16:06:51 12/23/19 24 01/02/2024 VECTR A(R) master result 8.5 ug/mL RA Range : (0.29 -85) RA Perce ntile : 82% Not Available [facility] [address] [place], [address], 01/02/2024 16:06:51 12/23/19 24 01/02/2024 VECTR A(R) CRP result 5.8 mg/L RA Range : (0.19 -92) RA Perce ntile : 58% Not Available [facility] [address] [place], [address], 01/02/2024 16:06:51 12/23/19 24 01/02/2024 VECTR A(R) vcam-1 result 0.46 ug/mL RA Range : (0.39 -1.2) RA Perce ntile : 9% Not Available [facility] [address] [place], [address], 01/02/2024 16:06:51 12/23/19 24 01/02/2024 VECTR A(R) il-6 result 15 pg/mL RA Range : (2.5- 200) RA Perce ntile : 61% Not Available [facility] [address] [place], [address], 01/02/2024 16:06:51 12/23/19 24 01/02/2024 VECTR A(R) tnf-ri result 1.7 NG/mL RA Range : (0.8- 3.9) RA Perce ntile : 64% Not Available [facility] [address] [place], [address], 01/02/2024 16:06:51 12/23/19 24 01/02/2024 VECTR A(R) egf result 180 pg/mL RA Range : (12-4 10) RA Perce ntile : 77% Not Available [facility] [address] [place] [address], [address], 01/02/2024 16:06:51 12/23/19 24 01/02/2024 VECTR A(R) vegf-A result 430 pg/mL RA Range : (75-7 90) RA Perce ntile : 83% Not Available [facility] [address] [place], [address], 01/02/2024 16:06:51 12/23/19 24 01/02/2024 VECTR A(R) leptin result 5.8 NG/mL RA Range : (1.5- 120) RA Perce ntile : 15% Not Available [facility] [address] [place] [address], [address], 01/02/2024 16:06:51 12/23/19 24 01/02/2024 VECTR A(R) resistin result 4.2 NG/mL RA Range : (3.5- 21) RA Perce ntile : 6% Not Available [facility] [address] [place] [address], [address], 01/02/2024 16:06:51 12/23/19 24 01/02/2024 VECTR A(R) mmp-1 result 18 NG/mL RA Range : (1.3- 23) RA Perce ntile : 94% Not Available [facility] [address] [place], [address], 01/02/2024 16:06:51 12/23/19 24 01/02/2024 VECTR A(R) mmp3 result 19 NG/mL RA Range : (7.9- 160) RA Perce ntile : 39% Not Available [facility] [address] [place], [address], 01/02/2024 16:06:51 12/23/19 24 01/02/2024 VECTR A(R) ykl-40 result 44 NG/mL RA Range : (22-5 40) RA Perce ntile : 22% Not Available [facility] [address] [place], [address], 01/02/2024 16:06:51 12/23/19 24 01/02/2024 VECTR A(R) footnote/his tory Commen t RA Range : These 95% refer ence range s were estab lishe d from 325,7 81 patie nt sampl es teste d at [facility] . RA Perce ntile : Subje ct's bioma rker level relat anne to level s in RA patie nt speci mens from which the RA range s were deter mined Compl ete Vectr a Score Histo ry: Colle ction Date: 12/22 Score : 54 Not Available [facility] [address] [place] [address], [address], 01/02/2024 16:06:51 12/23/19 24 01/02/2024 VECTR A(R) [...] not been estab lishe d. Not Available [facility] [address] [facility], [place], [address], 01/02/2024 16:06:51 11/11/19 24 11/11/2023 XR, foot, 2 view [email or web address]:/ [email or web address] ?Encry pted=s hAaTro YD8dLq bEUv6g %2BXZw aYqtaq 0bqfl% 2Fg9IQ a4ajBk vP9nXo QUaueC m3YtLR FvZl JJ8Cat [place] HZtai3 3g4878 AC0KuY nmFU6P eUC8mr 84%3D INTERFACE [facility] [address], [place], [address], 11/11/2023 13:38:14 11/11/19 24 11/11/2023 XR, foot, 2 view [email or web address]:/ [email or web address] ?Encry pted=s hAaTro YD8dLq bEUv6g %2BXZw aYqtaq 0bqfl% 2Fg9IQ a4ajBk vP9nXo QUaueC m3YtLR FvZl JJ8mAn HZtai3 7w9037 AC0KuY nmFU6P eUC8mr 84%3D INTERFACE [facility] [address], [place], [address], 11/11/2023 13:38:16 11/11/19 24 11/11/2023 XR, ankle , 3 or more view [email or web address]:/ [email or web address] ?Encry pted=s hAaTro YD8dLq bEUv6g %2BXZw aYqtaq 0bqfl% 2Fg9IQ a4ajBk vP9nXo QUaueC m3YtLR FvZlgJ JJ8mAn HZtai3 5u2438 AC0KuY nmFUKT eUC8mr 84%3D INTERFACE [facility] [address], [place], [address], 11/11/2023 13:39:44 11/11/19 24 11/11/2023 XR, ankle , 3 or more view http:/ [email or web address] ?Encry pted=s hAaTro YD8dLq bEUv6g %2BXZw aYqtaq 0bqfl% 2Fg9IQ a4ajBk vP9nXo QUaueC m3YtLR FvZlgJ JJ8mAn HZtai3 6f2310 AC0KuY nmFUKT eUC8mr 84%3D INTERFACE [facility] [address], [place], [address], 11/11/2023 13:39:45 12/02/19 24 12/02/2023 nerve condu ction study /EMG, upper extre mity (PROC ) No observ ation record ed. [facility] Scheduling Dept [address] [facility] [address], [place], [address], 12/05/2023 09:46:30 01/21/20 24 11/17/2022 imagi ng/di [...] Address Organization Details Recorded Time No complaints 949030862 Active Status: 'I'; Not Available [facility] 4 09:21:24 Synovitis and tenosynovit is of joint of hand Active 2019 Problem Code: M65.841; Problem Code Type: ICD-10; Status: 'A'; Not Available [facility] 4 11:43:44 Problem Notes None recorded. Procedures Surgical History None recorded. Imaging Results Imaging Date Name Status LastModified by Organiz ation Details LastModified Time 11/11/2023 XR, foot, 2 view completed INTERFACE [facility] [address], [place], [address], 11/11/2023 13:38:14 11/11/2023 XR, foot, 2 view completed INTERFACE [facility] [address], [place], [address], 11/11/2023 13:38:16 11/11/2023 XR, ankle, 3 or more view completed INTERFACE [facility] [address], [place], [address], 11/11/2023 13:39:44 11/11/2023 XR, ankle, 3 or more view completed INTERFACE [facility] [address], [place], [address], 11/11/2023 13:39:45 12/02/2023 nerve conduction study/EMG, upper extremity (PROC) completed [facility] Scheduling Dept [address] [facility] [address], [place], [address], 12/05/2023 09:46:30 11/17/2022 imaging/diagnos tic result completed Information not available 01/21/2024 04:03:48 03/04/2023 imaging/diagnos tic result completed Information not available 01/21/2024 04:04:04 Procedure Notes None recorded. Medical Equipment None Reported. Allergies Allergen ID Allergen Name Allergen Category Reaction Reaction Severity Criticality Documentation Date Start Date Code Code System Note Provider Name and Address Organization Details Recorded Time 71250 Tenormin medicatio n Not available Not available Not available 07/25/20232011 45982 3 RxNorm Aller gyRea ction : 'UNKN OWN'; Not Available [facility] 13:52:25 46335 Bactrim medicatio n Not available Not available Not available 07/25/20232013 77979 9 RxNorm Not Available [facility] 13:52:26 Medications Name Sig Start [...] Updated DateTime 11/11/2023 154.94 cm 43.5 kg/m2 509308.25 g Elyse Menchaca [facility] 11/11/2023 13:06:08 Date Recorded Body height Body mass index (BMI) Body weight Provider Name and Address Organization Details Last Updated DateTime 12/21/2023 154.94 cm 43.5 kg/m2 530326.25 g Kathleen Sevilla [facility] 12/21/2023 13:09:14 Date Recorded Body height Body mass index (BMI) Body weight Provider Name and Address Organization Details Last Updated DateTime 01/16/2024 154.94 cm 43.5 kg/m2 288606.25 g Kathleen Sevilla [facility] 01/16/2024 15:14:55 Date Recorded Body height Body mass index (BMI) Body weight Provider Name and Address Organization Details Last Updated DateTime 02/06/2024 154.94 cm 43.5 kg/m2 074825.25 g Elyse Menchaca [facility] 02/06/2024 13:26:02 Date Recorded Body height Body mass index (BMI) Body weight Provider Name and Address Organization Details Last Updated DateTime 03/14/2024 154.94 cm 43.5 kg/m2 690889.25 g Kathleen Fernandesgo [facility] 03/14/2024 14:30:02 [...] SNOMED-CT Code Diagnosis ICD10 Code Diagnosis Note [id number] SANDRA Caballero [address] [place] [address] 09/07/2023 13:00:36 09/27/2023 15:00:05 Lateral epicondylitis of right humerus 4367987824 52000 M77.11 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 4642452095 79723 G56.01 [id number] MD David Ng [address] [place] [address] 09/12/2023 13:02:31 09/30/2023 11:31:13 Pain in left foot 4515021634 65906 M79.672 Osteochond ritis dissecans of left ankle 9303685252 92115 M93.147 [id number] MD David Ng [address] [place] [address] 11/11/2023 12:54:59 12/08/2023 12:06:22 Pain of left ankle joint 7197827317 1187824 M25.572 Foot pain 16404218 M79.6 73 Pain in left foot 059607 9674 85551 M79.672 Osteochond ritis dissecans of left ankle 3455573776 68586 M93.648 [id number] Ewa Casartello , PA-C [facility] [address] [place] [address] 12/21/2023 12:42:33 01/19/2024 11:06:09 Pain in right hand 9123865190 95917 M79.011 [id number] Ewa Quiroz PA-C [facility] [address] [place] [address] 01/16/2024 14:43:15 02/08/2024 10:07:17 Hand pain 03830529 M79.633 [id number] Cherie Yañez MD [facility] [address] [place] [address] 02/06/2024 13:13:28 02/27/2024 12:40:24 Pain of left ankle joint 5428162828 0077729 M25.572 Osteochond ritis dissecans 64192443 M93.279 Osteochond ritis dissecans of left ankle 6493567376 06092 M93.272 Peroneal t endinitis of left lower limb 9951479331 26651 M76.72 [id number] Ewa Quiroz PA-C [facility] [address] [place] [address] 03/14/2024 14:16:14 04/03/2024 11:04:14 Pain of right wrist 7413842227 79163 M25.531 Health Concerns Section Related Observation LastModified by Organization Detai ls LastModified Time None Recorded Concern Status LastModified by Organization Details LastModified Time None Recorded Advance Directives Directive None Recorded Payers Encounter Date Sequence Insurance Name Policy Number Policy Clark Covered Member ID Clark Member ID Guarantor Name 11/11/2023 1 [place] [employer] Elba L Juan [id number] Elba L Price 11/11/2023 2 [place] [facility] Elba L Juan [id number] Elba L Price 12/21/2023 1 [place] [employer] Elba L Price [id number] Elba L Juan 12/21/2023 2 [place] [facility] Elba L Price [id number] Elba Martinez 01/16/2024 1 [place] [employer] Elba Martinez [id number] Elba Zacarias Price 01/16/2024 2 [place] [facility] Elba Jonesier [id number] Elba Jonesier 02/06/2024 1 [place] [employer] Elba Jonesier [id number] Elba Zacarias Price 02/06/2024 2 [place] [facility] Elba Jonesier [id number] Elba Jonesier 03/14/2024 1 [place] [employer] Elba Jonesier [id number] Elba Jonesier 03/14/2024 2 [place] [facility] Elba Martinez [id number] Elba Martinez Notes Date Note Type Note [...] X-rays ordered, obtained and reviewed at [facility]: AP, lateral, oblique weightbearing imaging of the [...] weeks for repeat evaluation Cherie Yañez MD [address] [place] [address] [address], [place], [address], [facility] 11/20/2023 15:27:46 12/21/19 24 text/htm l I [...] digits.X-rays ordered, obtained and reviewed at [facility]: None performed today..EMG was negative for any [...] concerns were answered and addressed. Speech recognition tooth clerk software was used to create portions of this document. An attempt at proofreading has been made to minimize errors. Please call for corrections. Ewa Quiroz PA-C [address] [facility] [address], [place], [address], [facility] 12/21/2023 20:38:29 01/16/20 24 [...] digits.X-rays ordered, obtained and reviewed at [facility]: None performed today..EMG was negative for any [...] her PCP Dr. Deirdre Granados MD with [facility]. All questions and concerns were answered and addressed. Speech recognition tooth clerk software was used to create portions of this document. An attempt at proofreading has been made to minimize errors. Please call for corrections. Please CC Dr.Joanna Kanika MD with [facility] Ewa Quiroz PA-C [address] [place] [address] [address], [place], [address], [facility] 01/17/2024 12:36:38 02/06/20 24 [...] reports she is having her evaluated by verifying specialist, for possible psychiatric component to her [...] X-rays ordered, obtained and reviewed at [facility] (previous imaging): AP, lateral, oblique weightbearing imaging [...] months for repeat evaluation. Cherie Yañez MD [address] [place] [address] [address], [place], [address], [facility] 02/06/2024 19:45:20 03/14/20 24 [...] digits.X-rays ordered, obtained and reviewed at [facility]: None performed today..EMG was negative for any [...] and concerns answered and addressed.. Speech recognition tooth clerk software was used to create portions of this document. An attempt at proofreading has been made to minimize errors. Please call for corrections. Please CC Dr.Joanna Kanika MD with [facility] Ewa Quiroz PA-C [address] [facility] [address], [place], [address], [facility] 03/20/2024 14:18:24 OBGyn Episode No OBEpisode recorded.
== END ==
LOC: HO.CARD 12:56
PROVIDERS: PCP Internal Medicine; Visit Provider Internal Medicine
DX: R06.09 Other forms of dyspnea (principal)
CPT/HCPCS: 93306

== ENCOUNTER → 2024-08-20 12:59 | Outpatient (BNV) | payer MEDICARE, MEDICAID, SELFPAY | PROVIDERS: PCP Internal Medicine; Visit Provider Internal Medicine | DX: I34.0 Nonrheumatic mitral (valve) insufficiency (principal) | CPT/HCPCS: 93306 ==

== ENCOUNTER 2024-09-26 13:46 | Outpatient (AMB) | payer MEDICARE, MEDICAID, SELFPAY ==
--- NOTE | 2024-09-26 13:47 | A.OFFVIS_ITS ---
VS Expanded 09/26/24 13:48 Height 5 ft 1 in Weight 219 lb 12.8 oz BMI 41.5 Intake Visit Reasons: Obesity Allergies atenolol Allergy (Unknown, Verified 08/03/24 13:02) bad dreams tramadol [Ultracet] Allergy (Unknown, Verified 08/03/24 13:02) Pt's mother doesn't remember Nutrition Presentation Details: Pt presents for MNT f/u for obesity Pt s mom reports reading food labels and choosing lower carb food choices Mom reports wt at home is 214 lbs (with light clothes in the morning and no gadgets ) Pt carries with a lot of things attached to the pants pants and undershirt with difficulties removing them. challenges when having family gatherings but managing by having smaller plat es Participates in physical activity at [facility] and walking at the mall once a week Mom reports better routine with physical activity and family members helping with encouragement , particularly with small plates Pt has upper and lower teeth retainers not taking MVI BS Monitoring Most Recent Diabetes Results: No Data to Display [facility] Medical History (Updated 08/03/24 @ 13:35 by Deirdre Boudreaux MD) Constipation Normal colonoscopy Hyperlipidemia Annual physical exam Urinary incontinence Anxiety Insomnia Chronic iron deficiency anemia Mentally challenged Wrist pain, right Surgical History H/O colonoscopy Family History Mother No problems noted. Maternal Grandmother Mental health disorder Social History Housing: House Alcohol intake: never Patient Tobacco Use Status: Never used Tobacco e-Cigarette/Vaping Use: Never Used Second Hand Smoke Exposure: No service: No Current occupational status: other Cognitive needs: No Hearing needs: No Vision needs: Yes Assessment & Plan Assessment & Plan (1) Overweight: Code(s): E66.3 - Overweight Category: Medical Plan: Wt: 104 Kg ( 04/2023 ) ,101 kg (04/15), 107 kg (07/17), 100kg (10/14) Est kcal needs as per MSJ: 1900 (40% carb, 30% protein/fat) Est fluid needs as per 25-30 ml/d: 3100 Est prot per day as per 1 g/kg bw: 102 Recommend fiber intake : 8-10 g per day and gradually increase to 25-28 g per day for women and 35-38 g for men or as tolerated Recommend sodium intake per day : less than 2000 mg Educated patient on: ( R = reviewed V = verbalizes understanding N/R = needs review N/A = not applicable * Food sources of carbohydrate, adequate serving sizes and its role in various health conditions: R * Differences between complex carbohydrates a simple carbohydrates, role of fiber in diet: R * Lean protein sources of foods: NR * Differences between types of fats and role in diet (mono on saturated fat fatty acids, saturated fatty acids, trans fats): NR * Food sources of sodium in salt and healthy modifications for heart health in kidney health: R * Vitamins and minerals: R * Healthy plate method concept: R * Physical activity: Benefits a precaution: R Patient Instructions: Take a daily multivitamin Continue working on choosing no added sugar foods, less fried foods Incorporate protein in each meal (legumes, milk, eggs, nuts, oats, quinoa, poultry, fish ) Coding Level of Care Code Nutr Indiv Subseq (89801) Diagnoses Overweight E66.3 Time Spent (min) 20
[2024-09-26 13:48] VITALS: BMI 41.5
--- OUTSIDE RECORDS SUMMARY | 2024-09-26 15:03 | XMS_ITS | Clinical Summary ---
Author Organization [facility] Address [address] [place] [address] Phone Care Team Providers Care Detective Investigator Name Role Phone Deirdre Boudreaux MD Primary Care Provider [phone] Surgical History Surgery Date Site/Laterality Comments COLONOSCOPY 11/14/2000 PROCEDURE: NM COLONOSCOPY FLX DX W/COLLJ SPEC WHEN PFRMD; COMMENT: negative examination, Dr. Andrew Acosta. Performed for the evaluation of rectal bleeding. COLONOSCOPY 02/07/2008 PROCEDURE: NM COLONOSCOPY FLX DX W/COLLJ SPEC WHEN PFRMD; COMMENT: negative examination. Scant hematochezia, positive family history. OTHER SURGICAL HISTORY 09/09/2008 PROCEDURE: NM RPR UMBILICAL HRNA 5 YRS/> REDUCIBLE; COMMENT: [facility], part of the exploratory laparoscopy OTHER SURGICAL HISTORY 09/09/2008 PROCEDURE: NM LAPAROSCOPIC APPENDECTOMY; COMMENT: [facility], part of the exploratory laparoscopy ESOPHAGOGASTRODUODENOSCOPY 04/30/2008 PROCEDURE: NM ESOPHAGOGASTRODUODENOSCOPY TRANSORAL DIAGNOSTIC; COMMENT: normal examination, Dr. Humberto Mitchell Medical History Medical History Date Comments Cerebral palsy (CMS/HCC V24, CMS/HCC V28) 12/19/2008 DX:Cerebral palsy (HCC) Urinary incontinence 12/19/2008 DX:Urinary incontinence [...] 06/15/2021, 11/14/2020, Additional history exists Influenza Vaccine (Season Ended) 2025 06/22/2023, 03/17/2022, 08/17/2021, Additional history exists Breast Cancer [...] age to complete this topic Meningococcal B Vaccine Aged Out No l onger eligible based on patient's age to complete [...] year. Mammo Location: [facility], [address] [place] [address], [facility], . -------- FINAL REPORT -------- Dictated By: Saima Melissa Dictated Date: 04/24/2024 16:15 ET Assigned Physician: Saima Melissa Reviewed and Electronically Signed By: Saima Melissa Signed Date: 04/24/2024 16:18 ET Workstation ID: [id number] Transcribed By: Self Edit Transcribed Date: 04/24/2024 [...] year. Mammo Location: [facility], [address] [place] [address], [address], . -------- FINAL REPORT -------- Dictated By: Saima Melissa Dictated Date: 04/24/2024 16:15 ET Assigned Physician: Saima Melissa Reviewed and Electronically Signed By: Saima Melissa Signed Date: 04/24/2024 16:18 ET Workstation ID: [id number] Transcribed By: Self Edit Transcribed Date: 04/24/2024 16:15 ET us Deirdre Boudreaux MD IMG BI PROCEDURES Final Result from Last 3 Months or Most Recently Relevant to Health Maintenance Insurance [place] Care Teams Detective Investigator Relationship Specialty Start Date End Date Deirdre Boudreaux MD PCP - General 10/21/08
--- OUTSIDE RECORDS SUMMARY | 2024-09-26 15:03 | XMS_ITS | Patient Health Record ---
Author Organization [facility] Address [address] [place] [address] Care Team Providers Care Rubber Compounder Name Role Phone Deirdre Boudreaux MD Primary Care Provider Hansel Floyd Unavailable [phone] Allergies Allergen (clinical drug ingredient) Drug/Non Drug [...] Problem Status W/U Status Risk Notes Problem 137962380 Family history of colon cancer (Z80.0) Active confirmed Problem 67128243 Rectal bleed (K62.5) Active confirmed Plan Of Treatment No Information Insurance Providers Payer Name Payer Address Payer Phone Subscriber Number Group Number Insured Name Patient Relationship to Insured Coverage Start Date Coverage End Date MEDICARE OF [place] [address] [id number] DANNY MARTINEZ Self - patient is the insured MEDICAID OF [employer] [address] [place] [phone] [id number] DANNY MARTINEZ Self - patient is the insured Medical (General) History Medical History History ICD Code Urinary incontinence Hay fever IBS Cerebral palsy with some cognitive and d evelopmental disabilities Denies [place],DM,CVA,Lung disease,renal dise ase Describes a negative colonos copy over [address] Mitchell. She has also seen Dr. Rain for evaluation of abdominal pain in the distant past as well Surgical History Surgery Date(Month/Year) Removed appendix via NOTES via vagina Fatty tissue in the groin area . Shoulder-right
--- OUTSIDE RECORDS SUMMARY | 2024-09-26 15:03 | XMS_ITS | Data Portability ---
Author Organization [place] - [facility], Allergy Address [address] [address] Assessment Encounter Date Assessment Date Assessment LastModified by Organization Details LastModified Time 02/29/2024 02/29/2024 48-year-old female with developmental delay, seasonal allergies and cerebral palsy presents with mother for evaluation of sinusitis. CT scan at [facility] on 09/05/23 demonstrated opacification of left frontal and left ethmoid sinuses. On exam nasal mucosa is pink and moist without rhinorrhea. Recommend trial of Flonase 2 sprays daily for one month and Doxycycline twice daily for 20 days. Will get a repeat sinus CT at [facility] in March after antibiotic regimen. [...] CT, maxillofaci al, w/o contrast 2023 024 [facility] [place], [address] [facility], [facility] [address], [place], [address], 4 08:51:03 Medication Orders doxycycline hyclate 100 mg tablet 2023 024 [id number], [address] [facility], [place], [place], [id number], 4 07:53:23 fluticasone propionate 50 mcg/actuati on nasal spray,suspe nsion 2023 024 [id number], [address] [facility], [place], [place], [id number], 07:53:25 Patient TargetsNo targets recorded. Patient InstructionsNo instructions recorded. Reason for Referral None Reported. Results Created Date Observation Date Name Description Value Unit Range Abnormal Flag Note LastModifiedBy Organization Detail LastModifiedTime 04/27/20 24 04/26/2024 CT, maxil lofac ial, w/o contr ast No observ ation record ed. [facility] [place] [address] [address], [place], [address], 04/27/2024 21:05:26 Result Notes None recorded. Problems Name Problem SNOMED Code Status Onset Date Resolution Date Notes Provider Name and Address Organization Details Recorded Time Chronic rhinitis 50988224 Active 2017 Purulent rhinitis (chronic) ; Note: Date Diagnosed : 01/27/2018 1:13 PM (J31.0) Not Available [facility] 4 02:41:31 Posterio r rhinorrh ea 41637619 Completed 201512/23/2023 Postnasal drip; Note: Date Diagnosed : 01/22/2016 10:09 AM (R09.82) Not Available [facility] 4 02:41:28 Nasal congesti on 46012462 Completed 201512/23/2023 Nasal congestio n; Note: Date Diagnosed : 01/22/2016 10:05 AM (R09.81) Not Available [facility] 4 02:41:29 Chronic sinusiti s 12818233 Active 2023 KAYE CARMONA PA-C [address] [place] [address], [place], [address] , [facility] - [facility] 4 14:57:08 Problem Notes None recorded. Procedures Surgical History None recorded. Imaging Results Imaging Date Name Status LastModified by Organiz ation Details LastModified Time 04/26/2024 CT, maxillofacial , w/o contrast completed [facility] [place] [facility] [place] [address] [facility] [address], [place], [address], 04/27/2024 21:05:26 Procedure Notes None recorded. Medical Equipment None Reported. Allergies Allergen ID Allergen Name Allergen Category Reaction Reaction Severity Criticality Documentation Date Start Date Code Code System Note Provider Name and Address Organization Details Recorded Time 47797 Bactrim medicatio n other Not available Not available 10/04/2023 55695 9 RxNorm React ion: unkno wn, unspe cifie d;; Not Available [facility] 4 00:58:54 76626 atenolol medicatio n other Not available Not available 10/04/2023 1202 RxNorm React ion: unkno wn, unspe cifie d;; Not Available [facility] 4 00:58:58 Medications Name Sig Start Date [...] 24 hr 2017 active Medicatio n ID: [id number] Du ration Value: 90 Brand Name: oxybutyni [...] mg tablet 2015 active Medicatio n ID: [id number] Du ration Value: 30 Brand Name: diazepam Send Method: E-Prescri bed Subs Allowed: subs OK Specia l Instructi on: TAKE 1 TABLET BY MOUTH TWICE DAILY Med icationGe nericName : diazepam Not Available Not Available Not Available Nasonex 50 mcg/actuat ion Sawyer Sawyer 2 spray into both nostrils once a day 2017 active Medicatio n ID: [id number] Du ration Value: 30 Prescrib ed By [...] mg tablet 2017 active Medicatio n ID: [id number] Du ration Value: 90 Brand Name: naproxen [...] mg tablet 2017 active Medicatio n ID: [id number] Du ration Value: 30 Brand Name: escitalop [...] aerosol inhaler 2015 active Medicatio n ID: [id number] Du ration Value: 30 Brand Name: ProAir [...] ended release 2015 active Medicatio n ID: [id number] Du ration Value: 30 Brand Name: Myrbetriq [...] SNOMED-CT Code Diagnosis ICD10 Code Diagnosis Note 23078 NICO FERRO MD [facility] [address] [address] 02/29/2024 14:04:19 02/29/2024 15:00:38 Chronic sinusitis 62357424 J32.8 Health Concerns Section Related Observation LastModified by Organization Detai ls LastModified Time None Recorded Concern Status LastModified by Organization Details LastModified Time None Recorded Advance Directives Directive None Recorded Payers Insurance Date Sequence Insurance Name Policy Number Policy Clark Covered Member ID Clark Member ID Guarantor Name 02/26/2024 2 [place] [facility] Martinez [id number] Elba Martinez 02/26/2024 1 [place] B[place] [employer] Elba Martinez [id number] Elba Martinez Notes Date Note Type Note [...] specialist Jun 2024. NICO MCKEON MD [address] [place] [address], [address], [facility] - [facility] 03/01/2024 07:53:18 OBGyn Episode No OBEpisode recorded.
--- OUTSIDE RECORDS SUMMARY | 2024-09-26 15:04 | XMS_ITS | Data Portability ---
Author Organization [facility], [address] Address [address] [place] [address] Care Team Providers Care Manager Information Name Role Phone OSMINHAYCaliRAMÓN Primary Care Provider Assessment No assessment recorded. Plan of Treatment Reminders Order Date Submit Date Provider Last Modified By Organization Details Last Modified Time Details Appointments None recorded. Lab None recorded. Referral None recorded. Procedures None recorded. Surgeries None recorded. Imaging None recorded. Medication Orders Diflucan 150 mg tablet 2022 023 [facility], [address] [place], [address], 3 18:18:50 ciprofloxac in 0.2 % ear drops in a dropperette [email or web address] [facility], [address] [place], [address], 3 13:24:37 cefdinir 300 mg capsule 2022 023 [facility], [address] [place], [address], 3 18:18:51 Patient TargetsNo targets recorded. Patient Instructions Encounter Date Encounter Id Patient Instructions Last Modified By Organization Details Last Modified Time 06/11/2022 [id number] earache: care instructions [email or web address] Not available 06/11/2022 18:18:47 ear infection (otitis media): care instructions [email or web address] Not available 06/11/2022 18:18:47 You have been [...] in the Eustachian Tube. 4. Saline Nasal [place] 5. Salt Water Gargle 6. Staying Hydrated [...] to antibiotic resistance. Thank you for using [facility] today - and don't hesitate to contact our office if you have any concerns or questions. [email or web address] Not available 06/11/2022 18:18:46 Reason for Referral None Reported. Problems Name Problem SNOMED Code Status Onset Date Resolution Date Notes Provider Name and Address Organization Details Recorded Time Urinary incontinence 077485669 Active 2022 MARK Medeiros [facility] 17:22:54 [...] Name and Address Organization Details Recorded Time 045198 grass pollen environme nt,medica tion Not available Not available Not available 06/11/2022 92754 UNK Constance hilton PA Loc [facility] 3 17:12:26 856428 atenolol medicatio n Not available Not available Not available 06/11/2022 1202 RxNorm Constance Eldridge MARK hilton [facility] 3 17:12:50 432756 Bactrim medicatio n rash Not available Not available 06/11/2022 85417 9 RxNorm Constance Eldridge MARK hilton [facility] [...] Updated DateTime 3 154.94 cm 41.2 kg/m2 80533.1 4 g 96.8 [degF] 6 99 % 99 % 18 /min 92 /min 131 mm[Hg] 89 mm[Hg] Constance Eldridge MAKR oMnterroso [facility] 3 17:21:13 Social History Question [...] SNOMED-CT Code Diagnosis ICD10 Code Diagnosis Note [id number] [address] [facility] [address] [place] [address] 02/01/2022 12:52:42 02/01/2022 14:38:05 [id number] MARK ORTEGA [address] [place] [address] 06/11/2022 16:40:01 06/11/2022 18:21:41 Acute bilateral otitis media 097665061 H66.93 Candidiasis of vagina 72 088645 B37.31 Health Concerns Section Related Observation LastModified by Organization Detai ls LastModified Time None Recorded Concern Status LastModified by Organization Details LastModified Time None Recorded Advance Directives Directive None Recorded Payers Insurance Date Sequence Insurance Name Policy Number Policy Clark Covered Member ID Clark Member ID Guarantor Name 06/11/2022 1 [place] [employer] Elba Martinez [id number] Elba Martinez 06/11/2022 2 [place] [facility] Elba Martinez [id number] Elba Martinez Notes Date Note Type Note [...] MARK ORTEGA [address] [place], [address], [place] - [facility] 06/12/2022 13:33:56 OBGyn Episode No OBEpisode recorded.
== END 2024-09-26 14:22 | disposition home or self-care (01) ==
LOC: HO.ENCR 13:46
PROVIDERS: PCP Internal Medicine; Visit Provider Dietitian, Registered
DX: E66.3 Overweight (principal)

== ENCOUNTER → 2024-09-26 13:46 | Outpatient (BNVA) | payer MEDICARE, MEDICAID, SELFPAY | PROVIDERS: PCP Internal Medicine; Visit Provider Dietitian, Registered | DX: E66.9 Obesity, unspecified (principal); Z71.3 Dietary counseling and surveillance; Z68.41 Body mass index [BMI] 40.0-44.9, adult | CPT/HCPCS: 97803 ==

== ENCOUNTER 2024-12-03 11:30 | Outpatient (REF) | payer MEDICARE, MEDICAID, SELFPAY ==
[2024-12-03 13:56] LABS: MANUAL DIFF FLAG NO
[2024-12-03 14:12] LABS: Hematocrit 38.4 % (37.0-47.0); Hemoglobin 12.2 g/dl (12.0-16.0); Imm Gran Abs Auto 0.01 X10*3/uL (0.00-0.03); Imm Gran Pct Auto 0.2 % (0.0-0.4); Lymphocytes Absolute Auto 2.0 X10*3/uL (1.2-4.9); Mean Corpuscular HGB Conc 31.8 g/dl (31.0-35.0); Mean Corpuscular Hemoglobin 29.3 pg (27.0-33.0); Mean Corpuscular Volume 92.3 fL (80.0-98.0); NRBC Abs Auto 0.000 X10*3/uL (0.0-0.012); NRBC Pct Auto 0.0 /100WBC (0.0-0.2); Platelet Count 327 X10*3/uL (160-400); Red Blood Count 4.16 X10*6/uL (4.20-5.50); White Blood Count 5.0 X10*3/uL (4.8-10.8)
[2024-12-03 14:25] LABS: Hemoglobin A1C 121.0605 umol/L; Total Hemoglobin (HGBA1C) 3280.4595 umol/L
[2024-12-03 14:45] LABS: Alanine Aminotransferase 12 U/L (0-31); Albumin Level 4.2 g/dL (3.5-5.0); Alkaline Phosphatase 54 U/L (39-117); Anion Gap 9 (12-20); Aspartate Amino Transferase 21 U/L (5-31); Blood Urea Nitrogen 10 mg/dL (9-16); Calcium 9.2 mg/dL (8.4-10.2); Carbon Dioxide 29 mmol/L (22-29); Chloride 106 mmol/L (96-108); Cholesterol 195 mg/dL (<200); Estimated Glomerular Filt Rate > 60; HDL Cholesterol 73 mg/dL (>40); Potassium 4.0 mmol/L (3.3-5.1); Sodium 140 mmol/L (135-145); Total Protein 7.7 g/dL (6.5-8.0); Triglycerides 45 mg/dL (<150)
== END 2024-12-03 11:31 | disposition home or self-care (01) ==
LOC: HO.HMGCLDS 11:30
PROVIDERS: PCP Internal Medicine; Visit Provider Internal Medicine
DX: E78.5 Hyperlipidemia, unspecified (principal); R73.9 Hyperglycemia, unspecified; E66.9 Obesity, unspecified; Z68.41 Body mass index [BMI] 40.0-44.9, adult; F32.9 Major depressive disorder, single episode, unspecified; F41.9 Anxiety disorder, unspecified
CPT/HCPCS: 36415; 80053; 80061; 83036; 84443; 85025; 99212

== ENCOUNTER 2024-12-03 11:30 | Outpatient (AMB) | payer MEDICARE, MEDICAID, SELFPAY ==
[2024-12-03 11:38] VITALS: BP 116/78; PULSE 60; RESP 18; TEMP 36.8; O2SAT 97; BMI 40.8
--- NOTE | 2024-12-03 11:38 | A.OFFPC_ITS ---
Vital Signs 12/03/24 11:38 Height 5 ft 1 in Weight 216 lb BMI 40.8 BP 116/78 Blood Pressure Location Rt brachial Position Sitting Respiration 18 Pulse 60 Pulse Source Pulse Oximeter Temp 98.3 F Temp Source Oral Pulse Oximetry (%) 97 Oxygen Delivery Method Room Air Intake Visit Reasons: 4m follow up Intake Note: Pt is here today for 4 months follow up visit. Allergies atenolol Allergy (Unknown, Verified 12/03/24 11:46) bad dreams tramadol (Ultracet) Allergy (Unknown, Verified 12/03/24 11:46) Pt's mother doesn't remember Medication List - Last Reconciled 12/03/24 by Deirdre Boudreaux MD albuterol sulfate 90 mcg/actuation (ProAir HFA) 1 inh inhalation QID PRN Bydureon BCise ER (exenatide microspheres) 2 mg (0.85 mL) subcut QWEEK NS escitalopram oxalate 20 mg PO DAILY latanoprost 0.005% drps ophthalmic (eye) metformin ER 750 mg PO DAILY Ozempic (semaglutide) 0.25 mg (0.368 mL) subcut QWEEK NS quetiapine 25 mg PO BEDTIME Tobacco use date assessed: 12/03/24 Dental Screening Dental Screen Date: 08/03/24 HPI 4m follow up HPI Details Patient presents for the follow-up. She lost 17 lb on Ozempic and has been tolerating medication well. Chronic depression and anxiety are controlled on current medications. [facility] Medical History Constipation Normal colonoscopy Hyperlipidemia Annual physical exam Urinary incontinence Anxiety Insomnia Chronic iron deficiency anemia Mentally challenged Wrist pain, right Surgical History H/O colonoscopy Family History Mother No problems noted. Maternal Grandmother Mental health disorder Social History Housing: House Alcohol intake: never Patient Tobacco Use Status: Never used Tobacco e-Cigarette/Vaping Use: Never Used Second Hand Smoke Exposure: No service: No Current occupational status: other Cognitive needs: No Hearing needs: No Vision needs: Yes Questionnaire Thrive Questionnaire Date Thrive assessed: 06/19/24 LIZZIE-7 AMB Questionnaire LIZZIE-7 Date LIZZIE - 7 assessed: 06/19/24 Source: Developed by Drs. Hansel Head, Katie Piper, Kuldip Ulloa and colleagues, with an educational simeon from [employer]. Review of Systems Const All systems reviewed & are unremarkable except as noted in HPI and below Eyes Reports no additional complaints ENT Reports no additional complaints Resp Reports no additional complaints GI Reports no additional complaints Reports no additional complaints Physical exam (Primary Care) Vital Signs: Last Vital Signs Temp 98.3 F 12/03/24 11:38 Pulse 60 12/03/24 11:38 Resp 18 12/03/24 11:38 BP 116/78 12/03/24 11:38 Pulse Ox 97 12/03/24 11:38 Oxygen Delivery Method Room Air 12/03/24 11:38 BMI result Body Mass Index 40.8 Tobacco/Smoking Status: Tobacco use Status Tobacco use date assessed 12/03/24 12/03/24 11:45 Patient Tobacco Use Status Never used Tobacco 12/03/24 11:38 e-Cigarette/Vaping Use Never Used 12/03/24 11:38 Thrive Assessment: Date of Thrive Assessment Date Thrive assessed 06/19/24 12/03/24 11:38 Const General: no acute distress HENMT Head: Yes normal to inspection Neck Neck: Yes supple Resp Effort & Inspection: normal respiratory effort Auscultation: clear to auscultation bilaterally Cardio Rhythm: regular rhythm Heart sounds: S1 normal heart sound present and S2 normal heart sound present GI Inspection: Yes normal to inspection Palpation (GI): Soft to palpation Coding Level of Care Code Est Pt Level 4 (66660) Diagnoses Hyperlipidemia E78.5 Hyperglycemia R73.9 Assessment & Plan Assessment & Plan (1) Hyperlipidemia: Code(s): E78.5 - Hyperlipidemia, unspecified Category: Medical Plan: Continue low-cholesterol diet check lipid profile (2) Hyperglycemia: Code(s): R73.9 - Hyperglycemia, unspecified Category: Medical Plan: Continue 0.25 mg of Ozempic, ADA diet increase exercise weight loss discussed with the patient, check blood work including A1c follow-up in 3 months Medications: Discontinued metformin ER Discontinued Reason: Doctor's Order 750 mg PO DAILY 90 tabs 3RF Bydureon BCise ER (exenatide microspheres) Discontinued Reason: Doctor's Order 2 mg (0.85 mL) subcut QWEEK 3.4 mL 3RF NS
--- OUTSIDE RECORDS SUMMARY | 2024-12-03 12:39 | XMS_ITS | Clinical Summary ---
Author Organization [facility] Address [address] [place] [phone] Phone Care Team Providers Care Software Licensing Specialist Name Role Phone Deirdre Boudreaux MD Primary Care Provider [phone] Surgical History Surgery Date Site/Laterality Comments COLONOSCOPY 11/14/2000 PROCEDURE: [place] COLONOSCOPY FLX DX W/COLLJ SPEC WHEN PFRMD; COMMENT: negative examination, Dr. Andrew Acosta. Performed for the evaluation of rectal bleeding. COLONOSCOPY 02/07/2008 PROCEDURE: [place] COLONOSCOPY FLX DX W/COLLJ SPEC WHEN PFRMD; COMMENT: negative examination. Scant hematochezia, positive family history. OTHER SURGICAL HISTORY 09/09/2008 PROCEDURE: NJ RPR UMBILICAL HRNA 5 YRS/> REDUCIBLE; COMMENT: [facility], part of the exploratory laparoscopy OTHER SURGICAL HISTORY 09/09/2008 PROCEDURE: [place] LAPAROSCOPIC APPENDECTOMY; COMMENT: [facility], part of the exploratory laparoscopy ESOPHAGOGASTRODUODENOSCOPY 04/30/2008 PROCEDURE: [place] ESOPHAGOGASTRODUODENOSCOPY TRANSORAL DIAGNOSTIC; COMMENT: normal examination, Dr. [...] 11/14/2020, Additional history exists Influenza Vaccine (#1) 2025 4, 03/17/2022, 08/17/2021, Additional history exists Breast [...] 5 Years) and At-Risk Patients (6 to 49 Years) Aged Out No longer eligible based [...] year. Mammo Location: [facility], [address] [place] [address], [facility], . -------- FINAL REPORT -------- Dictated By: Saima Melissa Dictated Date: 04/24/2024 16:15 ET Assigned Physician: Saima Melissa Reviewed and Electronically Signed By: Saima Melissa Signed Date: 04/24/2024 16:18 ET Workstation ID: [id number] Transcribed By: Self Edit Transcribed Date: 04/24/2024 16:15 ET Narrative 04/24/2024 4:18 PM EST CLINICAL: 48 years old, Female, follow-up right breast asymmetries. COMPARISON: 11/05/2023, 04/01/2023, 03/29/2023, 03/25/2022 and 12/22/2020 FINDINGS: MAMMOGRAPHY TECHNIQUE: Bilateral MLO and CC views were obtained digitally with 3-D mammogram (digital breast tomosynthesis). Computer-aided detection was utilized in evaluation of this exam (CAD). Stable 5 mm asymmetry in the lateral retroareolar region on cc view. Stable asymmetry in the superior breast at middle depth seen on MLO view. There is no evidence of suspicious mass or architectural distortion. No worrisome calcifications are evident. BREAST DENSITY: A - [...] year. Mammo Location: [facility], [address] [place] [address], [address], . -------- FINAL REPORT -------- Dictated By: Saima Melissa Dictated Date: 04/24/2024 16:15 ET Assigned Physician: Saima Melissa Reviewed and Electronically Signed By: Saima Melissa Signed Date: 04/24/2024 16:18 ET Workstation ID: [id number] Transcribed By: Self Edit Transcribed Date: 04/24/2024 16:15 ET us Deirdre oBudreaux MD IMG BI PROCEDURES Final Result from Last 3 Months or Most Recently Relevant to Health Maintenance Insurance [place] Care Teams Software Licensing Specialist Relationship Specialty Start Date End Date Deirdre Boudreaux MD PCP - General 10/21/08
--- OUTSIDE RECORDS SUMMARY | 2024-12-03 12:39 | XMS_ITS | Data Portability ---
Author Organization [place] [facility] Address [address] [address] Assessment Encounter Date Assessment Date Assessment LastModified by Organization Details LastModified Time 02/29/2024 02/29/2024 48-year-old female with developmental delay, seasonal allergies and cerebral palsy presents with mother for evaluation of sinusitis. CT scan at [facility] on 09/05/23 demonstrated opacification of left frontal and left ethmoid sinuses. On exam nasal mucosa is pink and moist without rhinorrhea. Recommend trial of Flonase 2 sprays daily for one month and Doxycycline twice daily for 20 days. Will get a repeat sinus CT at [facility] in March after antibiotic regimen. [...] al, w/o contrast [address] [facility] [place], [address] , [facility] [address], [place], [address], 4 08:51:03 Medication Orders doxycycline hyclate 100 mg tablet 2023 024 [id number], [address] [facility], [place], [place], [id number], 4 07:53:23 fluticasone propionate 50 mcg/actuati on nasal spray,suspe nsion 2023 024 [id number], [address] [facility] [place], [place], [id number], 4 07:53:25 Patient TargetsNo targets recorded. Patient InstructionsNo instructions recorded. Reason for Referral None Reported. Results Created Date Observation Date Name Description Value Unit Range Abnormal Flag Note LastModifiedBy Organization Detail LastModifiedTime 04/27/20 24 04/26/2024 CT, maxil lofac ial, w/o contr ast No observ ation record ed. jschreibstein [facility] [place] [address] [facility] [address], [place], [address], 04/27/2024 21:05:26 Result Notes None recorded. Problems Name Problem SNOMED Code Status Onset Date Resolution Date Notes Provider Name and Address Organization Details Recorded Time Chronic rhinitis 10482779 Active 2017 Purulent rhinitis (chronic) ; Note: Date Diagnosed : 01/27/2018 1:13 PM (J31.0) Not Available [facility] 4 02:41:31 Posterio r rhinorrh ea 79770979 Completed 201512/23/2023 Postnasal drip; Note: Date Diagnosed : 01/22/2016 10:09 AM (R09.82) Not Available [facility] 4 02:41:28 Nasal congesti on 01236193 Completed 201512/23/2023 Nasal congestio n; Note: Date Diagnosed : 01/22/2016 10:05 AM (R09.81) Not Available [facility] 4 02:41:29 Chronic sinusiti s 05192335 Active 2023 KAYE CARMONA PA-C [address] [place] [address], [place], [address] , [facility] 4 14:57:08 Problem Notes None recorded. Medical Equipment None Reported. Allergies Allergen ID Allergen Name Allergen Category Reaction Reaction Severity Criticality Documentation Date Start Date Code Code System Note Provider Name and Address Organization Details Recorded Time 16304 Bactrim medicatio n other Not available Not available 10/04/2023 24704 9 RxNorm React ion: unkno wn, unspe cifie d;; Not Available [facility] 4 00:58:54 93794 atenolol medicatio n other Not available Not available 10/04/2023 1202 RxNorm React ion: unkno wn, unspe cifie d;; Not Available [facility] 4 00:58:58 Medications Name Sig Start Date [...] 24 hr 2017 active Medicatio n ID: [id number] Du ration Value: 90 Brand Name: oxybutyni [...] mg tablet 2015 active Medicatio n ID: [id number] Du ration Value: 30 Brand Name: diazepam Send Method: E-Prescri bed Subs Allowed: subs OK Specia l Instructi on: TAKE 1 TABLET BY MOUTH TWICE DAILY Med icationGe nericName : diazepam Not Available Not Available Not Available Nasonex 50 mcg/actuat ion Alvin Alvin 2 spray into both nostrils once a day 2017 active Medicatio n ID: [id number] Du ration Value: 30 Prescrib ed By [...] mg tablet 2017 active Medicatio n ID: [id number] Du ration Value: 90 Brand Name: naproxen [...] mg tablet 2017 active Medicatio n ID: [id number] Du ration Value: 30 Brand Name: escitalop [...] aerosol inhaler 2015 active Medicatio n ID: [id number] Du ration Value: 30 Brand Name: ProAir [...] ended release 2015 active Medicatio n ID: [id number] Du ration Value: 30 Brand Name: Myrbetriq [...] SNOMED-CT Code Diagnosis ICD10 Code Diagnosis Note 26363 NICO FERRO MD [facility] [address] [place] [address] 02/29/2024 14:04:19 02/29/2024 15:00:38 Chronic sinusitis 48313443 J32.8 Health Concerns Section Related Observation LastModified by Organization Detai ls LastModified Time None Recorded Concern Status LastModified by Organization Details LastModified Time None Recorded Advance Directives Directive None Recorded Payers Insurance Date Sequence Insurance Name Policy Number Policy Clark Covered Member ID Clark Member ID Guarantor Name 02/26/2024 2 [place] [facility] Elba Martinez [id number] Elba Martinez 02/26/2024 1 MEDIC[place] B-[place] [facility] Elba Martinez [id number] Elba Martinez Notes Date Note Type Note [...] seeing specialist Jun 2024. NICO MCKEON MD [address] [place] [address], [place], [address], [facility] - [facility] 03/01/2024 07:53:18 OBGyn Episode No OBEpisode recorded.
--- OUTSIDE RECORDS SUMMARY | 2024-12-03 12:39 | XMS_ITS | Patient Health Record ---
Author Organization [facility] Address [address] [place] [address] Care Team Providers Care Travel Registered Nurse Oncology Name Role Phone Deirdre Boudreaux MD Primary Care Provider Hansel Floyd Unavailable [phone] Allergies Allergen (clinical drug ingredient) Drug/Non Drug [...] Problem Status W/U Status Risk Notes Problem [id number] Family history of colon cancer (Z80.0) Active confirmed Problem [id number] Rectal bleed (K62.5) Active confirmed Plan Of Treatment No Information Insurance Providers Payer Name Payer Address Payer Phone Subscriber Number Group Number Insured Name Patient Relationship to Insured Coverage Start Date Coverage End Date MEDICARE OF [place] [address] [id number] DANNY MARTINEZ Self - patient is the insured MED[place]ID OF [place] [employer] [address] [place] [phone] [id number] DANNY MARTINEZ Self - patient is the [...]
== END 2024-12-03 12:25 | disposition home or self-care (01) ==
LOC: HO.HMCC 11:30
PROVIDERS: PCP Internal Medicine; Visit Provider Internal Medicine
DX: E78.5 Hyperlipidemia, unspecified (principal); R73.9 Hyperglycemia, unspecified

== ENCOUNTER 2024-12-21 16:10 | Outpatient (AMB) | payer MEDICARE, MEDICAID, SELFPAY ==
--- OUTSIDE RECORDS SUMMARY | 2024-12-21 16:13 | XMS_ITS | Patient Health Record ---
Author Organization [facility] Address [address] [place] [address] Care Team Providers Care Clinical Lab Assistant Name Role Phone Deirdre Boudreaux MD Primary Care Provider Hansel Floyd Unavailable [phone] Allergies Allergen (clinical drug ingredient) Drug/Non Drug [...] Problem Status W/U Status Risk Notes Problem [id number] Family history of colon cancer (Z80.0) Active confirmed Problem [id number] Rectal bleed (K62.5) Active confirmed Plan Of Treatment No Information Insurance Providers Payer Name Payer Address Payer Phone Subscriber Number Group Number Insured Name Patient Relationship to Insured Coverage Start Date Coverage End Date MED[place]ARE OF [place] [address] [id number] DANNY MARTINEZ Self - patient is the insured MEDICAID OF [employer] [address] [place] [phone] [id number] DANNY MARTINEZ Self - patient is the insured Medical (General) History Medical History History ICD Code Urinary incontinence Hay fever IBS Cerebral palsy with some cognitive and d evelopmental disabilities Denies MN,DM,CVA,Lung disease,renal dise ase Describes a negative colonos copy over [address] Mitchell. She has also seen Dr. Rain for evaluation of abdominal pain in the distant past as well Surgical History Surgery Date(Month/Year) Removed appendix via NOTES via vagina Fatty tissue in the groin area . Shoulder-right
[2024-12-21 16:16] VITALS: BP 116/88; PULSE 94; TEMP 37.2; O2SAT 98; BMI 40.4
--- NOTE | 2024-12-21 16:16 | AM.OFFWIN_ITS ---
Intake Vital Signs 12/21/24 16:16 Height 5 ft 1 in Weight 214 lb BMI 40.4 BP 116/88 Blood Pressure Location Lt brachial Position Sitting Pulse 94 Pulse Source Pulse Oximeter Temp 98.9 F Temp Source Oral Pulse Oximetry (%) 98 Oxygen Delivery Method Room Air Intake Visit Reasons: EP-rt hand pain & swollen Intake Note: pt presents with right hand pain for 8 days Patient Tobacco Use Status: Never used Tobacco Allergies atenolol Allergy (Unknown, Verified 12/21/24 16:16) bad dreams tramadol (Ultracet) Allergy (Unknown, Verified 12/21/24 16:16) Pt's mother doesn't remember Do you need a note to return to daycare/school/sports/work: No HPI HPI Comments History of Present Illness Details This is a 49-year-old female who presented to the walk-in clinic complaining of right hand pain x1 week. Patient and her mother state that she was throwing papers out and hit her hand on the window sill. This occurred about 1 week ago. She only had mild pain at first but the pain has worsened prompting her visit to the urgent care. She has noticed some mild swelling of the right hand. She denies any numbness/weakness/paresthesias of the right upper extremity. [facility] Medical History Constipation Normal colonoscopy Hyperlipidemia Annual physical exam Urinary incontinence Anxiety Insomnia Chronic iron deficiency anemia Mentally challenged Wrist pain, right Surgical History H/O colonoscopy Family History Mother No problems noted. Maternal Grandmother Mental health disorder Social History Housing: House Alcohol intake: never Patient Tobacco Use Status: Never used Tobacco e-Cigarette/Vaping Use: Never Used Second Hand Smoke Exposure: No service: No Current occupational status: other Cognitive needs: No Hearing needs: No Vision needs: Yes Review of Systems Const All systems reviewed & are unremarkable except as noted in HPI and below Reports no additional complaints Eyes Reports no additional complaints ENT Reports no additional complaints Card Reports no additional complaints Resp Reports no additional complaints GI Reports no additional complaints Reports no additional complaints Musc Reports no additional complaints Skin/Breast Reports system reviewed and no additional complaints, except as documented Neuro Reports no additional complaints Psych Reports no additional complaints Endo Reports no additional complaints Alberto/Lymph Reports no additional complaints Aller/Immun Reports no additional complaints Physical Exam Vital Signs: Last Vital Signs Temp 98.9 F 12/21/24 16:16 Pulse 94 12/21/24 16:16 BP 116/88 12/21/24 16:16 Pulse Ox 98 12/21/24 16:16 Oxygen Delivery Method Room Air 12/21/24 16:16 BMI result Body Mass Index 40.4 Const Other: Vital signs reviewed. Constitutional: Non-toxic appearing. No acute distress. Well-developed and well-nourished. HEENT: Normocephalic and atraumatic. Skin: Warm and dry. No rashes or lesions noted. Neck: Full and painless range of motion. No cervical lymphadenopathy. Cardio: Regular rate. No lower extremity edema. No JVD. Pulmonary: No respiratory distress. No accessory muscle usage. Musculoskeletal: There is mild tenderness to palpation of the right 5th metatarsal and right 5th CMC joint and ulnar styloid process. There is no tenderness to palpation of the proximal ulna or radius. No appreciable swelling, ecchymosis, or erythema. She has full and painless range of motion of the right wrist with flexion and extension. Neuro: Alert and oriented x4. Cranial nerves 2-12 grossly intact. No focal deficits appreciated. Psych: Normal mood and affect. Assessment & Plan Assessment & Plan (1) Wrist pain, right: Code(s): M25.531 - Pain in right wrist Plan 49-year-old female who presented to the walk-in clinic complaining of right hand pain x1 week. On physical examination, there is tenderness to palpation of the right 5th metatarsal and right 5th CMC joint and ulnar styloid process. Differential diagnosis includes fracture versus contusion. An x-ray of the right wrist and right hand was obtained, which appears negative for acute fracture or dislocation, waiting for official radiology read. Recommended rest/activity modification, ice to the area, elevation of the extremity, and cntinue with acetaminophen/ibuprofen for pain management as long as patient has no medical contraindications. Patient and her mother advised to follow-up here for persistent or worsening symptoms. Patient verbalized understanding and is a greeable with the plan. Coding Level of Care Code Est Pt Level 3 (83664) Diagnoses Wrist pain, right M25.531
== END 2024-12-21 17:04 | disposition home or self-care (01) ==
PROVIDERS: PCP Internal Medicine; Visit Provider Physician Assistant Medical
DX: M25.531 Pain in right wrist (principal)

== ENCOUNTER 2024-12-21 16:10 | Outpatient (REF) | payer MEDICARE, MEDICAID, SELFPAY ==
--- NOTE | ~2024-12-21 | XR_ITS ---
EXAMINATION: XR WRIST, RIGHT CLINICAL INFORMATION: M25.531 - Pain in right wrist COMPARISON: None available. TECHNIQUE: PA, lateral, oblique, and scaphoid views of the right wrist. FINDINGS: There is no joint diastases. There are no degenerative changes. No erosions are seen. No fracture is identified. XR/XR wrist RT min 3V IMPRESSION: Unremarkable right wrist. Electronically signed by: Donato Everett MD 12/21/2024 04:54 PM EDT
--- NOTE | ~2024-12-21 | XR_ITS ---
EXAMINATION: XR HAND, RIGHT CLINICAL INFORMATION: M79.641 - Pain in right hand COMPARISON: None available. TECHNIQUE: PA, lateral, and oblique views of the right hand. FINDINGS: Marginal osteophytes are present involving the metacarpophalangeal joint of the thumb. There is radial sided joint space narrowing. No other abnormalities are identified. XR/XR hand RT min 3V IMPRESSION: First MCP joint osteoarthritis. Electronically signed by: Donato Everett MD 12/21/2024 04:55 PM EDT
== END 2024-12-21 16:11 | disposition home or self-care (01) ==
LOC: HO.HMGCX 16:10
PROVIDERS: PCP Internal Medicine; Visit Provider Physician Assistant Medical
DX: M25.531 Pain in right wrist (principal); M79.641 Pain in right hand
CPT/HCPCS: 73110; 73130; 99212

== ENCOUNTER → 2024-12-21 16:36 | Outpatient (BNV) | payer MEDICARE, MEDICAID, SELFPAY | PROVIDERS: PCP Internal Medicine; Visit Provider Radiology Diagnostic Radiology | DX: M25.531 Pain in right wrist (principal); M18.11 Unilateral primary osteoarthritis of first carpometacarpal joint, right hand | CPT/HCPCS: 73110; 73130 ==

== ENCOUNTER 2024-12-26 12:25 | Outpatient (AMB) | payer MEDICARE, MEDICAID, SELFPAY ==
--- NOTE | 2024-12-26 12:33 | A.OFFVIS_ITS ---
VS Expanded 12/26/24 12:34 12/26/24 13:10 Height 5 ft 1 in 5 ft 1 in Weight 217 lb 2.485 oz 217 lb BMI 41.0 41.0 Intake Visit Reasons: Obesity Allergies atenolol Allergy (Unknown, Verified 12/21/24 16:16) bad dreams tramadol (Ultracet) Allergy (Unknown, Verified 12/21/24 16:16) Pt's mother doesn't remember Nutrition Presentation Details: Pt presents for MNT f/u for obesity Pt is on Ozempic .25 mg /wk Pt reports doing well, some days has less appetite other days increased appetite. Continues to work on choosing smaller plates for meals , water flavored Family members like to cook and working on making meals lower in fat Physical activity : gym once week , swimming once/wk, uses stairs at home BS Monitoring Most Recent Diabetes Results: Cholesterol, (<200) 195 mg/dL 12/03/24 HDL Cholesterol, (>40) 73 mg/dL 12/03/24 Triglycerides, (<150) 45 mg/dL 12/03/24 Creatinine, (0.5-1.4) 0.81 mg/dL 12/03/24 BUN, (9-16) 10 mg/dL 12/03/24 Sodium, (135-145) 140 mmol/L 12/03/24 Potassium, (3.3-5.1) 4.0 mmol/L 12/03/24 Chloride, (96-108) 106 mmol/L 12/03/24 Carbon Dioxide, (22-29) 29 mmol/L 12/03/24 Calcium, (8.4-10.2) 9.2 mg/dL 12/03/24 AST, (5-31) 21 U/L 12/03/24 ALT, (0-31) 12 U/L 12/03/24 Total Protein, (6.5-8.0) 7.7 g/dL 12/03/24 Albumin, (3.5-5.0) 4.2 g/dL 12/03/24 BJD-Gutxtyi-Jx.Jeor Equation Height: 5 ft 1 in Weight: 217 lb Resting Metabolic Rate: 1549.61 Calculated Activity Level: Sedentary Calories Needed to Maintain Weight: 1859.53 [facility] Medical History Constipation Normal colonoscopy Hyperlipidemia Annual physical exam Urinary incontinence Anxiety Insomnia Chronic iron deficiency anemia Mentally challenged Wrist pain, right Surgical History H/O colonoscopy Family History Mother No problems noted. Maternal Grandmother Mental health disorder Social History Housing: House Alcohol intake: never Patient Tobacco Use Status: Never used Tobacco e-Cigarette/Vaping Use: Never Used Second Hand Smoke Exposure: No service: No Current occupational status: other Cognitive needs: No Hearing needs: No Vision needs: Yes Assessment & Plan Assessment & Plan (1) Overweight: Code(s): E66.3 - Overweight Category: Medical Plan: Wt: 104 Kg ( 04/2023 ) ,101 kg (04/15), 107 kg (07/17), 100kg (10/14), 98 kg(01/14) Est kcal needs as per MSJ: 1800 (40% carb, 30% protein/fat) Est fluid needs as per 25-30 ml/d: 3000 Est prot per day as per 1 g/kg bw: 102 Recommend fiber intake : 8-10 g per day and gradually increase to 25-28 g per day for women and 35-38 g for men or as tolerated Recommend sodium intake per day : less than 2300 mg Educated patient on: ( R = reviewed V = verbalizes understanding N/R = needs review N/A = not applicable * Food sources of carbohydrate, adequate serving sizes and its role in various health conditions: R * Differences between complex carbohydrates a simple carbohydrates, role of fiber in diet: R * Lean protein sources of foods: NR * Differences between types of fats and role in diet (mono on saturated fat fatty acids, saturated fatty acids, trans fats): R * Food sources of sodium in salt and healthy modifications for heart health in kidney health: R * Vitamins and minerals: R * Healthy plate method concept: R * Physical activity: Benefits a precaution: R Patient Instructions: continue working on choosing low fat food options (lean beef, poultry skinless, and choose less frequent: organ meats, fried foods Continue physically active as able goal 150 minutes per week Coding Level of Care Code Nutr Indiv Subseq (81336) Diagnoses Overweight E66.3 Time Spent (min) 30
[2024-12-26 12:34] VITALS: BMI 41.0
--- OUTSIDE RECORDS SUMMARY | 2024-12-26 13:03 | XMS_ITS | Patient Health Record ---
Author Organization [facility] Address [address] [place] [address] Care Team Providers Care Golf Club Facer Name Role Phone Deirdre Boudreaux MD Primary Care Provider Hansel Floyd Unavailable [phone] Allergies Allergen (clinical drug ingredient) Drug/Non Drug [...] Problem Status W/U Status Risk Notes Problem [id number] Family history of colon cancer (Z80.0) Active confirmed Problem [id number] Rectal bleed (K62.5) Active confirmed Plan Of Treatment No Information Insurance Providers Payer Name Payer Address Payer Phone Subscriber Number Group Number Insured Name Patient Relationship to Insured Coverage Start Date Coverage End Date MEDICARE OF [place] [address] [address] [id number] DANNY MARTINEZ Self - patient is the insured MEDICAID OF [place] [address] [place] [phone] [id number] DANNY MARTINEZ Self - patient is the insured Medical (General) History Medical History History ICD Code Urinary incontinence Hay fever IBS Cerebral palsy with some cognitive and d evelopmental disabilities Denies CT,DM,CVA,Lung disease,renal dise ase Describes a negative colonos copy over [address] Mitchell. She has also seen Dr. Rain for evaluation of abdominal pain in the distant past as well Surgical History Surgery Date(Month/Year) Removed appendix via NOTES via vagina Fatty tissue in the groin area . Shoulder-right
--- OUTSIDE RECORDS SUMMARY | 2024-12-26 13:03 | XMS_ITS | Clinical Summary ---
Author Organization [facility] Address [address] [place] [address] Phone Care Team Providers Care Woolen Suiting Shrinker Name Role Phone Deirdre Boudreaux MD Primary Care Provider [phone] Surgical History Surgery Date Site/Laterality Comments COLONOSCOPY 11/14/2000 PROCEDURE: [place] COLONOSCOPY FLX DX W/COLLJ SPEC WHEN PFRMD; COMMENT: negative examination, Dr. Andrew Acosta. Performed for the evaluation of rectal bleeding. COLONOSCOPY 02/07/2008 PROCEDURE: [place] COLONOSCOPY FLX DX W/COLLJ SPEC WHEN PFRMD; COMMENT: negative examination. Scant hematochezia, positive family history. OTHER SURGICAL HISTORY 09/09/2008 PROCEDURE: GA RPR UMBILICAL HRNA 5 YRS/> REDUCIBLE; COMMENT: [facility], part of the exploratory laparoscopy OTHER SURGICAL HISTORY 09/09/2008 PROCEDURE: [place] LAPAROSCOPIC APPENDECTOMY; COMMENT: [facility], part of the exploratory laparoscopy ESOPHAGOGASTRODUODENOSCOPY 04/30/2008 PROCEDURE: [place] ESOPHAGOGASTRODUODENOSCOPY TRANSORAL DIAGNOSTIC; COMMENT: normal examination, Dr. [...] Panel) 04/24/2022 Colorectal Cancer Screening: Colonoscopy 04/24/2022 HIV Screening 04/24/2022 Hepatitis C Screening 04/24/2022 Medicare Annual Wellness Visit 04/24/2022 Social Influencers of Health Screening 04/24/2022 COVID-19 Vaccine ( season) 2024 11/25/2021, 06/15/2021, 11/14/2020, Additional history exists Depression Screening 05/23/2024 Influenza Vaccine (#1) 2025 4, 03/17/2022, 08/17/2021, [...] Region Laterality Modality Breast Bilateral Mammography 04/24/2024 4:1 5 PM EST Impressions 04/24/2024 4:18 PM EST Stable asymmetries in the right breast. Follow-up diagnostic mammogram in one year is recommended. BI-RADS CATEGORY: 3 - PROBABLY BENIGN RECOMMENDATION: Diagnostic bilateral mammogram recommended in 1 year. Mammo Location: [facility], [address] [place] [address], [facility], . -------- FINAL REPORT -------- Dictated By: Saima Melissa Dictated Date: 04/24/2024 16:15 ET Assigned Physician: Saima Melissa Reviewed and Electronically Signed By: Saima Melissa Signed Date: 04/24/2024 16:18 ET Workstation ID: [id number] Transcribed By: Self Edit Transcribed Date: 04/24/2024 [...] year. Mammo Location: [facility], [address] [place] [address], [address], . -------- FINAL REPORT -------- Dictated By: Saima Melissa Dictated Date: 04/24/2024 16:15 ET Assigned Physician: Saima Melissa Reviewed and Electronically Signed By: Saima Melissa Signed Date: 04/24/2024 16:18 ET Workstation ID: [id number] Transcribed By: Self Edit Transcribed Date: 04/24/2024 16:15 ET us Deirdre Boudreaux MD IMG BI PROCEDURES Final Resul t from Last 3 Months or Most Recently Relevant to Health Maintenance Insurance [place]IC[place] Care Teams Woolen Suiting Shrinker Relationship Specialty Start Date End Date Deirdre Boudreaux MD PCP - General 10/21/08
[2024-12-26 13:10] VITALS: BMI 41.0
== END 2024-12-26 13:13 | disposition home or self-care (01) ==
LOC: HO.ENCR 12:25
PROVIDERS: PCP Internal Medicine; Visit Provider Dietitian, Registered
DX: E66.3 Overweight (principal)

== ENCOUNTER → 2024-12-26 12:25 | Outpatient (BNVA) | payer MEDICARE, MEDICAID, SELFPAY | PROVIDERS: PCP Internal Medicine; Visit Provider Dietitian, Registered | DX: E66.3 Overweight (principal); Z68.41 Body mass index [BMI] 40.0-44.9, adult | CPT/HCPCS: 97803 ==

== ENCOUNTER 2025-03-13 14:16 | Outpatient (REF) | payer MEDICARE, MEDICAID, SELFPAY ==
--- NOTE | ~2025-03-13 | XR_ITS ---
EXAMINATION: XR CHEST CLINICAL INFORMATION: R06.09 - Other forms of dyspnea COMPARISON: None available. TECHNIQUE: Frontal view of the chest was obtained. FINDINGS: Poor inspiration. No consolidation pleural effusion or pneumothorax. Cardiomediastinal silhouette size is normal. Round apex. Mild multilevel thoracic spondylosis. Gas-filled mildly prominent small bowel loops no fully patent the exam. XR/XR chest 1V IMPRESSION: No acute airspace disease. Electronically signed by: Aravind Oneill MD 03/13/2025 03:52 PM EDT
--- OUTSIDE RECORDS SUMMARY | 2025-03-13 21:43 | XMS_ITS | Data Portability ---
Author Organization [place] - [facility], Allergy Address [address] [address] Assessment Encounter Date Assessment Date Assessment LastModified by Organization Details LastModified Time 02/29/2024 02/29/2024 48-year-old female with developmental delay, seasonal allergies and cerebral palsy presents with mother for evaluation of sinusitis. CT scan at [facility] on 09/05/23 demonstrated opacification of left frontal and left ethmoid sinuses. On exam nasal mucosa is pink and moist without rhinorrhea. Recommend trial of Flonase 2 sprays daily for one month and Doxycycline twice daily for 20 days. Will get a repeat sinus CT at [facility] in March after antibiotic regimen. [...] CT, maxillofaci al, w/o contrast 2023 024 [facility] [place], [address] , [facility] [address], [place], [address], 4 08:51:03 Medication Orders doxycycline hyclate 100 mg tablet 2023 024 [id number], [address] [facility], [place], [place], [id number], 4 07:53:23 fluticasone propionate 50 mcg/actuati on nasal spray,suspe nsion 2023 024 [id number], [address] [facility] [place], [place], [id number], 4 07:53:25 Patient TargetsNo targets recorded. Patient InstructionsNo instructions recorded. Reason for Referral None Reported. Results Created Date Observation Date Name Description Value Unit Range Abnormal Flag Note LastModifiedBy Organization Detail LastModifiedTime 04/27/20 24 04/26/2024 CT, maxil lofac ial, w/o contr ast No observ ation record ed. jschreibstein [facility] [place] [address] [facility] [address], [place], [address], 04/27/2024 21:05:26 Result Notes None recorded. Problems Name Problem SNOMED Code Status Onset Date Resolution Date Notes Provider Name and Address Organization Details Recorded Time Posterio r rhinorrh ea 56881756 Completed 201512/23/2023 Postnasal drip; Note: Date Diagnosed : 01/22/2016 10:09 AM (R09.82) Not Available [facility] 4 02:41:28 Nasal congesti on 89947663 Completed 201512/23/2023 Nasal congestio n; Note: Date Diagnosed : 01/22/2016 10:05 AM (R09.81) Not Available [facility] 4 02:41:29 Chronic rhinitis 46170936 Active 2017 Purulent rhinitis (chronic) ; Note: Date Diagnosed : 01/27/2018 1:13 PM (J31.0) Not Available [facility] 4 02:41:31 Chronic sinusiti s 48401655 Active 2023 KAYE CARMONA PA-C [address] [place] [address], [place], [address] , [facility] - [facility] 4 14:57:08 Problem Notes None recorded. Medical Equipment None Reported. Allergies Allergen ID Allergen Name Allergen Category Reaction Reaction Severity Criticality Documentation Date Start Date Code Code System Note Provider Name and Address Organization Details Recorded Time 24096 Bactrim medicatio n other Not available Not available 10/04/2023 83674 9 RxNorm React ion: unkno wn, unspe cifie d;; Not Available [facility] 4 00:58:54 24128 atenolol medicatio n other Not available Not available 10/04/2023 1202 RxNorm React ion: unkno wn, unspe cifie d;; Not Available [facility] 4 00:58:58 Medications Name Sig [...] 24 hr 2017 active Medicatio n ID: [id number] Du ration Value: 90 Brand Name: oxybutyni [...] mg tablet 2015 active Medicatio n ID: [id number] Du ration Value: 30 Brand Name: diazepam Send Method: E-Prescri bed Subs Allowed: subs OK Specia l Instructi on: TAKE 1 TABLET BY MOUTH TWICE DAILY Med icationGe nericName : diazepam Not Available Not Available Not Available Nasonex 50 mcg/actuat ion [place] 2 spray into both nostrils once a day 2017 active Medicatio n ID: [id number] Du ration Value: 30 Prescrib ed By [...] mg tablet 2017 active Medicatio n ID: [id number] Du ration Value: 90 Brand Name: naproxen [...] mg tablet 2017 active Medicatio n ID: [id number] Du ration Value: 30 Brand Name: escitalop [...] aerosol inhaler 2015 active Medicatio n ID: [id number] Du ration Value: 30 Brand Name: ProAir [...] ended release 2015 active Medicatio n ID: [id number] Du ration Value: 30 Brand Name: Myrbetriq [...] ICD10 Code Diagnosis IMO Codes Diagnosis Note [id number] NICO FERRO MD [facility] [address] [place] [address] 02/29/2024 14:04:19 02/29/2024 15:00:38 Chronic sinusitis 88901189 J32.8 Health Concerns Section Related Observation LastModified by Organization Detai ls LastModified Time None Recorded Concern Status LastModified by Organization Details LastModified Time None Recorded Advance Directives Directive None Recorded Payers Insurance Date Sequence Insurance Name Policy Number Policy Clark Covered Member ID Clark Member ID Guarantor Name 02/26/2024 2 [place] [facility] Elba Martinez [id number] Elba Martinez 02/26/2024 1 MEDICARE B-[place] [facility] Elba Martinez [id number] Elba Martinez Notes Date Note Type Note [...] seeing specialist Jun 2024. NICO MCKEON MD [address] [place] [address], [address], [place] - [facility] 03/01/2024 07:53:18 OBGyn Episode No OBEpisode recorded.
--- OUTSIDE RECORDS SUMMARY | 2025-03-13 21:43 | XMS_ITS | Data Portability ---
Author Organization MARK Julien s, [address] Address [address] [place] [address] Care Team Providers Care Manager Mining Name Role Phone RAMÓN GRANADOS Primary Care Provider Assessment No assessment recorded. Plan of Treatment Reminders Order Date Submit Date Provider Last Modified By Organization Details Last Modified Time Details Appointments None recorded. Lab None recorded. Referral None recorded. Procedures None recorded. Surgeries None recorded. Imaging None recorded. Medication Orders Diflucan 150 mg tablet 2022 023 [facility], [address] [place], [address], 3 18:18:50 ciprofloxac in 0.2 % ear drops in a dropperette 2022 023 [email or web address] [facility] [address] [place], [address], 3 13:24:37 cefdinir 300 mg capsule 2022 023 [facility], [address] [place], [address], 3 18:18:51 Patient TargetsNo targets recorded. Patient Instructions Encounter Date Encounter Id Patient Instructions Last Modified By Organization Details Last Modified Time 06/11/2022 [id number] earache: care instructions [email or web address] Not available 06/11/2022 18:18:47 ear infection (otitis media): care instructions [email or web address] Not available 06/11/2022 18:18:47 You have been [...] in the Eustachian Tube. 4. Saline Nasal [place] 5. Salt Water Gargle 6. Staying Hydrated [...] to antibiotic resistance. Thank you for using [facility] today - and don't hesitate to contact our office if you have any concerns or questions. Not available 06/11/2022 18:18:46 Reason for Referral None Reported. Problems Name Problem SNOMED Code Status Onset Date Resolution Date Notes Provider Name and Address Organization Details Recorded Time Urinary incontinence 975155080 Active 2022 MARK Medeiros - [facility] 17:22:54 Problem Notes None recorded. Procedures [...] Name and Address Organization Details Recorded Time 137448 grass pollen environme nt,medica tion Not available Not available Not available 06/11/2022 Constance hilton PA - [facility] 3 17:12:26 535247 atenolol medicatio n Not available Not available Not available 06/11/2022 1202 RxNorm Constance hilton PA - [facility] 3 17:12:50 765886 Bactrim medicatio n rash Not available Not available 06/11/2022 61212 9 RxNorm Constance hilton PA - [facility] [...] Pulse oximetry Respiratory rate Heart rate Systolic And Diastolic Provider Name and Address Organization Details Last Updated DateTime 3 154.94 cm 41.2 kg/m2 61389.1 4 g 96.8 [degF] 6 99 % 99 % 18 /min 92 /min 131/89 mm[Hg] Constance Eldridge PA - [facility] 3 17:21:13 Social History Question Answer Notes LastModified by Organizat ion Details LastModified Time Tobacco Smoking Status Never Smoker Constance hilton PA - [facility] 06/11/2022 17:17:21 Have You Recently Traveled Abroad? No Information not available 06/11/2022 Sex: Unknown Functional Status Question Answer Note LastModified by Organizat ion Details LastModified Time How many times per week do you consume alcohol? <1 time per week rarely Information not available 06/11/2022 Do you use any illicit or recreational drugs? No Information not available 06/11/2022 What is your level of alcohol consumption? Occasional Information not available 06/11/2022 Mental Status None recorded. Family History Relationship Description Onset Age of this Age Resolved Age Notes LastModified by Organization Details LastModified Time Maternal Grandmother Malignant neoplasm of colon [email or web address] Not available 2022 17:15:51 [...] ICD10 Code Diagnosis IMO Codes Diagnosis Note [id number] [address] [place] [address] 02/01/2022 12:52:42 02/01/2022 14:38:05 [id number] MARK ORTEGA [address] [place] [address] 06/11/2022 16:40:01 06/11/2022 18:21:41 Acute bilateral otitis media 107600707 H66.93 Candidiasis of vagina 72 442139 B37.31 Health Concerns Section Related Observation LastModified by Organization Detai ls LastModified Time None Recorded Concern Status LastModified by Organization Details LastModified Time None Recorded Advance Directives Directive None Recorded Payers Insurance Date Sequence Insurance Name Policy Number Policy Clark Covered Member ID Clark Member ID Guarantor Name 06/11/2022 1 MEDICARE B[place]: [employer] Elba Martinez [id number] Elba Martinez 06/11/2022 2 [place] [facility] Elba Martinez [id number] Elba Martinez Notes Date Note Type Note Provider Name and Address Organization Details Recorded Time 06/11/2022 text/html Ear Pain Brief HPIReported by PatientHPIFor quality, patient reportsthrobbing painandsharp painbut reportsno itching,no discharge from the ears, andno burning. For context, patient reportsrecent ear infectionbut reportsno recent uriandno recent swimming. For associated symptoms, patient reportsnasal discharge,sense of fullness/pressure, anddecreased hearingbut reportsno cough,no jaw popping or clicking,no discharge from ear,no nasal congestion,no sore throat,no jaw pain, andno tinnitus. For location, patient reportsbilateral. For onset/timing, patient reportsstarted 2weeks agoandsudden onset. For severity, patient reportsno fever. For aggravating factors, (pushing on the ear).The patients with her Mom or Caregiver. REports [...] congestion. No Jaw pain. MARK ORTEGA [address] [facility] [place], [address], [place] - [facility] 06/12/2022 13:33:56 OBGyn Episode No OBEpisode recorded.
== END 2025-03-13 14:17 | disposition home or self-care (01) ==
LOC: HO.HMGCX 14:16
PROVIDERS: PCP Internal Medicine; Visit Provider Internal Medicine
DX: Z23 Encounter for immunization (principal); M25.511 Pain in right shoulder; E66.3 Overweight; R06.09 Other forms of dyspnea; Z79.899 Other long term (current) drug therapy; Z68.41 Body mass index [BMI] 40.0-44.9, adult
CPT/HCPCS: 71045; 90471; 90656; 99212

== ENCOUNTER 2025-03-13 14:16 | Outpatient (AMB) | payer MEDICARE, MEDICAID, SELFPAY ==
[2025-03-13 14:28] VITALS: BP 126/80; PULSE 86; RESP 17; TEMP 37.1; O2SAT 100; BMI 41.8
--- NOTE | 2025-03-13 14:28 | MHC.PC.OV ---
Vital Signs 03/13/25 14:28 Height 5 ft 1 in Weight 221 lb BMI 41.8 BP 126/80 Blood Pressure Location Lt brachial Position Sitting Respiration 17 Pulse 86 Pulse Source Pulse Oximeter Temp 98.8 F Temp Source Oral Pulse Oximetry (%) 100 Oxygen Delivery Method Room Air Intake Visit Reasons: pain in fingers and shoulder Intake Note: Pt is here today for a sick visit. Pt c/o pain in fingers that goes up her R shoulder. Pt's mother would like to request a referral to child care specialist. Allergies atenolol Allergy (Unknown, Verified 03/13/25 14:28) bad dreams tramadol (Ultracet) Allergy (Unknown, Verified 03/13/25 14:28) Pt's mother doesn't remember semaglutide (From Ozempic) Adverse Reaction (Intermediate, Verified 03/13/25 15:12) skin discoloration Medication List - Last Reconciled 03/13/25 by Deirdre Boudreaux MD albuterol sulfate 90 mcg/actuation (ProAir HFA) 1 inh inhalation QID PRN diazepam (Valium) 5 mg PO ONCE escitalopram oxalate 20 mg PO DAILY latanoprost 0.005% drps ophthalmic (eye) quetiapine 25 mg PO BEDTIME Tobacco use date assessed: 03/13/25 Dental Screening Dental Screen Date: 08/03/24 HPI pain in fingers and shoulder HPI Details Pt presents c/o chronic L shoulder and left hand pain on and off for a few months. Pt has been seen by [facility] and had x-rays of right shoulder and hand without significant abnormalities. She tried physical therapy which made her pain worse. Patient had right shoulder surgery a few years ago by [facility]. Patient has been taking Ozempic for 1 month but gained more weight and developed white discoloration of her right hand which is a rare side of effect. [facility] Medical History (Updated 03/13/25 @ 15:56 by Deirdre Boudreaux MD) Overweight Constipation Normal colonoscopy Hyperlipidemia Annual physical exam Urinary incontinence Anxiety Insomnia Chronic iron deficiency anemia Mentally challenged Wrist pain, right Surgical History (Updated 03/13/25 @ 15:46 by Deirdre Boudreaux MD) H/O shoulder surgery H/O colonoscopy Family History Mother No problems noted. Maternal Grandmother Mental health disorder Social History Housing: House Alcohol intake: never Patient Tobacco Use Status: Never used Tobacco e-Cigarette/Vaping Use: Never Used Second Hand Smoke Exposure: No service: No Current occupational status: other Cognitive needs: No Hearing needs: No Vision needs: Yes Questionnaire Thrive Questionnaire Date Thrive assessed: 06/19/24 LIZZIE-7 AMB Questionnaire LIZZIE-7 Date LIZZIE - 7 assessed: 06/19/24 Source: Developed by Drs. Hansel Head, Katie Piper, Kuldip Ulloa and colleagues, with an educational simeon from [employer]. Review of Systems Const All systems reviewed & are unremarkable except as noted in HPI and below Eyes Reports no additional complaints ENT Reports no additional complaints Card Reports no additional complaints Resp Reports no additional complaints GI Reports no additional complaints Reports no additional complaints Physical exam (Primary Care) Vital Signs: Last Vital Signs Temp 98.8 F 03/13/25 14:28 Pulse 86 03/13/25 14:28 Resp 17 03/13/25 14:28 BP 126/80 03/13/25 14:28 Pulse Ox 100 03/13/25 14:28 Oxygen Delivery Method Room Air 03/13/25 14:28 BMI result Body Mass Index 41.8 Tobacco/Smoking Status: Tobacco use Status Tobacco use date assessed 03/13/25 03/13/25 14:29 Patient Tobacco Use Status Never used Tobacco 03/13/25 14:29 e-Cigarette/Vaping Use Never Used 03/13/25 14:29 Thrive Assessment: Date of Thrive Assessment Date Thrive assessed 06/19/24 03/13/25 14:29 Const General: no acute distress HENMT Head: Yes normal to inspection Resp Effort & Inspection: normal respiratory effort Auscultation: clear to auscultation bilaterally Cardio Rhythm: regular rhythm Heart sounds: S1 normal heart sound present and S2 normal heart sound present Extrem Other: There is a slightly decreased range of motion in the right shoulder, anterolateral aspect tenderness, no soft tissue swelling erythema warmth. There is tenderness at the base of right thumb no soft tissue swelling, there is no joint tenderness over right hand. Office Procedures Flu Questionnaire Does the patient have a severe egg allergy?: No Does the patient have severe life threatening allergies?: No Does the patient have a fever or illness today?: No Has the patient ever had Guillain-[employer] Syndrome?: No Has the patient ever had any past reaction to a flu shot?: No Immunizations Fluarix 5764-9009 (PF) 45 mcg (15 mcg x 3)/0.5 mL IM syringe Performing Provider: Deirdre Boudreaux MD Performing Location: [facility] Administered by: KITTY Clements on 03/13/25 15:30 Dose Route Admin Location Dispensed Lot Number Expiration Date [employer] 0.5 mL IM Left Deltoid 0.5 mL [id number] 11/19/25 72430-226-24 [employer] VIS Given Date VIS Provided VIS Publication Date 03/13/25 Single Vaccine 24 Eligibility Eligibility Date Funding Source Not [facility] Eligible 03/13/25 Private Coding Level of Care Code Est Pt Level 4 (39986) Diagnoses LUJAN (dyspnea on exertion) R06.09 Right shoulder pain M25.511 Overweight E66.3 Assessment & Plan Assessment & Plan (1) LUJAN (dyspnea on exertion): Code(s): R06.09 - Other forms of dyspnea Category: Medical Plan: Check chest x-ray for atelectasis present on abdominal MRI (2) Right shoulder pain: Code(s): M25.511 - Pain in right shoulder Category: Medical Plan: For chronic right shoulder pain patient's mother will check a different orthopedic group which accepts patient's insurance. Patient was advised to continue home range of motion exercises at home (3) Overweight: Comment: Ozempic cause skin discoloration on the right hand Code(s): E66.3 - Overweight Category: Medical Plan: Ozempic was not effective for weight lost and caused skin discoloration of the right hand. Patient was advised to discontinue it. Decreasing caloric intake, increasing physical activity discussed with the patient and her mother. Orders: Orders XR chest 1V Today R06.09 - Other forms of dyspnea Influenza 5546-3088 Immunization Today Z23 - Encounter for immunization Medications: Discontinued Ozempic (semaglutide) Discontinued Reason: Doctor's Order 0.25 mg (0.368 mL) subcut QWEEK 3 mL 1RF NS
--- OUTSIDE RECORDS SUMMARY | 2025-03-13 20:29 | XMS_ITS | Clinical Summary ---
Author Organization [facility] Address [address] [place] [address] Phone Care Team Providers Care Inspector Plating Name Role Phone Deirdre Boudreaux MD Primary Care Provider [phone] Surgical History Surgery Date Site/Laterality Comments COLONOSCOPY 11/14/2000 PROCEDURE: [place] COLONOSCOPY FLX DX W/COLLJ SPEC WHEN PFRMD; COMMENT: negative examination, Dr. Andrew Acosta. Performed for the evaluation of rectal bleeding. COLONOSCOPY 02/07/2008 PROCEDURE: [place] COLONOSCOPY FLX DX W/COLLJ SPEC WHEN PFRMD; COMMENT: negative examination. Scant hematochezia, positive family history. OTHER SURGICAL HISTORY 09/09/2008 PROCEDURE: [place] RPR UMBILICAL HRNA 5 YRS/> REDUCIBLE; COMMENT: [facility], part of the exploratory laparoscopy OTHER SURGICAL HISTORY 09/09/2008 PROCEDURE: [place] LAPAROSCOPIC APPENDECTOMY; COMMENT: [facility], part of the exploratory laparoscopy ESOPHAGOGASTRODUODENOSCOPY 04/30/2008 PROCEDURE: [place] ESOPHAGOGASTRODUODENOSCOPY TRANSORAL DIAGNOSTIC; COMMENT: normal examination, Dr. [...] Health Maintenance Due Date Last Done Comments Colorectal Cancer Screening: Colonoscopy 1975 DTaP,Tdap,and Td Vaccines (1 - Tdap) 1994 Hepatitis B Vaccines (1 of 3 - 19+ 3-dose series) 1994 Cervical Cancer Screening: Pap Smear 1996 Cholesterol Screening (Lipid Panel) 04/24/2022 HIV Screening 04/24/2022 Hepatitis C Screening 04/24/2022 Medicare Annual Wellness Visit 04/24/2022 Social Influencers of Health Screening 04/24/2022 Depression Screening 05/23/2024 COVID-19 Vaccine ( season) 2025 11/25/2021, 06/15/2021, 11/14/2020, Additional history exists Influenza Vaccine (#1) 2025 4, 03/17/2022, 08/17/2021, Additional history exists Breast Cancer Screening 04/24/2026 04/24/20 24, 03/29/2023, 03/25/2022, Additional history exists RSV Immunization Adult Patients (1 - 1-dose 75+ series) 2050 HIB Vaccines Aged Out No longer eligi [...] Mammo Location: [facility], [address] [place] [address], [address], . -------- FINAL REPORT -------- Dictated By: Saima Melissa Dictated Date: 04/24/2024 16:15 ET Assigned Physician: Saima Melissa Reviewed and Electronically Signed By: Saima Melissa Signed Date: 04/24/2024 16:18 ET Workstation ID: [id number] Transcribed By: Self Edit Transcribed Date: 04/24/2024 [...] Mammo Location: [facility], [address] [place] [address], [address], . -------- FINAL REPORT -------- Dictated By: Saima Melissa Dictated Date: 04/24/2024 16:15 ET Assigned Physician: Saima Melissa Reviewed and Electronically Signed By: Saima Melissa Signed Date: 04/24/2024 16:18 ET Workstation ID: [id number] Transcribed By: Self Edit Transcribed Date: 04/24/2024 16:15 ET us Deirdre Boudreaux MD IMG BI PROCEDURES Final Resul t from Last 3 Months or Most Recently Relevant to Health Maintenance Insurance MEDICARE Member Subscriber Plan / Payer ( fective 2024-Present) Name:Elba Martinez Member ID:[id number] Relation to Subscriber:Self Name:Elba Martinez Subscriber ID:[id number] Payer ID:Not on file Group ID:Not on file Type:Medicare Address: [address] [place]ID - [place] MED[place] Member Subscriber Plan / Payer ( fective 2024-Present) Name:Elba Martinez Member ID:[id number] Relation to Subscriber:Self Name:Elba Martinez Subscriber ID:[id number] Payer ID:Not on file Group ID:Not on file Type:Medicare Address: [address] [address] [place]ID - [place] Care Teams Inspector Plating Relationship Specialty Start Date End Date Deirdre Boudreaux MD PCP - General 10/21/08
--- OUTSIDE RECORDS SUMMARY | 2025-03-13 20:30 | XMS_ITS | Data Portability ---
Author Organization [place] [facility], Allergy Address [address] [address] Assessment Encounter Date Assessment Date Assessment LastModified by Organization Details LastModified Time 02/29/2024 02/29/2024 48-year-old female with developmental delay, seasonal allergies and cerebral palsy presents with mother for evaluation of sinusitis. CT scan at [facility] on 09/05/23 demonstrated opacification of left frontal and left ethmoid sinuses. On exam nasal mucosa is pink and moist without rhinorrhea. Recommend trial of Flonase 2 sprays daily for one month and Doxycycline twice daily for 20 days. Will get a repeat sinus CT at [facility] in March after antibiotic regimen. She [...] CT, maxillofaci al, w/o contrast 2023 024 [facility] [place], [address] , [facility] [address], [place], [address], 4 08:51:03 Medication Orders doxycycline hyclate 100 mg tablet 2023 024 [id number], [address] [facility], [place], [place], [id number], 4 07:53:23 fluticasone propionate 50 mcg/actuati on nasal spray,suspe nsion 2023 024 [id number], [address] [facility], [place], [place], [id number], 4 07:53:25 Patient TargetsNo targets recorded. Patient InstructionsNo instructions recorded. Reason for Referral None Reported. Results Created Date Observation Date Name Description Value Unit Range Abnormal Flag Note LastModifiedBy Organization Detail LastModifiedTime 04/27/20 24 04/26/2024 CT, maxil lofac ial, w/o contr ast No observ ation record ed. jschreibstein [facility] [place] [address] [facility] [address], [place], [address], 04/27/2024 21:05:26 Result Notes None recorded. Problems Name Problem SNOMED Code Status Onset Date Resolution Date Notes Provider Name and Address Organization Details Recorded Time Posterio r rhinorrh ea 09947944 Completed 201512/23/2023 Postnasal drip; Note: Date Diagnosed : 01/22/2016 10:09 AM (R09.82) Not Available [facility] 4 02:41:28 Nasal congesti on 27391140 Completed 201512/23/2023 Nasal congestio n; Note: Date Diagnosed : 01/22/2016 10:05 AM (R09.81) Not Available [facility] 4 02:41:29 Chronic rhinitis 03925083 Active 2017 Purulent rhinitis (chronic) ; Note: Date Diagnosed : 01/27/2018 1:13 PM (J31.0) Not Available [facility] 4 02:41:31 Chronic sinusiti s 66415488 Active 2023 KAYE CARMONA PA-C [address] [place] [address], [place], [phone] , [facility] - [facility] 4 14:57:08 Problem Notes None recorded. Medical Equipment None Reported. Allergies Allergen ID Allergen Name Allergen Category Reaction Reaction Severity Criticality Documentation Date Start Date Code Code System Note Provider Name and Address Organization Details Recorded Time 70096 Bactrim medicatio n other Not available Not available 10/04/2023 02115 9 RxNorm React ion: unkno wn, unspe cifie d;; Not Available [facility] 4 00:58:54 87529 atenolol medicatio n other Not available Not available 10/04/2023 1202 RxNorm React ion: unkno wn, unspe cifie d;; Not Available [facility] 4 00:58:58 Medications Name Sig Start [...] 24 hr 2017 active Medicatio n ID: [id number] Du ration Value: 90 Brand Name: oxybutyni [...] mg tablet 2015 active Medicatio n ID: [id number] Du ration Value: 30 Brand Name: diazepam Send Method: E-Prescri bed Subs Allowed: subs OK Specia l Instructi on: TAKE 1 TABLET BY MOUTH TWICE DAILY Med icationGe nericName : diazepam Not Available Not Available Not Available Nasonex 50 mcg/actuat ion [place] 2 spray into both nostrils once a day 2017 active Medicatio n ID: [id number] Du ration Value: 30 Prescrib ed By [...] mg tablet 2017 active Medicatio n ID: [id number] Du ration Value: 90 Brand Name: naproxen [...] mg tablet 2017 active Medicatio n ID: [id number] Du ration Value: 30 Brand Name: escitalop [...] aerosol inhaler 2015 active Medicatio n ID: [id number] Du ration Value: 30 Brand Name: ProAir [...] ended release 2015 active Medicatio n ID: [id number] Du ration Value: 30 Brand Name: Myrbetriq [...] Diagnosis SNOMED-CT Code Diagnosis ICD10 Code Diagnosis IMO Codes Diagnosis Note 80012 NICO FERRO MD [facility] [address] [place] [address] 02/29/2024 14:04:19 02/29/2024 15:00:38 Chronic sinusitis 76466674 J32.8 Health Concerns Section Related Observation LastModified by Organization Detai ls LastModified Time None Recorded Concern Status LastModified by Organization Details LastModified Time None Recorded Advance Directives Directive None Recorded Payers Insurance Date Sequence Insurance Name Policy Number Policy Clark Covered Member ID Clark Member ID Guarantor Name 02/26/2024 2 [place] [facility] Elba Martinez [id number] Elba Martinez 02/26/2024 1 MEDICARE B-[place]: [facility] Elba Martinez [id number] Elba Martinez Notes Date Note Type Note Provider Name and Address Organization Details Recorded Time 02/29/2024 text/html ROS as noted in the HPI 48 year old female with seasonal allergies and cerebral palsy presents [...] specialist Jun 2024. NICO MCKEON MD [address] [place] [address], [phone], [place] [facility] 03/01/2024 07:53:18 OBGyn Episode No OBEpisode recorded.
--- OUTSIDE RECORDS SUMMARY | 2025-03-13 20:30 | XMS_ITS | Patient Health Record ---
Author Organization [facility] Address [address] [place] [address] Care Team Providers Care Alining Inspector Name Role Phone Deirdre Boudreaux MD Primary Care Provider Hansel Floyd Unavailable [phone] Allergies Allergen (clinical drug ingredient) Drug/Non Drug [...] Problem Status W/U Status Risk Notes Problem Family History of Cancer of Colon (Situation) (273996601) Family history of colon cancer (Z80.0) Active confirmed Problem Hemorrhage of rectum and anus (764470116) Rectal bleed (K62.5) Active confirmed Plan Of Treatment No Information Insurance Providers Payer Name Payer Address Payer Phone Subscriber Number Group Number Insured Name Patient Relationship to Insured Coverage Start Date Coverage End Date MEDICARE OF [place] [address] [place] [address] [phone] [id number] DANNY MARTINEZ Self - patient is the insured [facility] [address] [place] [phone] [id number] DANNY MARTINEZ Self - patient is the insured Medical (General) History Medical History History ICD Code Urinary incontinence Hay fever IBS Cerebral palsy with some cognitive and d evelopmental disabilities Denies OK,DM,CVA,Lung disease,renal dise ase Describes a negative colonos copy over [address] Mitchell. She has also seen Dr. Rain for evaluation of abdominal pain in the distant past as well Surgical History Surgery Date(Month/Year) Removed appendix via NOTES via vagina Fatty tissue in the groin area . Shoulder-right
== END 2025-03-13 15:57 | disposition home or self-care (01) ==
LOC: HO.HMCC 14:17
PROVIDERS: PCP Internal Medicine; Visit Provider Internal Medicine
DX: R06.09 Other forms of dyspnea (principal); M25.511 Pain in right shoulder; E66.3 Overweight; Z23 Encounter for immunization

== ENCOUNTER → 2025-03-13 15:42 | Outpatient (BNV) | payer MEDICARE, MEDICAID, SELFPAY | PROVIDERS: PCP Internal Medicine; Visit Provider Radiology Diagnostic Radiology | DX: R06.09 Other forms of dyspnea (principal) | CPT/HCPCS: 71045 ==

== ENCOUNTER 2025-03-25 12:35 | Outpatient (AMB) | payer MEDICARE, MEDICAID, SELFPAY ==
[2025-03-25 12:41] VITALS: BMI 43.5
--- NOTE | 2025-03-25 12:41 | A.OFFVIS_ITS ---
VS Expanded 03/25/25 12:41 Height 5 ft 1 in Weight 230 lb BMI 43.5 Intake Visit Reasons: obesity Allergies atenolol Allergy (Unknown, Verified 03/13/25 14:28) bad dreams tramadol (Ultracet) Allergy (Unknown, Verified 03/13/25 14:28) Pt's mother doesn't remember semaglutide (From Ozempic) Adverse Reaction (Intermediate, Verified 03/13/25 15:12) skin discoloration Nutrition Presentation Details: Pt presents for MNT f/u for T2DM, obesity Pt Med Hx: Pt has intellectual disabilities, requiring supervision and direction Pt presents with grandma, main respiratory care assistant Grandma reports noticing that Elba has increased appetite. 24 hr food recall B: cereal cheerios (adds sugar) lactose free 2% milk L: burger/fries/breaded chicken , soda dinner: mac and cheese, green beans, snacks: juice crackers, soup physical activity: -05 min BS Monitoring Most Recent Diabetes Results: Cholesterol, (<200) 195 mg/dL 12/03/24 HDL Cholesterol, (>40) 73 mg/dL 12/03/24 Triglycerides, (<150) 45 mg/dL 12/03/24 Creatinine, (0.5-1.4) 0.81 mg/dL 12/03/24 BUN, (9-16) 10 mg/dL 12/03/24 Sodium, (135-145) 140 mmol/L 12/03/24 Potassium, (3.3-5.1) 4.0 mmol/L 12/03/24 Chloride, (96-108) 106 mmol/L 12/03/24 Carbon Dioxide, (22-29) 29 mmol/L 12/03/24 Calcium, (8.4-10.2) 9.2 mg/dL 12/03/24 AST, (5-31) 21 U/L 12/03/24 ALT, (0-31) 12 U/L 12/03/24 Total Protein, (6.5-8.0) 7.7 g/dL 12/03/24 Albumin, (3.5-5.0) 4.2 g/dL 12/03/24 [facility] Medical History (Updated 03/25/25 @ 14:50 by Megan Pfeiffer, RD, LDN) Overweight Constipation Normal colonoscopy Hyperlipidemia Annual physical exam Urinary incontinence Anxiety Insomnia Chronic iron deficiency anemia Mentally challenged Wrist pain, right Surgical History (Updated 03/13/25 @ 15:46 by Deirdre Boudreaux MD) H/O shoulder surgery H/O colonoscopy Family History Mother No problems noted. Maternal Grandmother Mental health disorder Social History Housing: House Alcohol intake: never Patient Tobacco Use Status: Never used Tobacco e-Cigarette/Vaping Use: Never Used Second Hand Smoke Exposure: No service: No Current occupational status: other Cognitive needs: No Hearing needs: No Vision needs: Yes Assessment & Plan Assessment & Plan (1) Overweight: Code(s): E66.3 - Overweight Category: Medical Plan: Wt: 104 Kg ( 04/2023 ) ,101 kg (04/15), 107 kg (07/17), 100kg (10/14), 98 kg(01/14), 104 kg (04/16) Est kcal needs as per MSJ: 1800 (40% carb, 30% protein/fat) Est fluid needs as per 25-30 ml/d: 3000 Est prot per day as per 1 g/kg bw: 102 Recommend fiber intake : 8-10 g per day and gradually increase to 25-28 g per day for women and 35-38 g for men or as tolerated Recommend sodium intake per day : less than 2300 mg Educated patient on: ( R = reviewed V = verbalizes understanding N/R = needs review N/A = not applicable * Food sources of carbohydrate, adequate serving sizes and its role in various health conditions: R * Differences between complex carbohydrates a simple carbohydrates, role of fiber in diet: R * Lean protein sources of foods: NR * Differences between types of fats and role in diet (mono on saturated fat fatty acids, saturated fatty acids, trans fats): R * Food sources of sodium in salt and healthy modifications for heart health in kidney health: R * Vitamins and minerals: R * Healthy plate method concept: R * Physical activity: Benefits a precaution: R Patient Instructions: Work on having scheduled meals routine Reduce on fried foods (fries/breaded foods items) Choose no added sugar foods ( do not add sugar to beverages, cereals, add cinnamon instead ) goal wt loss , 5 lbs less by next f/u Coding Level of Care Code Nutr Indiv Subseq (69878) Diagnoses Overweight E66.3 Time Spent (min) 30
--- OUTSIDE RECORDS SUMMARY | 2025-03-25 15:56 | XMS_ITS | Data Portability ---
Author Organization [place] - [facility], Allergy Address [address] [address] Assessment Encounter Date Assessment Date Assessment LastModified [...] CT, maxillofaci al, w/o contrast 2023 024 [facility] [place], [address] , [facility] [address], [place], [address], 4 08:51:03 Medication Orders doxycycline hyclate 100 mg tablet 2023 024 [facility], [address] [facility], [place], [place], [id number], 4 07:53:23 fluticasone propionate 50 mcg/actuati on nasal spray,suspe nsion 2023 024 [facility], [address] [facility] [place], [place], [id number], 4 07:53:25 Patient TargetsNo targets recorded. Patient InstructionsNo instructions recorded. Reason for Referral None Reported. Results Created Date Observation Date Name Description Value Unit Range Abnormal Flag Note LastModifiedBy Organization Detail LastModifiedTime 04/27/20 24 04/26/2024 CT, maxil lofac ial, w/o contr ast No observ ation record ed. jschreibstein [facility] [place] [address] [facility] [address], [place], [address], 04/27/2024 21:05:26 Result Notes None recorded. Problems Name Problem SNOMED Code Status Onset Date Resolution Date Notes Provider Name and Address Organization Details Recorded Time Posterio r rhinorrh ea 08787456 Completed 201512/23/2023 Postnasal drip; Note: Date Diagnosed : 01/22/2016 10:09 AM (R09.82) Not Available [facility] 4 02:41:28 Nasal congesti on 65840307 Completed 201512/23/2023 Nasal congestio n; Note: Date Diagnosed : 01/22/2016 10:05 AM (R09.81) Not Available [facility] 4 02:41:29 Chronic rhinitis 09363218 Active 2017 Purulent rhinitis (chronic) ; Note: Date Diagnosed : 01/27/2018 1:13 PM (J31.0) Not Available [facility] 4 02:41:31 Chronic sinusiti s 38860840 Active 2023 KAYE CARMONA PA-C [address] [place] [address], [place], [address] , [facility] - [facility] 4 14:57:08 Problem Notes None recorded. Medical Equipment None Reported. Allergies Allergen ID Allergen Name Allergen Category Reaction Reaction Severity Criticality Documentation Date Start Date Code Code System Note Provider Name and Address Organization Details Recorded Time 49553 Bactrim medicatio n other Not available Not available 10/04/2023 25499 9 RxNorm React ion: unkno wn, unspe cifie d;; Not Available [facility] 4 00:58:54 06021 atenolol medicatio n other Not available Not available 10/04/2023 1202 RxNorm React ion: unkno wn, unspe cifie d;; Not Available [facility] 4 00:58:58 Medications Name Sig Start Date [...] 24 hr 2017 active Medicatio n ID: [id number] Du ration Value: 90 Brand Name: oxybutyni [...] mg tablet 2015 active Medicatio n ID: [id number] Du ration Value: 30 Brand Name: diazepam Send Method: E-Prescri bed Subs Allowed: subs OK Specia l Instructi on: TAKE 1 TABLET BY MOUTH TWICE DAILY Med icationGe nericName : diazepam Not Available Not Available Not Available Nasonex 50 mcg/actuat ion [place] 2 spray into both nostrils once a day 2017 active Medicatio n ID: [id number] Du ration Value: 30 Prescrib ed By [...] mg tablet 2017 active Medicatio n ID: [id number] Du ration Value: 90 Brand Name: naproxen [...] mg tablet 2017 active Medicatio n ID: [id number] Du ration Value: 30 Brand Name: escitalop [...] aerosol inhaler 2015 active Medicatio n ID: [id number] Du ration Value: 30 Brand Name: ProAir [...] ended release 2015 active Medicatio n ID: [id number] Du ration Value: 30 Brand Name: Myrbetriq [...] ICD10 Code Diagnosis IMO Codes Diagnosis Note [id number] NICO FERRO MD [facility] [address] [place] [address] 02/29/2024 14:04:19 02/29/2024 15:00:38 Chronic sinusitis 77617549 J32.8 Health Concerns Section Related Observation LastModified by Organization Detai ls LastModified Time None Recorded Concern Status LastModified by Organization Details LastModified Time None Recorded Advance Directives Directive None Recorded Payers Insurance Date Sequence Insurance Name Policy Number Policy Clark Covered Member ID Clark Member ID Guarantor Name 02/26/2024 2 [place] [facility] Elba Martinez [id number] Elba Martinez 02/26/2024 1 MEDICARE B-[place]: [facility] Elba Martinez [id number] Elba Martinez Notes Date Note Type Note [...] seeing specialist Jun 2024. NICO MCKEON MD [address] [place] [address], [address], [place] - [facility] 03/01/2024 07:53:18 OBGyn Episode No OBEpisode recorded.
--- OUTSIDE RECORDS SUMMARY | 2025-03-25 15:56 | XMS_ITS | Patient Health Record ---
Author Organization [facility] Address [address] [place] [address] Care Team Providers Care Bioinformatics Software Engineer Name Role Phone Deirdre Boudreaux MD Primary Care Provider Hansel Floyd Unavailable [phone] Allergies Allergen (clinical drug ingredient) Drug/Non Drug [...] Family History of Cancer of Colon (Situation) (155857093) Family history of colon cancer (Z80.0) Active confirmed Problem Hemorrhage of rectum and anus (525908818) Rectal bleed (K62.5) Active confirmed Plan Of Treatment No Information Insurance Providers Payer Name Payer Address Payer Phone Subscriber Number Group Number Insured Name Patient Relationship to Insured Coverage Start Date Coverage End Date MEDICARE OF [place] [address] [place] [address] [id number] DANNY MARTINEZ Self - patient is the insured [facility] [address] [place] [address] [id number] DANNY MARTINEZ Self - patient is the insured Medical (General) History Medical History History ICD Code Urinary incontinence Hay fever IBS 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 Mitchell. She has also seen Dr. Rain for evaluation of abdominal pain in the distant past as well Surgical History Surgery Date(Month/Year) Removed appendix via NOTES via vagina Fatty tissue in the groin area . Shoulder-right
--- OUTSIDE RECORDS SUMMARY | 2025-03-25 15:57 | XMS_ITS | Data Portability ---
Author Organization MARK Julien s, [address] Address [address] [place] [address] Care Team Providers Care Special Agent [employer] Name Role Phone RAMÓN GRANADOS Primary Care Provider [phone] Assessment No assessment recorded. Plan of Treatment Reminders Order Date Submit Date Provider Last Modified By Organization Details Last Modified Time Details Appointments None recorded. Lab None recorded. Referral None recorded. Procedures None recorded. Surgeries None recorded. Imaging None recorded. Medication Orders Diflucan 150 mg tablet [address] [facility]57, [address] [place], [address], 3 18:18:50 ciprofloxac in 0.2 % ear drops in a dropperette 2022 023 [email or web address] [facility] [address] [place], [address], 3 13:24:37 cefdinir 300 mg capsule 2022 023 [facility] [address] [place], [address], 3 18:18:51 Patient TargetsNo targets recorded. Patient Instructions Encounter Date Encounter Id Patient Instructions Last Modified By Organization Details Last Modified Time 06/11/2022 [id number] earache: care instructions [email or web address] Not available 06/11/2022 18:18:47 ear infection (otitis [...] in the Eustachian Tube. 4. Saline Nasal [place] 5. Salt Water Gargle 6. Staying Hydrated [...] if you have any concerns or questions. [email or web address] Not available 06/11/2022 18:18:46 Reason for Referral None Reported. Problems Name Problem SNOMED Code Status Onset Date Resolution Date Notes Provider Name and Address Organization Details Recorded Time Urinary incontinence 571626075 Active 2022 MARK Medeiros - [facility] [...] Name and Address Organization Details Recorded Time 710630 grass pollen environme nt,medica tion Not available Not available Not available 06/11/2022 Constance hilton [place] - [facility] 3 17:12:26 046360 atenolol medicatio n Not available Not available Not available 06/11/2022 1202 RxNorm Constance hilton PA - [facility] 3 17:12:50 683260 Bactrim medicatio n rash Not available Not available 06/11/2022 68249 9 RxNorm Constance hilton [facility] - [facility] [...] Updated DateTime 3 154.94 cm 41.2 kg/m2 05020.1 4 g 96.8 [degF] 6 99 % [...] ICD10 Code Diagnosis IMO Codes Diagnosis Note [id number] [address] [facility] [address] [place] [address] 02/01/2022 12:52:42 02/01/2022 14:38:05 [id number] MARK ORTEGA [facility] [address] [place] [address] 06/11/2022 16:40:01 06/11/2022 18:21:41 Acute bilateral otitis media 363341618 H66.93 Candidiasis of vagina 72 556104 B37.31 Health Concerns Section Related Observation LastModified by Organization Detai ls LastModified Time None Recorded Concern Status LastModified by Organization Details LastModified Time None Recorded Advance Directives Directive None Recorded Payers Insurance Date Sequence Insurance Name Policy Number Policy Clark Covered Member ID Clark Member ID Guarantor Name 06/11/2022 1 MEDICARE [place]: [id number] Elba Martinez [id number] Elba Martinez 06/11/2022 2 MEDICAID-[place]: [facility] Elba Martinez [id number] Elba Martinez Notes Date Note Type Note [...] congestion. No Jaw pain. MARK ORTEGA [address] [facility] Corporation[facility]inicius Maher [place], [address], [place] - [facility] 06/12/2022 13:33:56 OBGyn Episode No OBEpisode recorded.
== END 2025-03-25 13:14 | disposition home or self-care (01) ==
LOC: HO.ENCR 12:36
PROVIDERS: PCP Internal Medicine; Visit Provider Dietitian, Registered
DX: E66.3 Overweight (principal)

== ENCOUNTER → 2025-03-25 12:35 | Outpatient (BNVA) | payer MEDICARE, MEDICAID, SELFPAY | PROVIDERS: PCP Internal Medicine; Visit Provider Dietitian, Registered | DX: E66.3 Overweight (principal); Z71.3 Dietary counseling and surveillance | CPT/HCPCS: 97803 ==

== ENCOUNTER 2025-04-08 11:22 | Outpatient (AMB) | payer MEDICARE, MEDICAID, SELFPAY ==
--- NOTE | 2025-04-08 11:39 | A.OFFPC_ITS ---
Vital Signs 04/08/25 11:42 04/08/25 15:09 Height 5 ft 1 in Weight 220 lb BMI 41.6 BP 138/96 H 125/80 Blood Pressure Location Lt brachial Rt brachial Position Sitting Sitting Respiration 16 Pulse 101 H Pulse Source Pulse Oximeter Temp 99.5 F Temp Source Oral Pulse Oximetry (%) 98 Oxygen Delivery Method Room Air Intake Visit Reasons: 4m follow up Intake Note: Pt is here today for a 4 months follow up visit. Pt c/o cough, congestion since Tuesday. Allergies atenolol Allergy (Unknown, Verified 04/08/25 11:52) bad dreams tramadol (Ultracet) Allergy (Unknown, Verified 04/08/25 11:52) Pt's mother doesn't remember semaglutide (From Ozempic) Adverse Reaction (Intermediate, Verified 04/08/25 11:52) skin discoloration Tobacco use date assessed: 04/08/25 Dental Screening Dental Screen Date: 08/03/24 HPI 4m follow up HPI Details Pt's mother is concerned about patient becoming forgetful and confused at the time for a few months. Pt denies insomnia, change in appetite. She has not been physically active. She participates in the day program for mentally disabled. Patient is established with neurologist and a psychiatrist. [facility] Medical History (Updated 04/08/25 @ 15:12 by Deirdre Boudreaux MD) Overweight Constipation Normal colonoscopy Hyperlipidemia Annual physical exam Urinary incontinence Anxiety Insomnia Chronic iron deficiency anemia Mentally challenged Wrist pain, right Surgical History H/O shoulder surgery H/O colonoscopy Family History Mother No problems noted. Maternal Grandmother Mental health disorder Social History Housing: House Alcohol intake: never Patient Tobacco Use Status: Never used Tobacco e-Cigarette/Vaping Use: Never Used Second Hand Smoke Exposure: No service: No Current occupational status: other Cognitive needs: No Hearing needs: No Vision needs: Yes Questionnaire Thrive Questionnaire Date Thrive assessed: 06/19/24 LIZZIE-7 AMB Questionnaire LIZZIE-7 Date LIZZIE - 7 assessed: 06/19/24 Source: Developed by Drs. Hansel Head, Katie Piper, Kuldip Ulloa and colleagues, with an educational simeon from [employer]. Review of Systems Const All systems reviewed & are unremarkable except as noted in HPI and below ENT Reports no additional complaints Card Reports no additional complaints Resp Reports no additional complaints GI Reports no additional complaints Reports no additional complaints Physical exam (Primary Care) Vital Signs: Last Vital Signs Temp 99.5 F 04/08/25 11:42 Pulse 101 H 04/08/25 11:42 Resp 16 04/08/25 11:42 BP 138/96 H 04/08/25 11:42 Pulse Ox 98 04/08/25 11:42 Oxygen Delivery Method Room Air 04/08/25 11:42 BMI result Body Mass Index 41.6 Tobacco/Smoking Status: Tobacco use Status Tobacco use date assessed 04/08/25 04/08/25 11:55 Patient Tobacco Use Status Never used Tobacco 04/08/25 11:40 e-Cigarette/Vaping Use Never Used 04/08/25 11:40 Thrive Assessment: Date of Thrive Assessment Date Thrive assessed 06/19/24 04/08/25 11:40 Const General: no acute distress HENMT Head: Yes normal to inspection Face and sinus: Yes normal facial exam Eyes General: appearance normal, both eyes and all related structures Resp Effort & Inspection: normal respiratory effort Auscultation: clear to auscultation bilaterally Cardio Rhythm: regular rhythm Heart sounds: S1 normal heart sound present and S2 normal heart sound present GI Inspection: Yes normal to inspection Palpation (GI): Soft to palpation Percussion: Yes normal to percussion Auscultation: normal bowel sounds Coding Level of Care Code Est Pt Level 4 (38869) Diagnoses Hyperlipidemia E78.5 Hyperglycemia R73.9 Vitamin B 12 deficiency E53.8 Memory deficit R41.3 Assessment & Plan Assessment & Plan (1) Hyperlipidemia: Code(s): E78.5 - Hyperlipidemia, unspecified Category: Medical Plan: Continue low-cholesterol diet (2) Hyperglycemia: Code(s): R73.9 - Hyperglycemia, unspecified Category: Medical Plan: Continue ADA diet increase exercise weight loss discussed with the patient (3) Vitamin B 12 deficiency: Code(s): E53.8 - Deficiency of other specified B group vitamins Category: Medical Plan: Check vitamin B12 level (4) Memory deficit: Code(s): R41.3 - Other amnesia Category: Medical Plan: For memory impairment patient's mother will discuss diagnosis and with patient's neurologist Orders: Orders Comprehensive Met. Panel Today E53.8 - Deficiency of other specified B group vitamins, E55.9 - Vitamin D deficiency, unspecified, E78.5 - Hyperlipidemia, unspecified, R73.9 - Hyperglycemia, unspecified Vitamin D 25-OH Total Today E53.8 - Deficiency of other specified B group vitamins, E55.9 - Vitamin D deficiency, unspecified, E78.5 - Hyperlipidemia, unspecified, R73.9 - Hyperglycemia, unspecified Complete Blood Count Auto Diff Today E53.8 - Deficiency of other specified B group vitamins, E55.9 - Vitamin D deficiency, unspecified, E78.5 - Hyperlipidemia, unspecified, R73.9 - Hyperglycemia, unspecified Lipid Panel Today E53.8 - Deficiency of other specified B group vitamins, E55.9 - Vitamin D deficiency, unspecified, E78.5 - Hyperlipidemia, unspecified, R73.9 - Hyperglycemia, unspecified Vitamin B12 and Folate Today E53.8 - Deficiency of other specified B group vitamins, E55.9 - Vitamin D deficiency, unspecified, E78.5 - Hyperlipidemia, unspecified, R73.9 - Hyperglycemia, unspecified IRON PROFILE Today E53.8 - Deficiency of other specified B group vitamins, E55.9 - Vitamin D deficiency, unspecified, E78.5 - Hyperlipidemia, unspecified, R73.9 - Hyperglycemia, unspecified
[2025-04-08 11:42] VITALS: BP 138/96; PULSE 101; RESP 16; TEMP 37.5; O2SAT 98; BMI 41.6
[2025-04-08 15:09] VITALS: BP 125/80
--- OUTSIDE RECORDS SUMMARY | 2025-04-08 23:35 | XMS_ITS | Data Portability ---
Author Organization MARK Julien s, [address] Address [address] [place] [address] Care Team Providers Care Cabinetmaker Helper Name Role Phone RAMÓN GRANADOS Primary Care Provider Assessment No assessment recorded. Plan of Treatment Reminders Order Date Submit Date Provider Last Modified By Organization Details Last Modified Time Details Appointments None recorded. Lab None recorded. Referral None recorded. Procedures None recorded. Surgeries None recorded. Imaging None recorded. Medication Orders D[facility]lucan [address] [facility] [address] [place], [address], 3 18:18:50 ciprofloxac in 0.2 % ear drops in a dropperette 2022 023 [email or web address] [facility] [address] [place], [address], 3 13:24:37 cefdinir [address] [facility] [address] [place], [address], 3 18:18:51 Patient TargetsNo targets recorded. Patient Instructions Encounter Date Encounter Id Patient Instructions Last Modified By Organization Details Last Modified Time 06/11/2022 [id number] earache: care instructions Not available 06/11/2022 18:18:47 ear infection (otitis [...] in the Eustachian Tube. 4. Saline Nasal [place] 5. Salt Water Gargle 6. Staying Hydrated [...] if you have any concerns or questions. [email or web address] Not available 06/11/2022 18:18:46 Reason for Referral None Reported. Problems Name Problem SNOMED Code Status Onset Date Resolution Date Notes Provider Name and Address Organization Details Recorded Time Urinary incontinence 654396592 Active 2022 MARK Medeiros - [facility] [...] Name and Address Organization Details Recorded Time 471580 grass pollen environme nt,medica tion Not available Not available Not available 06/11/2022 Constance hilton PA - [facility] 3 17:12:26 434614 atenolol medicatio n Not available Not available Not available 06/11/2022 1202 RxNorm Constance hilton PA - [facility] 3 17:12:50 758663 Bactrim medicatio n rash Not available Not available 06/11/2022 40238 9 RxNorm Constance hilton PA - [facility] [...] Updated DateTime 3 154.94 cm 41.2 kg/m2 21445.1 4 g 96.8 [degF] 6 99 % [...] ICD10 Code Diagnosis IMO Codes Diagnosis Note [id number] [address] [facility] [place] [address] 02/01/2022 12:52:42 02/01/2022 14:38:05 [id number] MARK ORTEGA [address] [facility] [facility] [address] [place] [address] 06/11/2022 16:40:01 06/11/2022 18:21:41 Acute bilateral otitis media 430041046 H66.93 Candidiasis of vagina 72 579662 B37.31 Health Concerns Section Related Observation LastModified by Organization Detai ls LastModified Time None Recorded Concern Status LastModified by Organization Details LastModified Time None Recorded Advance Directives Directive None Recorded Payers Insurance Date Sequence Insurance Name Policy Number Policy Clark Covered Member ID Clark Member ID Guarantor Name 06/11/2022 1 [place]: [employer] Elba Martinez [id number] Elba Martinez 06/11/2022 2 [place] [facility] Elba Martinez [id number] Elba Martinez Notes Date Note Type Note [...] congestion. No Jaw pain. MARK ORTEGA [address] [facility] [place], [address], [place] - [facility] 06/12/2022 13:33:56 OBGyn Episode No OBEpisode recorded.
--- OUTSIDE RECORDS SUMMARY | 2025-04-08 23:35 | XMS_ITS | Data Portability ---
Author Organization [place] - [facility], Allergy Address [address] [address] Assessment Encounter Date Assessment Date Assessment LastModified [...] CT, maxillofaci al, w/o contrast 2023 024 [facility], [address] , [facility] [address], [place], [address], 4 08:51:03 Medication Orders doxycycline hyclate 100 mg tablet 2023 024 [id number], [address] [facility], [place], [place], [id number], 4 07:53:23 fluticasone propionate 50 mcg/actuati on nasal spray,suspe nsion 2023 024 [id number], [address] [facility] [place], [place], [id number], 4 07:53:25 Patient TargetsNo targets recorded. Patient InstructionsNo instructions recorded. Reason for Referral None Reported. Results Created Date Observation Date Name Description Value Unit Range Abnormal Flag Note LastModifiedBy Organization Detail LastModifiedTime 04/27/20 24 04/26/2024 CT, maxil lofac ial, w/o contr ast No observ ation record ed. [email or web address] [facility] [address] [facility] [address], [place], [address], 04/27/2024 21:05:26 Result Notes None recorded. Problems Name Problem SNOMED Code Status Onset Date Resolution Date Notes Provider Name and Address Organization Details Recorded Time Posterio r rhinorrh ea 68967174 Completed 201512/23/2023 Postnasal drip; Note: Date Diagnosed : 01/22/2016 10:09 AM (R09.82) Not Available [facility] 4 02:41:28 Nasal congesti on 76570269 Completed 201512/23/2023 Nasal congestio n; Note: Date Diagnosed : 01/22/2016 10:05 AM (R09.81) Not Available [facility] 4 02:41:29 Chronic rhinitis 84631440 Active 2017 Purulent rhinitis (chronic) ; Note: Date Diagnosed : 01/27/2018 1:13 PM (J31.0) Not Available [facility] 4 02:41:31 Chronic sinusiti s 38254987 Active 2023 KAYE CARMONA PA-C [address] [place] [address], [place], [address] , [facility] - [facility] 4 14:57:08 Problem Notes None recorded. Medical Equipment None Reported. Allergies Allergen ID Allergen Name Allergen Category Reaction Reaction Severity Criticality Documentation Date Start Date Code Code System Note Provider Name and Address Organization Details Recorded Time 74651 Bactrim medicatio n other Not available Not available 10/04/2023 80767 9 RxNorm React ion: unkno wn, unspe cifie d;; Not Available [facility] 4 00:58:54 14332 atenolol medicatio n other Not available Not available 10/04/2023 1202 RxNorm React ion: unkno wn, unspe cifie d;; Not Available [facility] 4 00:58:58 Medications Name Sig Start Date [...] 24 hr 2017 active Medicatio n ID: [id number] Du ration Value: 90 Brand Name: oxybutyni [...] mg tablet 2015 active Medicatio n ID: [id number] Du ration Value: 30 Brand Name: diazepam Send Method: E-Prescri bed Subs Allowed: subs OK Specia l Instructi on: TAKE 1 TABLET BY MOUTH TWICE DAILY Med icationGe nericName : diazepam Not Available Not Available Not Available Nasonex 50 mcg/actuat ion Spencer Spencer 2 spray into both nostrils once a day 2017 active Medicatio n ID: [id number] Du ration Value: 30 Prescrib ed By [...] mg tablet 2017 active Medicatio n ID: [id number] Du ration Value: 90 Brand Name: naproxen [...] mg tablet 2017 active Medicatio n ID: [id number] Du ration Value: 30 Brand Name: escitalop [...] aerosol inhaler 2015 active Medicatio n ID: [id number] Du ration Value: 30 Brand Name: ProAir [...] ended release 2015 active Medicatio n ID: [id number] Du ration Value: 30 Brand Name: Myrbetriq [...] ICD10 Code Diagnosis IMO Codes Diagnosis Note [id number] NICO FERRO MD [facility] [address] [place] [address] 02/29/2024 14:04:19 02/29/2024 15:00:38 Chronic sinusitis 79240356 J32.8 Health Concerns Section Related Observation LastModified by Organization Detai ls LastModified Time None Recorded Concern Status LastModified by Organization Details LastModified Time None Recorded Advance Directives Directive None Recorded Payers Insurance Date Sequence Insurance Name Policy Number Policy Clark Covered Member ID Clark Member ID Guarantor Name 02/26/2024 2 [place] [facility] Elba Martinez [id number] Elba Martinez 02/26/2024 1 [place] [facility] Elba Martinez [id number] Elba Martinez Notes Date Note Type Note [...] seeing specialist Jun 2024. NICO MCKEON MD [address] [place] [address], [address], [place] - [facility] 03/01/2024 07:53:18 OBGyn Episode No OBEpisode recorded.
== END 2025-04-08 15:15 | disposition home or self-care (01) ==
LOC: HO.HMCC 11:22
PROVIDERS: PCP Internal Medicine; Visit Provider Internal Medicine
DX: E78.5 Hyperlipidemia, unspecified (principal); R73.9 Hyperglycemia, unspecified; E53.8 Deficiency of other specified B group vitamins; R41.3 Other amnesia

== ENCOUNTER → 2025-04-08 11:22 | Outpatient (BNVA) | payer MEDICARE, MEDICAID, SELFPAY | PROVIDERS: PCP Internal Medicine; Visit Provider Internal Medicine | DX: E78.5 Hyperlipidemia, unspecified (principal); R73.9 Hyperglycemia, unspecified; E53.8 Deficiency of other specified B group vitamins; R41.3 Other amnesia | CPT/HCPCS: 99212 ==